=== PATIENT | male | born 1940 | race Caucasian/White ===

== ENCOUNTER → 2017-12-11 13:00 | Outpatient (CLI) | payer MEDICARE, SELFPAY ==
[2017-12-11 14:12] LABS: PSA,Total- Diagnostic 7.78 ng/mL (0.0-4.0)
== END ==
PROVIDERS: Family Provider Student in an Organized Health Care Education/Training Program; PCP Student in an Organized Health Care Education/Training Program; Visit Provider Urology
DX: R97.20 Elevated prostate specific antigen [PSA] (principal)
CPT/HCPCS: 36415; 84153

== ENCOUNTER → 2018-05-30 10:47 | Outpatient (CLI) | payer MEDICARE, SELFPAY ==
[2018-05-30 12:09] LABS: PSA,Total- Diagnostic 8.04 ng/mL (0.0-4.0)
[2018-06-02 12:45] LABS: PSA, Free 0.51 ng/mL; PSA, Free % 7.6 % (.); PSA, Total Ultrasensitive 6.7 ng/mL (0.0-4.0)
== END ==
PROVIDERS: Family Provider Student in an Organized Health Care Education/Training Program; PCP Student in an Organized Health Care Education/Training Program; Visit Provider Urology
DX: R97.20 Elevated prostate specific antigen [PSA] (principal)
CPT/HCPCS: 36415; 84153; 84154

== ENCOUNTER 2018-06-17 05:44 | Day surgery (SDC) | payer MEDICARE, SELFPAY ==
[2018-06-17] VITALS (10 sets, daily range): BP systolic 121–176; BP diastolic 60–84; PULSE 51–536; RESP 16–18; TEMP 36.5–37.1; O2SAT 96–100; BMI 20.9
--- NOTE | 2018-06-17 07:15 | COLBX_PTH ---
PATIENT: EDDA ZAMBRANO LOC: EN U#:[id number] AGE/SX: 78/M ROOM: RE06/17/[address]: Dr. Jefferson Arthur MD : 1940 BED: DIS: 06/17/2018 SPEC #: [id number] RECD: 06/17/18 09:44 STATUS: YOLANDA IAN #: [id number] WALLY: 06/17/18 07:[address]: Jefferson Arthur DEPT: SURGICAL PATHOLOGY RECD BY: Christopher Dotson ENTERED: 06/17/18 11:23 SP TYPE: COLON BX OTHR DR: Dr. Jared Singh, Tissues: A - Ascending colon B - Ascending colon C - Ascending colon Procedures: Surgery Specimen Level IV HEADER OPERATION: Colonoscopy (MOD) PRE-OP DIAGNOSIS: History colon CA TISSUE SUBMITTED: A ? Ascending colon sessile polyp biopsy, B - Ascending colon flat abnormal mucosa biopsy, C - Ascending colon polyp biopsy MICROSCOPIC DIAGNOSIS A. Ascending colon sessile polyp, biopsy: Tubular adenoma. B. Ascending colon flat abnormal mucosa, biopsy: Fragments of colonic mucosa, no pathologic diagnosis. C. Ascending colon polyp, biopsy: Fragments of tubular adenoma. SJ:blanco 06/18/18 COMMENT Please make reference to previous specimen ([id number]) colon, distal abdominal perineal resection with diagnosis of invasive moderately differentiated colonic carcinoma. MICROSCOPIC DESCRIPTION Slides are reviewed. GROSS DESCRIPTION A - Received in fixative is one container labeled with the patient's name and designated ascending colon sessile polyp biopsy. The specimen consists of multiple irregular fragments of light kimbrough soft tissue that in aggregate measure 0.5 x 0.3 x 0.1 cm. The specimen is totally submitted in one cassette. B - Received in fixative is one container labeled with the patient's name and designated ascending colon flat abnormal mucosa biopsy. The specimen consists of multiple irregular fragments of light kimbrough soft tissue that in aggregate measure 1.5 x 0.2 x 0.1 cm. The specimen is totally submitted in one cassette. C - Received in fixative is one container labeled with the patient's name and designated ascending colon polyp biopsy. The specimen consists of multiple irregular fragments of light kimbrough soft tissue that in aggregate measure 1 x 0.5 x 0.1 cm. The specimen is totally submitted in one cassette. / CHARLES:blanco 06/17/18 TC:1 CPT: 06833 x3
--- NOTE | 2018-06-17 10:46 | OP.ENDO_ITS ---
Patient Name: Sean Sanders Procedure Date: 06/17/2018 7:16 AM Date of : 1940 Age: 78 Procedure: Colonoscopy Indications: High risk colon cancer surveillance: Personal history of rectal cancer Patient Profile: Last Colonoscopy: 3 years ago. Providers: eJfferson Arthur Referring MD: Jefferson Arthur Medicines: Midazolam 3 mg IV, Meperidine 100 mg IV Complications: No immediate complications. Procedure: Pre-Anesthesia Assessment: - Prior to the procedure, a History and Physical was performed, and patient medications and allergies were reviewed. The patient's tolerance of previous anesthesia was also reviewed. The risks and benefits of the procedure and the sedation options and risks were discussed with the patient. All questions were answered, and informed consent was obtained. Prior Anticoagulants: The patient has taken aspirin, last dose was day of procedure. ASA Grade Assessment: II - A patient with mild systemic disease. After reviewing the risks and benefits, the patient was deemed in satisfactory condition to undergo the procedure. After I obtained informed consent, the scope was passed under direct vision. Throughout the procedure, the patient's blood pressure, pulse, and oxygen saturations were monitored continuously. The pediatric colonoscope was introduced through the sigmoid colostomy and advanced to the cecum, identified by appendiceal orifice and ileocecal valve. The colonoscopy was performed without difficulty. The patient tolerated the procedure well. The quality of the bowel preparation was good. Scope In: 7:35:43 AM Scope Withdrawal Time 0 hours 11 minutes 15 seconds Scope Out: 7:50:53 AM Total Procedure Duration Time 0 hours 15 minutes 10 seconds Findings: Three sessile polyps were found in the proximal ascending colon. The polyps were 5 to 9 mm in size. These polyps were removed with a cold biopsy forceps. Resection and retrieval were complete. A few small-mouthed diverticula were found in the sigmoid colon. There was evidence of a widely patent end colostomy in the distal sigmoid colon. This was characterized by healthy appearing mucosa. Impression: - Three 5 to 9 mm polyps in the proximal ascending colon, removed with a cold biopsy forceps. Resected and retrieved. - Diverticulosis in the sigmoid colon. - Widely patent end colostomy with healthy appearing mucosa in the distal sigmoid colon. Recommendation: - Discharge patient to home. - Resume previous diet. - Continue present medications. - Telephone my office for pathology results in 1 week. - Repeat colonoscopy in 3 years for surveillance based on pathology results. Procedure Code(s): --- Professional --- 03162, Colonoscopy through stoma; with biopsy, single or multiple Diagnosis Code(s): --- Professional --- Z85.048, Personal history of other malignant neoplasm of rectum, rectosigmoid junction, and anus D12.2, Benign neoplasm of ascending colon Z93.3, Colostomy status K57.30, Diverticulosis of large intestine without perforation or abscess without bleeding CPT copyright 2017 [employer]. All rights reserved. The codes documented in this report are preliminary and upon first dyer review may be revised to meet current compliance requirements. MD Jefferson Martinez, 06/17/2018 8:09:32 AM This report has been signed electronically. Number of Addenda: 0 Note Initiated On: 06/17/2018 7:16 AM
== END 2018-06-17 08:56 | disposition home or self-care (01) ==
LOC: EN 05:44 → AC 05:46
PROVIDERS: Family Provider Student in an Organized Health Care Education/Training Program; PCP Student in an Organized Health Care Education/Training Program; Visit Provider Surgery
PROC: 0DJD8ZZ Inspection of Lower Intestinal Tract, Via Natural or Artificial Opening Endoscopic (ICD-10-PCS; CPT 45378; principal; 2018-06-17 07:10)
DX: D12.2 Benign neoplasm of ascending colon (principal); K57.30 Diverticulosis of large intestine without perforation or abscess without bleeding; Z85.038 Personal history of other malignant neoplasm of large intestine; I10 Essential (primary) hypertension; F41.9 Anxiety disorder, unspecified; Z93.3 Colostomy status; Z87.891 Personal history of nicotine dependence; Z79.82 Long term (current) use of aspirin; Z79.899 Other long term (current) drug therapy
CPT/HCPCS: 45380; 88305; 99152; 99153; J7120

== ENCOUNTER → 2019-06-15 | Outpatient (CLI) | payer MEDICARE, SELFPAY ==
[2018-06-17 06:15] VITALS: BMI 20.9
[2019-06-15 12:12] LABS: PSA,Total - Annual Screen 9.17 ng/mL (0.00-4.00)
== END | disposition home or self-care (01) ==
PROVIDERS: Family Provider Student in an Organized Health Care Education/Training Program; PCP Student in an Organized Health Care Education/Training Program; Referring Provider Urology; Visit Provider Urology
DX: Z12.5 Encounter for screening for malignant neoplasm of prostate (principal)
CPT/HCPCS: 36415; 84153; G0103

== ENCOUNTER → 2019-07-21 | Outpatient (CLI) | payer MEDICARE, SELFPAY ==
--- NOTE | 2019-07-21 09:05 | MRI_ITS ---
STUDY: MR PELVIS WITH AND WITHOUT CONTRAST (PROSTATE) REASON FOR EXAM: Male, 79 years old. Elevated PSA, negative prostate biopsy 2 years ago, history of colon cancer with colostomy, chemotherapy and radiation therapy in 2000 TECHNIQUE: Standardized multiparametric prostate MRI with T1, T2, DWI/ADC sequences were obtained in 3 orthogonal planes, and dynamic contrast enhancement sequences. 14 ml of Dotarem contrast material was administered intravenously for the contrast portion of the examination. COMPARISON: 06/19/2016 FINDINGS: The prostate volume measures 10-12 mm3. The contours of the prostate gland are smooth. There is not mass effect on the bladder base. The transition zone is heterogenous. PI-RADS DWI score 4 - Focal markedly hypointense on ADC and markedly hyperintense on high b-value DWI; 8 mm on image 80 of series 8. PI-RADS T2W score 4 - Non-circumscribed, homogeneous, moderately hypointense, and 8 mm in greatest dimension. This is best seen on image 19 of series 5 and image 37 of series 11. Nodule is in the anterior transitional zone (mid). Contrast enhancement (+) Focal, earlier or contemporaneous with enhancement of adjacent normal prostatic tissues, and corresponding to a suspicious finding on T2WI and/or DWI. The peripheral zone is heterogenous. PI-RADS DWI score 2 - Indistinct mildly hypointense on ADC. PI-RADS T2W score 2 - Linear, wedge-shaped, or diffuse mild hypointensity, usually with indistinct margin. Contrast enhancement (-) No early enhancement, or; diffuse enhancement so that margins do not correspond to a finding on T2WI and/or DWI, or; focal enhancement corresponding to a lesion demonstrating features of BPH on T2WI. The seminal vesicles demonstrate multiple T2 bright nonenhancing simple cysts. No mass lesion or invasion depicted. The rectoprostatic angles are normal. Urinary bladder is normal without wall thickening. The vascular structures of the are normal. The visualized hollow viscus structures are normal. Susceptibility artifact in the left hemipelvis likely relates to prior surgery. Left lower quadrant ostomy identified. Mild edema on the ilial side of the bilateral sacroiliac joints stable, likely degenerative. No discrete suspicious osseous mass. MRI/Pelvis W/WO Contrast IMPRESSION: 1. PIRADS v2 2015 -- 4 - High (clinically significant cancer is likely), new since prior MRI. 2. Small, heterogeneous prostate gland. 3. Seminal vesicle cysts, stable. Electronically Signed: Rikki Mayberry MD ([place]) at 9:18 EDT , Service support ,
[2019-07-21 09:35] LABS: CREATININE FINGERSTICK 1.4 mg/dL (0.70-1.30)
== END | disposition home or self-care (01) ==
LOC: MRI 08:59
PROVIDERS: Family Provider Student in an Organized Health Care Education/Training Program; PCP Student in an Organized Health Care Education/Training Program; Referring Provider Urology; Visit Provider Urology
DX: R97.20 Elevated prostate specific antigen [PSA] (principal)
CPT/HCPCS: 72197; A9575

== ENCOUNTER → 2020-05-02 | Outpatient (CLI) | payer MEDICARE, SELFPAY ==
--- NOTE | 2020-05-02 15:42 | RAD_ITS ---
STUDY: X-RAY - RIGHT FOOT CLINICAL: Male, 79 years old. little toe amputation d/t hammer toe 3 months ago, now presents with pain first toe and base of 5th mt, and possible infection TECHNIQUE: 3 view(s) of the foot. COMPARISON: None. FINDINGS: Postop change status post resection of the left hip total level of the metatarsal phalangeal joint. There is subchondral lucency of the lateral head of the fifth metatarsal without cortical destruction possibly representing early changes of acute osteomyelitis. Normal talus, calcaneus, and tarsal bones. Normal visualized subtalar, talonavicular, calcaneocuboid, tarsal and tarsometatarsal articulations. Normal metatarsi. Normal metatarsophalangeal joint of the great toe. Normal tibial and fibular sesamoid bones. Normal interphalangeal joint of the great toe. Normal phalanges of the great toe. Normal second through fifth metatarsophalangeal joints. Normal interphalangeal joints and phalanges of the lesser toes. The soft tissue structures are unremarkable. RAD/Foot min 3 Views IMPRESSION: Postsurgical changes status post amputation of the left fifth toe at the metatarsophalangeal joint. Cannot definitively exclude acute osteomyelitis of the distal fifth metatarsal. MRI or three-phase bone scan would be useful for further evaluation Electronically Signed: Alexander Gamez MD at 20:31 EDT , Service support ,
== END | disposition home or self-care (01) ==
LOC: HPRAD 15:39
PROVIDERS: PCP Student in an Organized Health Care Education/Training Program; Referring Provider Student in an Organized Health Care Education/Training Program; Visit Provider Student in an Organized Health Care Education/Training Program
DX: S98.131A Complete traumatic amputation of one right lesser toe, initial encounter (principal); L08.9 Local infection of the skin and subcutaneous tissue, unspecified
CPT/HCPCS: 73630

== ENCOUNTER → 2020-05-06 13:23 | Outpatient (CLI) | payer MEDICARE, SELFPAY ==
--- NOTE | 2020-05-06 13:27 | ART_ITS ---
Reason For Study: PVD Procedure A bilateral lower extremity continuous wave Doppler with analog waveform analysis,segmental pressures,and ankle brachial indexes without exercise. Left Segmental Pressures Left brachial= 130mmHg. Left thigh = >254mmHg. Left calf = >254mmHg. Left ankle= >254mmHg. Left posterior tibial artery = >254mmHg. Left dorsalis pedis artery = >254mmHg. Left digit = 34 mmHg. The left dorsalis pedis waveforms are monophasic. The left posterior tibial artery waveforms are monophasic. Right Segmental Pressures Right brachial= 123mmHg. Right thigh = >254mmHg. Right calf = >254mmHg. Right ankle= >254mmHg. Right posterior tibial artery = >254mmHg. Right dorsalis pedis artery = >254mmHg. The right dorsalis pedis waveforms are monophasic. The right posterior tibial artery waveforms are monophasic. Right digit = 20 mmHg. Indices The right ankle brachial index by the dorsalis pedis is NONCOMPRESSIBLE. The right ankle brachial index by the posterior tibial artery is NONCOMPRESSIBLE. The right digital-brachial index is 0.15. The left ankle brachial index by the dorsalis pedis is NONCOMPRESSIBLE. The left ankle brachial index by the posterior tibial artery is NONCOMPRESSIBLE. The left digital-brachial index is 0.26. Interpretation Summary Technically very limited examination based upon noncompressibility of vessels making ABIs unobtainable. Bilateral lower extremity monophasic waveforms at the posterior tibial and dorsalis pedis level consistent with severe disease bilaterally Abnormal digital brachial indices bilaterally Ordering Physician: Miguel Ángel Leavitt Referring Physician: Miguel Ángel Leavitt Performed By: Angi Mccoy RVT, RDCS
== END ==
PROVIDERS: PCP Student in an Organized Health Care Education/Training Program; Referring Provider Podiatrist Foot & Ankle Surgery; Visit Provider Podiatrist Foot & Ankle Surgery
DX: I73.9 Peripheral vascular disease, unspecified (principal)
CPT/HCPCS: 93923

== ENCOUNTER → 2020-05-11 | Outpatient (CLI) | payer MEDICARE, SELFPAY ==
[2020-05-11 15:55] VITALS: BMI 20.7
[2020-05-11 17:14] LABS: Hematocrit 35.5 % (40-54); Hemoglobin 11.6 g/dL (13.0-16.5); Mean Corp Hgb Conc 32.7 g/dL (32-36); Mean Corpuscular Hgb 32.5 pg (27.0-32.0); Mean Corpuscular Volume 99.4 fL (80-94); Mean Platelet Vol. 9.3 fl (6.2-12.0); Platelet Count 219 K/mm3 (150-450); RBC Distribution Width CV 12.2 % (11.6-14.6); RBC Distribution Width SD 44.8 fl (35.1-43.9); Red Blood Count 3.57 M/mm3 (4.6-6.2); White Blood Count 6.6 K/mm3 (4.4-11.0)
[2020-05-11 17:36] LABS: ALB/GLOB Ratio 1.4 RATIO (0.9-2.4); AST(SGOT) 20 U/L (15-37); Alanine Aminotransfer ALT/SGPT 29 U/L (16-61); Albumin, Serum 4.1 g/dL (3.2-5.0); Alkaline Phosphatase 68 U/L (45-117); Anion Gap 4 (5-15); BUN 37 mg/dL (7-18); BUN/Creat Ratio 21.4 RATIO (10-20); Calcium,Total 9.3 mg/dL (8.5-10.1); Chloride 107 mmol/L (98-107); Creatinine, Serum 1.73 mg/dL (0.70-1.30); EST Glomerular Filtration Rate 41 mL/min (>60); Est Glom Filt Rate - Afr Amer 49 mL/min (>60); Glucose 82 mg/dL (74-106); Potassium 4.3 mmol/L (3.5-5.1); Protein, Total 7.1 g/dL (6.4-8.2); Sodium Level 141 mmol/L (136-145)
== END | disposition home or self-care (01) ==
LOC: LAB 16:40
PROVIDERS: PCP Student in an Organized Health Care Education/Training Program; Referring Provider Surgery; Visit Provider Surgery
DX: Z01.818 Encounter for other preprocedural examination (principal)
CPT/HCPCS: 36415; 80053; 85027

== ENCOUNTER 2020-05-18 06:45 | Day surgery (SDC) | payer MEDICARE, SELFPAY ==
[2020-05-11 15:55] VITALS: BMI 20.7
[2020-05-17 08:15] VITALS: BMI 20.7
--- NOTE | 2020-05-18 07:00 | PCM.HP.BLA ---
Problem List (1) Peripheral arterial occlusive disease Status: Acute History and Physical Date of Admission: 05/18/20 Intake Visit Reasons: NON HEALING WOUND, US 05/06 PVD Kiosk Sales Representative Required: No Is patient in pain?: Yes (Right foot) Pain scale (1-10): 4 Allergies morphine Adverse Reaction (Verified 05/11/20 16:02) Vomiting Medications Alendronate Sodium [Fosamax] 70 mg PO Q7D@0700 06/25/16 [History Confirmed 05/11/20] Aspirin [Adult Low Dose Aspirin EC] 81 mg PO DAILY 06/25/16 [History Confirmed 05/11/20] Calcium Carbonate/Vitamin D3 [Calcium 500 mg Chewable Tablet] 2 ea PO DAILY 06/25/16 [History Confirmed 05/11/20] Cetirizine HCl [Allergy Relief] 10 mg PO DAILY 06/25/16 [History Confirmed 05/11/20] Fluticasone 0.05% [Flonase Nasal [place]] 1 spray NASAL BID 06/25/16 [History Confirmed 05/11/20] L.acidoph,Paracasei, B.lactis [Probiotic] 1 ea PO DAILY 06/25/16 [History Confirmed 05/11/20] Multivitamin [Daily Multiple Vitamin] 1 ea PO DAILY 06/25/16 [History Confirmed 05/11/20] Nabumetone [Relafen] 500 mg PO BID 06/25/16 [History Confirmed 05/11/20] Omeprazole [Prilosec] 20 mg PO BID 06/25/16 [History Confirmed 05/11/20] Potassium Chloride [Klor-Con M20] 20 meq PO BID 06/25/16 [History Confirmed 05/11/20] Pravastatin [Pravachol] 40 mg PO QHS 06/25/16 [History Confirmed 05/11/20] Saw [place] Fruit [Saw [place]] 450 mg PO DAILY 06/25/16 [History Confirmed 05/11/20] Tamsulosin HCl [Flomax] 0.4 mg PO BID 06/25/16 [History Confirmed 05/11/20] Trazodone HCl 50 mg PO DAILY 06/25/16 [History Confirmed 05/11/20] cholecalciferol (vitamin D3) 125 mcg (5,000 unit) capsule 1,000 unit PO DAILY cap 05/26/18 [History Confirmed 05/11/20] cephalexin 500 mg capsule 500 mg PO Q6H cap 05/11/20 [History Confirmed 05/11/20] citalopram 40 mg tablet 40 mg PO DAILY tab 05/11/20 [History Confirmed 05/11/20] collagenase clostridium histo. 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 Jefferson Arthur MD) Smoking Status: Former smoker alcohol intake: never substance use type: does not use HPI HPI HPI: EDDA SANDERS, is a 80 M who presents to the office today for surgical consultation regarding a nonhealing right fifth toe surgical site and calcaneal pressure sore the patient apparently had a right foot fifth digit trigger toe as well as a first digit bunion. Dr. Del Rosario's upon apparently perform surgery on the fifth toe January 2020. There is been nonhealing of the wound since. I see x-ray images at the [facility] on May 02, 2020. Postsurgical changes post amputation of the right fifth toe at the metatarsal phalangeal joint. Cannot exclude acute osteomyelitis of the distal fifth metatarsal. MRI recommended. However by patient report an MRI could not be pursued because of the patient's chronic renal insufficiency. The patient had noninvasive bilateral lower extremity arterial study done at the [facility] May 06, 2020. Unfortunately this was an extraordinarily limited exam due to noncompressibility of vessels throughout. Doppler waveforms were monophasic bilateral posterior tibial and dorsalis pedis. Digital waveforms markedly flattened with significantly abnormal digital brachial indices of 0.15 on the right and 0.26 on the left. The patient spends a lot of time outside and has so for most of his life. He always enjoyed hunting and trapping. Although he does not specifically recall an episode of frostbite he does not exclude that as a possibility. He denies myocardial infarction or CVA or diabetes or tobacco use. He states family history is notable for a mother who in her 90s had a stroke. His only anticoagulant is low-dose aspirin. He does take pravastatin. His history is notable for rectal cancer for which I remotely assisted him with an abdominal perineal resection with a permanent sigmoid colostomy. He has had no recurrence and his most recent colonoscopy is as noted below [facility] [address] [place] [address] Lower Ext Art Exam w/o Exercis 05/06/20 1359 MR#: [id number] Name:EDDA SANDERS [facility] #:[id number] : 1940 80From:Jefferson Arthur MD Attending Dr: MALLORY Scotttatus: REG CLI Ordering Dr: Miguel Ángel LeavittMDate: 05/06/20 [facility]: Reason For Study: PVD Procedure A bilateral lower extremity continuous wave Doppler with analog waveform analysis,segmental pressures,and ankle brachial indexes without exercise. Left Segmental Pressures Left brachial= 130mmHg. Left thigh = >254mmHg. Left calf = >254mmHg. Left ankle= >254mmHg. Left posterior tibial artery = >254mmHg. Left dorsalis pedis artery = >254mmHg. Left digit = 34 mmHg. The left dorsalis pedis waveforms are monophasic. The left posterior tibial artery waveforms are monophasic. Right Segmental Pressures Right brachial= 123mmHg. Right thigh = >254mmHg. Right calf = >254mmHg. Right ankle= >254mmHg. Right posterior tibial artery = >254mmHg. Right dorsalis pedis artery = >254mmHg. The right dorsalis pedis waveforms are monophasic. The right posterior tibial artery waveforms are monophasic. Right digit = 20 mmHg. Indices The right ankle brachial index by the dorsalis pedis is NONCOMPRESSIBLE. The right ankle brachial index by the posterior tibial artery is NONCOMPRESSIBLE. The right digital-brachial index is 0.15. The left ankle brachial index by the dorsalis pedis is NONCOMPRESSIBLE. The left ankle brachial index by the posterior tibial artery is NONCOMPRESSIBLE. The left digital-brachial index is 0.26. Interpretation Summary Technically very limited examination based upon noncompressibility of vessels making ABIs unobtainable. Bilateral lower extremity monophasic waveforms at the posterior tibial and dorsalis pedis level consistent with severe disease bilaterally Abnormal digital brachial indices bilaterally Ordering Physician: Miguel Ángel Leavitt Referring Physician: Miguel Ángel Leavitt Performed By: Angi Mccoy Henrietta, RDCS 05/06/20 1658 Date [facility] Medical Records Department [address] [place] [id number] Progress Note - Endoscopy 06/17/18715 MR#: [id number] Name:EDDA SANDERS [facility] #:[id number] : From: Jefferson Arthur MD Patient Name: Edda Sanders Procedure Date: 06/17/2018 7:16 AM Date of : 1940 Age: 78 Procedure: Colonoscopy Indications: High risk colon cancer surveillance: Personal history of rectal cancer Patient Profile: Last Colonoscopy: 3 years ago. Providers: Jefferson Arthur Referring MD: Jefferson Arthur Medicines: Midazolam 3 mg IV, Meperidine 100 mg IV Complications: No immediate complications. Procedure: Pre-Anesthesia Assessment: - Prior to the procedure, a History and Physical was performed, and patient medications and allergies were reviewed. The patient's tolerance of previous anesthesia was also reviewed. The risks and benefits of the procedure and the sedation options and risks were discussed with the patient. All questions were answered, and informed consent was obtained. Prior Anticoagulants: The patient has taken aspirin, last dose was day of procedure. ASA Grade Assessment: II - A patient with mild systemic disease. After reviewing the risks and benefits, the patient was deemed in satisfactory condition to undergo the procedure. After I obtained informed consent, the scope was passed under direct vision. Throughout the procedure, the patient's blood pressure, pulse, and oxygen saturations were monitored continuously. The pediatric colonoscope was introduced through the sigmoid colostomy and advanced to the cecum, identified by appendiceal orifice and ileocecal valve. The colonoscopy was performed without difficulty. The patient tolerated the procedure well. The quality of the bowel preparation was good. Scope In: 7:35:43 AM Scope Withdrawal Time 0 hours 11 minutes 15 seconds Scope Out: 7:50:53 AM Total Procedure Duration Time 0 hours 15 minutes 10 seconds Findings: Three sessile polyps were found in the proximal ascending colon. The polyps were 5 to 9 mm in size. These polyps were removed with a cold biopsy forceps. Resection and retrieval were complete. A few small-mouthed diverticula were found in the sigmoid colon. There was evidence of a widely patent end colostomy in the distal sigmoid colon. This was characterized by healthy appearing mucosa. Impression: - Three 5 to 9 mm polyps in the proximal ascending colon, removed with a cold biopsy forceps. Resected and retrieved. - Diverticulosis in the sigmoid colon. - Widely patent end colostomy with healthy appearing mucosa in the distal sigmoid colon. Recommendation: - Discharge patient to home. - Resume previous diet. - Continue present medications. - Telephone my office for pathology results in 1 week. - Repeat colonoscopy in 3 years for surveillance based on pathology results. Procedure Code(s): --- Professional --- 93379, Colonoscopy through stoma; with biopsy, single or multiple Diagnosis Code(s): --- Professional --- Z85.048, Personal history of other malignant neoplasm of rectum, rectosigmoid junction, and anus D12.2, Benign neoplasm of ascending colon Z93.3, Colostomy status K57.30, Diverticulosis of large intestine without perforation or abscess without bleeding CPT copyright 2017 [employer]. All rights reserved. The codes documented in this report are preliminary and upon binder sorter review may be revised to meet current compliance requirements. MD Jefferson Martinez, 06/17/2018 8:09:32 AM This report has been signed electronically. Number of Addenda: 0 Note Initiated On: 06/17/2018 7:16 AM ____ No Clinically relevant changes since time of dictation ____ See Progress Notes for Changes ____ Dictated on Admission 06/17/18 0846 Date Jefferson Arthur MD HPI HPI HPI: EDDA SANDERS, is a 80 M who presents to the office today for ROS General General: Yes weight change, fatigue and colon cancer; no appetite, breast cancer or weakness HEENT HEENT: No difficulty swallowing, eye injury, eye surgery, swollen glands or hoarseness Endo Endocrine: No thyroid disease, diabetes mellitus, thyroid cancer, Hair loss, heat intolerance or cold intolerance Skin Skin: No rash or changing moles Breast Breast: No left breast lump, right breast lump, nipple discharge, breast pain, abnormal mammogram, abnormal US or breast enlargement Musc Musculoskeletal: Yes arthritis; no back problems, rheumatoid arthritis, gout or joint pain Cardio Cardiovascular: No murmur, pacemaker, heart disease, atrial fibrillation, high blood pressure, heart attack, heart stent, palpitations, shortness of breat with exertion or chest pain Psych Psychiatric: Yes depression and anxiety; no hearing voices Resp Respiratory: No shortness of breath, Yes sleep apnea, No cough, No COPD, No asthma, No emphysema, No wheezing Gastro Gastrointestinal: No abdominal pain, No nausea or vomiting, Yes diarrhea, No constipation, No blood in stool, Yes acid reflux, No hemorrhoids, No ulcers, No gallbladder problem, No black,tarry stools Mark Hematologic: Yes blood thinners (ASA 81 mg), No blood disorders, No bleeding, No anemia, No blood clots Neuro Neurologic: No weakness Exam Const General: cooperative, comfortable, no acute distress Nutritional Appearance: average body habitus Orientation: alert, awake, oriented x3 HENMT Head: normal to inspection Eyes General: appearance normal, both eyes and all related structures Neck Other: Supple, no cervical adenopathy Chest Chest palpation & inspection: normal inspection of the chest Breast Palpation: No nipple discharge Resp Effort & Inspection: normal respiratory effort Auscultation: clear to auscultation bilaterally Cardio Rate: regular rate Rhythm: regular rhythm Heart Sounds: no murmurs Other: Right radial pulse 0, right brachial pulse 2+ Left radial pulse 1+, left brachial 2+ Bilateral carotids 2+. I do not detect carotid bruit Bilateral femorals 2+ Bilateral popliteals 2+ Bilateral DPs and PTs absent GI Palpation: soft, no hepatosplenomegaly Other: Per minute left lower quadrant and sigmoid stoma present Normal bowel sounds No abdominal bruit Musc Other: Mild kyphosis Neuro Cognition: normal cognition Extrem Other: Right calcaneus has superficial discoloration approximately 3 x 1 cm consistent with pressure sore stage I Dorsum right foot has a small 6 mm diameter superficial ulceration Right fifth digit surgically absent with nonhealing wound There is marked atrophy and elevation pallor and hyperemic response to dependency all 10 digits and distal forefoot. Psych Affect: normal affect Assessment & Plan Problems 1. Peripheral arterial occlusive disease I77.9 2. Small vessel disease I73.9 Plan 80-year-old gentleman who claims that he is not diabetic. His clinical peripheral vascular occlusive disease presents as if a diabetic pattern. He has critical ischemia of both feet. There is likely multi segmental occlusion of his infrageniculate vessels bilaterally. Additionally he likely has severe small vessel disease bilaterally. I strongly suspect that he has had previous unrecognized episode of frostbite to his toes. Unfortunately he additionally reports a history of inability to proceed with MRI because of chronic renal insufficiency. I propose for him a abdominal pelvic right lower extremity arteriogram with possible endovascular intervention as a means of right foot salvage. In great detail with his daughter Catrina burger we have discussed the technique benefit risk complications and alternatives. For the larger vessels I could use carbon dioxide but he is well aware that contrast would be required for the fine definition detail of the infrageniculate vessels. Absolutely no guarantees of success have been offered. The patient is aware that he currently is at significant risk for limb loss. If his renal function is prohibitive then I recommend referral to the wound care center for consideration of hyperbaric oxygen therapy. He has had an opportunity to ask and have questions answered. We will obtain laboratory today. We will tentatively schedule him for endovascular intervention as soon as feasible. In addition to the above I did additionally offer the option of a tertiary referral consultation. They would like to stay locally if feasible. I appreciate the opportunity of continuing assist with his surgical care Copy: Dr. Jared Singh and Dr. Miguel Ángel Arthur M.D., F.A.C.S. Orders Orders: Comprehensive Metabolic Profil Today Z01.818 CBC-Complete Blood Cnt No Diff Today Z01.818 Coding Level of Care Code Off vis,est,level 4 Diagnoses Peripheral arterial occlusive disease I77.9 Small vessel disease I73.9 I have re-examined the patient. There are no clinical changes since date of exam. Procedure Criteria Procedure Type: Elective COVID Risk Discussion: The surgeon/proceduralist and patient have discussed in detail the risk of exposure to and/or potential harm posed by the COVID-19 virus with having a surgery/procedure at this time versus the risk of delaying the surgery/procedure. It is not possible to know either the risk of delaying the surgery or procedure or chance of getting an infection with perfect accuracy, but a joint decision was made between the patient and the surgeon/proceduralist to proceed at this time with the scheduled surgery/procedure as indicated on the consent form.
[2020-05-18 09:16] LABS: ACT Activated Clotting Time 180 sec (74-137)
[2020-05-18 09:16] LABS: ACT Activated Clotting Time 186 sec (74-137)
[2020-05-18 09:16] LABS: ACT Activated Clotting Time 120 sec (74-137)
--- NOTE | 2020-05-18 09:19 | OP.PCM_ITS ---
Problem List (1) Peripheral arterial occlusive disease Status: Acute Report of Operation Date of Procedure: 05/18/20 Pre-Operative Diagnosis: Nonhealing right foot amputation site Post-Operative Diagnosis: Nonhealing right foot amputation site. 85% stenosis right distal superficial femoral artery, 80% stenosis distal right anterior tibial artery, occlusion proximal right peroneal and posterior tibial arteries Surgery/Procedure Performed:: Abdominal pelvic right lower extremity arteriogram with 2 mm tapered to 1.5 mm 210 mm [place] cross anterior tibial angioplasty, right superficial femoral 6 x 2 Powerflex angioplasty Description of Surgical Findings:: Timeout and informed consent was obtained. 80-year-old gentleman was taken to the special procedures lab placed upon the table. 4 mg of Zofran and 50 mcg of fentanyl and 1 mg of Versed were given as an intermittent sedation. Ultrasound was performed of the left groin. Under ultrasound guidance 2% lidocaine was instilled as a local anesthetic. A total of 10 cc was used. Under ultrasound guidance a micropuncture needle was inserted into the left common femoral artery followed by Seldinger wire advancement. Micropuncture sheath was inserted. 035 J-wire was inserted. 5 Nigerian short sheath dilator was inserted. Then using a 035 angled Glidewire a 5 Nigerian universal flush catheter was placed into the distal abdominal aorta. Using carbon dioxide a AP aortogram was obtained. Then using an angled Glidewire and the flush catheter I gained access to the proximal right superficial femoral artery. Static views of the entire right lower extremity were obtained with hand-injection of carbon dioxide. Having achieved that identified a area of high-grade stenosis within the distal right superficial femoral artery and within the distal right anterior tibial artery as well as occlusion of the right posterior tibial and peroneal arteries. I placed a 035 quick cross catheter was able to get by the area of SFA stenosis using that and an angled Glidewire. I then exchanged out for an 035 Magic wire. I exchanged out the 5 Nigerian sheath for a 70 cm 6 Nigerian Rabie sheath. Patient received 8000 units of heparin. And then based upon ACT measurements throughout the procedure he received another thousand units. I was able to engage the right anterior tibial with a airplane patrol pilot 150 wire and was able to advance that wire d own past the ankle mortise. I then placed a 2-1.5 taper [place] cross balloon and performed angioplasty of the entire length of the right anterior tibial. There was no refilling of the distal right peroneal or posterior tibial to allow for reestablishment of flow. Having performed the angioplasty and then inspected the distal right superficial femoral artery and utilized a 6 x 2 Powerflex balloon to treat that area of high-grade stenosis. I did use intermittent diluted contrast to assist with final visualization. The SFA responded nicely with a 10 to 15% residual focal notch. I elected not to retreat that with a larger balloon for risk of causing the dissection. The right anterior tibial appeared to respond nicely. The sheath was then withdrawn. Magic wire reinserted. A Perclose diet device was inserted and secured with good immediate obtaining hemostasis. At the completion there was a 3+ palpable right popliteal pulse and a nicely dopplerable right distal anterior tibial. Blood loss was minimal Contrast used 18.5 cc Visipaque Images demonstrate a widely patent distal abdominal aorta bilateral common iliacs and internal iliacs. The right common femoral proximal superficial femoral and profundofemoral patent. As noted there is an area of significant stenosis within the right distal superficial femoral artery at 85%. The popliteal is patent. The distal right anterior tibial artery is diffusely narrowed to 80%. Both the right proximal peroneal and posterior tibial occlude shortly after their origin. Subsequent to the angioplasty of anterior tibial and superficial femoral artery both are improved. There is a residual focal area of stenosis of the superficial femoral artery at 10 to 15%. As noted above I elected not to retreat that for fear of causing a dissection. The patient tolerated the procedure well. Jefferson Arthur M.D., F.A.C.S. Type of Anesthesia:: IV Sedation, Local
== END 2020-05-18 13:00 | disposition home or self-care (01) ==
LOC: CLSP 06:45
PROVIDERS: PCP Student in an Organized Health Care Education/Training Program; Referring Provider Surgery; Visit Provider Surgery
DX: I73.9 Peripheral vascular disease, unspecified (principal); I12.9 Hypertensive chronic kidney disease with stage 1 through stage 4 chronic kidney disease, or unspecified chronic kidney disease; N18.9 Chronic kidney disease, unspecified; F41.9 Anxiety disorder, unspecified; Z89.421 Acquired absence of other right toe(s); Z87.891 Personal history of nicotine dependence; Z85.048 Personal history of other malignant neoplasm of rectum, rectosigmoid junction, and anus; Z93.3 Colostomy status; Z79.82 Long term (current) use of aspirin; Z79.899 Other long term (current) drug therapy
CPT/HCPCS: 36200; 36245; 37224; 37228; 75625; 75710; 76937; 85347; 99152; 99153; J7030; Q9967; C1725; C1760; C1769; C1887; C1894; J2405

== ENCOUNTER → 2020-06-08 | Outpatient (CLI) | payer MEDICARE, SELFPAY ==
[2020-05-17 08:15] VITALS: BMI 20.7
== END | disposition home or self-care (01) ==
LOC: LAB 07:55
PROVIDERS: PCP Student in an Organized Health Care Education/Training Program; Referring Provider Urology; Visit Provider Urology
DX: R97.20 Elevated prostate specific antigen [PSA] (principal); L97.512 Non-pressure chronic ulcer of other part of right foot with fat layer exposed; M21.621 Bunionette of right foot; L84 Corns and callosities; I73.9 Peripheral vascular disease, unspecified
CPT/HCPCS: 11042; 36415; 84153; 99213; G0463

== ENCOUNTER 2020-06-29 08:30 | Outpatient (RCR) | payer MEDICARE, SELFPAY ==
[2020-05-17 08:15] VITALS: BMI 20.7
[2020-06-08 08:58] VITALS: BP 130/76; PULSE 66; RESP 18; TEMP 36.4; BMI 20.7
--- NOTE | 2020-06-08 10:21 | PCM.WC.PN ---
(1) Ulcer of right foot with fat layer exposed Status: Chronic Current Visit: Yes Code(s): L97.512 - Non-pressure chronic ulcer of other part of right foot with fat layer exposed (2) Delayed wound healing Status: Chronic Current Visit: Yes Code(s): T14.8XXD - Other injury of unspecified body region, subsequent encounter (3) Tailors bunion Status: Chronic Current Visit: Yes Qualifiers: Laterality: right Qualified Code(s): M21.621 - Bunionette of right foot Code(s): M21.629 - Bunionette of unspecified foot (4) Callus of foot Status: Chronic Current Visit: Yes Code(s): L84 - Corns and callosities (5) Peripheral arterial occlusive disease Status: Chronic Current Visit: Yes Code(s): I77.9 - Disorder of arteries and arterioles, unspecified (6) History of amputation of toe Status: Chronic Current Visit: Yes Code(s): Z89.429 - Acquired absence of other toe(s), unspecified side Comment: Right foot- 5th digit Type of Wound Date of Service: 06/08/20 Chief Complaint: right foot ulcers History of Wound: This 80-year-old male presents the wound healing center for nonhealing right foot ulcers. 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 Leavitt. It failed to heal and he was further evaluated and had vascular arterial intervention with Dr. Arthur on 05-18-2020. He relates the current ulcer sites have been open for over 4 months. He denies recent trauma. He denies redness, odor, or streaking. He denies fever, chill, nausea, vomiting. He denies claudication however relates he is mainly seated throughout the day. He wears an athletic sneaker. He denies rest paresthesias. He denies history of diabetes. He denies rest pain of the foot and reports his foot is warmer since he had vascular intervention. He also relates that he has dry skin and callus formation near his bunion site and heel. He has been applying lotion and this site is very sensitive. He denies drainage. He also has a bunion deformity and ask if he is an appropriate candidate to have a bunion correction surgically. Progress of Wound: Stable - Physical Exam Vital Signs Temp Pulse Resp BP 97.6 F L 66 18 130/76 H 06/08/20 08:58 06/08/20 08:58 06/08/20 08:58 06/08/20 08:58 General: Alert, Oriented x3, Cooperative, No apparent distress HEENT: Atraumatic, - - Difficulty hearing Extremities: No cyanosis, Capillary Refill Less than 3 Seconds, No Calf Tenderness - Negative Teto and Nieto sign bilateral. Compartments are soft to palpate right lower extremity, Diminished Peripheral Pulses, Edema Skin: Ulcer/ Wound - No purulence, erythema, streaking, odor, necrosis, probe to bone, or infection. The adjacent skin is hairless and atrophic. The plantar ulcer has fibrous and granular base. The dorsal ulcer is 100% fibrous base, - - Callus that has previously been well debrided to the plantar medial first metatarsal head and heel. No fissures or open lesions noted Wound Measurements and Assessment WC - Nurse 1 - General Ulcer Measurement Start: 06/08/20 08:56 Freq: Status: Active Protocol: Activity Type Activity Date Activity User E-Sign Co-Sign Detail Recorded Client Recorded Date Recorded By Document 06/08/20 08:58 MN [id number] 06/08/20 09:21 MN 06/08/20 08:58 Wound Center Nurse 1 [Ulcer Assessment] #2 RIGHT Lateral Foot -Current Size (cm) - Length 1.6 -Current Size (cm) - Width 0.6 -Current Size (cm) - Depth 0.2 -Total Square Cm 0.96 -Exudate Amt None Present -Wound Margin Flat & Intact -Granulation Amt Small (1-33%) -Granulation Quality Pale,Brutus -Necrosis Amt Large (67-100%) -Necrotic Tissue Type Adherent Slough -Texture (Salma-wound Skin Appearance) Assessed,Callus -Moisture (Salma-wound Skin Appearance Assessed ) -Color (Salma-wound Skin Appearance) Assessed -Temperature (Salma-wound Skin No Abnormality Appearance) (Pt Warm) -Tenderness on Palpation (Salma-wound No Skin Appearance) -Ulcer Cleansing Rinsed/ Irrigated with Saline -Foul Odor after Cleansing No -Anesthetic Used 4% Lidocaine Solution #1 RIGHT PLANTAR -Current Size (cm) - Length 0.7 -Current Size (cm) - Width 0.2 -Current Size (cm) - Depth 0.4 -Total Square Cm 0.14 -Exudate Amt None Present -Wound Margin Flat & Intact -Granulation Amt Large (67-100%) -Granulation Quality Pale -Slough/Fibrin No -Texture (Salma-wound Skin Appearance) Assessed,Callus -Moisture (Salma-wound Skin Appearance Assessed ) -Color (Salma-wound Skin Appearance) Assessed -Temperature (Salma-wound Skin No Abnormality Appearance) (Pt Warm) -Tenderness on Palpation (Salma-wound No Skin Appearance) -Ulcer Cleansing Rinsed/ Irrigated with Saline -Foul Odor after Cleansing No -Anesthetic Used 4% Lidocaine Solution [Edema Assessment] -Lower Limb Edema Present NA WC - Nurse 2 - General Ulcer CM Notes Start: 06/08/20 08:56 Freq: Status: Active Protocol: Activity Type Activity Date Activity User E-Sign Co-Sign Detail Recorded Client Recorded Date Recorded By Document 06/08/20 09:36 JF [id number] 06/08/20 09:46 [email or web address] 06/08/20 09:36 Wound Center Nurse 2 [Procedure/Treatment] #2 RIGHT Lateral Foot -Time 09:41 -Correct Patient Yes -Correct Side, Site, Position Yes -Correct Procedure Yes -Procedure Performed Yes -Type of Procedure Debridement -Clinical Debridement Subcutaneous -Tissue Removed Subcutaneous -Post Debridement (cm) - Length 1.6 -Post Debridement (cm) - Width 0.7 -Post Debridement (cm) - Depth 0.2 -Total Square (Post) (cm) 1.12 -Area of Debridement (cm) - Length 1.6 -Area of Debridement (cm) - Width 0.7 -Total Square (Area) (cm) 1.12 -Tunneling No -Undermining/Tunneling No -Circular Undermining No -Wound/Ulcer Outcome Not Healed -Ulcer Cleansing Rinsed/ Irrigated with Saline -Foul Odor after Cleansing No -Bioengineered Tissue No -Bleeding Controlled with Pressure -Offloading Yes -Type of Offloading Surgical Shoe -Treatment Response Procedure Tolerated Well -Debridement - Subq, 1st 20sq cm No #1 RIGHT PLANTAR -Time 09:38 -Correct Patient Yes -Correct Side, Site, Position Yes -Correct Procedure Yes -Procedure Performed Yes -Type of Procedure Debridement -Clinical Debridement Subcutaneous -Tissue Removed Subcutaneous -Post Debridement (cm) - Length 0.8 -Post Debridement (cm) - Width 0.2 -Post Debridement (cm) - Depth 0.4 -Total Square (Post) (cm) 0.16 -Area of Debridement (cm) - Length 0.8 -Area of Debridement (cm) - Width 0.2 -Total Square (Area) (cm) 0.16 -Tunneling No -Circular Undermining No -Wound/Ulcer Outcome Not Healed -Ulcer Cleansing Rinsed/ Irrigated with Saline -Foul Odor after Cleansing No -Bioengineered Tissue No -Bleeding Controlled with Pressure -Offloading Yes -Type of Offloading Surgical Shoe -Treatment Response Procedure Tolerated Well -Debridement - Subq, 1st 20sq cm Yes [See Physician Procedure note for Specifics] Pain Scale: 0-10 Numeric [Pain] -Is Patient Pain Free? Yes - Nurse 3 - General Ulcer D/C NN Start: 06/08/20 08:56 Freq: Status: Active Protocol: Activity Type Activity Date Activity User E-Sign Co-Sign Detail Recorded Client Recorded Date Recorded By Document 06/08/20 10:08 RB [id number] 06/08/20 10:09 RB 06/08/20 10:08 Wound Care Nurse 3 [Wound Dressing] #2 RIGHT Lateral Foot -Ulcer Cleansing Rinsed/ Irrigated with Saline -Primary Dressing Applied Aquacel AG 4x4 -Primary Dressing Covered/Secured Dry Gauze,Dry with Gauze & Roll Gauze,Secured with Tape -Aquacel AG 4x4 1 #1 RIGHT PLANTAR -Other Dressing silver -Primary Dressing Covered/Secured Dry Gauze,Dry with Gauze & Roll Gauze,Secured with Tape [Post Procedure Tolerated] -Treatment Response Procedure Tolerated Well Pain Scale: 0-10 Numeric [Pain] -Is Patient Pain Free? Yes - Visit Discharge [Visit Discharge Information] -Discharge Condition Stable -Ambulatory Status Ambulatory -Transportation Private Auto -Medication Reconcilliation completed No & provided to patient/care provider -Clinical Summary of Care Provided Yes Musculoskeletal: No Tenderness to Palpation of Joints or Extremities, Muscle Wasting, - - Fifth toe amputation right foot. Rigid dorsal contraction of the remaining lesser toes 2, 3, 4. He has a bunion deformity with dorsal contraction of the hallux and prominent first metatarsal head and lateral hallux deviation. Neurological: Sensory exam intact to light touch and pain - Foot and ankle dermatomes right lower extremity Psych/Mental Status: Normal Affect, Appropriate Debridement Note Post-Debridement Measurements/Treatment - Nurse 2 - General Ulcer CM Notes Start: 06/08/20 08:56 Freq: Status: Active Protocol: Activity Type Activity Date Activity User E-Sign Co-Sign Detail Recorded Client Recorded Date Recorded By Document 06/08/20 09:36 JF [id number] 06/08/20 09:46 JF 06/08/20 09:36 Wound Center Nurse 2 #2 RIGHT Lateral Foot -Time 09:41 -Correct Patient Yes -Correct Side, Site, Position Yes -Correct Procedure Yes -Procedure Performed Yes -Type of Procedure Debridement -Clinical Debridement Subcutaneous -Tissue Removed Subcutaneous -Post Debridement (cm) - Length 1.6 -Post Debridement (cm) - Width 0.7 -Post Debridement (cm) - Depth 0.2 -Total Square (Post) (cm) 1.12 -Area of Debridement (cm) - Length 1.6 -Area of Debridement (cm) - Width 0.7 -Total Square (Area) (cm) 1.12 -Tunneling No -Undermining/Tunneling No -Circular Undermining No -Wound/Ulcer Outcome Not Healed -Ulcer Cleansing Rinsed/ Irrigated with Saline -Foul Odor after Cleansing No -Bioengineered Tissue No -Bleeding Controlled with Pressure -Offloading Yes -Type of Offloading Surgical Shoe -Treatment Response Procedure Tolerated Well -Debridement - Subq, 1st 20sq cm No #1 RIGHT PLANTAR -Time 09:38 -Correct Patient Yes -Correct Side, Site, Position Yes -Correct Procedure Yes -Procedure Performed Yes -Type of Procedure Debridement -Clinical Debridement Subcutaneous -Tissue Removed Subcutaneous -Post Debridement (cm) - Length 0.8 -Post Debridement (cm) - Width 0.2 -Post Debridement (cm) - Depth 0.4 -Total Square (Post) (cm) 0.16 -Area of Debridement (cm) - Length 0.8 -Area of Debridement (cm) - Width 0.2 -Total Square (Area) (cm) 0.16 -Tunneling No -Circular Undermining No -Wound/Ulcer Outcome Not Healed -Ulcer Cleansing Rinsed/ Irrigated with Saline -Foul Odor after Cleansing No -Bioengineered Tissue No -Bleeding Controlled with Pressure -Offloading Yes -Type of Offloading Surgical Shoe -Treatment Response Procedure Tolerated Well -Debridement - Subq, 1st 20sq cm Yes Pain Scale: 0-10 Numeric Is Patient Pain Free? Yes WC - Nurse 3 - General Ulcer D/C NN Start: 06/08/20 08:56 Freq: Status: Active Protocol: Activity Type Activity Date Activity User E-Sign Co-Sign Detail Recorded Client Recorded Date Recorded By Document 06/08/20 10:08 RB [id number] 06/08/20 10:09 RB 06/08/20 10:08 Wound Care Nurse 3 #2 RIGHT Lateral Foot -Ulcer Cleansing Rinsed/ Irrigated with Saline -Primary Dressing Applied Aquacel AG 4x4 -Primary Dressing Covered/Secured with Dry Gauze,Dry Gauze & Roll Gauze,Secured with Tape -Aquacel AG 4x4 1 #1 RIGHT PLANTAR -Other Dressing silver -Primary Dressing Covered/Secured with Dry Gauze,Dry Gauze & Roll Gauze,Secured with Tape Treatment Response Procedure Tolerated Well Pain Scale: 0-10 Numeric Is Patient Pain Free? Yes WC - Visit Discharge Discharge Condition Stable Ambulatory Status Ambulatory Transportation Private Auto Medication Reconcilliation completed & No provided to patient/care provider Clinical Summary of Care Provided Yes Wound debrided: plantar and dorsal 5th metatarsal head Laterality: Right Type of Debridement: Excisional debridement Anesthesia Used: 5% Lidocaine Gel Depth: in the subcutaneous layer Percentage of wound debrided: 100 Instrument Used: #15 blade, Forceps Tissue Removed: fibrous, devitalized subcutaneous, biofilm, slough Severity: Fat Layer Exposed Amount of bleeding with debridement: Mild Bleeding Controlled with: Pressure Patient tolerated procedure well Assessment/Plan Active Problems (Last Reviewed 05/24/20 @ 15:51 by Aliza Francis) Delayed wound healing (Chronic) Ulcer of right foot with fat layer exposed (Chronic) Tailors bunion (Chronic) Callus of foot (Chronic) Peripheral arterial occlusive disease (Chronic) History of amputation of toe (Chronic) Right foot- 5th digit Assessment: Right foot and sub-fifth metatarsal head ulcer with fat layer exposed. Right foot dorsal fifth metatarsal head ulcer, fat layer exposed. No signs of local infection. Peripheral vascular disease status post intervention. Malnutrition suspected. 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 Subcutaneous excisional debridement was not performed as noted in the clinical panel. He was advised to change dressing daily with Aquacel Ag. This was demonstrated. He is advised to relieve the ulcer site of pressure. To heel weight-bear with surgical shoe. An order was provided for him to obtain this at the foot [facility] ankle center with offloading dual density Plastizote liners with offloading pockets. He was advised there are no local or systemic signs of illness today however the chronicity of this ulcer is a concern. I do not recommend antibiotics at this time. He will be monitored closely for development of local or systemic illness signs. I do recommend that he avoid soaking activities. To wash the foot with antibacterial soap and water in a gentle manner daily. His x-ray was reviewed including 3 nonweightbearing without soft tissue emphysema, foreign body, acute osseous destruction. There is decreased bone mineral density and rarefraction to the fifth metatarsal head at the fifth toe amputation site. Small vessel calcification is also noted. It is noted that he had diminished vascular studies and surgical intervention with Dr. Arthur was performed including the following: Abdominal pelvic right lower extremity arteriogram with 2 mm tapered to 1.5 mm 210 mm [place] cross anterior tibial angioplasty, right superficial femoral 6 x 2 Powerflex angioplasty. To follow-up as scheduled. Proper nutrition is also needed to optimize healing. He relates his diet is very limited due to his history of rectal cancer with prior intervention. He is amendable to start Bharath nutritional supplementation at this time. A nutritional services referral was also provided to help him intake better nutrients that he can tolerate healing. His labs were reviewed from 05-11-2020 and he did not have leukocytosis. He does have an elevated creatinine level. Advanced wound healing products or other wound care products will be considered pending progress. I answered his questions. He was advised to follow-up in clinic in 1 week or call sooner if he is any questions or concerns.
[2020-06-15 08:20] VITALS: BP 135/63; PULSE 54; RESP 18; TEMP 36.1; BMI 20.7
--- NOTE | 2020-06-15 09:24 | PCM.WC.PN ---
(1) Ulcer of right foot with fat layer exposed Status: Chronic Current Visit: Yes Code(s): L97.512 - Non-pressure chronic ulcer of other part of right foot with fat layer exposed (2) Delayed wound healing Status: Chronic Current Visit: Yes Code(s): T14.8XXD - Other injury of unspecified body region, subsequent encounter (3) Tailors bunion Status: Chronic Current Visit: Yes Qualifiers: Laterality: right Qualified Code(s): M21.621 - Bunionette of right foot Code(s): M21.629 - Bunionette of unspecified foot (4) Peripheral arterial occlusive disease Status: Chronic Current Visit: Yes Code(s): I77.9 - Disorder of arteries and arterioles, unspecified (5) History of amputation of toe Status: Chronic Current Visit: Yes Code(s): Z89.429 - Acquired absence of other toe(s), unspecified side Comment: Right foot- 5th digit (6) Malnutrition Status: Chronic Current Visit: Yes Code(s): E46 - Unspecified protein-calorie malnutrition (7) Rectal cancer Status: Resolved Current Visit: Yes Code(s): C20 - Malignant neoplasm of rectum Type of Wound Date of Service: 06/15/20 Chief Complaint: right foot ulcers History of Wound: This 80-year-old male presents the wound healing center for nonhealing right foot ulcers. 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 Leavitt. It failed to heal and he was further evaluated and had vascular arterial intervention with Dr. Arthur on 05-18-2020. He relates the current ulcer sites have been open for over 4 months. He denies recent trauma. He denies redness, odor, or streaking. He denies fever, chill, nausea, vomiting. He obtained offloading surgical shoe this past week. He has been trying to elevate his limb. He takes Bharath nutritional supplementation. Progress of Wound: Improving ulcer quality dorsal and plantar aspects and reduction in size plantar ulcer site - Physical Exam Vital Signs Temp Pulse Resp BP 97 F L 54 L 18 135/63 H 06/15/20 08:20 06/15/20 08:20 06/15/20 08:20 06/15/20 08:20 General: Alert, Oriented x3, Cooperative, No apparent distress HEENT: Atraumatic Extremities: No cyanosis, Capillary Refill Less than 3 Seconds, No Calf Tenderness, Diminished Peripheral Pulses, Edema Skin: Ulcer/ Wound - No purulence, erythema, streaking, odor, or local infection. His skin is atrophic and hairless. The plantar ulcer has size reduction and a granular progression of the base. The dorsal aspect has granular fibrous tissue without any eschar Wound Measurements and Assessment WC - Nurse 1 - General Ulcer Measurement Start: 06/08/20 08:56 Freq: Status: Active Protocol: Activity Type Activity Date Activity User E-Sign Co-Sign Detail Recorded Client Recorded Date Recorded By Document 06/15/20 08:20 DL [id number] 06/15/20 08:29 DL 06/15/20 08:20 Wound Center Nurse 1 [Ulcer Assessment] #2 RIGHT Lateral Foot -Current Size (cm) - Length 1.5 -Current Size (cm) - Width 0.2 -Current Size (cm) - Depth 0.5 -Total Square Cm 0.30 -Photo Taken No -Exudate Amt None Present -Wound Margin Thickened & Rolled Under -Granulation Amt None Present (0 %) -Necrosis Amt Small (1-33%) -Necrotic Tissue Type Adherent Slough -Structure Exposed N/A -Texture (Salma-wound Skin Appearance) Scarring -Moisture (Salma-wound Skin Appearance No Abnormality ) -Color (Salma-wound Skin Appearance) No Abnormality -Temperature (Salma-wound Skin No Abnormality Appearance) (Pt Warm) -Tenderness on Palpation (Salma-wound No Skin Appearance) -Ulcer Cleansing Rinsed/ Irrigated with Saline -Foul Odor after Cleansing No -Anesthetic Used 4% Lidocaine Solution #1 RIGHT PLANTAR -Current Size (cm) - Length 0.2 -Current Size (cm) - Width 0.2 -Current Size (cm) - Depth 0.2 -Total Square Cm 0.04 -Photo Taken No -Maximum Distance #2 (cm) 0.2 -Circular Undermining Yes -Exudate Amt None Present -Wound Margin Distinct, Outline Attached -Granulation Amt Small (1-33%) -Granulation Quality [place] -Necrosis Amt Small (1-33%) -Necrotic Tissue Type Adherent Slough -Structure Exposed N/A -Texture (Salma-wound Skin Appearance) Scarring -Moisture (Salma-wound Skin Appearance No Abnormality ) -Color (Salma-wound Skin Appearance) No Abnormality -Temperature (Salma-wound Skin No Abnormality Appearance) (Pt Warm) -Tenderness on Palpation (Salma-wound No Skin Appearance) -Ulcer Cleansing Rinsed/ Irrigated with Saline -Foul Odor after Cleansing No -Anesthetic Used 4% Lidocaine Solution [Edema Assessment] -Right Calf (cm) 27.2 -Right Ankle (cm) 17 WC - Nurse 2 - General Ulcer CM Notes Start: 06/08/20 08:56 Freq: Status: Active Protocol: Activity Type Activity Date Activity User E-Sign Co-Sign Detail Recorded Client Recorded Date Recorded By Document 06/15/20 08:44 [id number] 06/15/20 08:49 [email or web address] 06/15/20 08:44 Wound Center Nurse 2 [Procedure/Treatment] #2 RIGHT Lateral Foot -Time 08:45 -Correct Patient Yes -Correct Side, Site, Position Yes -Correct Procedure Yes -Procedure Performed Yes -Type of Procedure Debridement -Clinical Debridement Subcutaneous -Tissue Removed Subcutaneous -Post Debridement (cm) - Length 1.2 -Post Debridement (cm) - Width 0.3 -Post Debridement (cm) - Depth 0.3 -Total Square (Post) (cm) 0.36 -Area of Debridement (cm) - Length 1.2 -Area of Debridement (cm) - Width 0.3 -Total Square (Area) (cm) 0.36 -Tunneling No -Undermining/Tunneling No -Circular Undermining No -Wound/Ulcer Outcome Not Healed -Ulcer Cleansing Rinsed/ Irrigated with Saline -Foul Odor after Cleansing No -Bioengineered Tissue No -Bleeding Controlled with Pressure -Offloading Yes -Type of Offloading Surgical Shoe -Treatment Response Procedure Tolerated Well -Debridement - Subq, 1st 20sq cm Yes #1 RIGHT PLANTAR -Time 08:46 -Correct Patient Yes -Correct Side, Site, Position Yes -Correct Procedure Yes -Procedure Performed Yes -Type of Procedure Debridement -Clinical Debridement Subcutaneous -Tissue Removed Subcutaneous -Post Debridement (cm) - Length 0.5 -Post Debridement (cm) - Width 0.6 -Post Debridement (cm) - Depth 0.2 -Total Square (Post) (cm) 0.30 -Area of Debridement (cm) - Length 0.5 -Area of Debridement (cm) - Width 0.6 -Total Square (Area) (cm) 0.30 -Tunneling No -Undermining/Tunneling No -Circular Undermining No -Wound/Ulcer Outcome Not Healed -Ulcer Cleansing Rinsed/ Irrigated with Saline -Foul Odor after Cleansing No -Bioengineered Tissue No -Bleeding Controlled with Pressure -Offloading Yes -Type of Offloading Surgical Shoe -Treatment Response Procedure Tolerated Well -Debridement - Subq, 1st 20sq cm No [See Physician Procedure note for Specifics] Pain Scale: 0-10 Numeric [Pain] -Is Patient Pain Free? Yes Musculoskeletal: No Tenderness to Palpation of Joints or Extremities, Muscle Wasting, - - Fifth toe amputation. Compartments are soft to palpate right foot Neurological: Sensory exam intact to light touch and pain Psych/Mental Status: Normal Affect, Appropriate Debridement Note Post-Debridement Measurements/Treatment WC - Nurse 2 - General Ulcer CM Notes Start: 06/08/20 08:56 Freq: Status: Active Protocol: Activity Type Activity Date Activity User E-Sign Co-Sign Detail Recorded Client Recorded Date Recorded By Document 06/08/20 09:36 [id number] 06/08/20 09:46 Document 06/15/20 08:44 [id number] 06/15/20 08:49 06/08/20 06/15/20 09:36 08:44 Wound Center Nurse 2 #2 RIGHT Lateral Foot -Time 09:41 08:45 -Correct Patient Yes Yes -Correct Side, Site, Position Yes Yes -Correct Procedure Yes Yes -Procedure Performed Yes Yes -Type of Procedure Debridement Debridement -Clinical Debridement Subcutaneous Subcutaneous -Tissue Removed Subcutaneous Subcutaneous -Post Debridement (cm) - Length 1.6 1.2 -Post Debridement (cm) - Width 0.7 0.3 -Post Debridement (cm) - Depth 0.2 0.3 -Total Square (Post) (cm) 1.12 0.36 -Area of Debridement (cm) - Length 1.6 1.2 -Area of Debridement (cm) - Width 0.7 0.3 -Total Square (Area) (cm) 1.12 0.36 -Tunneling No No -Undermining/Tunneling No No -Circular Undermining No No -Wound/Ulcer Outcome Not Healed Not Healed -Ulcer Cleansing Rinsed/ Rinsed/ Irrigated with Irrigated with Saline Saline -Foul Odor after Cleansing No No -Bioengineered Tissue No No -Bleeding Controlled with Pressure Pressure -Offloading Yes Yes -Type of Offloading Surgical Shoe Surgical Shoe -Treatment Response Procedure Procedure Tolerated Well Tolerated Well -Debridement - Subq, 1st 20sq cm No Yes #1 RIGHT PLANTAR -Time 09:38 08:46 -Correct Patient Yes Yes -Correct Side, Site, Position Yes Yes -Correct Procedure Yes Yes -Procedure Performed Yes Yes -Type of Procedure Debridement Debridement -Clinical Debridement Subcutaneous Subcutaneous -Tissue Removed Subcutaneous Subcutaneous -Post Debridement (cm) - Length 0.8 0.5 -Post Debridement (cm) - Width 0.2 0.6 -Post Debridement (cm) - Depth 0.4 0.2 -Total Square (Post) (cm) 0.16 0.30 -Area of Debridement (cm) - Length 0.8 0.5 -Area of Debridement (cm) - Width 0.2 0.6 -Total Square (Area) (cm) 0.16 0.30 -Tunneling No No -Undermining/Tunneling No -Circular Undermining No No -Wound/Ulcer Outcome Not Healed Not Healed -Ulcer Cleansing Rinsed/ Rinsed/ Irrigated with Irrigated with Saline Saline -Foul Odor after Cleansing No No -Bioengineered Tissue No No -Bleeding Controlled with Pressure Pressure -Offloading Yes Yes -Type of Offloading Surgical Shoe Surgical Shoe -Treatment Response Procedure Procedure Tolerated Well Tolerated Well -Debridement - Subq, 1st 20sq cm Yes No Pain Scale: 0-10 Numeric Is Patient Pain Free? Yes Yes - Nurse 3 - General Ulcer D/C NN Start: 06/08/20 08:56 Freq: Status: Active Protocol: Activity Type Activity Date Activity User E-Sign Co-Sign Detail Recorded Client Recorded Date Recorded By Document 06/08/20 10:08 DANN [id number] 06/08/20 10:09 DANN 06/08/20 10:08 Wound Care Nurse 3 #2 RIGHT Lateral Foot -Ulcer Cleansing Rinsed/ Irrigated with Saline -Primary Dressing Applied Aquacel AG 4x4 -Primary Dressing Covered/Secured with Dry Gauze,Dry Gauze & Roll Gauze,Secured with Tape -Aquacel AG 4x4 1 #1 RIGHT PLANTAR -Other Dressing silver -Primary Dressing Covered/Secured with Dry Gauze,Dry Gauze & Roll Gauze,Secured with Tape Treatment Response Procedure Tolerated Well Pain Scale: 0-10 Numeric Is Patient Pain Free? Yes - Visit Discharge Discharge Condition Stable Ambulatory Status Ambulatory Transportation Private Auto Medication Reconcilliation completed & No provided to patient/care provider Clinical Summary of Care Provided Yes Wound debrided: dorsal and plantar lateral foot Laterality: Right Type of Debridement: Excisional debridement Anesthesia Used: 5% Lidocaine Gel Depth: in the subcutaneous layer Percentage of wound debrided: 100 Instrument Used: #15 blade, Forceps Tissue Removed: fibrous, devitalized subcutaneous, biofilm, slough Severity: Fat Layer Exposed Amount of bleeding with debridement: Mild Bleeding Controlled with: Pressure Patient tolerated procedure well Assessment/Plan Active Problems (Last Reviewed 05/24/20 @ 15:51 by Aliza Francis) Delayed wound healing (Chronic) Ulcer of right foot with fat layer exposed (Chronic) Tailors bunion (Chronic) Callus of foot (Chronic) Malnutrition (Chronic) Peripheral arterial occlusive disease (Chronic) History of amputation of toe (Chronic) Right foot- 5th digit Assessment: Right foot sub-fifth metatarsal head ulcer with fat layer exposed. Right foot dorsal fifth metatarsal head ulcer, fat layer exposed. No signs of local infection. Peripheral vascular disease status post intervention. Malnutrition suspected. Foot deformities including fifth toe amputation and hammertoes and hallux valgus of right foot. h/o rectal cancer Plan: I reviewed and discussed his case. Subcutaneous excisional debridement was performed as noted in the clinical panel. He was advised to change dressing daily with [employer] Empireel Ag. He is advised to relieve the ulcer site of pressure. To heel weight-bear with surgical shoe with offloading dual density Plastizote liners with offloading pockets. He was advised there are no local or systemic signs of illness today however the chronicity of this ulcer is a concern. I do not recommend antibiotics at this time. He will be monitored closely for development of local or systemic illness signs. I do recommend that he avoid soaking activities. To wash the foot with antibacterial soap and water in a gentle manner daily. His x-ray was reviewed including 3 nonweightbearing without soft tissue emphysema, foreign body, acute osseous destruction. There is decreased bone mineral density and rarefraction to the fifth metatarsal head at the fifth toe amputation site. Small vessel calcification is also noted. ESR, CBC, CRP baseline labs were ordered today with results pending. Further deeper tissue involvement or osteomyelitis work up will be initiated if lack of healing is noted after several week so traditional comprehensive wound care or if there is a status change. It is noted that he had diminished vascular studies and surgical intervention with Dr. Arthur was performed including the following: Abdominal pelvic right lower extremity arteriogram with 2 mm tapered to 1.5 mm 210 mm [place] cross anterior tibial angioplasty, right superficial femoral 6 x 2 Powerflex angioplasty. To follow-up as scheduled. Proper nutrition is also needed to optimize healing. He relates his diet is very limited due to his history of rectal cancer with prior intervention. He is amendable to start Bharath nutritional supplementation at this time. A nutritional services referral was also provided to help him intake better nutrients that he can tolerate healing. His labs were reviewed from 05-11-2020 and he did not have leukocytosis. He does have an elevated creatinine level. Advanced wound healing products or other wound care products will be considered pending progress. I answered his questions. He was advised to follow-up in clinic in 1 week or call sooner if he is any questions or concerns.
[2020-06-15 09:49] LABS: Absolute Neutrophil Count 5.9 X10^3/uL (2.0-7.7); Basophil# 0.09 X10^3/uL; Basophil% 1.1 % (0-1); Eosinophil# 0.23 X10^3/uL; Eosinophils% 2.8 % (0-5); Erythrocyte Sedimentation Rate 3 mm/hr (0-20); Hematocrit 37.2 % (40-54); Hemoglobin 12.1 g/dL (13.0-16.5); Lymphocyte % 14.6 % (19-41); Mean Corp Hgb Conc 32.5 g/dL (32-36); Mean Corpuscular Hgb 32.4 pg (27.0-32.0); Mean Corpuscular Volume 99.7 fL (80-94); Mean Platelet Vol. 9.4 fl (6.2-12.0); Monocyte# 0.75 X10^3/uL; Monocyte% 9.1 % (0-10); NRBC Flagged by Analyzer 0 % (0-5); Neutrophil % 71.9 % (47-70); Platelet Count 218 K/mm3 (150-450); RBC Distribution Width CV 12.1 % (11.6-14.6); RBC Distribution Width SD 43.8 fl (35.1-43.9); Red Blood Count 3.73 M/mm3 (4.6-6.2); White Blood Count 8.2 K/mm3 (4.4-11.0)
[2020-06-15 10:28] LABS: CRP < 2.90 mg/L (0.0-3.0)
[2020-06-22 08:14] VITALS: BP 129/63; PULSE 61; RESP 20; TEMP 35.8; BMI 20.7
--- NOTE | 2020-06-22 08:49 | PCM.WC.PN ---
(1) Ulcer of right foot with fat layer exposed Status: Chronic Current Visit: Yes Code(s): L97.512 - Non-pressure chronic ulcer of other part of right foot with fat layer exposed (2) Delayed wound healing Status: Chronic Current Visit: Yes Code(s): T14.8XXD - Other injury of unspecified body region, subsequent encounter (3) Alan bunion Status: Chronic Current Visit: Yes Qualifiers: Laterality: right Qualified Code(s): M21.621 - Bunionette of right foot Code(s): M21.629 - Bunionette of unspecified foot (4) Peripheral arterial occlusive disease Status: Chronic Current Visit: Yes Code(s): I77.9 - Disorder of arteries and arterioles, unspecified (5) History of amputation of toe Status: Chronic Current Visit: Yes Code(s): Z89.429 - Acquired absence of other toe(s), unspecified side Comment: Right foot- 5th digit (6) Malnutrition Status: Chronic Current Visit: Yes Code(s): E46 - Unspecified protein-calorie malnutrition (7) Rectal cancer Status: Resolved Current Visit: Yes Code(s): C20 - Malignant neoplasm of rectum Type of Wound Date of Service: 06/22/20 Chief Complaint: right foot ulcers History of Wound: This 80-year-old male presents the wound healing center for nonhealing right foot ulcers. He had vascular arterial intervention with Dr. Arthur on 05-18-2020. He relates the current ulcer sites have been open for over 4 months. He denies recent trauma. He denies redness, odor, or streaking. He denies fever, chill, nausea, vomiting. He wears offloading surgical shoe and takes bharath nutritional supplementation. 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 His changes the dressing daily with [employer] ag. Progress of Wound: Improving ulcer quality dorsal and plantar aspects and reduction in size plantar ulcer site - Physical Exam Vital Signs Temp Pulse Resp BP 96.4 F L 61 20 H 129/63 H 06/22/20 08:14 06/22/20 08:14 06/22/20 08:14 06/22/20 08:14 General: Alert, Oriented x3, Cooperative, No apparent distress HEENT: Atraumatic Extremities: No cyanosis, Capillary Refill Less than 3 Seconds, No Calf Tenderness, Diminished Peripheral Pulses Skin: Ulcer/ Wound - no purulence, no erythema, no streaking, no odor, no infection. skin is atrophic and hairless. the base is fibrous. no positive probe to bone directly, - - callous plantar first metatarsal head right foot Wound Measurements and Assessment WC - Nurse 1 - General Ulcer Measurement Start: 06/08/20 08:56 Freq: Status: Active Protocol: Activity Type Activity Date Activity User E-Sign Co-Sign Detail Recorded Client Recorded Date Recorded By Document 06/22/20 08:14 DL [id number] 06/22/20 08:21 DL 06/22/20 08:14 Wound Center Nurse 1 [Ulcer Assessment] #2 RIGHT Lateral Foot -Current Size (cm) - Length 0.4 -Current Size (cm) - Width 0.1 -Current Size (cm) - Depth 0.1 -Total Square Cm 0.04 -Photo Taken No -Exudate Amt None Present -Wound Margin Distinct, Outline Attached -Granulation Amt Small (1-33%) -Granulation Quality Pale -Necrosis Amt Small (1-33%) -Necrotic Tissue Type Adherent Slough -Structure Exposed N/A -Texture (Salma-wound Skin Appearance) Scarring -Moisture (Salam-wound Skin Appearance Dry/Scaly ) -Color (Salma-wound Skin Appearance) No Abnormality -Temperature (Salma-wound Skin No Abnormality Appearance) (Pt Warm) -Tenderness on Palpation (Salma-wound No Skin Appearance) -Ulcer Cleansing Rinsed/ Irrigated with Saline -Foul Odor after Cleansing No -Anesthetic Used 4% Lidocaine Solution #1 RIGHT PLANTAR -Current Size (cm) - Length 0.2 -Current Size (cm) - Width 0.2 -Current Size (cm) - Depth 0.2 -Total Square Cm 0.04 -Photo Taken No -Maximum Distance #2 (cm) 0.2 -Circular Undermining Yes -Exudate Amt None Present -Wound Margin Distinct, Outline Attached -Granulation Amt Small (1-33%) -Granulation Quality [place] -Necrosis Amt Small (1-33%) -Necrotic Tissue Type Adherent Slough -Structure Exposed N/A -Texture (Salma-wound Skin Appearance) Scarring -Moisture (Salma-wound Skin Appearance No Abnormality ) -Temperature (Salma-wound Skin No Abnormality Appearance) (Pt Warm) -Tenderness on Palpation (Salma-wound No Skin Appearance) -Ulcer Cleansing Rinsed/ Irrigated with Saline -Foul Odor after Cleansing No -Anesthetic Used 4% Lidocaine Solution WC - Nurse 2 - General Ulcer CM Notes Start: 06/08/20 08:56 Freq: Status: Active Protocol: Activity Type Activity Date Activity User E-Sign Co-Sign Detail Recorded Client Recorded Date Recorded By Document 06/22/20 08:36 [email or web address] [id number] 06/22/20 08:39 [email or web address] 06/22/20 08:36 Wound Center Nurse 2 [Procedure/Treatment] #2 RIGHT Lateral Foot -Time 08:37 -Correct Patient Yes -Correct Side, Site, Position Yes -Correct Procedure Yes -Procedure Performed Yes -Type of Procedure Debridement -Clinical Debridement Subcutaneous -Tissue Removed Subcutaneous -Post Debridement (cm) - Length 0.8 -Post Debridement (cm) - Width 0.2 -Post Debridement (cm) - Depth 0.2 -Total Square (Post) (cm) 0.16 -Area of Debridement (cm) - Length 0.8 -Area of Debridement (cm) - Width 0.2 -Total Square (Area) (cm) 0.16 -Tunneling No -Undermining/Tunneling No -Circular Undermining No -Wound/Ulcer Outcome Not Healed -Ulcer Cleansing Rinsed/ Irrigated with Saline -Foul Odor after Cleansing No -Bioengineered Tissue No -Bleeding Controlled with Pressure -Offloading Yes -Type of Offloading Surgical Shoe -Treatment Response Procedure Tolerated Well -Debridement - Subq, 1st 20sq cm Yes #1 RIGHT PLANTAR -Time 08:37 -Correct Patient Yes -Correct Side, Site, Position Yes -Correct Procedure Yes -Procedure Performed Yes -Type of Procedure Debridement -Clinical Debridement Subcutaneous -Tissue Removed Subcutaneous -Post Debridement (cm) - Length 0.4 -Post Debridement (cm) - Width 0.4 -Post Debridement (cm) - Depth 0.2 -Total Square (Post) (cm) 0.16 -Area of Debridement (cm) - Length 0.4 -Area of Debridement (cm) - Width 0.4 -Total Square (Area) (cm) 0.16 -Tunneling No -Undermining/Tunneling No -Circular Undermining No -Wound/Ulcer Outcome Not Healed -Bioengineered Tissue No -Bleeding Controlled with Pressure -Offloading Yes -Type of Offloading Surgical Shoe -Treatment Response Procedure Tolerated Well -Debridement - Subq, 1st 20sq cm No [See Physician Procedure note for Specifics] Pain Scale: 0-10 Numeric [Pain] -Is Patient Pain Free? Yes Musculoskeletal: Muscle Wasting, - - fifth toe amputation. dorsal contraction of lesser toes with prominent metatarsal heads Neurological: Sensory exam intact to light touch and pain Psych/Mental Status: Normal Affect, Appropriate Debridement Note Post-Debridement Measurements/Treatment WC - Nurse 2 - General Ulcer CM Notes Start: 06/08/20 08:56 Freq: Status: Active Protocol: Activity Type Activity Date Activity User E-Sign Co-Sign Detail Recorded Client Recorded Date Recorded By Document 06/08/20 09:36 [id number] 06/08/20 09:46 Document 06/15/20 08:44 [id number] 06/15/20 08:49 Document 06/22/20 08:36 [id number] 06/22/20 08:39 06/08/20 06/15/20 06/22/20 09:36 08:44 08:36 Wound Center Nurse 2 #2 RIGHT Lateral Foot -Time 09:41 08:45 08:37 -Correct Patient Yes Yes Yes -Correct Side, Site, Position Yes Yes Yes -Correct Procedure Yes Yes Yes -Procedure Performed Yes Yes Yes -Type of Procedure Debridement Debridement Debridement -Clinical Debridement Subcutaneous Subcutaneous Subcutaneous -Tissue Removed Subcutaneous Subcutaneous Subcutaneous -Post Debridement (cm) - Length 1.6 1.2 0.8 -Post Debridement (cm) - Width 0.7 0.3 0.2 -Post Debridement (cm) - Depth 0.2 0.3 0.2 -Total Square (Post) (cm) 1.12 0.36 0.16 -Area of Debridement (cm) - Length 1.6 1.2 0.8 -Area of Debridement (cm) - Width 0.7 0.3 0.2 -Total Square (Area) (cm) 1.12 0.36 0.16 -Tunneling No No No -Undermining/Tunneling No No No -Circular Undermining No No No -Wound/Ulcer Outcome Not Healed Not Healed Not Healed -Ulcer Cleansing Rinsed/ Rinsed/ Rinsed/ Irrigated with Irrigated with Irrigated with Saline Saline Saline -Foul Odor after Cleansing No No No -Bioengineered Tissue No No No -Bleeding Controlled with Pressure Pressure Pressure -Offloading Yes Yes Yes -Type of Offloading Surgical Shoe Surgical Shoe Surgical Shoe -Treatment Response Procedure Procedure Procedure Tolerated Well Tolerated Well Tolerated Well -Debridement - Subq, 1st 20sq cm No Yes Yes #1 RIGHT PLANTAR -Time 09:38 08:46 08:37 -Correct Patient Yes Yes Yes -Correct Side, Site, Position Yes Yes Yes -Correct Procedure Yes Yes Yes -Procedure Performed Yes Yes Yes -Type of Procedure Debridement Debridement Debridement -Clinical Debridement Subcutaneous Subcutaneous Subcutaneous -Tissue Removed Subcutaneous Subcutaneous Subcutaneous -Post Debridement (cm) - Length 0.8 0.5 0.4 -Post Debridement (cm) - Width 0.2 0.6 0.4 -Post Debridement (cm) - Depth 0.4 0.2 0.2 -Total Square (Post) (cm) 0.16 0.30 0.16 -Area of Debridement (cm) - Length 0.8 0.5 0.4 -Area of Debridement (cm) - Width 0.2 0.6 0.4 -Total Square (Area) (cm) 0.16 0.30 0.16 -Tunneling No No No -Undermining/Tunneling No No -Circular Undermining No No No -Wound/Ulcer Outcome Not Healed Not Healed Not Healed -Ulcer Cleansing Rinsed/ Rinsed/ Irrigated with Irrigated with Saline Saline -Foul Odor after Cleansing No No -Bioengineered Tissue No No No -Bleeding Controlled with Pressure Pressure Pressure -Offloading Yes Yes Yes -Type of Offloading Surgical Shoe Surgical Shoe Surgical Shoe -Treatment Response Procedure Procedure Procedure Tolerated Well Tolerated Well Tolerated Well -Debridement - Subq, 1st 20sq cm Yes No No Pain Scale: 0-10 Numeric Is Patient Pain Free? Yes Yes Yes - Nurse 3 - General Ulcer D/C NN Start: 06/08/20 08:56 Freq: Status: Active Protocol: Activity Type Activity Date Activity User E-Sign Co-Sign Detail Recorded Client Recorded Date Recorded By Document 06/08/20 10:08 RB [id number] 06/08/20 10:09 RB 06/08/20 10:08 Wound Care Nurse 3 #2 RIGHT Lateral Foot -Ulcer Cleansing Rinsed/ Irrigated with Saline -Primary Dressing Applied Aquacel AG 4x4 -Primary Dressing Covered/Secured with Dry Gauze,Dry Gauze & Roll Gauze,Secured with Tape -Aquacel AG 4x4 1 #1 RIGHT PLANTAR -Other Dressing silver -Primary Dressing Covered/Secured with Dry Gauze,Dry Gauze & Roll Gauze,Secured with Tape Treatment Response Procedure Tolerated Well Pain Scale: 0-10 Numeric Is Patient Pain Free? Yes WC - Visit Discharge Discharge Condition Stable Ambulatory Status Ambulatory Transportation Private Auto Medication Reconcilliation completed & No provided to patient/care provider Clinical Summary of Care Provided Yes Wound debrided: dorsal and plantar 5th metatarsal head Laterality: Right Type of Debridement: Excisional debridement Anesthesia Used: 5% Lidocaine Gel Depth: in the subcutaneous layer Percentage of wound debrided: 100 Tissue Removed: fibrous, devitalized subcutaneous, biofilm, slough Severity: Fat Layer Exposed Amount of bleeding with debridement: Mild Bleeding Controlled with: Pressure Patient tolerated procedure well Assessment/Plan Active Problems (Last Reviewed 05/24/20 @ 15:51 by Aliza Francis) Delayed wound healing (Chronic) Ulcer of right foot with fat layer exposed (Chronic) Tailors bunion (Chronic) Callus of foot (Chronic) Malnutrition (Chronic) Peripheral arterial occlusive disease (Chronic) History of amputation of toe (Chronic) Right foot- 5th digit Assessment: Right foot sub-fifth metatarsal head ulcer with fat layer exposed. Right foot dorsal fifth metatarsal head ulcer, fat layer exposed. No signs of local infection. Peripheral vascular disease status post intervention. Malnutrition suspected. Foot deformities including fifth toe amputation and hammertoes and hallux valgus of right foot. h/o rectal cancer Plan: I reviewed and discussed his case. Subcutaneous excisional debridement was performed as noted in the clinical panel. He was advised to change dressing daily with collagenase to help reduce fibrous tissue enzymatically. A prescription was provided. To heel weight-bear with surgical shoe with offloading dual density Plastizote liners with offloading pockets. He was advised there are no local or systemic signs of illness today however the chronicity of this ulcer is a concern. I do not recommend antibiotics at this time. He will be monitored closely for development of local or systemic illness signs. I do recommend that he avoid soaking activities. To wash the foot with antibacterial soap and water in a gentle manner daily. His x-ray was reviewed including 3 nonweightbearing without soft tissue emphysema, foreign body, acute osseous destruction. There is decreased bone mineral density and rarefraction to the fifth metatarsal head at the fifth toe amputation site. Small vessel calcification is also noted. ESR, CBC, CRP baseline labs were ordered. No leukocytosis is noted. ESR was 3 and CRP was less than 2.9 which does not suggest osteomyelitis or other acute infection. Further deeper tissue involvement or osteomyelitis work up will be initiated if lack of healing is noted after several week so traditional comprehensive wound care or if there is a status change. It is noted that he had diminished vascular studies and surgical intervention with Dr. Arthur was performed including the following: Abdominal pelvic right lower extremity arteriogram with 2 mm tapered to 1.5 mm 210 mm [place] cross anterior tibial angioplasty, right superficial femoral 6 x 2 Powerflex angioplasty. To follow-up as scheduled. Proper nutrition is also needed to optimize healing. He relates his diet is very limited due to his history of rectal cancer with prior intervention. He is amendable to start Bharath nutritional supplementation at this time. A nutritional services referral was also provided and it is noted this is not covered by his insurance at this time. His labs were reviewed from 05-11-2020 and he did not have leukocytosis. He does have an elevated creatinine level. Advanced wound healing products or other wound care products will be considered pending progress. I answered his questions. He was advised to follow-up in clinic in 1 week or call sooner if he is any questions or concerns.
[2020-06-29 08:34] VITALS: BP 123/71; PULSE 71; RESP 16; TEMP 36.2; BMI 20.7
[2020-06-29 09:17] VITALS: RESP 16
--- NOTE | 2020-06-29 13:04 | PCM.WC.PN ---
(1) Ulcer of right foot with fat layer exposed Status: Chronic Code(s): L97.512 - Non-pressure chronic ulcer of other part of right foot with fat layer exposed (2) Delayed wound healing Status: Chronic Code(s): T14.8XXD - Other injury of unspecified body region, subsequent encounter (3) Tailors bunion Status: Chronic Qualifiers: Laterality: right Qualified Code(s): M21.621 - Bunionette of right foot Code(s): M21.629 - Bunionette of unspecified foot (4) Peripheral arterial occlusive disease Status: Chronic Code(s): I77.9 - Disorder of arteries and arterioles, unspecified (5) History of amputation of toe Status: Chronic Code(s): Z89.429 - Acquired absence of other toe(s), unspecified side Comment: Right foot- 5th digit (6) Malnutrition Status: Chronic Code(s): E46 - Unspecified protein-calorie malnutrition (7) Rectal cancer Status: Resolved Code(s): C20 - Malignant neoplasm of rectum Type of Wound Date of Service: 06/29/20 Chief Complaint: right foot ulcers History of Wound: This 80-year-old male presents the wound healing center for nonhealing right foot ulcers. He had vascular arterial intervention with Dr. Arthur on 05-18-2020. He relates the current ulcer sites have been open for over 4 months. He denies recent trauma. He denies redness, odor, or streaking. He denies fever, chill, nausea, vomiting. He wears offloading surgical shoe and takes bharath nutritional supplementation. 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 His changes the dressing daily with TunePatrol. He is offloading with a surgical shoe. Progress of Wound: Improving ulcer quality dorsal and plantar aspects and reduction in size plantar ulcer site - Physical Exam Vital Signs Temp Pulse Resp BP 97.2 F L 71 16 123/71 H 06/29/20 08:34 06/29/20 08:34 06/29/20 09:17 06/29/20 08:34 General: Alert, Oriented x3, Cooperative, No apparent distress HEENT: Atraumatic Extremities: No cyanosis, Capillary Refill Less than 3 Seconds, No Calf Tenderness, Diminished Peripheral Pulses, Edema - Scant, - - Bunion deformity. Right fifth toe amputation. Dorsal rigid contraction of toes 2, 3, 4 Skin: Ulcer/ Wound - No purulence, erythema, streaking, odor, infection. Ulcer reduction is noted. His skin is hairless and atrophic. Wound Measurements and Assessment WC - Nurse 1 - General Ulcer Measurement Start: 06/08/20 08:56 Freq: Status: Active Protocol: Activity Type Activity Date Activity User E-Sign Co-Sign Detail Recorded Client Recorded Date Recorded By Document 06/29/20 08:34 JF [id number] 06/29/20 08:44 JF 06/29/20 08:34 Wound Center Nurse 1 [Ulcer Assessment] #2 RIGHT Lateral Foot -Combined with other wound No -Current Size (cm) - Length 0.5 -Current Size (cm) - Width 0.1 -Current Size (cm) - Depth 0.3 -Total Square Cm 0.05 -Photo Taken No -Epithelialization None Present -Tunneling No -Undermining/Tunneling No -Circular Undermining No -Exudate Amt Small -Exudate Type Serosanguineous -Wound Margin Flat & Intact -Granulation Amt None Present (0 %) -Slough/Fibrin Yes -Necrosis Amt Large (67-100%) -Necrotic Tissue Type Adherent Slough -Structure Exposed N/A -Texture (Salma-wound Skin Appearance) Assessed -Moisture (Salma-wound Skin Appearance Assessed,Dry/ ) Scaly -Color (Salma-wound Skin Appearance) Assessed -Temperature (Salma-wound Skin No Abnormality Appearance) (Pt Warm) -Tenderness on Palpation (Salma-wound No Skin Appearance) -Ulcer Cleansing Rinsed/ Irrigated with Saline -Foul Odor after Cleansing No -Anesthetic Used 4% Lidocaine Solution #1 RIGHT PLANTAR -Combined with other wound No -Current Size (cm) - Length 0.4 -Current Size (cm) - Width 0.3 -Current Size (cm) - Depth 0.2 -Total Square Cm 0.12 -Photo Taken No -Epithelialization Small 1-33% -Tunneling No -Undermining/Tunneling No -Circular Undermining No -Exudate Amt None Present -Granulation Amt Small (1-33%) -Granulation Quality [place] -Slough/Fibrin Yes -Necrosis Amt Small (1-33%) -Necrotic Tissue Type Adherent Slough -Structure Exposed N/A -Texture (Salma-wound Skin Appearance) Assessed -Moisture (Salma-wound Skin Appearance Assessed,Dry/ ) Scaly -Color (Salma-wound Skin Appearance) Assessed -Temperature (Salma-wound Skin No Abnormality Appearance) (Pt Warm) -Tenderness on Palpation (Salma-wound No Skin Appearance) -Ulcer Cleansing Rinsed/ Irrigated with Saline -Foul Odor after Cleansing No -Anesthetic Used 4% Lidocaine Solution WC - Nurse 2 - General Ulcer CM Notes Start: 06/08/20 08:56 Freq: Status: Active Protocol: Activity Type Activity Date Activity User E-Sign Co-Sign Detail Recorded Client Recorded Date Recorded By Document 06/29/20 08:50 JF [id number] 06/29/20 08:53 JF 06/29/20 08:50 Wound Center Nurse 2 [Procedure/Treatment] #2 RIGHT Lateral Foot -Time 08:50 -Correct Patient Yes -Correct Side, Site, Position Yes -Correct Procedure Yes -Procedure Performed Yes -Type of Procedure Debridement -Clinical Debridement Subcutaneous -Tissue Removed Subcutaneous -Post Debridement (cm) - Length 0.1 -Post Debridement (cm) - Width 0.3 -Post Debridement (cm) - Depth 0.2 -Total Square (Post) (cm) 0.03 -Area of Debridement (cm) - Length 0.1 -Area of Debridement (cm) - Width 0.3 -Total Square (Area) (cm) 0.03 -Tunneling No -Undermining/Tunneling No -Circular Undermining No -Wound/Ulcer Outcome Not Healed -Ulcer Cleansing Rinsed/ Irrigated with Saline -Foul Odor after Cleansing No -Bioengineered Tissue No -Bleeding Controlled with Pressure -Offloading Yes -Type of Offloading Surgical Shoe -Treatment Response Procedure Tolerated Well -Debridement - Subq, 1st 20sq cm Yes #1 RIGHT PLANTAR -Time 08:50 -Correct Patient Yes -Correct Side, Site, Position Yes -Correct Procedure Yes -Procedure Performed Yes -Type of Procedure Debridement -Clinical Debridement Subcutaneous -Tissue Removed Subcutaneous -Post Debridement (cm) - Length 0.4 -Post Debridement (cm) - Width 0.2 -Post Debridement (cm) - Depth 0.3 -Total Square (Post) (cm) 0.08 -Area of Debridement (cm) - Length 0.4 -Area of Debridement (cm) - Width 0.2 -Total Square (Area) (cm) 0.08 -Tunneling No -Undermining/Tunneling No -Circular Undermining No -Wound/Ulcer Outcome Not Healed -Ulcer Cleansing Rinsed/ Irrigated with Saline -Foul Odor after Cleansing No -Bioengineered Tissue No -Bleeding Controlled with Pressure -Offloading Yes -Type of Offloading Surgical Shoe -Treatment Response Procedure Tolerated Well -Debridement - Subq, 1st 20sq cm No [See Physician Procedure note for Specifics] Pain Scale: 0-10 Numeric [Pain] -Is Patient Pain Free? Yes - Nurse 3 - General Ulcer D/C NN Start: 06/08/20 08:56 Freq: Status: Active Protocol: Activity Type Activity Date Activity User E-Sign Co-Sign Detail Recorded Client Recorded Date Recorded By Document 06/29/20 09:17 [facility] [id number] 06/29/20 09:18 [facility] 06/29/20 09:17 Wound Care Nurse 3 [Wound Dressing] #2 RIGHT Lateral Foot -Ulcer Cleansing Rinsed/ Irrigated with Saline -Foul Odor after Cleansing No -Primary Dressing Applied Other -Other Dressing HYDROGEL -Primary Dressing Covered/Secured Dry Gauze, with Secured with Tape #1 RIGHT PLANTAR -Ulcer Cleansing Rinsed/ Irrigated with Saline -Foul Odor after Cleansing No -Primary Dressing Applied Other -Other Dressing HYDROGEL -Primary Dressing Covered/Secured Dry Gauze, with Secured with Tape [Post Procedure Tolerated] -Treatment Response Procedure Tolerated Well Vital Signs [Respirations] -Respiratory Rate (12-18) 16 -Respiratory rate source Observation -Oxygen Delivery Method Room Air Pain Scale: 0-10 Numeric [Pain] -Is Patient Pain Free? Yes - Visit Discharge [Visit Discharge Information] -Discharge Condition Stable -Ambulatory Status Ambulatory -Transportation Private Auto Musculoskeletal: No Tenderness to Palpation of Joints or Extremities, Muscle Wasting Neurological: Sensory exam intact to light touch and pain Psych/Mental Status: Normal Affect Debridement Note Post-Debridement Measurements/Treatment - Nurse 2 - General Ulcer CM Notes Start: 06/08/20 08:56 Freq: Status: Active Protocol: Activity Type Activity Date Activity User E-Sign Co-Sign Detail Recorded Client Recorded Date Recorded By Document 06/08/20 09:36 [email or web address] [id number] 06/08/20 09:46 Document 06/15/20 08:44 [id number] 06/15/20 08:49 Document 06/22/20 08:36 [id number] 06/22/20 08:39 Document 06/29/20 08:50 [id number] 06/29/20 08:53 06/08/20 06/15/20 06/22/20 09:36 08:44 08:36 Wound Center Nurse 2 #2 RIGHT Lateral Foot -Time 09:41 08:45 08:37 -Correct Patient Yes Yes Yes -Correct Side, Site, Position Yes Yes Yes -Correct Procedure Yes Yes Yes -Procedure Performed Yes Yes Yes -Type of Procedure Debridement Debridement Debridement -Clinical Debridement Subcutaneous Subcutaneous Subcutaneous -Tissue Removed Subcutaneous Subcutaneous Subcutaneous -Post Debridement (cm) - Length 1.6 1.2 0.8 -Post Debridement (cm) - Width 0.7 0.3 0.2 -Post Debridement (cm) - Depth 0.2 0.3 0.2 -Total Square (Post) (cm) 1.12 0.36 0.16 -Area of Debridement (cm) - Length 1.6 1.2 0.8 -Area of Debridement (cm) - Width 0.7 0.3 0.2 -Total Square (Area) (cm) 1.12 0.36 0.16 -Tunneling No No No -Undermining/Tunneling No No No -Circular Undermining No No No -Wound/Ulcer Outcome Not Healed Not Healed Not Healed -Ulcer Cleansing Rinsed/ Rinsed/ Rinsed/ Irrigated with Irrigated with Irrigated with Saline Saline Saline -Foul Odor after Cleansing No No No -Bioengineered Tissue No No No -Bleeding Controlled with Pressure Pressure Pressure -Offloading Yes Yes Yes -Type of Offloading Surgical Shoe Surgical Shoe Surgical Shoe -Treatment Response Procedure Procedure Procedure Tolerated Well Tolerated Well Tolerated Well -Debridement - Subq, 1st 20sq cm No Yes Yes #1 RIGHT PLANTAR -Time 09:38 08:46 08:37 -Correct Patient Yes Yes Yes -Correct Side, Site, Position Yes Yes Yes -Correct Procedure Yes Yes Yes -Procedure Performed Yes Yes Yes -Type of Procedure Debridement Debridement Debridement -Clinical Debridement Subcutaneous Subcutaneous Subcutaneous -Tissue Removed Subcutaneous Subcutaneous Subcutaneous -Post Debridement (cm) - Length 0.8 0.5 0.4 -Post Debridement (cm) - Width 0.2 0.6 0.4 -Post Debridement (cm) - Depth 0.4 0.2 0.2 -Total Square (Post) (cm) 0.16 0.30 0.16 -Area of Debridement (cm) - Length 0.8 0.5 0.4 -Area of Debridement (cm) - Width 0.2 0.6 0.4 -Total Square (Area) (cm) 0.16 0.30 0.16 -Tunneling No No No -Undermining/Tunneling No No -Circular Undermining No No No -Wound/Ulcer Outcome Not Healed Not Healed Not Healed -Ulcer Cleansing Rinsed/ Rinsed/ Irrigated with Irrigated with Saline Saline -Foul Odor after Cleansing No No -Bioengineered Tissue No No No -Bleeding Controlled with Pressure Pressure Pressure -Offloading Yes Yes Yes -Type of Offloading Surgical Shoe Surgical Shoe Surgical Shoe -Treatment Response Procedure Procedure Procedure Tolerated Well Tolerated Well Tolerated Well -Debridement - Subq, 1st 20sq cm Yes No No Pain Scale: 0-10 Numeric Is Patient Pain Free? Yes Yes Yes 06/29/20 08:50 Wound Center Nurse 2 #2 RIGHT Lateral Foot -Time 08:50 -Correct Patient Yes -Correct Side, Site, Position Yes -Correct Procedure Yes -Procedure Performed Yes -Type of Procedure Debridement -Clinical Debridement Subcutaneous -Tissue Removed Subcutaneous -Post Debridement (cm) - Length 0.1 -Post Debridement (cm) - Width 0.3 -Post Debridement (cm) - Depth 0.2 -Total Square (Post) (cm) 0.03 -Area of Debridement (cm) - Length 0.1 -Area of Debridement (cm) - Width 0.3 -Total Square (Area) (cm) 0.03 -Tunneling No -Undermining/Tunneling No -Circular Undermining No -Wound/Ulcer Outcome Not Healed -Ulcer Cleansing Rinsed/ Irrigated with Saline -Foul Odor after Cleansing No -Bioengineered Tissue No -Bleeding Controlled with Pressure -Offloading Yes -Type of Offloading Surgical Shoe -Treatment Response Procedure Tolerated Well -Debridement - Subq, 1st 20sq cm Yes #1 RIGHT PLANTAR -Time 08:50 -Correct Patient Yes -Correct Side, Site, Position Yes -Correct Procedure Yes -Procedure Performed Yes -Type of Procedure Debridement -Clinical Debridement Subcutaneous -Tissue Removed Subcutaneous -Post Debridement (cm) - Length 0.4 -Post Debridement (cm) - Width 0.2 -Post Debridement (cm) - Depth 0.3 -Total Square (Post) (cm) 0.08 -Area of Debridement (cm) - Length 0.4 -Area of Debridement (cm) - Width 0.2 -Total Square (Area) (cm) 0.08 -Tunneling No -Undermining/Tunneling No -Circular Undermining No -Wound/Ulcer Outcome Not Healed -Ulcer Cleansing Rinsed/ Irrigated with Saline -Foul Odor after Cleansing No -Bioengineered Tissue No -Bleeding Controlled with Pressure -Offloading Yes -Type of Offloading Surgical Shoe -Treatment Response Procedure Tolerated Well -Debridement - Subq, 1st 20sq cm No Pain Scale: 0-10 Numeric Is Patient Pain Free? Yes WC - Nurse 3 - General Ulcer D/C NN Start: 06/08/20 08:56 Freq: Status: Active Protocol: Activity Type Activity Date Activity User E-Sign Co-Sign Detail Recorded Client Recorded Date Recorded By Document 06/08/20 10:08 RB [id number] 06/08/20 10:09 RB Document 06/22/20 08:51 [id number] 06/22/20 08:52 JF Document 06/29/20 09:17 BMF [id number] 06/29/20 09:18 BMF 06/08/20 06/22/20 06/29/20 10:08 08:51 09:17 Wound Care Nurse 3 #2 RIGHT Lateral Foot -Ulcer Cleansing Rinsed/ Rinsed/ Rinsed/ Irrigated with Irrigated with Irrigated with Saline Saline Saline -Foul Odor after Cleansing No -Primary Dressing Applied Aquacel AG 4x4 C Hydrogel ($) Other -Other Dressing HYDROGEL -Primary Dressing Covered/Secured with Dry Gauze,Dry Secured with Dry Gauze, Gauze & Roll Tape Secured with Gauze,Secured Tape with Tape -Aquacel AG 4x4 1 #1 RIGHT PLANTAR -Ulcer Cleansing Rinsed/ Rinsed/ Irrigated with Irrigated with Saline Saline -Foul Odor after Cleansing No No -Primary Dressing Applied C Hydrogel ($) Other -Other Dressing silver HYDROGEL -Primary Dressing Covered/Secured with Dry Gauze,Dry Dry Gauze & Dry Gauze, Gauze & Roll Roll Gauze, Secured with Gauze,Secured Secured with Tape with Tape Tape Treatment Response Procedure Procedure Tolerated Well Tolerated Well Pain Scale: 0-10 Numeric Is Patient Pain Free? Yes Yes Yes Vital Signs Respiratory Rate (12-18) 16 Respiratory rate source Observation Oxygen Delivery Method Room Air WC - Visit Discharge Discharge Condition Stable Stable Stable Ambulatory Status Ambulatory Ambulatory Ambulatory Transportation Private Auto Private Auto Private Auto Medication Reconcilliation completed & No Yes provided to patient/care provider Clinical Summary of Care Provided Yes Yes Wound debrided: plantar and dorsal lateral foot Laterality: Right Type of Debridement: Excisional debridement Anesthesia Used: 5% Lidocaine Gel Depth: in the subcutaneous layer Percentage of wound debrided: 100 Instrument Used: #15 blade Tissue Removed: fibrous, devitalized subcutaneous, biofilm, slough Severity: Fat Layer Exposed Amount of bleeding with debridement: Mild Bleeding Controlled with: Pressure Patient tolerated procedure well Assessment/Plan Assessment: Right foot sub-fifth metatarsal head ulcer with fat layer exposed. Right foot dorsal fifth metatarsal head ulcer, fat layer exposed. No signs of local infection. Peripheral vascular disease status post intervention. Malnutrition suspected. Foot deformities including fifth toe amputation and hammertoes and hallux valgus of right foot. h/o rectal cancer Plan: I reviewed and discussed his case. Subcutaneous excisional debridement was performed as noted in the clinical panel. He was advised to change dressing daily with collagenase to help reduce fibrous tissue enzymatically. To heel weight-bear with surgical shoe with offloading dual density Plastizote liners with offloading pockets. A felt pad was applied to the dorsal strap to further offload the dorsal foot ulcer. He was advised there are no local or systemic signs of illness today however the chronicity of this ulcer is a concern. I do not recommend antibiotics at this time. He will be monitored closely for development of local or systemic illness signs. I do recommend that he avoid soaking activities. To wash the foot with antibacterial soap and water in a gentle manner daily. His x-ray was reviewed including 3 nonweightbearing without soft tissue emphysema, foreign body, acute osseous destruction. There is decreased bone mineral density and rarefraction to the fifth metatarsal head at the fifth toe amputation site. Small vessel calcification is also noted. ESR, CBC, CRP baseline labs were ordered. No leukocytosis is noted. ESR was 3 and CRP was less than 2.9 which does not suggest osteomyelitis or other acute infection. Further deeper tissue involvement or osteomyelitis work up will be initiated if lack of healing is noted after several week so traditional comprehensive wound care or if there is a status change. It is noted that he had diminished vascular studies and surgical intervention with Dr. Arthur was performed including the following: Abdominal pelvic right lower extremity arteriogram with 2 mm tapered to 1.5 mm 210 mm [place] cross anterior tibial angioplasty, right superficial femoral 6 x 2 Powerflex angioplasty. To follow-up as scheduled. Proper nutrition is also needed to optimize healing. He relates his diet is very limited due to his history of rectal cancer with prior intervention. He is amendable to start Bharath nutritional supplementation at this time. A nutritional services referral was also provided and it is noted this is not covered by his insurance at this time. His labs were reviewed from 05-11-2020 and he did not have leukocytosis. He does have an elevated creatinine level. Advanced wound healing products or other wound care products will be considered pending progress. I answered his questions. He was advised to follow-up in clinic in 1 week or call sooner if he is any questions or concerns.
== END 2020-06-29 23:59 ==
LOC: WC 08:30
PROVIDERS: PCP Student in an Organized Health Care Education/Training Program; Referring Provider Podiatrist; Visit Provider Podiatrist
DX: L97.512 Non-pressure chronic ulcer of other part of right foot with fat layer exposed (principal); T14.8XXD Other injury of unspecified body region, subsequent encounter; M21.621 Bunionette of right foot; L84 Corns and callosities; I77.9 Disorder of arteries and arterioles, unspecified; Z85.048 Personal history of other malignant neoplasm of rectum, rectosigmoid junction, and anus; I73.9 Peripheral vascular disease, unspecified; E46 Unspecified protein-calorie malnutrition
CPT/HCPCS: 11042; 36415; 85025; 85652; 86140; 99213; G0463

== ENCOUNTER 2020-07-20 08:00 | Outpatient (RCR) | payer MEDICARE, SELFPAY ==
[2020-06-30 00:17] VITALS: BP 123/71; PULSE 71; RESP 16; TEMP 36.2
[2020-07-13 08:01] VITALS: BP 102/69; PULSE 61; RESP 16; TEMP 36.8; BMI 20.7
--- NOTE | 2020-07-13 10:35 | PN.PCM_ITS ---
(1) Delayed wound healing Status: Chronic Code(s): T14.8XXD - Other injury of unspecified body region, subsequent encounter (2) Ulcer of right foot with fat layer exposed Status: Chronic Code(s): L97.512 - Non-pressure chronic ulcer of other part of right foot with fat layer exposed (3) Malnutrition Status: Chronic Code(s): E46 - Unspecified protein-calorie malnutrition (4) Peripheral arterial occlusive disease Status: Chronic Code(s): I77.9 - Disorder of arteries and arterioles, unspecified (5) Hallux valgus (acquired), right foot Status: Chronic Code(s): M20.11 - Hallux valgus (acquired), right foot Type of Wound Date of Service: 07/13/20 Chief Complaint: right foot ulcers History of Wound: This 80-year-old male presents to the wound healing center for nonhealing right foot ulcers. He had vascular arterial intervention with Dr. Arthur on 05-18-2020. He relates the current ulcer sites have been open for over 4 months. He denies recent trauma. He denies redness, odor, or streaking. He denies fever, chill, nausea, vomiting. He wears offloading surgical shoe and takes bharath nutritional supplementation. 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 His changes the dressing daily with santyl. Progress of Wound: Improving ulcer quality dorsal and plantar aspects and reduction in size plantar ulcer site - Physical Exam Vital Signs Temp Pulse Resp BP 98.2 F 61 16 102/69 07/13/20 08:01 07/13/20 08:01 07/13/20 08:01 07/13/20 08:01 General: Alert, Oriented x3, Cooperative Extremities: No cyanosis, No edema, Capillary Refill Less than 3 Seconds, No Calf Tenderness, Diminished Peripheral Pulses Skin: Ulcer/ Wound - No purulence, erythema, streaking, odor, infection. Skin is atrophic and hairless. There is also callus plantar medial first metatarsal head upon debridement there is no ulcer Wound Measurements and Assessment WC - Nurse 1 - General Ulcer Measurement Start: 07/13/20 08:01 Freq: Status: Active Protocol: Activity Type Activity Date Activity User E-Sign Co-Sign Detail Recorded Client Recorded Date Recorded By Document 07/13/20 08:01 [facility] [id number] 07/13/20 08:06 [facility] 07/13/20 08:01 Wound Center Nurse 1 [Ulcer Assessment] #2 RIGHT Lateral Foot -Combined with other wound No -Current Size (cm) - Length 1 -Current Size (cm) - Width 0.3 -Current Size (cm) - Depth 0.1 -Total Square Cm 0.3 -Photo Taken No -Epithelialization None Present -Tunneling No -Undermining/Tunneling No -Circular Undermining No -Exudate Amt None Present -Wound Margin Distinct, Outline Attached -Granulation Amt None Present (0 %) -Slough/Fibrin Yes -Necrosis Amt Small (1-33%) -Necrotic Tissue Type Adherent Slough -Texture (Salma-wound Skin Appearance) Assessed, Scarring -Moisture (Salma-wound Skin Appearance Assessed ) -Color (Salma-wound Skin Appearance) Assessed -Temperature (Salma-wound Skin No Abnormality Appearance) (Pt Warm) -Tenderness on Palpation (Salma-wound No Skin Appearance) -Ulcer Cleansing Rinsed/ Irrigated with Saline -Foul Odor after Cleansing No -Anesthetic Used 4% Lidocaine Solution #1 RIGHT PLANTAR -Combined with other wound No -Current Size (cm) - Length 0.1 -Current Size (cm) - Width 0.1 -Current Size (cm) - Depth 0.1 -Total Square Cm 0.01 -Epithelialization Large 67-100% -Texture (Salma-wound Skin Appearance) Assessed, Scarring -Moisture (Salma-wound Skin Appearance Assessed ) -Color (Salma-wound Skin Appearance) Assessed -Temperature (Salma-wound Skin No Abnormality Appearance) (Pt Warm) -Tenderness on Palpation (Salma-wound No Skin Appearance) -Ulcer Cleansing Rinsed/ Irrigated with Saline -Foul Odor after Cleansing No -Anesthetic Used 4% Lidocaine Solution WC - Nurse 2 - General Ulcer CM Notes Start: 07/13/20 08:01 Freq: Status: Active Protocol: Activity Type Activity Date Activity User E-Sign Co-Sign Detail Recorded Client Recorded Date Recorded By Document 07/13/20 08:19 [id number] 07/13/20 08:26 07/13/20 08:19 Wound Center Nurse 2 [Procedure/Treatment] #2 RIGHT Lateral Foot -Time 08:20 -Correct Patient Yes -Correct Side, Site, Position Yes -Correct Procedure Yes -Procedure Performed Yes -Type of Procedure Debridement -Clinical Debridement Subcutaneous -Tissue Removed Subcutaneous -Post Debridement (cm) - Length 1.0 -Post Debridement (cm) - Width 0.3 -Post Debridement (cm) - Depth 0.2 -Total Square (Post) (cm) 0.30 -Area of Debridement (cm) - Length 1.0 -Area of Debridement (cm) - Width 0.3 -Total Square (Area) (cm) 0.30 -Tunneling No -Undermining/Tunneling No -Circular Undermining No -Wound/Ulcer Outcome Not Healed -Ulcer Cleansing Rinsed/ Irrigated with Saline -Foul Odor after Cleansing No -Bioengineered Tissue No -Bleeding Controlled with Pressure -Offloading Yes -Type of Offloading Surgical Shoe -Treatment Response Procedure Tolerated Well -Debridement - Subq, 1st 20sq cm Yes #1 RIGHT PLANTAR -Time 08:21 -Correct Patient Yes -Correct Side, Site, Position Yes -Correct Procedure Yes -Procedure Performed Yes -Type of Procedure Debridement -Clinical Debridement Subcutaneous -Tissue Removed Subcutaneous -Post Debridement (cm) - Length 0.1 -Post Debridement (cm) - Width 0.2 -Post Debridement (cm) - Depth 0.2 -Total Square (Post) (cm) 0.02 -Area of Debridement (cm) - Length 0.1 -Area of Debridement (cm) - Width 0.2 -Total Square (Area) (cm) 0.02 -Tunneling No -Undermining/Tunneling No -Circular Undermining No -Wound/Ulcer Outcome Not Healed -Ulcer Cleansing Rinsed/ Irrigated with Saline -Foul Odor after Cleansing No -Bioengineered Tissue No -Bleeding Controlled with Pressure -Offloading Yes -Type of Offloading Surgical Shoe -Treatment Response Procedure Tolerated Well -Debridement - Subq, 1st 20sq cm No [See Physician Procedure note for Specifics] Pain Scale: 0-10 Numeric [Pain] -Is Patient Pain Free? Yes WC - Nurse 3 - General Ulcer D/C NN Start: 07/13/20 08:01 Freq: Status: Active Protocol: Activity Type Activity Date Activity User E-Sign Co-Sign Detail Recorded Client Recorded Date Recorded By Document 07/13/20 08:35 DL [id number] 07/13/20 08:37 DL 07/13/20 08:35 Wound Care Nurse 3 [Wound Dressing] #2 RIGHT Lateral Foot -Ulcer Cleansing Rinsed/ Irrigated with Saline -Foul Odor after Cleansing No -Other Dressing nugel -Primary Dressing Covered/Secured Dry Gauze & with Roll Gauze, Secured with Tape #1 RIGHT PLANTAR -Ulcer Cleansing Rinsed/ Irrigated with Saline -Foul Odor after Cleansing No -Other Dressing Nugel -Primary Dressing Covered/Secured Dry Gauze & with Roll Gauze, Secured with Tape [Post Procedure Tolerated] -Treatment Response Procedure Tolerated Well Pain Scale: 0-10 Numeric [Pain] -Is Patient Pain Free? Yes WC - Visit Discharge [Visit Discharge Information] -Discharge Condition Stable -Ambulatory Status Ambulatory -Notes: Pt to resume santyl at home Musculoskeletal: Muscle Wasting, - - Hallux valgus with prominent first metatarsal head. 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 Neurological: Sensory exam intact to light touch and pain Psych/Mental Status: Normal Affect, Appropriate Debridement Note Post-Debridement Measurements/Treatment WC - Nurse 2 - General Ulcer CM Notes Start: 07/13/20 08:01 Freq: Status: Active Protocol: Activity Type Activity Date Activity User E-Sign Co-Sign Detail Recorded Client Recorded Date Recorded By Document 07/13/20 08:19 [id number] 07/13/20 08:26 [id number] 07/13/20 08:19 Wound Center Nurse 2 #2 RIGHT Lateral Foot -Time 08:20 -Correct Patient Yes -Correct Side, Site, Position Yes -Correct Procedure Yes -Procedure Performed Yes -Type of Procedure Debridement -Clinical Debridement Subcutaneous -Tissue Removed Subcutaneous -Post Debridement (cm) - Length 1.0 -Post Debridement (cm) - Width 0.3 -Post Debridement (cm) - Depth 0.2 -Total Square (Post) (cm) 0.30 -Area of Debridement (cm) - Length 1.0 -Area of Debridement (cm) - Width 0.3 -Total Square (Area) (cm) 0.30 -Tunneling No -Undermining/Tunneling No -Circular Undermining No -Wound/Ulcer Outcome Not Healed -Ulcer Cleansing Rinsed/ Irrigated with Saline -Foul Odor after Cleansing No -Bioengineered Tissue No -Bleeding Controlled with Pressure -Offloading Yes -Type of Offloading Surgical Shoe -Treatment Response Procedure Tolerated Well -Debridement - Subq, 1st 20sq cm Yes #1 RIGHT PLANTAR -Time 08:21 -Correct Patient Yes -Correct Side, Site, Position Yes -Correct Procedure Yes -Procedure Performed Yes -Type of Procedure Debridement -Clinical Debridement Subcutaneous -Tissue Removed Subcutaneous -Post Debridement (cm) - Length 0.1 -Post Debridement (cm) - Width 0.2 -Post Debridement (cm) - Depth 0.2 -Total Square (Post) (cm) 0.02 -Area of Debridement (cm) - Length 0.1 -Area of Debridement (cm) - Width 0.2 -Total Square (Area) (cm) 0.02 -Tunneling No -Undermining/Tunneling No -Circular Undermining No -Wound/Ulcer Outcome Not Healed -Ulcer Cleansing Rinsed/ Irrigated with Saline -Foul Odor after Cleansing No -Bioengineered Tissue No -Bleeding Controlled with Pressure -Offloading Yes -Type of Offloading Surgical Shoe -Treatment Response Procedure Tolerated Well -Debridement - Subq, 1st 20sq cm No Pain Scale: 0-10 Numeric Is Patient Pain Free? Yes - Nurse 3 - General Ulcer D/C NN Start: 07/13/20 08:01 Freq: Status: Active Protocol: Activity Type Activity Date Activity User E-Sign Co-Sign Detail Recorded Client Recorded Date Recorded By Document 07/13/20 08:35 DL [id number] 07/13/20 08:37 DL 07/13/20 08:35 Wound Care Nurse 3 #2 RIGHT Lateral Foot -Ulcer Cleansing Rinsed/ Irrigated with Saline -Foul Odor after Cleansing No -Other Dressing nugel -Primary Dressing Covered/Secured with Dry Gauze & Roll Gauze, Secured with Tape #1 RIGHT PLANTAR -Ulcer Cleansing Rinsed/ Irrigated with Saline -Foul Odor after Cleansing No -Other Dressing Nugel -Primary Dressing Covered/Secured with Dry Gauze & Roll Gauze, Secured with Tape Treatment Response Procedure Tolerated Well Pain Scale: 0-10 Numeric Is Patient Pain Free? Yes - Visit Discharge Discharge Condition Stable Ambulatory Status Ambulatory Notes: Pt to resume santyl at home Wound debrided: dorsal and plantar lateral forefoot Laterality: Right Type of Debridement: Excisional debridement Anesthesia Used: 5% Lidocaine Gel Depth: in the subcutaneous layer Percentage of wound debrided: 100 Instrument Used: #15 blade Tissue Removed: fibrous, devitalized subcutaneous, biofilm, slough Severity: Fat Layer Exposed Amount of bleeding with debridement: Mild Bleeding Controlled with: Pressure Patient tolerated procedure well Assessment/Plan Active Problems (Last Reviewed 05/24/20 @ 15:51 by Aliza Francis) Delayed wound healing (Chronic) Ulcer of right foot with fat layer exposed (Chronic) Malnutrition (Chronic) Hallux valgus (acquired), right foot (Chronic) Peripheral arterial occlusive disease (Chronic) Assessment: Right foot sub-fifth metatarsal head ulcer with fat layer exposed. Right foot dorsal fifth metatarsal head ulcer, fat layer exposed. No signs of local infection. Peripheral vascular disease status post intervention. Malnutrition suspected. Foot deformities including fifth toe amputation and hammertoes and hallux valgus of right foot. h/o rectal cancer Plan: I reviewed and discussed his case. Subcutaneous excisional debridement was performed as noted in the clinical panel. He was advised to change dressing daily with collagenase to help reduce fibrous tissue enzymatically. To heel weight-bear with surgical shoe with offloading dual density Plastizote liners with offloading pockets. He was advised there are no local or systemic signs of illness today however the chronicity of this ulcer is a concern. I do not recommend antibiotics at this time. He will be monitored closely for development of local or systemic illness signs. I do recommend that he avoid soaking activities. To wash the foot with antibacterial soap and water in a gentle manner daily. His x-ray was reviewed including 3 nonweightbearing without soft tissue emphysema, foreign body, acute osseous destruction. There is decreased bone mineral density and rarefraction to the fifth metatarsal head at the fifth toe amputation site. Small vessel calcification is also noted. ESR, CBC, CRP baseline labs were ordered. No leukocytosis is noted. ESR was 3 and CRP was less than 2.9 which does not suggest osteomyelitis or other acute infection. Further deeper tissue involvement or osteomyelitis work up will be initiated if lack of healing is noted after several week so traditional comprehe nsive wound care or if there is a status change. It is noted that he had diminished vascular studies and surgical intervention with Dr. Arthur was performed including the following: Abdominal pelvic right lower extremity arteriogram with 2 mm tapered to 1.5 mm 210 mm [place] cross anterior tibial angioplasty, right superficial femoral 6 x 2 Powerflex angioplasty. To follow- up as scheduled. Proper nutrition is also needed to optimize healing. He relates his diet is very limited due to his history of rectal cancer with prior intervention. He is amendable to start Bharath nutritional supplementation at this time. A nutritional services referral was also provided and it is noted this is not covered by his insurance at this time. His labs were reviewed from 05-11-2020 and he did not have leukocytosis. He does have an elevated creatinine level. Advanced wound healing products or other wound care products will be considered pending progress. I answered his questions. His calluses also gianna rided and he was advised he does not have a wound. He asked if he can have a bunionectomy surgery after his foot ulcers heal. I do not recommend this due to his compromised vascular perfusion to the forefoot level. I recommend wearing wider, or deep other properly fitted supportive shoes with specialty dual density insoles to prevent pain and ulcer formation. He was advised to follow- up in clinic in 1 week or call sooner if he is any questions or concerns.
[2020-07-20 08:11] VITALS: BMI 20.7
[2020-07-20 08:44] VITALS: BP 138/57; PULSE 62; RESP 16
--- NOTE | 2020-07-20 09:09 | PN.PCM_ITS ---
(1) Delayed wound healing Status: Chronic Code(s): T14.8XXD - Other injury of unspecified body region, subsequent encounter (2) Ulcer of right foot with fat layer exposed Status: Chronic Code(s): L97.512 - Non-pressure chronic ulcer of other part of right foot with fat layer exposed (3) Malnutrition Status: Chronic Code(s): E46 - Unspecified protein-calorie malnutrition (4) Peripheral arterial occlusive disease Status: Chronic Code(s): I77.9 - Disorder of arteries and arterioles, unspecified (5) Hallux valgus (acquired), right foot Status: Chronic Code(s): M20.11 - Hallux valgus (acquired), right foot Type of Wound Date of Service: 07/20/20 Chief Complaint: right foot ulcers History of Wound: This 80-year-old male presents to the wound healing center for nonhealing right foot ulcers. He had vascular arterial intervention with Dr. Arthur on 05-18-2020. He denies recent trauma. He denies redness, odor, or streaking. He denies fever, chill, nausea, vomiting. He wears offloading surgical shoe and takes bharath nutritional supplementation. His changes the dressing daily with santyl. Progress of Wound: Improving ulcer quality dorsal and plantar aspects and reduction in size plantar ulcer site - Physical Exam Vital Signs Temp Pulse Resp BP 98.2 F 62 16 138/57 H 07/13/20 08:01 07/20/20 08:44 07/20/20 08:44 07/20/20 08:44 General: Alert, Oriented x3, Cooperative, No apparent distress HEENT: Atraumatic Extremities: No cyanosis, No edema, Capillary Refill Less than 3 Seconds, No Calf Tenderness, Diminished Peripheral Pulses Skin: Ulcer/ Wound - No purulence, erythema, streaking, odor, infection. The skin is atrophic and hairless. Wound Measurements and Assessment WC - Nurse 1 - General Ulcer Measurement Start: 07/13/20 08:01 Freq: Status: Active Protocol: Activity Type Activity Date Activity User E-Sign Co-Sign Detail Recorded Client Recorded Date Recorded By Document 07/20/20 08:11 [email or web address] [id number] 07/20/20 08:14 [email or web address] 07/20/20 08:11 Wound Center Nurse 1 [Ulcer Assessment] #2 RIGHT Lateral Foot -Combined with other wound No -Current Size (cm) - Length 0.7 -Current Size (cm) - Width 0.1 -Current Size (cm) - Depth 0.1 -Total Square Cm 0.07 -Photo Taken No -Epithelialization Small 1-33% -Tunneling No -Undermining/Tunneling No -Circular Undermining No -Exudate Amt None Present -Wound Margin Flat & Intact -Granulation Amt None Present (0 %) -Slough/Fibrin Yes -Necrosis Amt Large (67-100%) -Necrotic Tissue Type Adherent Slough -Structure Exposed N/A -Texture (Salma-wound Skin Appearance) Assessed -Moisture (Salma-wound Skin Appearance Assessed,Dry/ ) Scaly -Color (Salma-wound Skin Appearance) Assessed -Temperature (Salma-wound Skin No Abnormality Appearance) (Pt Warm) -Tenderness on Palpation (Salma-wound No Skin Appearance) -Ulcer Cleansing Rinsed/ Irrigated with Saline -Foul Odor after Cleansing No -Anesthetic Used 4% Lidocaine Solution #1 RIGHT PLANTAR -Combined with other wound No -Current Size (cm) - Length 0.1 -Current Size (cm) - Width 0.1 -Current Size (cm) - Depth 0.1 -Total Square Cm 0.01 -Photo Taken No -Epithelialization Large 67-100% -Tunneling No -Undermining/Tunneling No -Circular Undermining No -Exudate Amt None Present -Wound Margin Flat & Intact -Granulation Amt Medium (34-66%) -Granulation Quality Red -Slough/Fibrin Yes -Necrosis Amt Large (67-100%) -Necrotic Tissue Type Adherent Slough -Structure Exposed N/A -Texture (Salma-wound Skin Appearance) Assessed -Moisture (Salma-wound Skin Appearance Assessed,Dry/ ) Scaly -Color (Salma-wound Skin Appearance) Assessed -Temperature (Salma-wound Skin No Abnormality Appearance) (Pt Warm) -Tenderness on Palpation (Salma-wound No Skin Appearance) -Ulcer Cleansing Rinsed/ Irrigated with Saline -Foul Odor after Cleansing No -Anesthetic Used 4% Lidocaine Solution [Edema Assessment] -Lower Limb Edema Present No WC - Nurse 2 - General Ulcer CM Notes Start: 07/13/20 08:01 Freq: Status: Active Protocol: Activity Type Activity Date Activity User E-Sign Co-Sign Detail Recorded Client Recorded Date Recorded By Document 07/20/20 08:27 [id number] 07/20/20 08:31 JF 07/20/20 08:27 Wound Center Nurse 2 [Procedure/Treatment] #2 RIGHT Lateral Foot -Time 08:27 -Correct Patient Yes -Correct Side, Site, Position Yes -Correct Procedure Yes -Procedure Performed Yes -Type of Procedure Debridement -Clinical Debridement Subcutaneous -Tissue Removed Subcutaneous -Post Debridement (cm) - Length 0.7 -Post Debridement (cm) - Width 0.2 -Post Debridement (cm) - Depth 0.1 -Total Square (Post) (cm) 0.14 -Area of Debridement (cm) - Length 0.7 -Area of Debridement (cm) - Width 0.2 -Total Square (Area) (cm) 0.14 -Tunneling No -Undermining/Tunneling No -Circular Undermining No -Wound/Ulcer Outcome Not Healed -Ulcer Cleansing Rinsed/ Irrigated with Saline -Foul Odor after Cleansing No -Bioengineered Tissue No -Bleeding Controlled with Pressure -Offloading Yes -Type of Offloading Surgical Shoe -Treatment Response Procedure Tolerated Well -Debridement - Subq, 1st 20sq cm Yes #1 RIGHT PLANTAR -Time 08:28 -Correct Patient Yes -Correct Side, Site, Position Yes -Correct Procedure Yes -Procedure Performed Yes -Type of Procedure Debridement -Clinical Debridement Subcutaneous -Tissue Removed Subcutaneous -Post Debridement (cm) - Length 0.1 -Post Debridement (cm) - Width 0.2 -Post Debridement (cm) - Depth 0.1 -Total Square (Post) (cm) 0.02 -Area of Debridement (cm) - Length 0.1 -Area of Debridement (cm) - Width 0.2 -Total Square (Area) (cm) 0.02 -Tunneling No -Undermining/Tunneling No -Circular Undermining No -Wound/Ulcer Outcome Not Healed -Ulcer Cleansing Rinsed/ Irrigated with Saline -Foul Odor after Cleansing No -Bioengineered Tissue No -Bleeding Controlled with Pressure -Offloading Yes -Type of Offloading Surgical Shoe -Treatment Response Procedure Tolerated Well -Debridement - Subq, 1st 20sq cm No [See Physician Procedure note for Specifics] Pain Scale: 0-10 Numeric [Pain] -Is Patient Pain Free? Yes WC - Nurse 3 - General Ulcer D/C NN Start: 07/13/20 08:01 Freq: Status: Active Protocol: Activity Type Activity Date Activity User E-Sign Co-Sign Detail Recorded Client Recorded Date Recorded By Document 07/20/20 08:44 AR [id number] 07/20/20 08:45 AR 07/20/20 08:44 Wound Care Nurse 3 [Wound Dressing] #2 RIGHT Lateral Foot -Primary Dressing Covered/Secured Dry Gauze, with Secured with Tape Vital Signs [Pulse] -Pulse Rate (60-100) 62 -Pulse Location Monitor [Respirations] -Respiratory Rate (12-18) 16 -Respiratory rate source Observation [Blood Pressure] -Blood Pressure (90/60-120/80) 138/57 H -Blood Pressure Mean (mm Hg) 84 -Source Monitor -Position Sitting -Blood Pressure Location Left Arm - Visit Discharge [Visit Discharge Information] -Discharge Condition Stable -Ambulatory Status Ambulatory -Transportation Private Auto -Medication Reconcilliation completed No & provided to patient/care provider -Clinical Summary of Care Provided Yes -Notes: santyl at home. Musculoskeletal: No Tenderness to Palpation of Joints or Extremities, Muscle Wasting, - - Amputation right foot Neurological: - - Altered sensation but still intact to light touch Psych/Mental Status: Normal Affect, Appropriate Debridement Note Post-Debridement Measurements/Treatment - Nurse 2 - General Ulcer CM Notes Start: 07/13/20 08:01 Freq: Status: Active Protocol: Activity Type Activity Date Activity User E-Sign Co-Sign Detail Recorded Client Recorded Date Recorded By Document 07/13/20 08:19 [id number] 07/13/20 08:26 Document 07/20/20 08:27 [id number] 07/20/20 08:31 07/13/20 07/20/20 08:19 08:27 Wound Center Nurse 2 #2 RIGHT Lateral Foot -Time 08:20 08:27 -Correct Patient Yes Yes -Correct Side, Site, Position Yes Yes -Correct Procedure Yes Yes -Procedure Performed Yes Yes -Type of Procedure Debridement Debridement -Clinical Debridement Subcutaneous Subcutaneous -Tissue Removed Subcutaneous Subcutaneous -Post Debridement (cm) - Length 1.0 0.7 -Post Debridement (cm) - Width 0.3 0.2 -Post Debridement (cm) - Depth 0.2 0.1 -Total Square (Post) (cm) 0.30 0.14 -Area of Debridement (cm) - Length 1.0 0.7 -Area of Debridement (cm) - Width 0.3 0.2 -Total Square (Area) (cm) 0.30 0.14 -Tunneling No No -Undermining/Tunneling No No -Circular Undermining No No -Wound/Ulcer Outcome Not Healed Not Healed -Ulcer Cleansing Rinsed/ Rinsed/ Irrigated with Irrigated with Saline Saline -Foul Odor after Cleansing No No -Bioengineered Tissue No No -Bleeding Controlled with Pressure Pressure -Offloading Yes Yes -Type of Offloading Surgical Shoe Surgical Shoe -Treatment Response Procedure Procedure Tolerated Well Tolerated Well -Debridement - Subq, 1st 20sq cm Yes Yes #1 RIGHT PLANTAR -Time 08: 08:28 -Correct Patient Yes Yes -Correct Side, Site, Position Yes Yes -Correct Procedure Yes Yes -Procedure Performed Yes Yes -Type of Procedure Debridement Debridement -Clinical Debridement Subcutaneous Subcutaneous -Tissue Removed Subcutaneous Subcutaneous -Post Debridement (cm) - Length 0.1 0.1 -Post Debridement (cm) - Width 0.2 0.2 -Post Debridement (cm) - Depth 0.2 0.1 -Total Square (Post) (cm) 0.02 0.02 -Area of Debridement (cm) - Length 0.1 0.1 -Area of Debridement (cm) - Width 0.2 0.2 -Total Square (Area) (cm) 0.02 0.02 -Tunneling No No -Undermining/Tunneling No No -Circular Undermining No No -Wound/Ulcer Outcome Not Healed Not Healed -Ulcer Cleansing Rinsed/ Rinsed/ Irrigated with Irrigated with Saline Saline -Foul Odor after Cleansing No No -Bioengineered Tissue No No -Bleeding Controlled with Pressure Pressure -Offloading Yes Yes -Type of Offloading Surgical Shoe Surgical Shoe -Treatment Response Procedure Procedure Tolerated Well Tolerated Well -Debridement - Subq, 1st 20sq cm No No Pain Scale: 0-10 Numeric Is Patient Pain Free? Yes Yes WC - Nurse 3 - General Ulcer D/C NN Start: 07/13/20 08:01 Freq: Status: Active Protocol: Activity Type Activity Date Activity User E-Sign Co-Sign Detail Recorded Client Recorded Date Recorded By Document 07/13/20 08:35 DL [id number] 07/13/20 08:37 DL Document 07/20/20 08:44 MT [id number] 07/20/20 08:45 MT 07/13/20 07/20/20 08:35 08:44 Wound Care Nurse 3 #2 RIGHT Lateral Foot -Ulcer Cleansing Rinsed/ Irrigated with Saline -Foul Odor after Cleansing No -Other Dressing nugel -Primary Dressing Covered/Secured with Dry Gauze & Dry Gauze, Roll Gauze, Secured with Secured with Tape Tape #1 RIGHT PLANTAR -Ulcer Cleansing Rinsed/ Irrigated with Saline -Foul Odor after Cleansing No -Other Dressing Nugel -Primary Dressing Covered/Secured with Dry Gauze & Roll Gauze, Secured with Tape Treatment Response Procedure Tolerated Well Vital Signs Pulse Rate (60-100) 62 Pulse Location Monitor Respiratory Rate (12-18) 16 Respiratory rate source Observation Blood Pressure (90/60-120/80) 138/57 H Blood Pressure Mean (mm Hg) 84 Source Monitor Position Sitting Blood Pressure Location Left Arm Pain Scale: 0-10 Numeric Is Patient Pain Free? Yes WC - Visit Discharge Discharge Condition Stable Stable Ambulatory Status Ambulatory Ambulatory Transportation Private Auto Medication Reconcilliation completed & No provided to patient/care provider Clinical Summary of Care Provided Yes Notes: Pt to resume santyl at home. santyl at home Wound debrided: dorsal and plantar lateral forefoot Laterality: Right Type of Debridement: Excisional debridement Anesthesia Used: 5% Lidocaine Gel Depth: in the subcutaneous layer Percentage of wound debrided: 100 Instrument Used: #15 blade Tissue Removed: fibrous, devitalized subcutaneous, biofilm, slough Severity: Fat Layer Exposed Amount of bleeding with debridement: Mild Bleeding Controlled with: Pressure Patient tolerated procedure well Assessment/Plan Active Problems (Last Reviewed 05/24/20 @ 15:51 by Aliza Francis) Delayed wound healing (Chronic) Ulcer of right foot with fat layer exposed (Chronic) Malnutrition (Chronic) Hallux valgus (acquired), right foot (Chronic) Peripheral arterial occlusive disease (Chronic) Assessment: Right foot sub-fifth metatarsal head ulcer with fat layer exposed. Right foot dorsal fifth metatarsal head ulcer, fat layer exposed. No signs of local infection. Peripheral vascular disease status post intervention. Malnutrition suspected. 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 h/o rectal cancer Plan: I reviewed and discussed his case. Subcutaneous excisional debridement was performed as noted in the clinical panel. He was advised to change dressing daily with collagenase to help reduce fibrous tissue enzymatically. To heel weight-bear with surgical shoe with offloading dual density Plastizote liners w ith offloading pockets. He was advised there are no local or systemic signs of illness today however the chronicity of this ulcer is a concern. I do not recommend antibiotics at this time. He will be monitored closely for development of local or systemic illness signs. I do recommend that he avoid soaking activities. To wash the foot with antibacterial soap and water in a gentle manner daily. His x-ray was reviewed including 3 nonweightbearing without soft tissue emphysema, foreign body, acute osseous destruction. There is decreased bone mineral density and rarefraction to the fifth metatarsal head at the fifth toe amputation site. Small vessel calcification is also noted. ESR, CBC, CRP baseline labs were ordered. No leukocytosis is noted. ESR was 3 and CRP was less than 2.9 which does not suggest osteomyelitis or other acute infection. Further deeper tissue involvement or osteomyelitis work up will be initiated if lack of healing is noted after several week so traditional com prehensive wound care or if there is a status change. It is noted that he had diminished vascular studies and surgical intervention with Dr. Arthur was performed including the following: Abdominal pelvic right lower extremity arteriogram with 2 mm tapered to 1.5 mm 210 mm [place] cross anterior tibial angioplasty, right superficial femoral 6 x 2 Powerflex angioplasty. To follow- up as scheduled. Proper nutrition is also needed to optimize healing. He relates his diet is very limited due to his history of rectal cancer with prior intervention. He is amendable to start Bharath nutritional supplementation at this time. A nutritional services referral was also provided and it is noted this is not covered by his insurance at this time. His labs were reviewed from 05-11-2020 and he did not have leukocytosis. He does have an elevated creatinine level. Advanced wound healing products or other wound care products will be considered pending progress. I answered his questions. His calluses also debrided and he was advised he does not have a wound. He asked if he can have a bunionectomy surgery after his foot ulcers heal. I do not recommend this due to his compromised vascular perfusion to the forefoot level. I recommend wearing wider, or deep other properly fitted supportive shoes with specialty dual density insoles to prevent pain and ulcer formation. He was advised to follow- up in clinic in 1 week or call sooner if he is any questions or concerns.
== END 2020-07-30 23:59 ==
LOC: WC 08:00
PROVIDERS: PCP Student in an Organized Health Care Education/Training Program; Referring Provider Podiatrist; Visit Provider Podiatrist
DX: I73.9 Peripheral vascular disease, unspecified (principal); L97.512 Non-pressure chronic ulcer of other part of right foot with fat layer exposed; M20.11 Hallux valgus (acquired), right foot; Z85.048 Personal history of other malignant neoplasm of rectum, rectosigmoid junction, and anus
CPT/HCPCS: 11042

== ENCOUNTER 2020-08-12 06:45 | Day surgery (SDC) | payer MEDICARE, SELFPAY ==
[2020-08-03 08:38] VITALS: BMI 20.7
[2020-08-12] VITALS (7 sets, daily range): BP systolic 117–154; BP diastolic 57–76; PULSE 51–65; RESP 16; TEMP 36.1–36.8; O2SAT 97–100; BMI 19.7
--- NOTE | 2020-08-12 | IMM_PTH ---
PATIENT: EDDA ZAMBRANO LOC: [facility] [place] U#:[id number] AGE/SX: 80/M ROOM: RE08/12/[address]: Dr. Nelson Daniel MD : 1940 BED: DIS: 08/12/2020 SPEC #: [id number] RECD: 08/15/20 12:46 STATUS: YOLANDA REQ #: [id number] WALLY: 08/12/20 00:[address]: Nelson Daniel DEPT: IMMUNOHISTOCHEMISTRY RECD BY: Nirmala Carlin ENTERED: 08/15/20 12:47 SP TYPE: IMMUNO OTHR DR: Dr. Jared Singh, DO Tissues: F - PROSTATE BIOPSY G - PROSTATE BIOPSY M - PROSTATE BIOPSY Procedures: 34BE12 (add) P40 (add) 34BE12 (initial) PHYSICIAN & INSTITUTION [place] [id number] SPECIMEN INFORMATION: Tissue Source: F - #6 prostate biopsy, G - #7 prostate biopsy, M - #13 prostate biopsy Clinical Info: BPH with low urinary tract symptoms, increased PSA, nocturia Specimen Number: [id number] F, G & M CPT code: 35935, 07888 x5 METHODOLOGY: Deparaffinized sections of prefer/formalin-fixed tissue or PAP/DQ stained slides are incubated with monoclonal/polyclonal antibodies/oligonucleotide probes. Localization is made via biotin free immunoperoxidase method. Appropriate controls are performed and reacted as expected. Results on target cell population are indicated in the following table: RESULTS: ANTIBODY / CLONE RESULT Block F P40 (BC28) positive 34BE12 (34BE12) * Block G P40 (BC28) positive 34BE12 (34BE12) positive Block M P40 (BC28) positive 34BE12 (34BE12) positive *?Tissue exhausted. These tests were developed and their performance characteristics determined by [facility]. They may not have been cleared or approved by the U.S. Food and Drug Administration. The FDA has determined that such clearance or approval is not necessary. The above immunohistochemical/dualISH markers are ordered and reviewed by the Pathologist. INTERPRETATION: F. Prostate #6, biopsy: Benign prostatic tissue. G. Prostate #7, biopsy: Benign prostatic tissue. M. Prostate #13, biopsy: Benign prostatic tissue. AM:blanco 08/16/20
[2020-08-12] MEDS: Lactated Ringers 1,000 ML 100 ML IV (07:32)
--- NOTE | 2020-08-12 08:00 | US_ITS ---
STUDY: ULTRASOUND GUIDED PROSTATE BIOPSY. REASON FOR EXAM: Male, 80 years old. PROSTATE BX - VIA THE PERINEUM TECHNIQUE: Under direct sonographic guidance, the urologist performed core biopsies of the prostate. COMPARISON: None. FINDINGS: Successful prostate biopsy utilizing ultrasound guidance. US/Intraoperative Ultrasound IMPRESSION: Successful prostate biopsy utilizing ultrasound guidance. Electronically Signed: Mert Recinos, at 10:06 EST , Service support ,
--- NOTE | 2020-08-12 08:18 | HP.PCM_ITS ---
History of Present Illness Date of Admission: 08/12/20 Chief Complaint: Elevated PSA The patient is a 80 year old male with a history of very elevated PSA he had an MRI prostate no suspicious for cancer. His difficulty is that he does not have a rectum and he did have a transperineal biopsy done a few years ago however that came back negative but given his high PSA and MRI that is very suspicious were to do another biopsy of the prostate to see if he has prostate cancer again this is going to be a transperineal biopsy were to try to use abdominal ultrasound to guide but it may have to be blinded biopsies. 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) History of colon cancer (Chronic) Z85.038 Benign essential hypertension (Chronic) I10 History of anxiety (Chronic) Z86.59 S/P arteriogram of extremity Z98.890 right leg 05/19 Allergies morphine Adverse Reaction (Verified 08/03/20 14:44) Vomiting Home Medications: Ambulatory Orders Medication Instructions Recorded Alendronate Sodium [Fosamax] 70 mg PO Q7D@0700 06/25/16 Calcium Carbonate/Vitamin D3 2 ea PO DAILY 06/25/16 [Calcium 500 mg Chewable Tablet] Cetirizine HCl [Allergy Relief] 10 mg PO DAILY 06/25/16 L.acidoph,Paracasei, B.lactis 1 ea PO DAILY 06/25/16 [Probiotic] Multivitamin [Daily Multiple 1 ea PO DAILY 06/25/16 Vitamin] Nabumetone [Relafen] 500 mg PO DAILY 06/25/16 Omeprazole [Prilosec] 20 mg PO BID 06/25/16 Potassium Chloride [Klor-Con M20] 20 meq PO BID 06/25/16 Pravastatin [Pravachol] 40 mg PO QHS 06/25/16 Saw [place] Fruit [Saw [place]] 450 mg PO DAILY 06/25/16 Tamsulosin HCl [Flomax] 0.4 mg PO BID 06/25/16 Trazodone HCl 50 mg PO QHS 06/25/16 cholecalciferol (vitamin D3) 125 1,000 unit PO DAILY cap 05/26/18 mcg (5,000 unit) capsule citalopram 40 mg tablet 40 mg PO DAILY tab 05/11/20 collagenase clostridium histo. 250 1 applic TOPICAL DAILY 05/11/20 unit/gram topical ointment hydrochlorothiazide 25 mg tablet 12.5 mg PO DAILY tab 05/11/20 clopidogrel 75 mg tablet 75 mg PO DAILY #30 tab 06/10/20 Ferrous Sulfate [Iron] 325 mg PO DAILY 08/03/20 Zinc Gluconate [Zinc] 50 mg PO DAILY 08/03/20 Surgical History: Surgical History (Last Reviewed 05/24/20 @ 15:51 by Aliza Francis) History of colectomy (Acute) Z90.49 History of colonoscopy (Acute) Onset Date: ~2014 [id number] History of colostomy (Chronic) Z98.890 Surgical History: colectomy Smoking Status: Former smoker Tobacco Use: Non-smoker Review of Systems Constitutional: Denies: Chills, Fever, Weight Change HEENT: Denies: Head Aches, Sinus Congestion, Sinus Drainage Cardiovascular: Denies: Chest Pain, Palpitations Respiratory: Denies: Cough, Shortness of breath at rest, Sputum production Gastrointestinal: Denies: Abdominal Pain, Nausea, Vomiting Genitourinary: Denies: Dysuria Musculoskeletal: Denies: Joint Pain, Joint Tenderness Skin: Denies: Rash, Wounds Neurological: Denies: Numbness, Tingling, Focal weakness Psychiatric: Denies: Anxiety, Depression, Homicidal Ideations, Suicidal Ideati ons Hematologic/ Lymphatic: Denies: Easy Bruising, Easy Bleeding VTE Information - Inpt Only VTE Present on Admission: No - Physical Exam Vitals/I&O's: Vital Signs Temp Pulse Resp BP Pulse Ox 98.2 F 57 L 16 126/62 H 99 08/12/20 07:17 08/12/20 07:17 08/12/20 07:17 08/12/20 07:17 08/12/20 07:17 Oxygen Delivery Method Room Air Weight: 62.4 kg Body Mass Index (BMI) 19.7 General: Alert, Oriented x3, Cooperative HEENT: Atraumatic, PERRLA, EOMI, Normocephalic Neck: Supple, No JVD, Negative Carotid Bruits Lungs: Clear to auscultation, Normal air movement Cardiovascular: Regular rate, No murmurs Abdomen: Bowel Sounds Present, Soft, Non Tender Extremities: No edema, Capillary Refill Less than 3 Seconds Skin: No rashes, No breakdown Musculoskeletal: No Tenderness to Palpation of Joints or Extremities Neurological: Cranial nerves II-XII grossly intact Psych/Mental Status: Normal Affect, Appropriate Microbiology Past 72 Hours 08/11/20 09:01 Interface Orders SARS-CoV-2 Antigen (Rapid) - Final Current Medications Ciprofloxacin (Cipro) 400 mg in 200 mls @ 200 mls/hr IV PREOP ONE Stop: 08/12/20 09:24 Lactated Ringer's () 1,000 mls @ 100 mls/hr IV .Q10H SEBLE Last Admin: 08/12/20 07:32 Dose: 100 mls/hr Documented by: Assessment/Plan All Active Problems (Last Reviewed 05/24/20 @ 15:51 by Aliza Francis) Rectal cancer (Resolved) History of colectomy (Acute) History of colonoscopy (Acute ~2014) 80-year-old male with elevated PSA MRI of the prostate is abnormal we will proceed with transperineal prostate biopsy no guidance because of no rectum we may try to use all abdominal ultrasound to guide the biopsies.
--- NOTE | 2020-08-12 08:21 | PCM.DC.URO ---
Discharge Diet: Light diet - advance as tolerated Discharge Activity: Return to Normal Activity Allergies/Adverse Reactions: Allergies morphine Adverse Reaction (Verified 08/03/20 14:44) Vomiting Medications to take at Discharge Alendronate Sodium [Fosamax] 70 mg PO Q7D@0700 06/25/16 Calcium Carbonate/Vitamin D3 [Calcium 500 mg Chewable Tablet] 2 ea PO DAILY 06/25/16 Cetirizine HCl [Allergy Relief] 10 mg PO DAILY 06/25/16 L.acidoph,Paracasei, B.lactis [Probiotic] 1 ea PO DAILY 06/25/16 Multivitamin [Daily Multiple Vitamin] 1 ea PO DAILY 06/25/16 Nabumetone [Relafen] 500 mg PO DAILY 06/25/16 Omeprazole [Prilosec] 20 mg PO BID 06/25/16 Potassium Chloride [Klor-Con M20] 20 meq PO BID 06/25/16 Pravastatin [Pravachol] 40 mg PO QHS 06/25/16 Saw [place] Fruit [Saw [place]] 450 mg PO DAILY 06/25/16 Tamsulosin HCl [Flomax] 0.4 mg PO BID 06/25/16 Trazodone HCl 50 mg PO QHS 06/25/16 cholecalciferol (vitamin D3) 125 mcg (5,000 unit) capsule 1,000 unit PO DAILY cap 05/26/18 citalopram 40 mg tablet 40 mg PO DAILY tab 05/11/20 collagenase clostridium histo. 250 unit/gram topical ointment 1 applic TOPICAL DAILY 05/11/20 hydrochlorothiazide 25 mg tablet 12.5 mg PO DAILY tab 05/11/20 clopidogrel 75 mg tablet 75 mg PO DAILY #30 tab 06/10/20 Ferrous Sulfate [Iron] 325 mg PO DAILY 08/03/20 Zinc Gluconate [Zinc] 50 mg PO DAILY 08/03/20 Ciprofloxacin [Cipro] 500 mg PO BID #6 tab 08/12/20 Ibuprofen 600 mg PO Q6H PRN PRN #14 tab 08/12/20 The following prescriptions were given: Ciprofloxacin [Cipro] 500 mg PO BID #6 tab Transmission Status: Pending to [facility] Ibuprofen 600 mg PO Q6H PRN PRN #14 tab PRN Reason: Pain Score 1-10 Transmission Status: Pending to [facility] Primary Care Physician: Singh,Jared, DO [Primary Care Provider] - Test Results: Test results from this visit will be discussed in further detail at your follow-up appointment, if applicable. Please Follow Up With: Nelson Daniel MD When: in 2 weeks, please call to make an appointment.
[2020-08-12] MEDS: Ciprofloxacin 400 MG/200 ML BAG 200 MG IV (08:25)
--- NOTE | 2020-08-12 08:50 | PROSB_PTH ---
PATIENT: EDDA ZAMBRANO [place] [facility] [id number] AGE/SX: 80/M ROOM: RE08/12/[address]: Dr. Nelson Daniel MD : [id number] BED: DIS: 08/12/2020 SPEC #: [id number] RECD: 08/12/20 09:33 STATUS: YOLANDA RE #: [id number] WALLY: 08/12/20 08:[address]: Nelson Daniel DEPT: SURGICAL PATHOLOGY RECD BY: Mily Mccain ENTERED: 08/12/20 10:38 SP TYPE: PROST BX OT DR: Dr. Jared Singh, DO Tissues: A - PROSTATE BIOPSY B - PROSTATE BIOPSY C - PROSTATE BIOPSY D - PROSTATE BIOPSY E - PROSTATE BIOPSY F - PROSTATE BIOPSY G - PROSTATE BIOPSY H - PROSTATE BIOPSY I - PROSTATE BIOPSY J - PROSTATE BIOPSY K - PROSTATE BIOPSY L - PROSTATE BIOPSY M - PROSTATE BIOPSY Procedures: PROSTATE BX HEADER OPERATION: Transperineal prostate biopsy, ultrasound-guided PRE-OP DIAGNOSIS: BPH with low urinary tract symptoms; increased PSA; nocturia TISSUE SUBMITTED: A-M - #1 prostate biopsy MICROSCOPIC DIAGNOSIS A. Prostate #1, core biopsy: Benign fibromuscular tissue. B. Prostate #2, core biopsy: Benign fibromuscular tissue. C. Prostate #3, core biopsy: Benign prostatic tissue. D. Prostate #4, core biopsy: Benign fibromuscular tissue. E. Prostate #5, core biopsy: Glandular atrophy and minimal chronic inflammation. F. Prostate #6, core biopsy: Benign prostatic tissue. See comment. G. Prostate #7, core biopsy: Benign prostatic tissue. See comment. H. Prostate #8, core biopsy: Benign fibromuscular tissue. I. Prostate #9, core biopsy: Benign fibromuscular tissue. J. Prostate #10, core biopsy: Benign fibromuscular tissue. K. Prostate #11, core biopsy: Benign fibromuscular tissue. L. Prostate #12, core biopsy: Focal glandular atrophy. M. Prostate #13, core biopsy: Focal glandular atrophy. Minimal chronic inflammation. See comment. AM:blanco 08/15/20 COMMENT F, G & M - Immunohistochemistry ([id number]) supports the above diagnosis. Case has been reviewed in consultation with Dr. Cazares who concurs with the above diagnosis. IDC:SJ Reference is made to the patient's previous prostate biopsies from 2016 ([id number]) in which benign prostatic tissue was identified. MICROSCOPIC DESCRIPTION Slides are reviewed. GROSS DESCRIPTION A - Received in fixative is one container labeled with the patient's name and designated #1 prostate biopsy. The specimen consists of two elongated fragments of light kimbrough-white soft tissue each measuring 2.2 cm in length and 0.1 cm in diameter. The specimen is totally submitted in one cassette. B - Received in fixative is one container labeled with the patient's name and designated #2 prostate biopsy. The specimen consists of two elongated fragments of light kimbrough-white soft tissue each measuring 0.5 cm in length and <0.1 cm in diameter. The specimen is totally submitted in one cassette. C - Received in fixative is one container labeled with the patient's name and designated #3 prostate biopsy. The specimen consists of one elongated fragment of light kimbrough-white soft tissue measuring 2 cm in length and 0.1 cm in diameter. The specimen is totally submitted in one cassette. D - Received in fixative is one container labeled with the patient's name and designated #4 prostate biopsy. The specimen consists of one elongated fragment of light kimbrough-white soft tissue measuring 1.3 cm in length and 0.1 cm in diameter. The specimen is totally submitted in one cassette. E - Received in fixative is one container labeled with the patient's name and designated #5 prostate biopsy. The specimen consists of one elongated fragment of light kimbrough-white soft tissue measuring 1.8 cm in length and 0.1 cm in diameter. The specimen is totally submitted in one cassette. F - Received in fixative is one container labeled with the patient's name and designated #6 prostate biopsy. The specimen consists of one elongated fragment of light kimbrough-white soft tissue measuring 1.4 cm in length and 0.1 cm in diameter. The specimen is totally submitted in one cassette. G - Received in fixative is one container labeled with the patient's name and designated #7 prostate biopsy. The specimen consists of one elongated fragments of light kimbrough-white soft tissue measuring 3 cm in length and 0.1 cm in diameter. The specimen is totally submitted in one cassette. H - Received in fixative is one container labeled with the patient's name and designated #8 prostate biopsy. The specimen consists of two elongated fragments of light kimbrough-white soft tissue measuring 0.7 and 1.4 cm in length and 0.1 cm in diameter. The specimen is totally submitted in one cassette. I - Received in fixative is one container labeled with the patient's name and designated #9 prostate biopsy. The specimen consists of one elongated fragment of light kimbrough-white soft tissue measuring 1 cm in length and 0.1 cm in diameter. A few minute fragments of kimbrough soft tissue are also noted measuring 0.2 x 0.1 x 0.1 cm. The specimen is totally submitted in one cassette. J - Received in fixative is one container labeled with the patient's name and designated #10 prostate biopsy. The specimen consists of one elongated fragment of light kimbrough-white soft tissue measuring 2 cm in length and 0.1 cm in diameter. The specimen is totally submitted in one cassette. K - Received in fixative is one container labeled with the patient's name and designated #11 prostate biopsy. The specimen consists of one elongated fragment of light kimbrough-white soft tissue measuring 1 cm in length and 0.1 cm in diameter. The specimen is totally submitted in one cassette. L - Received in fixative is one container labeled with the patient's name and designated #12 prostate biopsy. The specimen consists of two elongated fragments of light kimbrough-white soft tissue measuring 1 and 1.5 cm in length and 0.1 cm in diameter. The specimen is totally submitted in one cassette. M - Received in fixative is one container labeled with the patient's name and designated #13 prostate biopsy. The specimen consists of one elongated fragment of light kimbrough-white soft tissue measuring 2 cm in length and 0.1 cm in diameter. The specimen is totally submitted in one cassette. / CHARLES:rg 08/12/20 TC:4 CPT: G0146
--- NOTE | 2020-08-12 08:57 | PCM.OPRPT ---
Report of Operation Date of Procedure: 08/12/20 Pre-Operative Diagnosis: Elevated PSA and abnormal MRI Post-Operative Diagnosis: Same Surgery/Procedure Performed:: Transperineal biopsy of the prostate Description of Surgical Findings:: 80-year-old male was taken back to the operating room after smooth induction of anesthesia he was placed in dorsolithotomy position. The penis and scrotum and perineum were prepped and draped in usual sterile fashion we then held up the scrotum the testicles with a wet towel. We then placed the well-lubricated catheter aerosolized contrast into the bladder filled the balloon with 10 cc in the distended the bladder with 250 cc of water. With this we were able to identify the catheter the balloon at the bladder neck and the prostate and then moving the catheter I would identify the dark looking prostate structure then using freehand technique guided the biopsy needle to it appeared to be the prostate and biopsy of the prostate multiple times in multiple angles. Again this was very difficult using a freehand technique with no guide and no rectum. Could not feel the prostate. Had to use the spatial visualization on the ultrasound to see exactly the prostate was at the end he got 13 biopsy of the prostate appeared to be successful biopsies bladder was then drained catheter was removed and I will see him back in a few weeks to review the biopsy results. Type of Anesthesia:: General - Admit VTE Documentation VTE Present on Admission: No VTE Mechan Device Prophylaxis: SCD's
== END 2020-08-12 10:58 | disposition home or self-care (01) ==
LOC: SDC 06:46 → AC 06:46
PROVIDERS: PCP Student in an Organized Health Care Education/Training Program; Referring Provider Urology; Visit Provider Urology
PROC: 0VB08ZX Excision of Prostate, Via Natural or Artificial Opening Endoscopic, Diagnostic (ICD-10-PCS; CPT 52000; principal; 2020-08-12 08:40)
DX: N41.1 Chronic prostatitis (principal); R97.20 Elevated prostate specific antigen [PSA]; I10 Essential (primary) hypertension; F41.9 Anxiety disorder, unspecified; G47.30 Sleep apnea, unspecified; K21.9 Gastro-esophageal reflux disease without esophagitis; D64.9 Anemia, unspecified; E78.00 Pure hypercholesterolemia, unspecified; F32.9 Major depressive disorder, single episode, unspecified; Z93.3 Colostomy status; Z85.038 Personal history of other malignant neoplasm of large intestine; Z87.891 Personal history of nicotine dependence; Z79.899 Other long term (current) drug therapy
CPT/HCPCS: 00400; 55700; 76998; 87426; 88305; 88341; 88342; C9803; J7120; G0416; J0744; J2405

== ENCOUNTER 2020-08-24 08:00 | Outpatient (RCR) | payer MEDICARE, SELFPAY ==
[2020-07-31 00:10] VITALS: BP 138/57; PULSE 62; RESP 16; TEMP 36.8
[2020-08-03 08:38] VITALS: BP 134/73; PULSE 59; RESP 16; TEMP 35.6; BMI 20.7
--- NOTE | 2020-08-03 22:30 | PN.PCM_ITS ---
(1) Delayed wound healing Status: Chronic Code(s): T14.8XXD - Other injury of unspecified body region, subsequent encounter (2) Ulcer of right foot with fat layer exposed Status: Chronic Code(s): L97.512 - Non-pressure chronic ulcer of other part of right foot with fat layer exposed (3) Tailors bunion Status: Chronic Qualifiers: Code(s): M21.629 - Bunionette of unspecified foot (4) Peripheral arterial occlusive disease Status: Chronic Code(s): I77.9 - Disorder of arteries and arterioles, unspecified Type of Wound Date of Service: 08/03/20 Chief Complaint: right foot ulcers History of Wound: This 80-year-old male presents to the wound healing center for nonhealing right foot ulcers. He had vascular arterial intervention with Dr. Arthur on 05-18-2020. He denies recent trauma. He denies redness, odor, or str eaking. He denies fever, chill, nausea, vomiting. He wears offloading surgical shoe and takes bharath nutritional supplementation. His changes the dressing daily with shakiar. Progress of Wound: Improving ulcer quality dorsal and plantar aspects and reduction in size plantar ulcer site - Physical Exam Vital Signs Temp Pulse Resp BP 96.0 F L 59 L 16 134/73 H 08/03/20 08:38 08/03/20 08:38 08/03/20 08:38 08/03/20 08:38 General: Alert, Oriented x3, Cooperative, No apparent distress HEENT: Atraumatic Extremities: No cyanosis, Capillary Refill Less than 3 Seconds, No Calf Tenderness, Diminished Peripheral Pulses, Edema - mild, - - Fifth toe amputation right Skin: Ulcer/ Wound - Peripheral epithelialization is noted to both sites. No purulence, erythema, string, odor, infection. Wound Measurements and Assessment WC - Nurse 1 - General Ulcer Measurement Start: 08/03/20 08:27 Freq: Status: Active Protocol: Activity Type Activity Date Activity User E-Sign Co-Sign Detail Recorded Client Recorded Date Recorded By Document 08/03/20 08:38 [email or web address] [id number] 08/03/20 08:40 AMBROSIO 08/03/20 08:38 Wound Center Nurse 1 [Ulcer Assessment] #2 RIGHT Lateral Foot -Combined with other wound No -Current Size (cm) - Length 0.4 -Current Size (cm) - Width 0.1 -Current Size (cm) - Depth 0.1 -Total Square Cm 0.04 -Photo Taken No -Epithelialization Medium 34-66% -Tunneling No -Undermining/Tunneling No -Circular Undermining No -Granulation Amt None Present (0 %) -Slough/Fibrin Yes -Necrosis Amt Large (67-100%) -Necrotic Tissue Type Adherent Slough -Structure Exposed N/A -Texture (Salma-wound Skin Appearance) Assessed -Moisture (Salma-wound Skin Appearance Assessed,Dry/ ) Scaly -Color (Salma-wound Skin Appearance) Assessed -Temperature (Salma-wound Skin No Abnormality Appearance) (Pt Warm) -Tenderness on Palpation (Salma-wound No Skin Appearance) -Ulcer Cleansing Rinsed/ Irrigated with Saline -Foul Odor after Cleansing No -Anesthetic Used 4% Lidocaine Solution #1 RIGHT PLANTAR -Combined with other wound No -Current Size (cm) - Length 0.1 -Current Size (cm) - Width 0.4 -Current Size (cm) - Depth 0.1 -Total Square Cm 0.04 -Photo Taken No -Epithelialization Small 1-33% -Tunneling No -Undermining/Tunneling No -Circular Undermining No -Exudate Amt None Present -Wound Margin Flat & Intact -Slough/Fibrin Yes -Necrosis Amt Large (67-100%) -Necrotic Tissue Type Adherent Slough -Structure Exposed N/A -Texture (Salma-wound Skin Appearance) Assessed,Callus -Moisture (Salma-wound Skin Appearance Assessed,Dry/ ) Scaly -Color (Salma-wound Skin Appearance) Assessed -Temperature (Salma-wound Skin No Abnormality Appearance) (Pt Warm) -Tenderness on Palpation (Salma-wound No Skin Appearance) -Ulcer Cleansing Rinsed/ Irrigated with Saline -Foul Odor after Cleansing No -Anesthetic Used 4% Lidocaine Solution [Edema Assessment] -Lower Limb Edema Present No WC - Nurse 2 - General Ulcer CM Notes Start: 08/03/20 08:27 Freq: Status: Active Protocol: Activity Type Activity Date Activity User E-Sign Co-Sign Detail Recorded Client Recorded Date Recorded By Document 08/03/20 08:40 AMBROSIO [id number] 08/03/20 08:45 AMBROSIO 08/03/20 08:40 Wound Center Nurse 2 [Procedure/Treatment] #2 RIGHT Lateral Foot -Time 08:44 -Correct Patient Yes -Correct Side, Site, Position Yes -Correct Procedure Yes -Procedure Performed Yes -Type of Procedure Debridement -Clinical Debridement Subcutaneous -Tissue Removed Subcutaneous -Post Debridement (cm) - Length 0.3 -Post Debridement (cm) - Width 0.1 -Post Debridement (cm) - Depth 0.2 -Total Square (Post) (cm) 0.03 -Area of Debridement (cm) - Length 0.3 -Area of Debridement (cm) - Width 0.1 -Total Square (Area) (cm) 0.03 -Tunneling No -Undermining/Tunneling No -Circular Undermining No -Wound/Ulcer Outcome Not Healed -Ulcer Cleansing Rinsed/ Irrigated with Saline -Foul Odor after Cleansing No -Bioengineered Tissue No -Bleeding Controlled with Pressure -Offloading Yes -Type of Offloading Surgical Shoe -Treatment Response Procedure Tolerated Well -Debridement - Subq, 1st 20sq cm Yes #1 RIGHT PLANTAR -Time 08:42 -Correct Patient Yes -Correct Side, Site, Position Yes -Correct Procedure Yes -Procedure Performed Yes -Type of Procedure Debridement -Clinical Debridement Subcutaneous -Tissue Removed Subcutaneous -Post Debridement (cm) - Length 0.5 -Post Debridement (cm) - Width 0.2 -Post Debridement (cm) - Depth 0.3 -Total Square (Post) (cm) 0.10 -Area of Debridement (cm) - Length 0.5 -Area of Debridement (cm) - Width 0.4 -Total Square (Area) (cm) 0.20 -Tunneling No -Undermining/Tunneling No -Circular Undermining No -Wound/Ulcer Outcome Not Healed -Ulcer Cleansing Rinsed/ Irrigated with Saline -Bioengineered Tissue No -Bleeding Controlled with Pressure -Offloading Yes -Type of Offloading Surgical Shoe -Treatment Response Procedure Tolerated Well -Debridement - Subq, 1st 20sq cm No [See Physician Procedure note for Specifics] Pain Scale: 0-10 Numeric [Pain] -Is Patient Pain Free? Yes WC - Nurse 3 - General Ulcer D/C NN Start: 08/03/20 08:27 Freq: Status: Active Protocol: Activity Type Activity Date Activity User E-Sign Co-Sign Detail Recorded Client Recorded Date Recorded By Document 08/03/20 09:29 [email or web address] [id number] 08/03/20 09:30 AMBROSIO 08/03/20 09:29 Wound Care Nurse 3 [Wound Dressing] #2 RIGHT Lateral Foot -Ulcer Cleansing Rinsed/ Irrigated with Saline -Foul Odor after Cleansing No -Primary Dressing Applied Enzymatic -Primary Dressing Covered/Secured Dry Gauze & with Roll Gauze, Secured with Tape #1 RIGHT PLANTAR -Ulcer Cleansing Rinsed/ Irrigated with Saline -Foul Odor after Cleansing No -Primary Dressing Applied Enzymatic -Primary Dressing Covered/Secured Dry Gauze & with Roll Gauze, Secured with Tape Pain Scale: 0-10 Numeric [Pain] -Is Patient Pain Free? Yes WC - Visit Discharge [Visit Discharge Information] -Discharge Condition Stable -Ambulatory Status Ambulatory -Transportation Private Auto -Accompanied by -Medication Reconcilliation completed Yes & provided to patient/care provider -Clinical Summary of Care Provided Yes -Notes: Dry gauze applied inbetween hallux and 2nd toe. Musculoskeletal: No Tenderness to Palpation of Joints or Extremities, Muscle Wasting Neurological: Sensory exam intact to light touch and pain Psych/Mental Status: Normal Affect, Appropriate Debridement Note Post-Debridement Measurements/Treatment - Nurse 2 - General Ulcer CM Notes Start: 08/03/20 08:27 Freq: Status: Active Protocol: Activity Type Activity Date Activity User E-Sign Co-Sign Detail Recorded Client Recorded Date Recorded By Document 08/03/20 08:40 AMBROSIO [id number] 08/03/20 08:45 AMBROSIO 08/03/20 08:40 Wound Center Nurse 2 #2 RIGHT Lateral Foot -Time 08:44 -Correct Patient Yes -Correct Side, Site, Position Yes -Correct Procedure Yes -Procedure Performed Yes -Type of Procedure Debridement -Clinical Debridement Subcutaneous -Tissue Removed Subcutaneous -Post Debridement (cm) - Length 0.3 -Post Debridement (cm) - Width 0.1 -Post Debridement (cm) - Depth 0.2 -Total Square (Post) (cm) 0.03 -Area of Debridement (cm) - Length 0.3 -Area of Debridement (cm) - Width 0.1 -Total Square (Area) (cm) 0.03 -Tunneling No -Undermining/Tunneling No -Circular Undermining No -Wound/Ulcer Outcome Not Healed -Ulcer Cleansing Rinsed/ Irrigated with Saline -Foul Odor after Cleansing No -Bioengineered Tissue No -Bleeding Controlled with Pressure -Offloading Yes -Type of Offloading Surgical Shoe -Treatment Response Procedure Tolerated Well -Debridement - Subq, 1st 20sq cm Yes #1 RIGHT PLANTAR -Time 08:42 -Correct Patient Yes -Correct Side, Site, Position Yes -Correct Procedure Yes -Procedure Performed Yes -Type of Procedure Debridement -Clinical Debridement Subcutaneous -Tissue Removed Subcutaneous -Post Debridement (cm) - Length 0.5 -Post Debridement (cm) - Width 0.2 -Post Debridement (cm) - Depth 0.3 -Total Square (Post) (cm) 0.10 -Area of Debridement (cm) - Length 0.5 -Area of Debridement (cm) - Width 0.4 -Total Square (Area) (cm) 0.20 -Tunneling No -Undermining/Tunneling No -Circular Undermining No -Wound/Ulcer Outcome Not Healed -Ulcer Cleansing Rinsed/ Irrigated with Saline -Bioengineered Tissue No -Bleeding Controlled with Pressure -Offloading Yes -Type of Offloading Surgical Shoe -Treatment Response Procedure Tolerated Well -Debridement - Subq, 1st 20sq cm No Pain Scale: 0-10 Numeric Is Patient Pain Free? Yes - Nurse 3 - General Ulcer D/C NN Start: 08/03/20 08:27 Freq: Status: Active Protocol: Activity Type Activity Date Activity User E-Sign Co-Sign Detail Recorded Client Recorded Date Recorded By Document 08/03/20 09:29 AMBROSIO [id number] 08/03/20 09:30 AMBROSIO 08/03/20 09:29 Wound Care Nurse 3 #2 RIGHT Lateral Foot -Ulcer Cleansing Rinsed/ Irrigated with Saline -Foul Odor after Cleansing No -Primary Dressing Applied Enzymatic -Primary Dressing Covered/Secured with Dry Gauze & Roll Gauze, Secured with Tape #1 RIGHT PLANTAR -Ulcer Cleansing Rinsed/ Irrigated with Saline -Foul Odor after Cleansing No -Primary Dressing Applied Enzymatic -Primary Dressing Covered/Secured with Dry Gauze & Roll Gauze, Secured with Tape Pain Scale: 0-10 Numeric Is Patient Pain Free? Yes - Visit Discharge Discharge Condition Stable Ambulatory Status Ambulatory Transportation Private Auto Accompanied by Medication Reconcilliation completed & Yes provided to patient/care provider Clinical Summary of Care Provided Yes Notes: Dry gauze applied inbetween hallux and 2nd toe. Wound debrided: dorsal and plantar lateral forefoot Laterality: Right Type of Debridement: Excisional debridement Anesthesia Used: 5% Lidocaine Gel Depth: in the subcutaneous layer Percentage of wound debrided: 100 Instrument Used: #15 blade Tissue Removed: fibrous, devitalized subcutaneous, biofilm, slough Severity: Fat Layer Exposed Amount of bleeding with debridement: Mild Bleeding Controlled with: Pressure Patient tolerated procedure well Assessment/Plan Active Problems (Last Reviewed 05/24/20 @ 15:51 by Aliza Francis) Delayed wound healing (Chronic) Ulcer of right foot with fat layer exposed (Chronic) Tailors bunion (Chronic) Peripheral arterial occlusive disease (Chronic) Assessment: Right foot sub-fifth metatarsal head ulcer with fat layer exposed. Right foot dorsal fifth metatarsal head ulcer, fat layer exposed. No signs of local infection. Peripheral vascular disease status post intervention. Malnutr ition suspected. Foot deformities including fifth toe amputation and hammertoes and hallux valgus of right foot. h/o rectal cancer Plan: I reviewed and discussed his case. Subcutaneous excisional debridement was performed as noted in the clinical panel. He was advised to change dressing daily with collagenase to help reduce fibrous tissue enzymatically. To heel weight-bear with surgical shoe with offloading dual density Plastizote liners with offloading pockets. He was advised there are no local or systemic signs of illness today however the chronicity of this ulcer is a concern. I do not recommend antibiotics at this time. He will be monitored closely for development of local or systemic illness signs. I do recommend that he avoid soaking activities. To wash the foot with antibacterial soap and water in a gentle manner daily. His x-ray was reviewed including 3 nonweightbearing without soft tissue emphysema, foreign body, acute osseous destruction. There is decreased bone mineral density and rarefraction to the fifth metatarsal head at the fifth toe amputation site. Small vessel calcification is also noted. ESR, CBC, CRP baseline labs were ordered. No leukocytosis is noted. ESR was 3 and CRP was less than 2.9 which does not suggest osteomyelitis or other acute infection. Further deeper tissue involvement or osteomyelitis work up will be initiated if lack of healing is noted after several week so traditional comprehensive wound care or if there is a status change. It is noted that he had diminished vascular studies and surgical intervention with Dr. Arthur was performed including the following: Abdominal pelvic right lower extremity arteriogram with 2 mm tapered to 1.5 mm 210 mm [place] cross anterior tibial angioplasty, right superficial femoral 6 x 2 Powerflex angioplasty. To follow- up as scheduled. Proper nutrition is also needed to optimize healing. He relates his diet is very limited due to his history of rectal cancer with prior intervention. He is amendable to start Bharath nutritional supplementation at this time. A nutritional services referral was also provided and it is noted this is not covered by his insurance at this time. His labs were reviewed from 05-11-2020 and he did not have leukocytosis. He does have an elevated creatinine level. Advanced wound healing products or other wound care products will be considered pending progress. I answered his questions. I recommend wearing wider, or deep other properly fitted supportive shoes with specialty dual density insoles to prevent pain and ulcer formation. He was advised to follow- up in clinic in 1 week or call sooner if he is any questions or concerns.
[2020-08-24 07:59] VITALS: BP 127/43; PULSE 73; RESP 18; TEMP 36.2; BMI 20.7
--- NOTE | 2020-08-24 09:40 | PN.PCM_ITS ---
(1) Ulcer of right foot with fat layer exposed Status: Resolved Code(s): L97.512 - Non-pressure chronic ulcer of other part of right foot with fat layer exposed (2) Tailors bunion Status: Chronic Qualifiers: Code(s): M21.629 - Bunionette of unspecified foot (3) Peripheral arterial occlusive disease Status: Chronic Code(s): I77.9 - Disorder of arteries and arterioles, unspecified (4) Ingrowing right great toenail Status: Chronic Code(s): L60.0 - Ingrowing nail Type of Wound Date of Service: 08/24/20 Chief Complaint: right foot ulcers History of Wound: This 80-year-old male presents to the wound healing center for nonhealing right foot ulcers. He had vascular arterial intervention with Dr. Arthur on 05-18-2020. He denies recent trauma. He denies redness, odor, or streaking. He denies fever, chill, nausea, vomiting. He wears offloading surgical shoe and takes george nutritional supplementation. His changes the dressing daily with santyl. He is not sure if he has drainage. He reports continued ingrown toenail and asked if this could be looked at today. He has a chronic bunion deformity as well and his second toe presses up against his right toe. He uses a gauze spacer. Progress of Wound: healed - Physical Exam Vital Signs Temp Pulse Resp BP 97.2 F L 73 18 127/43 H 08/24/20 07:59 08/24/20 07:59 08/24/20 07:59 08/24/20 07:59 General: Alert, Oriented x3, Cooperative, No apparent distress HEENT: Atraumatic Extremities: No cyanosis, Capillary Refill Less than 3 Seconds, No Calf Tenderness, Diminished Peripheral Pulses, Edema - Mild, - - Hallux abuts second toe Skin: Ulcer/ Wound - Full epithelialization is noted to the dorsal plantar prior ulcer sites. This is healed. No infection noted. Small callus plantar medial first metatarsal head, - - Skin is atrophic and hairless. There is incurvature to the medial lateral border of the right toenail with pain to palpation resolved after debridement. No drainage infection or wound Wound Measurements and Assessment WC - Nurse 1 - General Ulcer Measurement Start: 08/03/20 08:27 Freq: Status: Active Protocol: Activity Type Activity Date Activity User E-Sign Co-Sign Detail Recorded Client Recorded Date Recorded By Document 08/24/20 07:59 DL [id number] 08/24/20 08:05 DL 08/24/20 07:59 Wound Center Nurse 1 [Ulcer Assessment] #2 RIGHT Lateral Foot -Combined with other wound No -Current Size (cm) - Length 0.1 -Current Size (cm) - Width 0.1 -Current Size (cm) - Depth 0.1 -Total Square Cm 0.01 -Epithelialization Large 67-100% -Tunneling No -Undermining/Tunneling No -Circular Undermining No -Exudate Amt None Present -Wound Margin Flat & Intact -Granulation Amt Large (67-100%) -Granulation Quality [place] -Slough/Fibrin No -Necrosis Amt None Present (0 %) -Structure Exposed N/A -Texture (Salma-wound Skin Appearance) Assessed -Moisture (Salma-wound Skin Appearance Assessed ) -Color (Salma-wound Skin Appearance) Assessed -Temperature (Salma-wound Skin No Abnormality Appearance) (Pt Warm) -Tenderness on Palpation (Salma-wound No Skin Appearance) -Foul Odor after Cleansing Yes, Due to Product Use #1 RIGHT PLANTAR -Combined with other wound No -Current Size (cm) - Length 0.1 -Current Size (cm) - Width 0.1 -Current Size (cm) - Depth 0.1 -Total Square Cm 0.01 -Epithelialization Large 67-100% -Tunneling No -Undermining/Tunneling No -Circular Undermining No -Exudate Amt None Present -Wound Margin Flat & Intact -Granulation Amt Large (67-100%) -Granulation Quality [place] -Slough/Fibrin No -Necrosis Amt None Present (0 %) -Structure Exposed N/A -Texture (Salma-wound Skin Appearance) Assessed -Moisture (Salma-wound Skin Appearance Assessed ) -Color (Salma-wound Skin Appearance) Assessed -Temperature (Salma-wound Skin No Abnormality Appearance) (Pt Warm) -Tenderness on Palpation (Salma-wound No Skin Appearance) -Ulcer Cleansing Wound Cleanser -Foul Odor after Cleansing No -Anesthetic Used 5% Lidocaine Gel WC - Nurse 2 - General Ulcer CM Notes Start: 08/03/20 08:27 Freq: Status: Active Protocol: Activity Type Activity Date Activity User E-Sign Co-Sign Detail Recorded Client Recorded Date Recorded By Document 08/24/20 08:20 [email or web address] [id number] 08/24/20 08:22 08/24/20 08:20 Wound Center Nurse 2 [Procedure/Treatment] #2 RIGHT Lateral Foot -Correct Patient No -Correct Side, Site, Position No -Correct Procedure No -Procedure Performed No -Post Debridement (cm) - Length 0 -Post Debridement (cm) - Width 0 -Post Debridement (cm) - Depth 0 -Total Square (Post) (cm) 0 -Area of Debridement (cm) - Length 0 -Area of Debridement (cm) - Width 0 -Total Square (Area) (cm) 0 -Wound/Ulcer Outcome Healed- Epithelialized #1 RIGHT PLANTAR -Correct Patient No -Correct Side, Site, Position No -Correct Procedure No -Procedure Performed No -Post Debridement (cm) - Length 0 -Post Debridement (cm) - Width 0 -Post Debridement (cm) - Depth 0 -Total Square (Post) (cm) 0 -Area of Debridement (cm) - Length 0 -Area of Debridement (cm) - Width 0 -Total Square (Area) (cm) 0 -Wound/Ulcer Outcome Healed- Epithelialized [See Physician Procedure note for Specifics] Pain Scale: 0-10 Numeric [Pain] -Is Patient Pain Free? Yes Musculoskeletal: No Tenderness to Palpation of Joints or Extremities, Muscle Wasting Neurological: Sensory exam intact to light touch and pain Psych/Mental Status: Normal Affect, Appropriate Debridement Note Post-Debridement Measurements/Treatment WC - Nurse 2 - General Ulcer CM Notes Start: 08/03/20 08:27 Freq: Status: Active Protocol: Activity Type Activity Date Activity User E-Sign Co-Sign Detail Recorded Client Recorded Date Recorded By Document 08/03/20 08:40 [id number] 08/03/20 08:45 Document 08/24/20 08:20 [id number] [id number] 08/24/20 08:22 08/03/20 08/24/20 08:40 08:20 Wound Center Nurse 2 #2 RIGHT Lateral Foot -Time 08:44 -Correct Patient Yes No -Correct Side, Site, Position Yes No -Correct Procedure Yes No -Procedure Performed Yes No -Type of Procedure Debridement -Clinical Debridement Subcutaneous -Tissue Removed Subcutaneous -Post Debridement (cm) - Length 0.3 0 -Post Debridement (cm) - Width 0.1 0 -Post Debridement (cm) - Depth 0.2 0 -Total Square (Post) (cm) 0.03 0 -Area of Debridement (cm) - Length 0.3 0 -Area of Debridement (cm) - Width 0.1 0 -Total Square (Area) (cm) 0.03 0 -Tunneling No -Undermining/Tunneling No -Circular Undermining No -Wound/Ulcer Outcome Not Healed Healed- Epithelialized -Ulcer Cleansing Rinsed/ Irrigated with Saline -Foul Odor after Cleansing No -Bioengineered Tissue No -Bleeding Controlled with Pressure -Offloading Yes -Type of Offloading Surgical Shoe -Treatment Response Procedure Tolerated Well -Debridement - Subq, 1st 20sq cm Yes #1 RIGHT PLANTAR -Time 08:42 -Correct Patient Yes No -Correct Side, Site, Position Yes No -Correct Procedure Yes No -Procedure Performed Yes No -Type of Procedure Debridement -Clinical Debridement Subcutaneous -Tissue Removed Subcutaneous -Post Debridement (cm) - Length 0.5 0 -Post Debridement (cm) - Width 0.2 0 -Post Debridement (cm) - Depth 0.3 0 -Total Square (Post) (cm) 0.10 0 -Area of Debridement (cm) - Length 0.5 0 -Area of Debridement (cm) - Width 0.4 0 -Total Square (Area) (cm) 0.20 0 -Tunneling No -Undermining/Tunneling No -Circular Undermining No -Wound/Ulcer Outcome Not Healed Healed- Epithelialized -Ulcer Cleansing Rinsed/ Irrigated with Saline -Bioengineered Tissue No -Bleeding Controlled with Pressure -Offloading Yes -Type of Offloading Surgical Shoe -Treatment Response Procedure Tolerated Well -Debridement - Subq, 1st 20sq cm No Pain Scale: 0-10 Numeric Is Patient Pain Free? Yes Yes - Nurse 3 - General Ulcer D/C NN Start: 08/03/20 08:27 Freq: Status: Active Protocol: Activity Type Activity Date Activity User E-Sign Co-Sign Detail Recorded Client Recorded Date Recorded By Document 08/03/20 09:29 [email or web address] [id number] 08/03/20 09:30 AMBROSIO 08/03/20 09:29 Wound Care Nurse 3 #2 RIGHT Lateral Foot -Ulcer Cleansing Rinsed/ Irrigated with Saline -Foul Odor after Cleansing No -Primary Dressing Applied Enzymatic -Primary Dressing Covered/Secured with Dry Gauze & Roll Gauze, Secured with Tape #1 RIGHT PLANTAR -Ulcer Cleansing Rinsed/ Irrigated with Saline -Foul Odor after Cleansing No -Primary Dressing Applied Enzymatic -Primary Dressing Covered/Secured with Dry Gauze & Roll Gauze, Secured with Tape Pain Scale: 0-10 Numeric Is Patient Pain Free? Yes WC - Visit Discharge Discharge Condition Stable Ambulatory Status Ambulatory Transportation Private Auto Accompanied by Medication Reconcilliation completed & Yes provided to patient/care provider Clinical Summary of Care Provided Yes Notes: Dry gauze applied inbetween hallux and 2nd toe. Wound debrided: dorsal and plantar lateral forefoot Laterality: Right No debridement was completed today - healed Assessment/Plan Active Problems (Last Reviewed 08/12/20 @ 08:[address] Nelson Daniel MD) Delayed wound healing (Chronic) Tailors bunion (Chronic) Peripheral arterial occlusive disease (Chronic) Assessment: Right foot sub-fifth metatarsal head - healed. Right foot dorsal fifth metatarsal head - healed. No signs of local infection. Peripheral vascular disease status post intervention. Malnutrition suspected. 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 h/o rectal cancer. Ingrown toenail right hallux medial l ateral border, no infection Plan: I reviewed and discussed his case. The ulcer has healed and therefore no debridement was performed. Discontinue dressing care. To wear the offloading shoe for an additional 2 weeks. After that he was advised to progress into his athletic sneaker in a very gradual and slow manner for 1 hour increments each day if everything is going well. Straight foot to maintain good skin. The callus was debrided without instrument to the right foot. His toenail was trimmed with a nail nipper occluding the right hallux. I have recommended he u ses a silicone toe spacer make sure that his shoe is proper depth, length, and width. He plans to follow-up with the foot and ankle center for help with nail palliation due to his risk factors. He was reassured he does not have any ulcers or infection. He will follow-up in 1 month for healed wound check because he is high risk. I answered his questions.
== END 2020-08-29 23:59 ==
LOC: WC 08:00
PROVIDERS: PCP Student in an Organized Health Care Education/Training Program; Referring Provider Podiatrist; Visit Provider Podiatrist
DX: I73.9 Peripheral vascular disease, unspecified (principal); L97.512 Non-pressure chronic ulcer of other part of right foot with fat layer exposed; M21.629 Bunionette of unspecified foot; Z85.048 Personal history of other malignant neoplasm of rectum, rectosigmoid junction, and anus; M20.11 Hallux valgus (acquired), right foot
CPT/HCPCS: 11042; 99212; G0463

== ENCOUNTER 2020-09-21 08:00 | Outpatient (RCR) | payer MEDICARE, SELFPAY ==
[2020-08-30 00:13] VITALS: BP 127/43; PULSE 73; RESP 18; TEMP 36.2; BMI 19.7
[2020-09-21 08:11] VITALS: BP 119/58; PULSE 73; TEMP 36.2; BMI 19.7
--- NOTE | 2020-09-21 09:44 | PN.PCM_ITS ---
(1) Ingrowing nail, right great toe Status: Chronic Code(s): L60.0 - Ingrowing nail (2) Delayed wound healing Status: Chronic Code(s): T14.8XXD - Other injury of unspecified body region, subsequent encounter (3) Ulcer of right foot with fat layer exposed Status: Resolved Code(s): L97.512 - Non-pressure chronic ulcer of other part of right foot with fat layer exposed (4) Callus of foot Status: Chronic Code(s): L84 - Corns and callosities (5) Peripheral arterial occlusive disease Status: Chronic Code(s): I77.9 - Disorder of arteries and arterioles, unspecified Type of Wound Date of Service: 09/21/20 Chief Complaint: right foot ulcers History of Wound: This 80-year-old male presents to the wound healing center for nonhealing right foot ulcers. He had vascular arterial intervention with Dr. Arthur on 05-18-2020. He denies recent trauma. He denies redness, odor, or streaking. He denies fever, chill, nausea, vomiting. He wears offloading dana gical shoe and takes george nutritional supplementation. His changes the dressing daily with santyl. He is not sure if he has drainage. He reports continued ingrown toenail and asked if this could be looked at today. He has a chronic bunion deformity as well and his second toe presses up against his right toe. He uses a gauze spacer. Progress of Wound: healed - Physical Exam Vital Signs Temp Pulse Resp BP 97.1 F L 73 18 119/58 L 09/21/20 08:11 09/21/20 08:11 08/30/20 00:13 09/21/20 08:11 Wound Measurements and Assessment WC - Nurse 2 - General Ulcer CM Notes Start: 09/21/20 08:08 Freq: Status: Active Protocol: Activity Type Activity Date Activity User E-Sign Co-Sign Detail Recorded Client Recorded Date Recorded By Document 09/21/20 08:38 [email or web address] [id number] 09/21/20 08:38 [email or web address] 09/21/20 08:38 Pain Scale: 0-10 Numeric [Pain] -Is Patient Pain Free? Yes Debridement Note Post-Debridement Measurements/Treatment WC - Nurse 2 - General Ulcer CM Notes Start: 09/21/20 08:08 Freq: Status: Active Protocol: Activity Type Activity Date Activity User E-Sign Co-Sign Detail Recorded Client Recorded Date Recorded By Document 09/21/20 08:38 [email or web address] [id number] 09/21/20 08:38 AMBROSIO 09/21/20 08:38 Pain Scale: 0-10 Numeric Is Patient Pain Free? Yes Laterality: Right No debridement was completed today - remains healed Assessment/Plan Assessment: Right foot sub-fifth metatarsal head - healed. Right foot dorsal fifth metatarsal head - healed. No signs of local infection. Peripheral vascular disease status post intervention. Malnutrition suspected. 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 h/o rectal cancer. Ingrown toenail right hallux medial lateral border, no infection Plan: I reviewed and discussed his case. The ulcer has healed and therefore no debridement was performed. Discontinue dressing care. To wear the offloading shoe for an additional 2 weeks. After that he was advised to progress into his athletic sneaker in a very gradual and slow manner for 1 hour increments each day if everything is going well. Straight foot to maintain good skin. The callus was debrided without instrument to the right foot. His toenail was trimmed with a nail nipper occluding the right hallux. I have recommended he uses a silicone toe spacer make sure that his shoe is proper depth, length, and width. He plans to follow-up with the foot and ankle center for help with nail palliation due to his risk factors. He was reassured he does not have any ulcers or infection. He will follow-up in 1 month for healed wound check because he is high risk. I answered his questions.
== END 2020-09-26 11:00 | disposition home or self-care (01) ==
LOC: WC 08:00
PROVIDERS: PCP Student in an Organized Health Care Education/Training Program; Referring Provider Podiatrist; Visit Provider Podiatrist
DX: L97.512 Non-pressure chronic ulcer of other part of right foot with fat layer exposed (principal); M20.11 Hallux valgus (acquired), right foot; L60.0 Ingrowing nail; L84 Corns and callosities; I77.9 Disorder of arteries and arterioles, unspecified; Z85.048 Personal history of other malignant neoplasm of rectum, rectosigmoid junction, and anus
CPT/HCPCS: 99212; G0463

== ENCOUNTER 2020-11-04 13:46 | Outpatient (RCR) | payer MEDICARE, SELFPAY | END 2020-11-04 23:59 | LOC: IMMUN 13:46 | PROVIDERS: PCP Student in an Organized Health Care Education/Training Program; Referring Provider Family Medicine; Visit Provider Family Medicine | DX: Z23 Encounter for immunization (principal) | CPT/HCPCS: 0011A; 0012A ==

== ENCOUNTER → 2021-03-09 14:36 | Outpatient (CLI) | payer MEDICARE, SELFPAY ==
[2021-03-09 17:34] LABS: Absolute Lymphocyte Count 0.88 X10^3/uL (0.83-4.51); Absolute Neutrophil Count 5.2 X10^3/uL (2.0-7.7); Basophil# 0.06 X10^3/uL; Basophil% 0.8 % (0-1); Eosinophil# 0.21 X10^3/uL; Eosinophils% 2.9 % (0-5); Hematocrit 35.7 % (40-54); Hemoglobin 11.5 g/dL (13.0-16.5); Lymphocyte # 0.88 X10^3/ul (0.83-4.51); Lymphocyte % 12.4 % (19-41); Mean Corp Hgb Conc 32.2 g/dL (32-36); Mean Corpuscular Hgb 32.5 pg (27.0-32.0); Mean Corpuscular Volume 100.8 fL (80-94); Mean Platelet Vol. 9.7 fl (6.2-12.0); Monocyte# 0.71 X10^3/uL; NRBC Flagged by Analyzer 0 % (0-5); Neutrophil # 5.24 X10^3/uL (2.7-7.7); Neutrophil % 73.6 % (47-70); Platelet Count 240 K/mm3 (150-450); RBC Distribution Width CV 12.4 % (11.6-14.6); RBC Distribution Width SD 46.2 fl (35.1-43.9); Red Blood Count 3.54 M/mm3 (4.6-6.2); White Blood Count 7.1 K/mm3 (4.4-11.0)
[2021-03-09 17:45] LABS: Erythrocyte Sedimentation Rate 3 mm/hr (0-20)
[2021-03-09 17:49] LABS: ALB/GLOB Ratio 1.2 RATIO (0.9-2.4); AST(SGOT) 15 U/L (15-37); Alanine Aminotransfer ALT/SGPT 22 U/L (16-61); Albumin, Serum 3.7 g/dL (3.2-5.0); Alkaline Phosphatase 75 U/L (45-117); Anion Gap 3 (5-15); BUN 28 mg/dL (7-18); BUN/Creat Ratio 14.7 RATIO (10-20); Calcium,Total 9.3 mg/dL (8.5-10.1); Chloride 109 mmol/L (98-107); Creatinine, Serum 1.91 mg/dL (0.70-1.30); EST Glomerular Filtration Rate 36 mL/min (>60); Est Glom Filt Rate - Afr Amer 44 mL/min (>60); Globulin 3.2 g/dL (2.2-4.2); Glucose 87 mg/dL (74-106); Potassium 4.4 mmol/L (3.5-5.1); Protein, Total 6.9 g/dL (6.4-8.2); Sodium Level 145 mmol/L (136-145)
[2021-03-09 18:37] LABS: M R Staph aureus DNA By PCR Negative (Negative); Probe Check PASS; Specimen Processing Control PASS; Staph aureus DNA By PCR NEGATIVE (Negative)
== END ==
PROVIDERS: PCP Student in an Organized Health Care Education/Training Program; Referring Provider Podiatrist; Visit Provider Podiatrist
DX: L03.90 Cellulitis, unspecified (principal); L98.499 Non-pressure chronic ulcer of skin of other sites with unspecified severity
CPT/HCPCS: 36415; 80053; 85025; 85652; 87070; 87075; 87077; 87186; 87205; 87640

== ENCOUNTER 2021-06-23 08:57 | Day surgery (SDC) | payer MEDICARE, SELFPAY ==
[2021-06-23] VITALS (9 sets, daily range): BP systolic 130–164; BP diastolic 61–78; PULSE 61–75; RESP 16–18; TEMP 36.1–36.6; O2SAT 97–100; BMI 19.4
[2021-06-23] MEDS: Lactated Ringers 1,000 ML 100 ML IV (09:35)
--- NOTE | 2021-06-23 10:24 | HP.PCM_ITS ---
History and Physical Date of Admission: 06/23/21 Intake Visit Reasons: CSCOPE, RECALL LETTER DUE 3 YRS Chief Complaint: 3 year colonoscopy [employer] Required: No Is patient in pain?: No Allergies morphine Adverse Reaction (Verified 06/12/21 13:23) Vomiting Medications L.acidoph, paracasei,B. lactis 1 ea PO DAILY 06/25/16 [History Confirmed 06/12/21] alendronate 70 mg PO Q7D@0700 06/25/16 [History Confirmed 06/12/21] calcium carbonate-vitamin D3 2 ea PO DAILY 06/25/16 [History Confirmed 06/12/21] cetirizine 10 mg PO DAILY 06/25/16 [History Confirmed 06/12/21] multivitamin 1 ea PO DAILY 06/25/16 [History Confirmed 06/12/21] nabumetone 500 mg PO DAILY 06/25/16 [History Confirmed 06/12/21] omeprazole 20 mg PO BID 06/25/16 [History Confirmed 06/12/21] potassium chloride 20 meq PO BID 06/25/16 [History Confirmed 06/12/21] pravastatin 40 mg PO QHS 06/25/16 [History Confirmed 06/12/21] saw palmetto 450 mg PO DAILY 06/25/16 [History Confirmed 06/12/21] tamsulosin 0.4 mg PO BID 06/25/16 [History Confirmed 06/12/21] trazodone 50 mg PO QHS 06/25/16 [History Confirmed 06/12/21] cholecalciferol (vitamin D3) 125 mcg (5,000 unit) capsule 1,000 unit PO DAILY cap 05/26/18 [History Confirmed 06/12/21] citalopram 40 mg tablet 40 mg PO DAILY tab 05/11/20 [History Confirmed 06/12/21] hydrochlorothiazide 25 mg tablet 12.5 mg PO DAILY tab 05/11/20 [History Confirmed 06/12/21] zinc gluconate 50 mg PO DAILY 08/03/20 [History Confirmed 06/12/21] ibuprofen 600 mg PO Q6H PRN PRN #14 tab 08/12/20 [Rx Confirmed 06/12/21] clopidogrel 75 mg tablet See Rx Instructions .ROUTE .COMPLEX #90 tab 06/08/21 [Rx Confirmed 06/12/21] bupropion HCl 150 mg 24 hr tablet, extended release 150 mg PO DAILY tab 06/12/21 [History Confirmed 06/12/21] vitamin B complex 1 tab PO DAILY 06/12/21 [History Confirmed 06/12/21] [facility] Medical History (Updated 06/12/21 @ 13:[address] 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 This was treated with an abdominal perineal resection. His previous history of June 17, 2018 was his most recent colonoscopy. 3 sessile polyps were removed from the proximal ascending colon at that time. 2 of them were consistent with tubular adenomas and one was a fragment of colonic mucosa. He has no specific complaints. Dr. 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 The patient did well status post his endovascular intervention. He is remained on clopidogrel. He does not notice any bright red blood per his left lower quadrant stoma. He does persist on having intermittent diarrhea. Taking a daily fiber supplement does assist. My previous peripheral vascular history of May 18, 2020 reflects the following 80-year-old gentleman. He presented to me with a nonhealing wound of his right foot fifth digit at a previous amputation site performed by Dr. Miguel Ángel German. The patient also has superficial pressure ulceration of the right calcaneus. On May 18 I performed a abdominal pelvic right lower extremity arteriogram. Most of this was done with carbon dioxide because of the patient's chronic renal insufficiency. Only 18.5 cc of Visipaque was used. The patient now returns for follow-up. As noted he had a high-grade stenosis of the distal right SFA and high-grade stenosis of the distal right anterior tibial artery. The right peroneal and posterior tibial are occluded. Digital vessels were not seen Report of Operation Date of Procedure: 05/18/20 Pre-Operative Diagnosis: Nonhealing right foot amputation site Post-Operative Diagnosis: Nonhealing right foot amputation site. 85% stenosis right distal superficial femoral artery, 80% stenosis distal right anterior tibial artery, occlusion proximal right peroneal and posterior tibial arteries Surgery/Procedure Performed:: Abdominal pelvic right lower extremity arteriogram with 2 mm tapered to 1.5 mm 210 mm [place] cross anterior tibial angioplasty, right superficial femoral 6 x 2 Powerflex angioplasty ROS General General: No weight change, appetite, fatigue, colon cancer, breast cancer or weakness HEENT HEENT: No difficulty swallowing, eye injury, eye surgery, swollen glands or hoarseness Endo Endocrine: No thyroid disease, diabetes mellitus, thyroid cancer, Hair loss, heat intolerance or cold intolerance Musc Musculoskeletal: Yes arthritis; No back problems, rheumatoid arthritis, gout or joint pain Cardio Cardiovascular: No murmur, pacemaker, heart disease, atrial fibrillation, high blood pressure, heart attack, heart stent, palpitations, shortness of breat with exertion or chest pain Psych Psychiatric: Yes depression; No anxiety or hearing voices Resp Respiratory: No shortness of breath, Yes sleep apnea, No cough, No COPD, No asthma, No emphysema and No wheezing Gastro Gastrointestinal: No abdominal pain, No nausea or vomiting, Yes diarrhea, No constipation, No blood in stool, Yes acid reflux, No hemorrhoids, No ulcers, No gallbladder problem and No black,tarry stools Mark Hematologic: No blood thinners, No blood disorders, No bleeding, No anemia and No blood clots Neuro Neurologic: No weakness Exam Const General: cooperative, comfortable and no acute distress Orientation: alert and awake [facility] Head: normal to inspection Eyes General: appearance normal, both eyes and all related structures Chest Chest palpation & inspection: normal inspection of the chest Resp Effort & Inspection: normal respiratory effort Auscultation: clear to auscultation bilaterally Cardio Rate: regular rate Rhythm: regular rhythm GI Palpation: soft and no hepatosplenomegaly Other: Left lower quadrant stoma in place. The patient has an abdominal binder stoma retainer Musc Other: Kyphosis noted Extrem General: no calf tenderness Assessment and Plan Assessment and Plan (1) History of colon cancer: Status: Chronic (2) Personal history of colonic polyps: Status: Acute Plan - Dr. Jefferson Arthur MD: Reported previous history of Salmonella carrier. Persistent controllable diarrhea. Personal history of rectal cancer having had a abdominal perineal resection. History of colonic polyps. The patient otherwise is still enjoying a good quality of life. I propose for him a colonoscopy per his stoma. He is aware of technique, benefit, risk, alternatives. He has had an opportunity to ask and have questions answered. Based upon his age I anticipate performing this with monitored anesthesia care. Copy: Dr. Jared Arthur M.D., F.A.C.S. I have re-examined the patient. There are no clinical changes since date of exam. Jefferson Arthur M.D., F.A.C.S.
--- NOTE | 2021-06-23 11:18 | OP.COLON_ITS ---
Patient Name: Sean Sanders Procedure Date: 06/23/2021 10:53 AM Date of : 1940 Age: 81 Procedure: Colonoscopy Indications: High risk colon cancer surveillance: Personal history of colon cancer Providers: Jefferson Arthur MD Medicines: See the Anesthesia note for documentation of the administered medications Patient Profile: Last Colonoscopy: May 2018. Complications: No immediate complications. Procedure: Pre-Anesthesia Assessment: - Prior to the procedure, a History and Physical was performed, and patient medications and allergies were reviewed. The patient's tolerance of previous anesthesia was also reviewed. The risks and benefits of the procedure and the sedation options and risks were discussed with the patient. All questions were answered, and informed consent was obtained. Prior Anticoagulants: The patient has taken Plavix (clopidogrel), last dose was day of procedure. ASA Grade Assessment: II - A patient with mild systemic disease. After reviewing the risks and benefits, the patient was deemed in satisfactory condition to undergo the procedure. After I obtained informed consent, the scope was passed under direct vision. Throughout the procedure, the patient's blood pressure, pulse, and oxygen saturations were monitored continuously. The Colonoscope was introduced through the anus and advanced to the cecum, identified by appendiceal orifice and ileocecal valve. The colonoscopy was performed without difficulty. The patient tolerated the procedure well. The quality of the bowel preparation was good. The ileocecal valve and the appendiceal orifice were photographed. Scope In: 11:02:15 AM Scope Withdrawal Time 0 hours 6 minutes 26 seconds Scope Out: 11:12:04 AM Total Procedure Duration Time 0 hours 9 minutes 49 seconds Findings: Multiple diverticula were found in the entire colon. The exam was otherwise without abnormality. Impression: - Diverticulosis in the entire examined colon. - The examination was otherwise normal. - No specimens collected. Examination was performed via a end sigmoid colostomy left lower quadrant of the abdomen. Patient's had a history of abdominal perineal resection and has no remaining rectum or distal sigmoid. Recommendation: - Discharge patient to home. - Resume previous diet. - Continue present medications. - Repeat colonoscopy in 5 years for surveillance. Procedure Code(s): --- Professional --- 55308, Colonoscopy, flexible; diagnostic, including collection of specimen(s) by brushing or washing, when performed (separate procedure) Diagnosis Code(s): --- Professional --- Z85.038, Personal history of other malignant neoplasm of large intestine K57.30, Diverticulosis of large intestine without perforation or abscess without bleeding CPT copyright 2017 [employer]. All rights reserved. The codes documented in this report are preliminary and upon certified medical coder review may be revised to meet current compliance requirements. Jefferson Arthur MD 06/23/2021 11:17:46 AM This report has been signed electronically. Number of Addenda: 0 Note Initiated On: 06/23/2021 10:53 AM
--- NOTE | 2021-06-23 11:19 | OP.CCLET_ITS ---
06/23/2021 Jared Singh [address] [place] [address] Re : Colonoscopy procedure for Sean Sanders Dear Dr. Singh This procedure was performed on Wednesday, June 23, 2021. My impressions and recommendations are as follows: Impressions : - Diverticulosis in the entire examined colon. - The examination was otherwise normal. - No specimens collected. Examination was performed via a end sigmoid colostomy left lower quadrant of the abdomen. Patient's had a history of abdominal perineal resection and has no remaining rectum or distal sigmoid. Recommendations : - Discharge patient to home. - Resume previous diet. - Continue present medications. - Repeat colonoscopy in 5 years for surveillance. My findings are described in the full procedure note, which is enclosed. If I can be of further assistance, please feel free to contact me at Doctor phone number(s): Work: . Sincerely, Jefferson Arthur MD 06/23/2021 11:17:46 AM This report has been signed electronically.
== END 2021-06-23 13:03 | disposition home or self-care (01) ==
LOC: EN 08:58 → AC 08:59
PROVIDERS: PCP Student in an Organized Health Care Education/Training Program; Referring Provider Student in an Organized Health Care Education/Training Program; Visit Provider Surgery
PROC: 0DJD8ZZ Inspection of Lower Intestinal Tract, Via Natural or Artificial Opening Endoscopic (ICD-10-PCS; CPT 45378; principal; 2021-06-23 10:25)
DX: K57.30 Diverticulosis of large intestine without perforation or abscess without bleeding (principal); Z85.048 Personal history of other malignant neoplasm of rectum, rectosigmoid junction, and anus; Z86.010 Personal history of colon polyps; I10 Essential (primary) hypertension; F41.9 Anxiety disorder, unspecified; M19.90 Unspecified osteoarthritis, unspecified site; F31.9 Bipolar disorder, unspecified; K21.9 Gastro-esophageal reflux disease without esophagitis; E78.00 Pure hypercholesterolemia, unspecified; Z90.49 Acquired absence of other specified parts of digestive tract; Z79.02 Long term (current) use of antithrombotics/antiplatelets; Z79.899 Other long term (current) drug therapy; Z87.891 Personal history of nicotine dependence; Z89.431 Acquired absence of right foot
CPT/HCPCS: 45378; J7120

== ENCOUNTER 2021-11-24 14:09 | Outpatient (CLI) | payer MEDICARE, SELFPAY ==
--- NOTE | 2021-11-24 14:42 | RAD_ITS ---
EXAM: XR LEFT ELBOW, 2 VIEWS CLINICAL INDICATION: BURSITIS pain TECHNIQUE: Frontal and lateral views of the left elbow. This report was created using [employer] report generation technology. COMPARISON: None. 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 There is no displacement of the anterior or posterior fat pads. No acute fracture. No subluxation. Normal alignment. No destructive or sclerotic lesions. SOFT TISSUES: Unremarkable. No soft tissue swelling or gas. No radiopaque foreign body. 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 Electronically Signed: Bhupendra You MD at 16:47 EST ,
--- NOTE | 2021-11-24 14:42 | RAD_ITS ---
STUDY: X-RAY - CERVICAL SPINE REASON FOR EXAM: Male, 81 years old. CHRONIC NECK PIN TECHNIQUE: XR Spine Cervical 4 or 5 Views COMPARISON: None FINDINGS: Normal anterior atlantoaxial articulation. No acute findings of the odontoid process. There is straightening of the normal cervical lordosis. There is multi-level endplate spondylosis. There is multi-level degenerative disc disease with multilevel disc space narrowing. There is multi-level osseous foraminal stenosis. The soft tissue structures are unremarkable. RAD/Cerv Spine 4 or 5 Views IMPRESSION: There are degenerative changes as noted above. Electronically Signed: Bhupendra You MD at 18:48 EST Reading Location ID and State: [facility] / [place] , Service support ,
--- NOTE | 2021-11-24 14:42 | RAD_ITS ---
EXAM: XR THORACIC SPINE, 3 VIEWS CLINICAL INDICATION: UPPER BACK PAIN TECHNIQUE: Frontal, lateral and swimmer''s views of the thoracic spine. This report was created using [employer] report generation technology. COMPARISON: None. FINDINGS: VERTEBRAE: Mild scoliosis of the thoracic spine. There is endplate spondylosis of the vertebral body of the mid to lower thoracic spine. Loss of intervertebral disc height throughout the thoracic spine. Preserved vertebral body height. No fracture. No significant facet arthropathy. DISC SPACES: There are degenerative findings of the cervical spine. RAD/Thoracic Spine 3 Views IMPRESSION: 1. Mild scoliosis of the thoracic spine. 2. There is endplate spondylosis of the vertebral body of the mid to lower thoracic spine. Loss of intervertebral disc height throughout the thoracic spine. Electronically Signed: Bhupendra You MD at 16:46 EST Reading Location ID and State: [facility] / [place] , Service support ,
[2021-11-24 14:55] LABS: Absolute Lymphocyte Count 0.75 X10^3/uL (0.83-4.51); Absolute Neutrophil Count 4.5 X10^3/uL (2.0-7.7); Basophil# 0.02 X10^3/uL; Basophil% 0.3 % (0-1); Eosinophil# 0.01 X10^3/uL; Eosinophils% 0.2 % (0-5); Hematocrit 35.4 % (40-54); Hemoglobin 11.7 g/dL (13.0-16.5); Lymphocyte # 0.75 X10^3/ul (0.83-4.51); Lymphocyte % 12.9 % (19-41); Mean Corp Hgb Conc 33.1 g/dL (32-36); Mean Corpuscular Volume 99.7 fL (80-94); Mean Platelet Vol. 10.5 fl (6.2-12.0); Monocyte# 0.47 X10^3/uL; Monocyte% 8.1 % (0-10); NRBC Flagged by Analyzer 0 % (0-5); Neutrophil # 4.53 X10^3/uL (2.7-7.7); Neutrophil % 78.2 % (47-70); Platelet Count 227 K/mm3 (150-450); RBC Distribution Width CV 12.2 % (11.6-14.6); RBC Distribution Width SD 45.1 fl (35.1-43.9); Red Blood Count 3.55 M/mm3 (4.6-6.2); White Blood Count 5.8 K/mm3 (4.4-11.0)
[2021-11-24 15:40] LABS: ALB/GLOB Ratio 1.2 RATIO (0.9-2.4); AST(SGOT) 27 U/L (15-37); Alanine Aminotransfer ALT/SGPT 32 U/L (16-61); Albumin, Serum 3.8 g/dL (3.2-5.0); Alkaline Phosphatase 73 U/L (45-117); Anion Gap 8 (5-15); BUN 73 mg/dL (7-18); BUN/Creat Ratio 24.4 RATIO (10-20); CRP 3.08 mg/L (0.0-3.0); Calcium,Total 9.3 mg/dL (8.5-10.1); Chloride 103 mmol/L (98-107); Creatinine, Serum 2.99 mg/dL (0.70-1.30); EST Glomerular Filtration Rate 22 mL/min (>60); Est Glom Filt Rate - Afr Amer 26 mL/min (>60); Globulin 3.1 g/dL (2.2-4.2); Glucose 87 mg/dL (74-106); Potassium 5.1 mmol/L (3.5-5.1); Protein, Total 6.9 g/dL (6.4-8.2); Sodium Level 138 mmol/L (136-145); T4 Free Direct 1.71 ng/dL (0.76-1.46)
[2021-11-24 16:03] LABS: Vitamin B12 1010 pg/mL (211-911)
== END 2021-11-24 23:59 | disposition home or self-care (01) ==
PROVIDERS: PCP Student in an Organized Health Care Education/Training Program; Referring Provider Student in an Organized Health Care Education/Training Program; Visit Provider Student in an Organized Health Care Education/Training Program
DX: M70.32 Other bursitis of elbow, left elbow (principal); F03.90 Unspecified dementia, unspecified severity, without behavioral disturbance, psychotic disturbance, mood disturbance, and anxiety; M54.2 Cervicalgia; R53.83 Other fatigue; R42 Dizziness and giddiness; R41.3 Other amnesia; R06.02 Shortness of breath; R26.89 Other abnormalities of gait and mobility; Z82.0 Family history of epilepsy and other diseases of the nervous system
CPT/HCPCS: 36415; 72050; 72072; 73070; 80053; 82607; 84439; 84443; 84481; 85025; 86140

== ENCOUNTER 2021-12-08 09:42 | Outpatient (CLI) | payer MEDICARE, SELFPAY ==
--- NOTE | 2021-12-08 09:54 | MRI_ITS ---
EXAM: MR HEAD WITHOUT AND WITH INTRAVENOUS CONTRAST CLINICAL INDICATION: BALANCE DISORDER, GAIT ABNORMALITY, MEMORY LOSS, DYSPHASIA TECHNIQUE: Multiplanar and multisequence MR images of the brain were obtained without and with intravenous contrast. This report was created using [employer] report generation technology. CONTRAST: IV 12 CC DOTAREM COMPARISON: None. FINDINGS: BRAIN AND EXTRA-AXIAL SPACES: No diffusion restriction throughout the brain parenchyma. No focal signal abnormalities throughout the brain parenchyma. No enhancing lesions intraaxially and extra-axially. No intra- or extra-axial hemorrhage. No evidence of acute infarct. No intracranial mass or mass effect. There is preservation of the jarvis/white matter interface. Posterior fossa structures are unremarkable. Ventricles are appropriate for age. No hydrocephalus. Basal cisterns are patent. SELLA: Unremarkable. Normal sella turcica, pituitary gland, infundibular stalk, optic chiasm and hypothalamus. AUDITORY SYSTEM: Unremarkable. The internal auditory canals are patent. BONES/JOINTS: Prominent soft tissue in front and behind the C2 odontoid process may be secondary to seronegative arthropathy. No discrete lytic or blastic abnormalities. SINUSES: Unremarkable as visualized. Clear. MASTOID AIR CELLS: Unremarkable as visualized. Clear. ORBITS: Unremarkable as visualized. Both globes, extraocular muscles, optic nerves and retrobulbar fat appear unremarkable. VASCULATURE: Unremarkable as visualized. Normal flow voids in the major intracranial circulation. MRI/Brain W/WO Contrast IMPRESSION: 1. Normal MRI brain with and without contrast. 2. Prominent soft tissue in front and behind the odontoid process may be due to seronegative arthropathy. Electronically Signed: Colten Alberts MD at 13:02 [facility] ,
[2021-12-08 10:51] LABS: EGFR FINGERSTICK > 60.0000 mL/min (>60)
== END 2021-12-08 23:59 | disposition home or self-care (01) ==
PROVIDERS: PCP Student in an Organized Health Care Education/Training Program; Referring Provider Student in an Organized Health Care Education/Training Program; Visit Provider Student in an Organized Health Care Education/Training Program
DX: R42 Dizziness and giddiness (principal); F03.90 Unspecified dementia, unspecified severity, without behavioral disturbance, psychotic disturbance, mood disturbance, and anxiety; R53.83 Other fatigue; R26.89 Other abnormalities of gait and mobility; R41.3 Other amnesia; R47.02 Dysphasia; Z82.0 Family history of epilepsy and other diseases of the nervous system
CPT/HCPCS: 70553; A9575

== ENCOUNTER 2021-12-20 11:47 | Outpatient (CLI) | payer MEDICARE, SELFPAY ==
--- NOTE | 2021-12-20 11:49 | ECHOD_ITS ---
Version 2 Reason For Study: FATIGUESOB, LIGHTHEADED Procedure This was a 2D Doppler, Color Flow transthoracic echocardiogram. Exam performed in department. Left Ventricle Normal LV size. Left ventricular systolic function is normal. The estimated ejection fraction is 60 %. Stage 1 diastolic dysfunction. No regional wall motion abnormalities noted. Right Ventricle Normal RV size. Normal systolic function. Atria The left atrium is mildly enlarged. Normal right atrium. Mitral Valve Bileaflet diffuse mitral valve thickening. Mild (1+) eccentric mitral valve insufficiency. Tricuspid Valve Normal tricuspid valve. Mild tricuspid valve insufficiency. Aortic Valve Trisinus/trileaflet aortic valve. Pulmonic Valve Normal pulmonic valve. Great Vessels Normal aortic root. The pulmonary artery is normal size. Normal inferior vena cava. Pericardium/Pleural No pericardial effusion. MMode/2D Measurements & Calculations LVIDd: 4.7 cm IVSd: 0.99 cm Ao root diam: 3.1 cm LVIDs: 3.2 cm LVPWd: 0.95 cm RVDd: 3.4 cm FS: 30.4 % LAV(MOD-sp4): 61.0 ml LA A4 area: 21.3 cm2 LA dimension(2D): 3.6 cm RA A4 area: 15.8 cm2 Doppler Measurements & Calculations MV E max carlos: 51.0 cm/sec Lat Peak E' Carlos: 9.5 cm/sec Med Peak E' Carlos: 7.6 cm/sec MV A max carlos: 67.2 cm/sec E/E' lat: 5.4 E/E' med: 6.7 MV E/A: 0.76 Ao V2 max: 107.8 cm/sec LV V1 max: 71.5 cm/sec PA V2 max: 94.7 cm/sec Ao max P.6 mmHg LV V1 max P.0 mmHg ECHO/Echo Complete Interpretation Summary Normal LV size. Left ventricular systolic function is normal. The estimated ejection fraction is 60 %. Mild (1+) eccentric mitral valve insufficiency. Bileaflet diffuse mitral valve thickening. Stage 1 diastolic dysfunction. Ordering Physician: Francisco^Jared^^^DO Referring Physician: Jared Singh Performed By: Angi Mccoy, RDCS, RVT
--- NOTE | 2021-12-20 11:49 | CDU_ITS ---
Reason For Study: lightheaded, chronic neck pain Rt. Velocities/BP Lt. Velocities/BP Prox CCA 106.0/12.1 cm/sec. Prox CCA 68.2/8.2 cm/sec. Mid CCA 63.0/9.5 cm/sec. Mid CCA 89.1/13.4 cm/sec. Dist CCA 77.3/13.4 cm/sec. Dist CCA 81.2/12.1 cm/sec. Prox ICA 68.2/12.1 cm/sec. Prox ICA 53.1/12.4 cm/sec. Mid ICA 76.0/16.0 cm/sec. Mid ICA 91.5/16.8 cm/sec. Dist ICA 74.7/18.6 cm/sec. Dist ICA 71.3/15.7 cm/sec. Rt. ICA/CCA = 1.2. Lt. ICA/CCA = 1.0. Prox ECA 72.1/5.6 cm/sec. Prox ECA 117.4/7.9 cm/sec. Rt. Vert. 63.0/12.1 cm/sec. Lt. Vert. 17.4/4.4 cm/sec. Right Extracranial There is homogeneous, smooth atherosclerotic plaque noted in the right common carotid artery. There is intimal thickening but no significant atherosclerotic plaque noted in the right internal carotid artery. There is intimal thickening but no significant atherosclerotic plaque noted in the right external carotid artery. Antegrade flow is noted in the right vertebral artery. Left Extracranial There is intimal thickening but no significant atherosclerotic plaque noted in the left common carotid artery. There is heterogeneous, irregular atherosclerotic plaque noted in the left internal carotid artery. The atherosclerotic plaque causes acoustic shadowing. There is intimal thickening but no significant atherosclerotic plaque noted in the left external carotid artery. Antegrade flow is noted in the left vertebral artery. Procedure Carotid Duplex [id number]. This is a Carotid Duplex examination using B-mode, color flow and specral Doppler. The exam was diagnostic. Exam performed in department. VL/Carotid Duplex Ultrasound Interpretation Summary Intimal thickening but no significant plaque right extracranial internal caroti d artery with less than 50% stenosis of the right internal carotid artery Less than 50% stenosis right external carotid artery Irregular calcific plaque with shadowing at the proximal left internal carotid artery with less than 50% stenosis Less than 50% stenosis left external carotid artery Patent and antegrade vertebral arteries bilaterally with slightly diminished ve locity on the left Ordering Physician: Jared Singh Performed By: Ye Crook RVT
== END 2021-12-20 23:59 | disposition home or self-care (01) ==
LOC: CVS 11:48
PROVIDERS: PCP Student in an Organized Health Care Education/Training Program; Referring Provider Student in an Organized Health Care Education/Training Program; Visit Provider Student in an Organized Health Care Education/Training Program
DX: R42 Dizziness and giddiness (principal); R53.83 Other fatigue; R06.02 Shortness of breath; M54.2 Cervicalgia; G89.29 Other chronic pain
CPT/HCPCS: 93306; 93880

== ENCOUNTER 2022-02-13 08:32 | Emergency (ER) | payer MEDICARE, SELFPAY ==
[2022-02-13 08:32] VITALS: BP 139/57; PULSE 54; RESP 18; TEMP 36.6; O2SAT 100; BMI 18.6
--- NOTE | 2022-02-13 09:09 | RAD_ITS ---
STUDY: X-RAY CHEST REASON FOR EXAM: Male, 81 years old. Sob TECHNIQUE: Single AP portable view of the chest. COMPARISON: None. FINDINGS: EKG electrodes are seen. The lungs are clear and expanded. There is no demonstrated pleural abnormality. Normal size heart. Normal mediastinum and janette. Normal visualized pulmonary arteries. There is atherosclerotic tortuosity of the aortic arch and descending thoracic aorta. There are diffuse degenerative changes of the visualized thoracic spine. Dextroscoliosis. Normal visualized ribs, clavicles, and shoulders. There is no demonstrated abnormality of the visualized soft tissue structures of the upper abdomen. RAD/Chest 1 View (Portable) IMPRESSION: No acute abnormality is seen. Electronically Signed: Mert Recinos MD at 11:07 EDT ,
--- NOTE | 2022-02-13 09:09 | EKG12_ITS ---
Test Reason : WEAKNESS Blood Pressure : / mmHG Vent. Rate : 045 BPM Atrial Rate : 045 BPM P-R Int : 170 ms QRS Dur : 076 ms QT Int : 544 ms P-R-T Axes : 071 -37 013 degrees QTc Int : 470 ms Sinus bradycardia Left axis deviation Abnormal ECG Confirmed by ELVER MCCALLUM, ELVIRA ([id number]), market editor KIA ALBERTS ([id number]) on 02/14/2022 10:48:51 AM Referred By: Confirmed By:ELVIRA RAYA MD
--- NOTE | 2022-02-13 09:10 | EX.ED.DYSGE1 ---
HPI History of Present Illness Chief Complaint: Weakness Informant: patient and spouse/S.O. Onset/Context/Timing Onset: Days Context: Gradual Onset Current Severity: Mild Maximum Severity: Mild Narrative Narrative: Patient presents secondary to just not feeling well. He went to physical therapy this morning and the therapist did that he seemed more fragile than normal and did not like his color. Patient admits he has not been feeling well for couple days but has a hard time quantifying that. He states he is been having some eye trouble and is following with an photocomposing keyboard operator. He states because of that he will sometimes feel woozy. He denies chest pain or palpitations. Heart rate is noted to be slow in the 30s to 50s at the time of my examination. states that at his last few visits his heart rate has been slow. 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 lactis 1 ea PO DAILY 06/25/16 [History Last Taken 08/11/20] alendronate 70 mg PO Q7D@0700 06/25/16 [History Last Taken 08/11/20] calcium carbonate-vitamin D3 2 tab PO DAILY 06/25/16 [History Last Taken 08/11/20] cetirizine 10 mg PO DAILY 06/25/16 [History Last Taken 08/11/20] multivitamin 1 ea PO DAILY 06/25/16 [History Last Taken 08/11/20] nabumetone 500 mg PO DAILY 06/25/16 [History Last Taken 08/11/20] omeprazole 20 mg PO BID 06/25/16 [History Last Taken 08/11/20] potassium chloride 20 meq PO BID 06/25/16 [History Last Taken 08/11/20] pravastatin 40 mg PO QHS 06/25/16 [History Last Taken 08/11/20] saw palmetto 450 mg PO DAILY 06/25/16 [History Last Taken 08/11/20] tamsulosin 0.4 mg PO BID 06/25/16 [History Last Taken 08/11/20] trazodone 50 mg PO QHS 06/25/16 [History Last Taken 08/11/20] cholecalciferol (vitamin D3) 125 mcg (5,000 unit) capsule 1,000 unit PO DAILY cap 05/26/18 [History Last Taken 08/11/20] citalopram 40 mg tablet 40 mg PO DAILY tab 05/11/20 [History Last Taken 08/11/20] hydrochlorothiazide 25 mg tablet 12.5 mg PO DAILY tab 05/11/20 [History Last Taken 08/11/20] zinc gluconate 50 mg PO DAILY 08/03/20 [History Last Taken 08/11/20] ibuprofen 600 mg PO Q6H PRN PRN #14 tab 08/12/20 [Rx Last Taken Unknown] bupropion HCl 150 mg 24 hr tablet, extended release 150 mg PO DAILY tab 06/12/21 [History Last Taken Unknown] vitamin B complex 1 tab PO DAILY 06/12/21 [History Last Taken Unknown] ferrous gluconate 324 mg PO DAILY 06/21/21 [History Last Taken Unknown] clopidogrel 75 mg tablet 75 mg PO DAILY #30 tab 08/03/21 [Rx Last Taken Unknown] brimonidine 0.2 %-timolol 0.5 % eye drops 1 ml OPHTHALMIC (EYE) DAILY 02/02/22 [History Last Taken Unknown] Allergy/AdvReac Type Severity Reaction Status Date / Time morphine AdvReac Vomiting Verified 02/13/22 08:34 Family History Father Colon cancer Surgical History History of colectomy History of colonoscopy (~2014) History of colostomy Social History Smoking Status: Never smoker alcohol intake: never substance use type: does not use ROS ROS ED Constitutional Constitutional ED: Denies chills or fever(s) Eyes Eyes: Denies change in vision ENT ENT ED: Denies sore throat Cardiovascular Cardiovascular: Denies chest pain Respiratory/Chest Respiratory/Chest: Denies cough or dyspnea Gastrointestinal Gastrointestinal: Denies abdominal pain, nausea or vomiting Genitourinary Genitourinary ED: Denies dysuria Musculoskeletal Musculoskeletal: Denies back pain Integumentary Denies rash Neurologic Neurologic: Reports weakness; Denies headache(s) Allergic/Immunologic Allergic/Immunologic ED: Denies urticaria EXAM Physical Exam Const Vital Signs: 02/13/22 08:32 02/13/22 08:46 02/13/22 11:18 Temperature 98 F 97.1 F L Temperature Source Temporal Temporal Pulse Rate 54 L 44 L Respiratory Rate 18 19 H Respiratory Effort Normal Non-Labored Respiratory Pattern Normal Blood Pressure 139/57 H 176/71 H Blood Pressure Mean 84 106 Pulse Ox 100 100 Oxygen Delivery Method Room Air Room Air 02/13/22 11:54 Temperature Temperature Source Pulse Rate 60 Respiratory Rate 18 Respiratory Effort Respiratory Pattern Blood Pressure 179/76 H Blood Pressure Mean Pulse Ox 97 Oxygen Delivery Method Positive well nourished and well developed General Appearance ED: well developed HEENT Reports moist mucous membranes Eyes PERRL and EOMs intact bilaterally Neck supple Chest Wall inspection of chest normal and palpation of chest normal Resp normal respiratory effort and clear to auscultation bilaterally Cardio Rate: bradycardia GI normal to inspection, nondistended, normoactive bowel sounds and non-tender Extremity normal to inspection Neuro oriented x3 Neuro Narrative: No focal neuro deficits Sensorium / Orientation: alert Psych mental status grossly normal Skin no rashes or lesions noted MDM MDM MDM Narrative Medical decision making narrative: Patient placed on athletic monitor. EKG, lab work, urinalysis obtained. Lab Data Attestation: I reviewed the patient's lab results. Labs: Laboratory Results - last 24 hr 02/13/22 02/13/22 02/13/22 09:00 09:00 10:00 WBC 8.0 RBC 3.51 L Hgb 11.3 L Hct 35.5 L MCV 101.1 H MCH 32.2 H MCHC 31.8 L RDW Std Deviation 46.0 H RDW Coeff of Bee 12.3 Plt Count 198 MPV 9.3 Immature Gran % (Auto) 1.100 H Neut % (Auto) 74.5 H Lymph % (Auto) 14.6 L Delta % (Auto) 7.4 Eos % (Auto) 1.8 Baso % (Auto) 0.6 Absolute Neuts (auto) 6.0 Absolute Lymphs (auto) 1.17 Nucleated RBC % 0 Sodium 140 Potassium 4.7 Chloride 105 Carbon Dioxide 31.0 Anion Gap 4 L BUN 39 H Creatinine 1.89 H Estim Creat Clear Calc 26.00 Est GFR (MDRD) Af Amer 44 L Est GFR (MDRD) Non-Af 37 L BUN/Creatinine Ratio 20.6 H Glucose 102 Calcium 9.0 Total Bilirubin 0.70 Direct Bilirubin 0.15 AST 23 ALT 42 Alkaline Phosphatase 62 Total Protein 6.2 L Albumin 3.3 Globulin 2.9 Urine Color Yellow Urine Clarity Clear Urine pH 8.0 Ur Specific [place] 1.015 Urine Protein 15 H Urine Glucose (UA) Normal Urine Ketones Negative Urine Occult Blood Negative Urine Nitrite Negative Urine Bilirubin Negative Urine Urobilinogen Normal Ur Leukocyte Esterase Negative Urine RBC 0 SEEN Urine WBC 0 SEEN Ur Squamous Epith Cells 0 SEEN Urine Bacteria 0 SEEN Urine Mucus 0 SEEN Radiography Chest X-Ray - ED: 1 View, Read by ED Physician and Chronic Changes Diagnostic Testing: Clinical Impression(s) from Imaging Studies Chest X-Ray 02/13/22 09:09 IMPRESSION: No acute abnormality is seen. Electronically Signed: Mert Recinos MD at 11:07 EDT , EKG Initial EKG: Attestation: I personally reviewed and interpreted this EKG as follows: Interpretation: Sinus Bradycardia (Sinus bradycardia at 45 bpm. No acute ischemia.) Treatment and Re-Evaluation Narrative: Patient resting comfortably. Lab work largely unremarkable. Urinalysis shows no acute infection. EKG is sinus bradycardia at 45. Chest x-ray per my interpretation reveals no acute abnormality. On review of prior records it appears patient's heart rate has been in the 50s previously. Here he is maintaining in the mid to low 40s. I am unsure if this is the cause of his lightheadedness and unsteadiness as his blood pressure does seem to be okay. I spoke with Dr. Gentile. Patient will be placed on a 48-hour Holter monitor to get an idea of his average heart rate and will follow up in the office. Discharge Plan Triage Chief Complaint: Weakness ED Provider: Deneen Coleman Dx/Rx/DC Orders Clinical Impression: Bradycardia Instructions: ED Bradycardia Prescriptions: No Action citalopram 40 mg tablet 40 mg PO DAILY RF: 0 bupropion HCl 150 mg tablet extended release 24 hr 150 mg PO DAILY RF: 0 vitamin B complex Tablet 1 tab PO DAILY RF: 0 brimonidine-timolol 0.2-0.5 % drops 1 ml ophthalmic (eye) DAILY RF: 0 multivitamin 1 EACH tablet 1 ea PO DAILY RF: 0 trazodone 50 MG tablet 50 mg PO QHS RF: 0 pravastatin 40 MG tablet 40 mg PO QHS RF: 0 alendronate 70 MG tablet 70 mg PO Q7D@0700 RF: 0 potassium chloride 20 MEQ tablet,ER particles/crystals 20 meq PO BID RF: 0 tamsulosin 0.4 MG capsule 0.4 mg PO BID RF: 0 omeprazole 20 MG capsule 20 mg PO BID RF: 0 nabumetone 500 MG tablet 500 mg PO DAILY RF: 0 calcium carbonate-vitamin D3 1 EACH tablet,chewable 2 tab PO DAILY RF: 0 saw palmetto 450 MG capsule 450 mg PO DAILY RF: 0 cetirizine 10 MG capsule 10 mg PO DAILY RF: 0 L.acidoph, paracasei,B. lactis 1 EACH capsule 1 ea PO DAILY RF: 0 cholecalciferol (vitamin D3) 5,000 unit capsule 1,000 unit PO DAILY RF: 0 hydrochlorothiazide 25 mg tablet 12.5 mg PO DAILY RF: 0 zinc gluconate 50 MG tablet 50 mg PO DAILY RF: 0 ibuprofen 600 MG tablet 600 mg PO Q6H PRN PRN (Reason: Pain Score 1-10) Qty: 14 RF: 0 ferrous gluconate 325 mg (36 mg iron) Tablet 324 mg PO DAILY RF: 0 clopidogrel 75 mg tablet 75 mg PO DAILY Qty: 30 RF: 8 Primary Care Provider: Jared Singh Referrals: Jared Singh DO [Primary Care Provider] - Sylvester Bergeron MD [STAFF PHYSICIAN] - As soon as possible Disposition Disposition: Home, Self Care Discharge Date/Time: 02/13/22 11:55
[2022-02-13] MEDS: 0.9% Normal Saline 1,000 ML 150 ML IV (09:21)
[2022-02-13 09:26] LABS: Absolute Lymphocyte Count 1.17 X10^3/uL (0.83-4.51); Basophil# 0.05 X10^3/uL; Basophil% 0.6 % (0-1); Eosinophil# 0.14 X10^3/uL; Eosinophils% 1.8 % (0-5); Hematocrit 35.5 % (40-54); Hemoglobin 11.3 g/dL (13.0-16.5); Lymphocyte # 1.17 X10^3/ul (0.83-4.51); Lymphocyte % 14.6 % (19-41); Mean Corp Hgb Conc 31.8 g/dL (32-36); Mean Corpuscular Hgb 32.2 pg (27.0-32.0); Mean Corpuscular Volume 101.1 fL (80-94); Mean Platelet Vol. 9.3 fl (6.2-12.0); Monocyte# 0.59 X10^3/uL; Monocyte% 7.4 % (0-10); NRBC Flagged by Analyzer 0 % (0-5); Neutrophil # 5.95 X10^3/uL (2.7-7.7); Neutrophil % 74.5 % (47-70); Platelet Count 198 K/mm3 (150-450); RBC Distribution Width CV 12.3 % (11.6-14.6); Red Blood Count 3.51 M/mm3 (4.6-6.2)
[2022-02-13 09:41] LABS: AST(SGOT) 23 U/L (15-37); Alanine Aminotransfer ALT/SGPT 42 U/L (16-61); Albumin, Serum 3.3 g/dL (3.2-5.0); Alkaline Phosphatase 62 U/L (45-117); Anion Gap 4 (5-15); BUN 39 mg/dL (7-18); BUN/Creat Ratio 20.6 RATIO (10-20); Bilirubin, Direct 0.15 mg/dL (0.00-0.30); Chloride 105 mmol/L (98-107); Creatinine, Serum 1.89 mg/dL (0.70-1.30); EST Glomerular Filtration Rate 37 mL/min (>60); Est Glom Filt Rate - Afr Amer 44 mL/min (>60); Globulin 2.9 g/dL (2.2-4.2); Glucose 102 mg/dL (74-106); Potassium 4.7 mmol/L (3.5-5.1); Protein, Total 6.2 g/dL (6.4-8.2); Sodium Level 140 mmol/L (136-145)
[2022-02-13 10:17] LABS: Bacteria 0 SEEN /hpf (None Seen); Mucous, Urine 0 SEEN /hpf (<or=2+); Red Blood Cells-Urine 0 SEEN /hpf (0-5); Squamous Epithelial Cells - UA 0 SEEN /hpf (0-5); White Blood Cells 0 SEEN /hpf (0-5)
[2022-02-13 10:18] LABS: Color, Urine Yellow (Yellow); Glucose, Dipstick Normal (Normal); Ketone-Dipstick Negative (Negative); Leukocyte Esterase-Dipstick Negative /ul (Negative); Nitrite-Dipstick Negative (Negative); Occult Blood-Urine Negative /ul (Negative); Protein-Dipstick 15 mg/dl (Negative); Specific Gravity, Urine 1.015 (1.002-1.030); Urine Bilirubin Dipstick Negative (Negative); Urine Clarity Clear (Clear); Urine Urobilinogen Normal (Normal)
[2022-02-13 11:18] VITALS: BP 176/71; PULSE 44; RESP 19; TEMP 36.2; O2SAT 100
[2022-02-13 11:54] VITALS: BP 179/76; PULSE 60; RESP 18; O2SAT 97
== END 2022-02-13 11:55 | disposition home or self-care (01) ==
PROVIDERS: Emergency Provider Emergency Medicine; PCP Student in an Organized Health Care Education/Training Program; Visit Provider Emergency Medicine
DX: R00.1 Bradycardia, unspecified (principal); I73.9 Peripheral vascular disease, unspecified; R53.1 Weakness; E78.00 Pure hypercholesterolemia, unspecified; I10 Essential (primary) hypertension; K21.9 Gastro-esophageal reflux disease without esophagitis; M19.90 Unspecified osteoarthritis, unspecified site; Z79.899 Other long term (current) drug therapy; Z79.02 Long term (current) use of antithrombotics/antiplatelets
CPT/HCPCS: 71045; 80048; 80076; 81001; 85025; 93005; 93225; 93226; 96360; 96361; 99284; J7030; A4216

== ENCOUNTER → 2022-02-13 | Outpatient (CLI) | payer MEDICARE, SELFPAY | END | disposition home or self-care (01) | LOC: CVS 11:33 | PROVIDERS: PCP Student in an Organized Health Care Education/Training Program; Visit Provider Emergency Medicine | DX: R00.1 Bradycardia, unspecified (principal) | CPT/HCPCS: 93225; 93226 ==

== ENCOUNTER → 2022-02-16 | Outpatient (CLI) | payer MEDICARE, SELFPAY ==
[2022-02-16 10:40] LABS: Absolute Lymphocyte Count 1.09 X10^3/uL (0.83-4.51); Absolute Neutrophil Count 6.8 X10^3/uL (2.0-7.7); Basophil# 0.04 X10^3/uL; Basophil% 0.4 % (0-1); Eosinophils% 2.2 % (0-5); Hematocrit 34.4 % (40-54); Lymphocyte # 1.09 X10^3/ul (0.83-4.51); Lymphocyte % 12.3 % (19-41); Mean Corpuscular Hgb 32.9 pg (27.0-32.0); Mean Platelet Vol. 9.7 fl (6.2-12.0); Monocyte# 0.69 X10^3/uL; Monocyte% 7.8 % (0-10); NRBC Flagged by Analyzer 0 % (0-5); Neutrophil # 6.81 X10^3/uL (2.7-7.7); Neutrophil % 76.6 % (47-70); Platelet Count 206 K/mm3 (150-450); RBC Distribution Width CV 12.4 % (11.6-14.6); RBC Distribution Width SD 46.9 fl (35.1-43.9); Red Blood Count 3.34 M/mm3 (4.6-6.2); White Blood Count 8.9 K/mm3 (4.4-11.0)
[2022-02-16 10:54] LABS: Vitamin B12 1114 pg/mL (211-911)
[2022-02-16 11:03] LABS: ALB/GLOB Ratio 1.1 RATIO (0.9-2.4); AST(SGOT) 30 U/L (15-37); Alanine Aminotransfer ALT/SGPT 47 U/L (16-61); Albumin, Serum 3.4 g/dL (3.2-5.0); Alkaline Phosphatase 67 U/L (45-117); Anion Gap 3 (5-15); BUN 38 mg/dL (7-18); BUN/Creat Ratio 22.6 RATIO (10-20); CRP 5.55 mg/L (0.0-3.0); Chloride 108 mmol/L (98-107); Creatinine, Serum 1.68 mg/dL (0.70-1.30); EST Glomerular Filtration Rate 42 mL/min (>60); Est Glom Filt Rate - Afr Amer 51 mL/min (>60); Glucose 103 mg/dL (74-106); Potassium 4.8 mmol/L (3.5-5.1); Protein, Total 6.4 g/dL (6.4-8.2); Sodium Level 140 mmol/L (136-145); T4 Free Direct 1.48 ng/dL (0.76-1.46); Thyroid Stim Hormone (TSH) 1.56 uIU/mL (0.358-3.74)
== END | disposition home or self-care (01) ==
PROVIDERS: PCP Student in an Organized Health Care Education/Training Program; Referring Provider Student in an Organized Health Care Education/Training Program; Visit Provider Student in an Organized Health Care Education/Training Program
DX: R41.3 Other amnesia (principal); F03.90 Unspecified dementia, unspecified severity, without behavioral disturbance, psychotic disturbance, mood disturbance, and anxiety; R42 Dizziness and giddiness; R53.83 Other fatigue; R06.02 Shortness of breath; R26.89 Other abnormalities of gait and mobility; Z82.0 Family history of epilepsy and other diseases of the nervous system
CPT/HCPCS: 36415; 80053; 82607; 84439; 84443; 84481; 85025; 86140

== ENCOUNTER 2022-02-18 11:52 | Emergency (ER) | payer MEDICARE, SELFPAY ==
[2022-02-18 11:53] VITALS: BP 129/78; PULSE 47; RESP 16; TEMP 36.6; O2SAT 99; BMI 18.6
--- NOTE | 2022-02-18 12:14 | ED.VIS.LOWEX ---
HPI History of Present Illness HPI Narrative: Patient presents with right hip pain that has been getting worse over the past few days. Patient states that today when he went to get out of bed his hip pain became severe. Patient describes his pain as sharp. Patient states it is worse with any movement. Patient denies any paresthesias or weakness. Patient denies any trauma or injury. Patient states he had a fracture in that right hip several years ago. Patient denies any recent injury. Patient denies any radiation of the pain. Chief Complaint: Lower Extremity Injury Informant: patient Onset/Context/Timing Onset: Days Context: Gradual Onset Timing: Continuous Quality of Pain: Sharp Location: Right hip Worsened by: Movement, weightbearing Relieved by: Rest Associated Symptoms Associated Symptoms: Negative for Parasthesia, Weakness and Loss of Funtion PFSH [facility] Medical History Anxiety Arthritis Balance disorder Benign essential hypertension Cancer Delayed wound healing Depression Gastric reflux Generalized weakness High cholesterol History of amputation of toe History of anxiety History of Clostridium difficile infection History of colon cancer 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 lactis 1 ea PO DAILY 06/25/16 [History Last Taken 08/11/20] alendronate 70 mg PO Q7D@0700 06/25/16 [History Last Taken 08/11/20] calcium carbonate-vitamin D3 2 tab PO DAILY 06/25/16 [History Last Taken 08/11/20] cetirizine 10 mg PO DAILY 06/25/16 [History Last Taken 08/11/20] multivitamin 1 ea PO DAILY 06/25/16 [History Last Taken 08/11/20] nabumetone 500 mg PO DAILY 06/25/16 [History Last Taken 08/11/20] omeprazole 20 mg PO BID 06/25/16 [History Last Taken 08/11/20] potassium chloride 20 meq PO BID 06/25/16 [History Last Taken 08/11/20] pravastatin 40 mg PO QHS 06/25/16 [History Last Taken 08/11/20] saw palmetto 450 mg PO DAILY 06/25/16 [History Last Taken 08/11/20] tamsulosin 0.4 mg PO BID 06/25/16 [History Last Taken 08/11/20] trazodone 50 mg PO QHS 06/25/16 [History Last Taken 08/11/20] cholecalciferol (vitamin D3) 125 mcg (5,000 unit) capsule 1,000 unit PO DAILY cap 05/26/18 [History Last Taken 08/11/20] citalopram 40 mg tablet 40 mg PO DAILY tab 05/11/20 [History Last Taken 08/11/20] hydrochlorothiazide 25 mg tablet 12.5 mg PO DAILY tab 05/11/20 [History Last Taken 08/11/20] zinc gluconate 50 mg PO DAILY 08/03/20 [History Last Taken 08/11/20] ibuprofen 600 mg PO Q6H PRN PRN #14 tab 08/12/20 [Rx Last Taken Unknown] bupropion HCl 150 mg 24 hr tablet, extended release 150 mg PO DAILY tab 06/12/21 [History Last Taken Unknown] vitamin B complex 1 tab PO DAILY 06/12/21 [History Last Taken Unknown] ferrous gluconate 324 mg PO DAILY 06/21/21 [History Last Taken Unknown] clopidogrel 75 mg tablet 75 mg PO DAILY #30 tab 08/03/21 [Rx Last Taken Unknown] brimonidine 0.2 %-timolol 0.5 % eye drops 1 ml OPHTHALMIC (EYE) DAILY 02/02/22 [History Last Taken Unknown] Allergy/AdvReac Type Severity Reaction Status Date / Time morphine AdvReac Vomiting Verified 02/18/22 11:53 Family History Father Colon cancer Surgical History History of colectomy History of colonoscopy (~2014) History of colostomy Social History Smoking Status: Never smoker alcohol intake: never substance use type: does not use ROS ROS ED Constitutional Constitutional ED: Denies chills or fever(s) Eyes Eyes: Denies blurry vision or change in vision ENT ENT ED: Denies rhinorrhea or sore throat Cardiovascular Cardiovascular: Denies chest pain or palpitations Respiratory/Chest Respiratory/Chest: Denies cough or dyspnea Gastrointestinal Gastrointestinal: Denies nausea or vomiting Genitourinary Genitourinary ED: Denies dysuria or hematuria Musculoskeletal Musculoskeletal: Denies back pain or neck pain Integumentary Denies abscess or rash Neurologic Neurologic: Denies headache(s) or weakness Allergic/Immunologic Allergic/Immunologic ED: Denies mouth swelling or urticaria EXAM Physical Exam Const Vital Signs: 02/18/22 11:53 02/18/22 13:43 Temperature 97.9 F Temperature Source Temporal Pulse Rate 47 L Respiratory Rate 16 14 Blood Pressure 129/78 H Blood Pressure Mean 95 Pulse Ox 99 Oxygen Delivery Method Room Air Positive well nourished and well developed General Appearance ED: well developed and NAD HEENT Reports moist mucous membranes Neck full ROM Extremity Extremity Narrative: There is tenderness over the anterior aspect of the right hip. There is tenderness over the hip flexor tendon. There is minimal pain with internal and external rotation of the lower extremity. Strength is 5/5 bilaterally in the lower extremities. There are no sensory deficits noted. There are no obvious deformities. There is good passive range of motion. Active range of motion was limited due to pain. Neuro oriented x3, CN's II-XII intact bilaterally, moves all extremities and no sensory deficits noted Sensorium / Orientation: alert Motor Exam: strength 5/5 throughout Psych mental status grossly normal MDM MDM MDM Narrative Medical decision making narrative: X-rays of the right hip were obtained. There are 3 views. On my interpretation, there is no acute fracture or dislocation. There are some degenerative changes noted. Radiologist also interpreted the x-rays and agrees. Patient was advised of his findings. Patient was instructed use ice to the area. Patient was instructed use Tylenol or ibuprofen as needed for pain. Patient was instructed to follow-up with his primary care physician in 5 to 7 days. Patient was instructed return if worse in any way. Patient understood and was agreeable with the plan. All questions were answered. Radiography Diagnostic Testing: Clinical Impression(s) from Imaging Studies Hip/Pelvis X-Ray 02/18/22 12:18 IMPRESSION: No evidence of acute osseous injury. Vascular calcifications. Electronically Signed: Gary Underwood MD at 13:55 EDT , Discharge Plan Triage Chief Complaint: Lower Extremity Injury ED Provider: Ti Martinez Dx/Rx/DC Orders Clinical Impression: Strain of flexor muscle of right hip Instructions: ED Hip Strain Prescriptions: No Action citalopram 40 mg tablet 40 mg PO DAILY RF: 0 bupropion HCl 150 mg tablet extended release 24 hr 150 mg PO DAILY RF: 0 vitamin B complex Tablet 1 tab PO DAILY RF: 0 brimonidine-timolol 0.2-0.5 % drops 1 ml ophthalmic (eye) DAILY RF: 0 multivitamin 1 EACH tablet 1 ea PO DAILY RF: 0 trazodone 50 MG tablet 50 mg PO QHS RF: 0 pravastatin 40 MG tablet 40 mg PO QHS RF: 0 alendronate 70 MG tablet 70 mg PO Q7D@0700 RF: 0 potassium chloride 20 MEQ tablet,ER particles/crystals 20 meq PO BID RF: 0 tamsulosin 0.4 MG capsule 0.4 mg PO BID RF: 0 omeprazole 20 MG capsule 20 mg PO BID RF: 0 nabumetone 500 MG tablet 500 mg PO DAILY RF: 0 calcium carbonate-vitamin D3 1 EACH tablet,chewable 2 tab PO DAILY RF: 0 saw palmetto 450 MG capsule 450 mg PO DAILY RF: 0 cetirizine 10 MG capsule 10 mg PO DAILY RF: 0 L.acidoph, paracasei,B. lactis 1 EACH capsule 1 ea PO DAILY RF: 0 cholecalciferol (vitamin D3) 5,000 unit capsule 1,000 unit PO DAILY RF: 0 hydrochlorothiazide 25 mg tablet 12.5 mg PO DAILY RF: 0 zinc gluconate 50 MG tablet 50 mg PO DAILY RF: 0 ibuprofen 600 MG tablet 600 mg PO Q6H PRN PRN (Reason: Pain Score 1-10) Qty: 14 RF: 0 ferrous gluconate 325 mg (36 mg iron) Tablet 324 mg PO DAILY RF: 0 clopidogrel 75 mg tablet 75 mg PO DAILY Qty: 30 RF: 8 Primary Care Provider: Jared Singh Referrals: Jared Singh DO [Primary Care Provider] - 3-5 Days Disposition Disposition: Home, Self Care
--- NOTE | 2022-02-18 12:18 | RAD_ITS ---
STUDY: X-RAY - PELVIS AND RIGHT HIP REASON FOR EXAM: Male, 81 years old. Injury/Pain TECHNIQUE: 3 views of the pelvis and hip. COMPARISON: None. FINDINGS: There is a non-specific bowel gas pattern. Surgical clips in the soft tissues of the pelvic region. There are atherosclerotic vascular calcifications. Normal bilateral iliac wings, sacroiliac joints and visualized sacrum. Normal bilateral superior and inferior pubic rami. Normal pubic symphysis. Normal bilateral ischial tuberosities. Normal visualized femoral head. Normal acetabulum. Normal hip joint. Soft tissue calcification lateral to the greater trochanter which could represent calcific tendinitis. RAD/HIP, UNI W/ Pelvis 2-3 Views IMPRESSION: No evidence of acute osseous injury. Vascular calcifications. Electronically Signed: Gary Underwood MD at 13:55 EDT ,
[2022-02-18] MEDS: HYDROcodone Bitartrate/Apap 5/325 Tablet PO (12:44)
[2022-02-18 13:43] VITALS: RESP 14
--- NOTE | 2022-02-18 14:41 | ED.RN ---
See downtime documentation for previous assessment.
== END 2022-02-18 15:14 | disposition home or self-care (01) ==
PROVIDERS: Emergency Provider Emergency Medicine; PCP Student in an Organized Health Care Education/Training Program; Visit Provider Emergency Medicine
DX: S76.011A Strain of muscle, fascia and tendon of right hip, initial encounter (principal); I73.9 Peripheral vascular disease, unspecified; I10 Essential (primary) hypertension; E78.00 Pure hypercholesterolemia, unspecified; X58.XXXA Exposure to other specified factors, initial encounter; M19.90 Unspecified osteoarthritis, unspecified site; F41.9 Anxiety disorder, unspecified; F32.A Depression, unspecified; K21.9 Gastro-esophageal reflux disease without esophagitis; Z85.038 Personal history of other malignant neoplasm of large intestine; Z79.899 Other long term (current) drug therapy
CPT/HCPCS: 73502; 99282

== ENCOUNTER 2022-03-13 09:00 | Outpatient (RCR) | payer MEDICARE, SELFPAY ==
--- NOTE | 2022-02-07 13:28 | HP.PTEVAL ---
Patient's Visit Information EDDA ZAMBRANO is a 81 year old M referred to Physical Therapy by Dr. Derek Sommer DO with a diagnosis of Left Shoulder OA and Balance Deficit. Date of Evaluation: 02/07/22 Physical Therapist: Aliza Horvath DPT - Visit Plan Frequency: 2x /Week Duration: 4 Weeks Plan: Shoulder: Focus on UE and scapular s/s- [id number]. Gentle. Balance: LE and core strength/stabilization. FGA improvement- Gait belt - Subjective Patient reports that his left shoulder started hurting a lot a few weeks ago. Had x-rays which showed arthritis. His balance is always bad. 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 Pain in the left shoulder is down the biceps and into the shoulder. Does have pain that radiates into the hand- tingling with movement. No pain that radiates into the neck. Right hand dominate. 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 Worst: 8/10. has to help him get dressed due to pain and inability to use the arm. Agg: movement, reaching, getting dressed Eases: resting it, heating pad, Tylenol arthritis. Best: 0/10. Describes the pain as dull and achy- sharp/shooting. Sleep: disturbed- on his stomach with his arm off to the side- its hard to get the covers up and over. Dr. Gordon spoke of possible surgery but he has a colostomy and it would be hard to take care of his he could not use his shoulder. did give him an injection in his shoulder which helped. Had home health that came and moved his shoulder and that helped too. Not doing any exercise for his shoulder- but does balance exercises: kitchen sink exercises- home health is done now. Balance- has not fallen for a few weeks- but did have a bout where he was falling 4x a week. He is now using a cane which he was not before- he does also have access to a walker. No pain in his legs. A couple of years ago they cut his small toe off on the right- he had very low blood flow to his LE- his foot will swell- so they put him on a blood thinner. If he gets up too quickly he does have some dizziness. Takes him a min to get organized when he gets out of a chair before he can get moving. He is very sedentary but prior to all of this he was on the run all the time- working in the garage and mowing- but not currently doing that due to safety. Patient lives with and lives in a single story home with a basement which he does not go to frequently. 3-4 stairs into the home that has a HR. He does not drive currently. PMHx/Meds: no changes since Dr. Gordon. - Objective Posture: FH, RS- can correct with verbal and tactile cues but does not maintain. Observation: decreased muscle mass in UE and LE- increase scapular winging bilateral. Gait: straight cane- decreased hudson and wider base of support- does veer to the right more when not paying attention. Stairs: asc with 2 HR recip, desc non recip with 2 HR- SBA for safety- slow and guarded. ROM: Cervical Spine: all motions diminished by 75% with no pain but crepitus, Right shoulder: WFL, Left Shoulder: AROM: Flexion: 80 degrees, Abd: 40 degrees, ER: -20 degrees from neutral, IR: arm to belly. AAROM: WFL in all planes, Elbow/Wrist/Hand: WFL. LE: WFL in all motions. Strength: scap: poor significant winging bilateral, Shoulder: isometric: 4+/5 right 4-/5 left throughout, Elbow: 4/5, Wrist: 4+/5, Continuous Wave Operator: right: 40 left:30. Balance: see FGA - Balance/Special Test Scores Functional Gait Assessment Score: 12 % Disability: 60.0000 Lower Extremity Functional Score: 7 TUG Test Time Seconds: 20.5 - Goals Goal 1:: Patient will be I with HEP and progression Goal Time Frame: 4-6 Weeks Goal 2:: Patient will demo AROM of the left shoulder WFL Goal Time Frame: 4-6 Weeks Goal 3:: Patient will improved TUG to under 10 seconds Goal Time Frame: 4-6 Weeks Goal 4:: Patient will maintain proper posture t/o tx session to demo increased scap and core s/s Goal Time Frame: 4-6 Weeks Goal 5:: Patient will improve FGA by 10 points Goal Time Frame: 4-6 Weeks Goal 6:: Patient will report 80% improvement - Rehabilitation Potential Physical Therapy Diagnosis: Patient presents with hypomobility- he has decreased LE and core strength/stabilization, proprioception and muscular endurance leading to poor balance and decreased ability to perform ADL's. He also has decreased shoulder ROM, UE and scapular strength/stabilization and functional mobility of the shoulder. Rehabilitation Potential: Fair - Anticipated Interventions Patient/Client Instruction: Educate patient on: Benefits of Fitness Program Therapeutic Exercise to Include: Strength training, Endurance training, Balance training, Coordination, Agility training, Body mechanics, Postural training, Flexibilty training, Gait and locomotor training, Neuromotor development, Dynamic Lumbar Stabilization, Scapular Strength/Stabilization For the Purpose of:: To improve muscle performance and motor function Cryotherapy (ice pack, ice massage): Yes Thermo therapy (hot pack): Yes Thank you for the opportunity to evaluate your patient. For Medicare and Medicare HMO plans, please review the plan of care and approve it. It will need to be FAXED BACK to us at [phone] for Medicare purposes. For Medicare only, by signing this I certify the plan of care. Please let me know if there are questions or concerns regarding this plan of care. Physician Signature: Date:
== END 2022-03-13 19:00 | disposition home or self-care (01) ==
LOC: PT 09:00
PROVIDERS: PCP Student in an Organized Health Care Education/Training Program; Referring Provider Orthopaedic Surgery; Visit Provider Orthopaedic Surgery
DX: M19.012 Primary osteoarthritis, left shoulder (principal); M75.102 Unspecified rotator cuff tear or rupture of left shoulder, not specified as traumatic
CPT/HCPCS: 97110; 97163; 97530

== ENCOUNTER → 2022-03-15 | Outpatient (CLI) | payer MEDICARE, SELFPAY ==
[2022-03-15 12:31] LABS: Hematocrit 31.1 % (40-54); Mean Corp Hgb Conc 32.2 g/dL (32-36); Mean Corpuscular Hgb 33.4 pg (27.0-32.0); Mean Platelet Vol. 9.8 fl (6.2-12.0); Platelet Count 260 K/mm3 (150-450); RBC Distribution Width CV 13.2 % (11.6-14.6); RBC Distribution Width SD 50.9 fl (35.1-43.9); Red Blood Count 2.99 M/mm3 (4.6-6.2); White Blood Count 7.4 K/mm3 (4.4-11.0)
[2022-03-15 13:15] LABS: Anion Gap 3 (5-15); BUN 44 mg/dL (7-18); BUN/Creat Ratio 21.3 RATIO (10-20); Calcium,Total 9.1 mg/dL (8.5-10.1); Chloride 110 mmol/L (98-107); Creatinine, Serum 2.07 mg/dL (0.70-1.30); EST Glomerular Filtration Rate 33 mL/min (>60); Est Glom Filt Rate - Afr Amer 40 mL/min (>60); Glucose 90 mg/dL (74-106); Sodium Level 141 mmol/L (136-145)
[2022-03-15 13:32] LABS: International Normalized Ratio 1.2; Prothrombin Time (Protime)PT. 15.1 SECONDS (11.7-14.9)
== END | disposition home or self-care (01) ==
LOC: LAB 11:27
PROVIDERS: Internal Medicine Cardiovascular Disease; PCP Student in an Organized Health Care Education/Training Program; Visit Provider Internal Medicine Cardiovascular Disease
DX: I49.5 Sick sinus syndrome (principal); R00.1 Bradycardia, unspecified; I10 Essential (primary) hypertension
CPT/HCPCS: 36415; 80048; 85027; 85610

== ENCOUNTER → 2022-03-16 | Outpatient (CLI) | payer MEDICARE, SELFPAY ==
[2022-03-16 11:16] LABS: Bacteria 0 SEEN /hpf (None Seen); Mucous, Urine 0 SEEN /hpf (<or=2+); Red Blood Cells-Urine 0 SEEN /hpf (0-5); Squamous Epithelial Cells - UA 0 SEEN /hpf (0-5); White Blood Cells 0 SEEN /hpf (0-5)
[2022-03-16 11:59] LABS: Color, Urine Yellow (Yellow); Glucose, Dipstick Normal (Normal); Ketone-Dipstick 5 mg/dl (Negative); Leukocyte Esterase-Dipstick 25 /ul (Negative); Nitrite-Dipstick Negative (Negative); Occult Blood-Urine Negative /ul (Negative); Protein-Dipstick 15 mg/dl (Negative); Urine Bilirubin Dipstick Negative (Negative); Urine Clarity Clear (Clear); Urine Urobilinogen Normal (Normal)
[2022-03-16 12:08] LABS: Calcium Oxalate Crystals Ur 2+ /hpf (<or=2+)
[2022-03-16 12:11] LABS: Anion Gap 7 (5-15); BUN 42 mg/dL (7-18); BUN/Creat Ratio 22.2 RATIO (10-20); Calcium,Total 8.9 mg/dL (8.5-10.1); Chloride 109 mmol/L (98-107); Creatinine, Serum 1.89 mg/dL (0.70-1.30); EST Glomerular Filtration Rate 37 mL/min (>60); Est Glom Filt Rate - Afr Amer 44 mL/min (>60); Glucose 76 mg/dL (74-106); Potassium 4.6 mmol/L (3.5-5.1); Sodium Level 143 mmol/L (136-145)
== END | disposition home or self-care (01) ==
LOC: LAB 11:13
PROVIDERS: Internal Medicine Cardiovascular Disease; PCP Student in an Organized Health Care Education/Training Program; Referring Provider Internal Medicine Cardiovascular Disease; Visit Provider Internal Medicine Cardiovascular Disease
DX: I49.5 Sick sinus syndrome (principal)
CPT/HCPCS: 36415; 80048; 81001

== ENCOUNTER → 2022-03-20 | Outpatient (CLI) | payer MEDICARE, SELFPAY ==
[2022-03-20 15:16] LABS: Anion Gap 7 (5-15); BUN 30 mg/dL (7-18); BUN/Creat Ratio 21.6 RATIO (10-20); Calcium,Total 9.3 mg/dL (8.5-10.1); Chloride 107 mmol/L (98-107); Creatinine, Serum 1.39 mg/dL (0.70-1.30); EST Glomerular Filtration Rate 52 mL/min (>60); Est Glom Filt Rate - Afr Amer 63 mL/min (>60); Glucose 95 mg/dL (74-106); Potassium 4.1 mmol/L (3.5-5.1); Sodium Level 144 mmol/L (136-145)
== END | disposition home or self-care (01) ==
LOC: LAB 13:30
PROVIDERS: PCP Student in an Organized Health Care Education/Training Program; Referring Provider Internal Medicine Cardiovascular Disease; Visit Provider Internal Medicine Cardiovascular Disease
DX: I49.5 Sick sinus syndrome (principal); R00.1 Bradycardia, unspecified
CPT/HCPCS: 36415; 80048

== ENCOUNTER → 2022-03-26 | Outpatient (CLI) | payer MEDICARE, SELFPAY ==
[2022-03-26 16:22] LABS: Absolute Lymphocyte Count 0.83 X10^3/uL (0.83-4.51); Absolute Neutrophil Count 6.7 X10^3/uL (2.0-7.7); Basophil# 0.04 X10^3/uL; Basophil% 0.5 % (0-1); Eosinophil# 0.09 X10^3/uL; Eosinophils% 1.1 % (0-5); Hematocrit 30.7 % (40-54); Hemoglobin 10.1 g/dL (13.0-16.5); Lymphocyte # 0.83 X10^3/ul (0.83-4.51); Lymphocyte % 10.1 % (19-41); Mean Corp Hgb Conc 32.9 g/dL (32-36); Mean Corpuscular Hgb 33.7 pg (27.0-32.0); Mean Corpuscular Volume 102.3 fL (80-94); Mean Platelet Vol. 9.9 fl (6.2-12.0); Monocyte# 0.51 X10^3/uL; Monocyte% 6.2 % (0-10); NRBC Flagged by Analyzer 0 % (0-5); Neutrophil # 6.69 X10^3/uL (2.7-7.7); Platelet Count 358 K/mm3 (150-450); RBC Distribution Width CV 12.5 % (11.6-14.6); White Blood Count 8.3 K/mm3 (4.4-11.0)
[2022-03-26 16:28] LABS: Anion Gap 7 (5-15); BUN 30 mg/dL (7-18); BUN/Creat Ratio 22.7 RATIO (10-20); Chloride 104 mmol/L (98-107); Creatinine, Serum 1.32 mg/dL (0.70-1.30); EST Glomerular Filtration Rate 55 mL/min (>60); Est Glom Filt Rate - Afr Amer 67 mL/min (>60); Glucose 77 mg/dL (74-106); Potassium 4.3 mmol/L (3.5-5.1); Sodium Level 140 mmol/L (136-145)
== END | disposition home or self-care (01) ==
LOC: LAB 11:29
PROVIDERS: PCP Student in an Organized Health Care Education/Training Program; Referring Provider Internal Medicine Cardiovascular Disease; Visit Provider Internal Medicine Cardiovascular Disease
DX: I49.5 Sick sinus syndrome (principal)
CPT/HCPCS: 36415; 80048; 85025

== ENCOUNTER 2022-04-16 14:26 | Observation (INO) | payer MEDICARE, SELFPAY ==
[2022-04-13 13:45] VITALS: BMI 17.9
[2022-04-16] VITALS (13 sets, daily range): BP systolic 145–216; BP diastolic 72–165; PULSE 60–74; RESP 16–18; TEMP 36.4–36.8; O2SAT 93–100
--- NOTE | 2022-04-16 08:02 | HP.PCM_ITS ---
History and Physical Date of Admission: 04/16/22 Details: This is an 81-year-old white male who presents today for a per pacemaker placement. He establish with us based upon concerns of marked sinus bradycardia/junctional rhythm with associated symptoms of lightheadedness, feeling off balance, and fatigue.? The patient states the best of his knowledge he does not recall ever being diagnosed with any definitive cardiovascular concerns.? He has undergone evaluation care for multiple noncardiac issues including rectal carcinoma/colon carcinoma approximately 2 decades ago that has not required continued active therapy.? Based upon the diagnosis he does have a colostomy.? Also based upon his gastrointestinal related issues he does eat a bland diet according to his spouse.? She believes this does contribute to his weight loss. He has been having episodes of feeling lightheaded, off balance, and more fatigue.? He had an emergency department evaluation in January of this year.? He was found to have marked sinus bradycardia.? He subsequently underwent evaluation as an outpatient with a 48-hour Holter monitor.? He was noted to have sinus rhythm with sinus bradycardia and episodes of junctional rhythm.? His average heart rate was 54 bpm with minimal heart rate as low as 32 bpm and a maximal heart rate, with an episode of probable ectopic atrial rhythm/tachycardia lasting 4 beats in duration up to approximately 133 bpm, with episodes of junctional rhythm converting to sinus rhythm. He had a previous transthoracic echocardiogram performed in November of this year.? The results are noted below. He had an ECG in the office today.? He was noted to have marked sinus bradycardia with a ventricular rate of approximately 37 bpm.? He had no acute ECG changes. He does not describe symptoms of angina pectoris at rest or with exertion.? There is been no episodes appearing compatible with acute CHF or pulmonary edema.? To the best of his knowledge and his 's knowledge she has not had syncope.? He does fall and thus he walks with a cane, a walker, and/or as today presents in a wheelchair. Intake Vital Signs: See EMR Intake Visit Reasons:?BRADYCARDIA/ED. REF. 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 History of amputation of toe History of colectomy History of colonoscopy (~2014) History of colostomy History of inguinal hernia repair Family History? Father Colon cancer Social History? Smoking Status:? Never smoker alcohol intake:? never substance use type:? does not use caffeine:? No ROS Const Const: Positive for fatigue and weakness; Negative for frequent falls, excessive sweating, weight gain or weight loss Eyes Eyes: Negative for transient loss of vision, blurry vision or change in vision ENT ENT: Positive for dizziness (occasional with head movement) and balance problems (ambulates with a walker and cane/ current PT) Cardio Chest Pain: No Palpitations: No Edema: None Muscle aches with walking: None Resp Respiratory: Negative for SOB with activity or SOB at rest GI GI: Negative vomiting or vomiting blood/hematemesis : Negative for hematuria Musc Musc: Positive for muscle weakness (generalized), joint pain (Bilat shoulder, Rt hip) and balance problems (ambulates with a walker and cane/ current PT); Negative for muscle aches/ myalgia Skin Skin: Negative non-healing lesions or rash Neuro Neuro: Positive for dizziness (occasional with head movement) and weakness; Negative for lightheadedness, orthostatic symptoms, frequent falls or blurry vision Mark Hematologic/Lymphatic: Negative for easy bleeding Endo Endo: Positive for fatigue; Negative for excessive sweating Psych Psych: Negative for anxiety or depression Allergy Allergy/Immunology: Negative for hives and Negative for rash Cardiology Exam Const Appearance: cooperative, healthy appearing, comfortable, no acute distress, frail appearing and other (examined in the wheelchair) Nutritional Appearance: cachectic Orientation: alert, awake and oriented x3 Head Head: normal to inspection, normocephalic and atraumatic Ears: hearing grossly impaired Nose: external nose normal Face and Sinus: face symmetric Eyes Conjunctivae: conjunctivae normal Pupils: PERRL EOM: EOM intact bilaterally Neck Neck: normal visual inspection and full ROM Carotids: normal carotid upstroke Chest Chest inspection: normal inspection of the chest, symmetric chest movement and normal respiratory effort Auscultation: Bilateral: Clear to Auscultation Cardio Palpation: normal PMI Rate: bradycardic Rhythm: regular rhythm Heart sounds: S1 normal and S2 normal GI GI: normal to inspection, soft and bowel sounds present Neuro General: patient alert, patient awake, patient oriented x3 and moves all extrem ities Skin Skin: no rashes or lesions noted Extremities Pulses: Normal: Right Radial Pulse and Left Radial Pulse Lower Extremity Edema: None: Bilateral Psych Psychological: normal affect Supplemental Info Supplemental Information Transthoracic echocardiogram: 12-20-2021 Interpretation Summary Normal LV size. Left ventricular systolic function is normal. The estimated ejection fraction is 60 %. Mild (1+) eccentric mitral valve insufficiency. Bileaflet diffuse mitral valve thickening. Stage 1 diastolic dysfunction. Holter monitor: 02-13-2022 Sinus rhythm/sinus bradycardia/junctional rhythm Occasional PACs Probable ectopic atrial rhythm/tachycardia (longest episode 6 beats) Rare PVCs No wide-complex runs Labs: ?? ? LDL Cholesterol 121 mg/dL (0-130) ?? ? HDL Cholesterol 58 mg/dL ?? ? Triglycerides 165 mg/dL ?? ? VLDL Cholesterol 33 mg/dL (5-40) Diagnostics: ?? ? Electrocardiogram ? Echocardiogram ? Chest X-Ray ? Pulmonary: ?? ? No Data to Display Assessment and Plan Assessment and Plan (1) Junctional bradycardia: ?Status:?Acute ? ? ? Orders:?Orders: ?Plan - Dr. Sylvester Bergeron MD: The patient has been found to have episodes of both junctional bradycardia and marked sinus bradycardia. These findings may be a contributory factor to his concerns of lightheadedness, fatigue, etc. He may have other factors involved based upon his age, his debilitated state, etc. He will proceed with permanent pacemaker placement. (2) Sinus bradycardia:?Status:?Acute ? ? ? Orders:?Orders: ?Plan - Dr. Sylvester Bergeron MD: He has undergone evaluation and care as noted above. He will proceed with permanent pacemaker placement. (3) Benign essential hypertension: ?Status:?Chronic ?Comment: CONTROLLED ON MED ? ? ? Orders:?Orders: ?Plan - Dr. Sylvester Bergeron MD: His blood sugar appears to be reasonably well controlled. He will continue medical therapy that does not adversely affect his cardiac rate or rhythm. (4) Lightheadedness: ?Status:?Acute ?Plan - Dr. Sylvester Bergeron MD: Again his lightheadedness may have a component of his bradycardia dysrhythmias.? At the same time there may be noncardiac components. (5) Balance disorder: ?Status:?Acute ?Plan - Dr. Sylvester Bergeron MD: He does have a balance disorder and is undergoing outpatient physical therapy to assist with this. Plan Details Thank you for allowing me to participate in the care of your patient.? Please don't hesitate to call if any issues arise. This note was generated using a voice recognition system and there may be incorrect words, spelling or punctuation that were not noted when reviewing the office note prior to saving. Follow Up: COVID (Procedure Consent) Procedure Criteria Procedure Criteria: Yes Elective?The surgeon/proceduralist and patient have discussed in detail the risk of exposure to and/or potential harm posed by the COVID-19 virus with having a surgery/procedure at this time versus the risk of? delaying the surgery/procedure. It is not possible to know either the risk of delaying the surgery or procedure or chance of getting an infection with perfect accuracy, but a joint decision was made between the patient and the surgeon/proceduralist ?to proceed at this time with the scheduled surgery/proced ure as indicated on the consent form.
[2022-04-16] MEDS: Cefazolin 1 GM/50 ML BAG IV (13:00)
[2022-04-16] MEDS: amLODIPine 5 MG Tablet PO (16:23)
[2022-04-16] MEDS: traZODone 50 MG Tablet 25 MG PO (20:14)
[2022-04-16] MEDS: Pravastatin 40 MG Tablet PO (20:14)
[2022-04-16] MEDS: Tamsulosin HCl 0.4 MG Capsule PO (20:14)
[2022-04-16] MEDS: Acetaminophen 325 MG Tablet 650 MG PO (23:14)
[2022-04-17 02:26] VITALS: BP 164/92; PULSE 69; RESP 16; TEMP 36.9; O2SAT 96
[2022-04-17 03:50] VITALS: PULSE 63
--- NOTE | 2022-04-17 05:48 | RAD_ITS ---
STUDY: X-RAY CHEST REASON FOR EXAM: Male, 81 years old. Post permanent ICD/Pacemaker -- inspiration/expiration. Arms Down. Wet read to MD TECHNIQUE: AP and lateral views of the chest. COMPARISON: Comparison is made with prior study dated 02/13/2022. FINDINGS: EKG electrodes are seen. Mild increased markings in the right upper lobe as well as at the right lung base. No evidence of pneumothorax. A left-sided dual-chamber pacemaker has been placed. The leads are in good position. Normal mediastinum and janette. Normal visualized pulmonary arteries. There is atherosclerotic tortuosity of the aortic arch and descending thoracic aorta. There are diffuse degenerative changes of the visualized thoracic spine. Normal visualized ribs, clavicles, and shoulders. There is no demonstrated abnormality of the visualized soft tissue structures of the upper abdomen. RAD/Chest PA and Lateral IMPRESSION: A left-sided dual-chamber pacemaker has been placed. The leads are in good position. No evidence of pneumothorax. Increased markings are seen in the right upper lobe as well as in the right lower lobe. Follow-up recommended. Electronically Signed: Mert Recinos MD at 13:12 EDT ,
--- NOTE | 2022-04-17 05:55 | EKG12_ITS ---
Test Reason : post pacemaker placement Blood Pressure : / mmHG Vent. Rate : 068 BPM Atrial Rate : 068 BPM P-R Int : 156 ms QRS Dur : 078 ms QT Int : 430 ms P-R-T Axes : 063 -56 -33 degrees QTc Int : 457 ms Normal sinus rhythm Left axis deviation Nonspecific ST and T wave abnormality Abnormal ECG When compared with ECG of 13-FEB-2022 09:54, Vent. rate has increased BY 23 BPM Confirmed by SHANNAN MCCALLUM, JAMAL ([id number]), editor news KIA ALBERTS ([id number]) on 04/24/2022 11:09:37 AM Referred By: Jamal Flores Confirmed By:JAMAL FLORES MD
[2022-04-17 06:06] VITALS: BP 157/76; PULSE 62; RESP 16; TEMP 36.9; O2SAT 94
[2022-04-17 06:19] LABS: Absolute Lymphocyte Count 0.88 X10^3/uL (0.83-4.51); Basophil# 0.04 X10^3/uL; Basophil% 0.4 % (0-1); Eosinophil# 0.09 X10^3/uL; Hematocrit 30.7 % (40-54); Hemoglobin 10.1 g/dL (13.0-16.5); Lymphocyte # 0.88 X10^3/ul (0.83-4.51); Lymphocyte % 9.7 % (19-41); Mean Corp Hgb Conc 32.9 g/dL (32-36); Mean Corpuscular Hgb 32.4 pg (27.0-32.0); Mean Corpuscular Volume 98.4 fL (80-94); Mean Platelet Vol. 9.5 fl (6.2-12.0); Monocyte# 0.96 X10^3/uL; Monocyte% 10.6 % (0-10); NRBC Flagged by Analyzer 0 % (0-5); Neutrophil # 7.02 X10^3/uL (2.7-7.7); Neutrophil % 77.7 % (47-70); Platelet Count 206 K/mm3 (150-450); RBC Distribution Width CV 12.8 % (11.6-14.6); RBC Distribution Width SD 45.6 fl (35.1-43.9); Red Blood Count 3.12 M/mm3 (4.6-6.2)
[2022-04-17 06:41] LABS: Anion Gap 6 (5-15); BUN 21 mg/dL (7-18); BUN/Creat Ratio 20.2 RATIO (10-20); Calcium,Total 8.5 mg/dL (8.5-10.1); Chloride 107 mmol/L (98-107); Creatinine, Serum 1.04 mg/dL (0.70-1.30); EST Glomerular Filtration Rate 73 mL/min (>60); Est Glom Filt Rate - Afr Amer 88 mL/min (>60); Estimated Creatinine Clearance 45.43 ml/min; Glucose 108 mg/dL (74-106); Potassium 3.6 mmol/L (3.5-5.1); Sodium Level 142 mmol/L (136-145)
[2022-04-17 07:00] VITALS: PULSE 72
--- NOTE | 2022-04-17 08:28 | PN.CARD_ITS ---
Subjective Subjective Patient seen and evaluated. Appears to be doing well. No major issues overnight other than getting out of bed once. Objective Data Vital Signs: Vital Signs Temp Pulse Resp BP Pulse Ox O2 Del Method 98.4 F 72 16 157/76 H 94 Room Air 04/17/22 06:06 04/17/22 07:00 04/17/22 06:06 04/17/22 06:06 04/17/22 06:06 04/17/22 06:06 Oxygen Delivery Method Room Air Weight: 125 lb Body Mass Index (BMI) 17.9 Intake & Output: Intake and Output for Last 24 Hours 04/15/22 04/16/22 04/17/22 23:59 23:59 23:59 Intake Total 410 / 410 Output Total 380 / 380 Balance Lab / Micro Data Result Diagrams: 04/17/22 06:04 04/17/22 06:04 Labs: Laboratory Results - last 24 hr 04/17/22 06:04: WBC 9.0, RBC 3.12 L, Hgb 10.1 L, Hct 30.7 L, MCV 98.4 H, MCH 32.4 H, MCHC 32.9, RDW Std Deviation 45.6 H, RDW Coeff of Bee 12.8, Plt Count 206, MPV 9.5, Immature Gran % (Auto) 0.600, Neut % (Auto) 77.7 H, Lymph % (Auto) 9.7 L, Benson % (Auto) 10.6 H, Eos % (Auto) 1.0, Baso % (Auto) 0.4, Absolute Neuts (auto) 7.0, Absolute Lymphs (auto) 0.88, Nucleated RBC % 0 04/17/22 06:04: Sodium 142, Potassium 3.6, Chloride 107, Carbon Dioxide 29.0, Anion Gap 6, BUN 21 H, Creatinine 1.04, Estim Creat Clear Calc 45.43, Est GFR (MDRD) Af Amer 88, Est GFR (MDRD) Non-Af 73, BUN/Creatinine Ratio 20.2 H, Glucose 108 H, Calcium 8.5 Cardiology Labs/Tests 04/17/22 06:04: WBC 9.0, RBC 3.12 L, Hgb 10.1 L, Hct 30.7 L, MCV 98.4 H, MCH 32.4 H, MCHC 32.9, Plt Count 206, MPV 9.5, Immature Gran % (Auto) 0.600, Neut % (Auto) 77.7 H, Lymph % (Auto) 9.7 L, Benson % (Auto) 10.6 H, Eos % (Auto) 1.0, Baso % (Auto) 0.4, Absolute Neuts (auto) 7.0, Nucleated RBC % 0 04/17/22 06:04: Sodium 142, Potassium 3.6, Chloride 107, Carbon Dioxide 29.0, Anion Gap 6, BUN 21 H, Creatinine 1.04, Est GFR (MDRD) Af Amer 88, Est GFR (MDRD) Non-Af 73, BUN/Creatinine Ratio 20.2 H, Glucose 108 H, Calcium 8.5 Rhythm: EKG: ECHO: Stress Test: Cardiac Cath: PCI: CT Surgery: Holter monitor: EPS: PPM: CXR: Chest CT Scan: Physical Exam Const alert, oriented x3 and no apparent distress General Appearance: cooperative HEENT hearing grossly normal bilaterally Head and Scalp: atraumatic Eyes EOMs intact bilaterally Neck General: normal visual inspection Chest inspection of chest normal and palpation of chest normal Resp normal respiratory effort Auscultation: clear to auscultation bilaterally Cardio regular rate, regular rhythm, S1 normal heart sound and S2 normal heart sound Jugular Venous Distention: JVD GI normal to inspection, nondistended, normoactive bowel sounds Extremity normal capillary refill and no pedal edema Peripheral Pulses: Yes pulses 2+ throughout and femoral pulses present Skin no rashes or lesions noted Neuro oriented x3 and CN's II-XII intact bilaterally Psych Appearance: grossly normal and appropriate Assessment & Plan Assessment/Plan (1) Sick sinus syndrome: PLAN: Patient is status post pacemaker placement for sick sinus syndrome. Pacemaker interrogation this morning demonstrates no significant abnormalities. Chest x-ray demonstrates no obvious pneumothorax present. Will discharge for outpatient follow-up. Thank you for allowing me to participate in the care of your patient. Please don't hesitate to call if any issues arise.
[2022-04-17] MEDS: Calcium Carb/Vitamin D 1 TABLET Tablet 2 TABLET PO (08:46)
[2022-04-17] MEDS: Etodolac 200 MG Capsule PO (08:46)
[2022-04-17 08:48] VITALS: BP 150/76; PULSE 71; RESP 18; TEMP 36.7; O2SAT 94
[2022-04-17] MEDS: Tamsulosin HCl 0.4 MG Capsule PO (10:17)
[2022-04-17] MEDS: Citalopram 40 MG TABLET PO (10:17)
[2022-04-17] MEDS: Ferrous Gluconate 324 MG Tablet PO (10:17)
[2022-04-17] MEDS: buPROPion (XL) 150 MG TABLET.XL PO (10:17)
[2022-04-17] MEDS: Cholecalciferol (VIT D3) 25 MCG TABLET (1,000 UNITS) PO (10:17)
[2022-04-17] MEDS: Loratadine 10 MG Tablet PO (10:17)
[2022-04-17] MEDS: amLODIPine 5 MG Tablet PO (10:17)
--- NOTE | 2022-04-17 12:01 | DCINST_ITS ---
Discharge Instructions Diet Discharge Diet: No restrictions Activity Lifting Restrictions: Keeparm in sling for 3 days Dressing / Incision Call your doctor if your incision/area has: Continuous Slow Oozing, Sudden Increased Bleeding, Increased Pain/ Swelling, Foul Smelling Discharge and Swelling at the incision site Remove Dressing in: 3 days Cleanse incision/area with: Keep Dressing Clean & Dry Follow Up Care When: Pacemaker clinic April 23, 2022 at 10:30 AM Test Results: Test results from this visit will be discussed in further detail at your follow- up appointment, if applicable. Discharge Plan Admission Admit Date/Time: 04/16/22 14:26 Attending Provider: Jamal Flores Primary Care Provider: Jared Singh Discharge Orders/Prescriptions Prescriptions: New amlodipine 5 mg Tablet 5 mg PO DAILY Qty: 90 2RF Continued citalopram 40 mg tablet 40 mg PO DAILY bupropion HCl 150 mg tablet extended release 24 hr 150 mg PO DAILY vitamin B complex Tablet 1 tab PO DAILY brimonidine-timolol 0.2-0.5 % drops 1 ml ophthalmic (eye) DAILY cholecalciferol (vitamin D3) 25 mcg (1,000 unit) tablet 25 mcg PO DAILY multivitamin 1 EACH tablet 1 ea PO DAILY pravastatin 40 MG tablet 40 mg PO QHS alendronate 70 MG tablet 70 mg PO Q7D@0700 tamsulosin 0.4 MG capsule 0.4 mg PO BID nabumetone 500 MG tablet 500 mg PO DAILY calcium carbonate-vitamin D3 1 EACH tablet,chewable 2 tab PO DAILY saw palmetto 450 MG capsule 450 mg PO DAILY cetirizine 10 MG capsule 10 mg PO DAILY L.acidoph, paracasei,B. lactis 1 EACH capsule 1 ea PO DAILY trazodone 50 mg tablet 25 mg PO QHS zinc gluconate 50 MG tablet 50 mg PO DAILY ferrous gluconate 325 mg (36 mg iron) Tablet 324 mg PO DAILY Referrals / Follow Up: Jared Singh DO [Primary Care Provider] - Disposition Disposition (needs filled in before D/C Order can be placed): Home, Self Care
--- NOTE | 2022-04-17 12:15 | CASEMGMT ---
ABDIFATAH PÉREZ NOTE: Pt being discharged home. ABDIFATAH PÉREZ to room to talk w/pt and dtr @ bedside. They deny having any discharge planning needs or concerns. They are requesting for pt to be discharged as soon as possible, as his is home alone. ABDIFATAH baiely. Yaneth HERNANDEZN ABDIFATAH PÉREZ
[2022-04-17 13:10] VITALS: BP 143/92; PULSE 78; RESP 18; TEMP 36.4; O2SAT 94
--- NOTE | 2022-04-17 14:38 | PHA.DC.MR ---
Pharmacy Service has performed discharge medication reconciliation for this patient. The patient's discharge medication list was reviewed for discrepancies and discrepancies were resolved. Unable to family court counsellor before discharge. Home Medications L.acidoph, paracasei,B. lactis 10 billion cell capsule 1 ea PO DAILY probiotic 06/25/16 alendronate 70 mg tablet 70 mg PO Q7D@0700 bones 06/25/16 calcium carbonate 500 mg-vitamin D3 2.5 mcg (100 unit) chewable tablet 2 tab PO DAILY supplement 06/25/16 cetirizine 10 mg capsule 10 mg PO DAILY allergies 06/25/16 multivitamin 1 ea PO DAILY 06/25/16 nabumetone 500 mg tablet 500 mg PO DAILY pain 06/25/16 pravastatin 40 mg tablet 40 mg PO QHS 06/25/16 saw palmetto 450 mg capsule 450 mg PO DAILY prostate health 06/25/16 tamsulosin 0.4 mg capsule 0.4 mg PO BID prostate 06/25/16 citalopram 40 mg tablet 40 mg PO DAILY depression 05/11/20 zinc gluconate 50 mg tablet 50 mg PO DAILY supplement 08/03/20 bupropion HCl 150 mg 24 hr tablet, extended release 150 mg PO DAILY depression 06/12/21 vitamin B complex 1 tab PO DAILY supplement 06/12/21 ferrous gluconate 325 mg (36 mg iron) tablet 324 mg PO DAILY low iron 06/21/21 brimonidine 0.2 %-timolol 0.5 % eye drops 1 ml ophthalmic (eye) DAILY eyes 02/02/22 cholecalciferol (vitamin D3) 25 mcg (1,000 unit) tablet 25 mcg PO DAILY supplement 03/09/22 trazodone 50 mg tablet 25 mg PO QHS sleep 03/09/22 amlodipine 5 mg tablet 5 mg PO DAILY #90 tabs 04/17/22
--- NOTE | 2022-04-24 08:20 | CL.IE_ITS ---
Patient: EDDA ZAMBRANO Study Date: 04/16/2022 Performing: Jamal Flores MD : [id number] Age: 81 Gender: male PROCEDURES PERFORMED [id number])INITIAL PACER INSERT+DUAL LEADS INDICATIONS Sinoatrial node dysfunction/Sick sinus syndrome PROCEDURE DETAILS The patient was brought to the Catheterization Lab in the postabsorptive nonsedated state. Infor med consent was obtained prior to the procedure. Local anesthetic was given subcutaneously to the le ft upper chest area with Lidocaine 2%. Access was achieved and a guidewire was advanced into the left subclavian vein. Incision was made to the left upper chest. PPM ventricular lead was inserted / posi tioned to right ventricular apex. PPM ventricular lead testing performed. PPM ventricular lead testin g performed. The Ventricular PM lead sutured in place with 2-0 Silk. PPM atrial lead was inserted / p ositioned to the right atrial appendage. The Atrial lead sutured in place with 2-0 Silk. Device pocke t was irrigated with antibiotic. PPM generator was attached to the lead(s) and inserted into the pock et. PPM generator was then interrogated by the communications programmer. Subcutaneous closure was completed with 3- 0 Vicryl. Skin closure was completed with 4-0 Vicryl. Steri-strips applied to Lt chest area. Instrument, sponge, and needle counts were noted to be normal. The patient tolerated the proced ure well. Estimated Blood Loss: 10 ml's IMPLANTED / EX-PLANTED DEVICES IMPLANTED DEVICE(S): PPM Ventricular lead - Production Foreman: [employer], Model # [id number] TC Tendril STS , Serial # [id number] PPM Atrial lead - Production Foreman: [employer], Model # [id number] Tendril STS , Serial # [id number] PPM Generator - Production Foreman: [employer], Model # [id number] , Serial # [id number] DEVICE PARAMETERS DEVICE PARAMETERS: Mode - DDDR lower rate - 60 upper rate - 120 rate response on Mode- DDDR Lower rate- 60 Upper rate- 120 CONCLUSIONS / RECOMMENDATIONS Device Conclusions: Successful implantation of a dual chamber pacemaker Device Recommendations: Follow up with Primary Care Physician PROCEDURE MEDICATIONS Versed 1 mg IV Fentanyl 50 mcg IV Oxygen: 2 L/min via nasal cannula Antibiotic given in appropriate timeframe. Ancef 1 Gm IV @ 04/16/2022 13:02:04 Signed By Jamal Flores MD On 04/24/2022 08:19:37 Jamal Flores MD
== END 2022-04-17 11:28 | disposition home or self-care (01) ==
LOC: PCU 15:05
PROVIDERS: Internal Medicine Cardiovascular Disease; Admitting Provider Internal Medicine Cardiovascular Disease; PCP Student in an Organized Health Care Education/Training Program; Referring Provider Internal Medicine Cardiovascular Disease; Visit Provider Internal Medicine Cardiovascular Disease
DX: Z45.018 Encounter for adjustment and management of other part of cardiac pacemaker (principal); I49.5 Sick sinus syndrome; N18.30 Chronic kidney disease, stage 3 unspecified; M19.90 Unspecified osteoarthritis, unspecified site; G47.33 Obstructive sleep apnea (adult) (pediatric); I12.9 Hypertensive chronic kidney disease with stage 1 through stage 4 chronic kidney disease, or unspecified chronic kidney disease; K21.9 Gastro-esophageal reflux disease without esophagitis; E78.00 Pure hypercholesterolemia, unspecified; R42 Dizziness and giddiness
CPT/HCPCS: 33208; 36415; 71046; 80048; 85025; 93005; 99152; 99153; 99218; J7030; J7050; C1894; G0378

== ENCOUNTER → 2023-01-30 | Outpatient (CLI) | payer MEDICARE, SELFPAY ==
--- NOTE | 2023-01-30 14:07 | MRI_ITS ---
PROCEDURE: LUMBAR SPINE MRI WITHOUT CONTRAST COMPARISONS: None CLINICAL INDICATION: STENOSIS , LEG WEAKNESS, RT LEG WORSE THAN LEFT TECHNIQUE: Noncontrast lumbosacral spine MRI study was performed multiple sequences in sagittal and axial planes. FINDINGS: Alignment of the lumbosacral spine is normal. Normal vertebral marrow signal. Normal partially visualized sacroiliac joints. The conus medullaris terminates at L1-2. No abnormal signal within the visualized cord. T12-L1: Disc height loss and bulge. Mild right neural foraminal stenosis. L1-L2: Endplate edema. Disc height loss and bulge. Crowding of the traversing L2 nerve root in the right lateral recess. Mild right neural foraminal stenosis. L2-L3: Endplate edema. Disc height loss and bulge. Impingement upon the traversing L3 nerve root in the left lateral recess. Mild bilateral neural foraminal stenosis. L3-L4: Mild disc bulge. Mild right neural foraminal stenosis. No significant spinal canal stenosis. L4-L5: Mild disc bulge. Crowding of both traversing L5 nerve roots in the lateral recesses. No significant neural foraminal stenosis. L5-S1: Disc height loss and bulge. Moderate bilateral neural foraminal stenosis. Paraspinous muscle fatty infiltration. MRI/Spine Lumbar (Routine) IMPRESSION: Multilevel neural foraminal stenosis and crowding of the nerve roots in the lateral recesses, including impingement on the traversing left L3 nerve root. Electronically Signed: Sylvester Le MD at 18:24 EDT ,
[2023-01-30 14:29] VITALS: BP 154/70; PULSE 85; O2SAT 97
[2023-01-30 14:43] VITALS: BP 159/71; PULSE 85; O2SAT 93
[2023-01-30 14:55] VITALS: BP 143/90; PULSE 85; O2SAT 94
== END | disposition home or self-care (01) ==
LOC: MRI 14:03
PROVIDERS: PCP Student in an Organized Health Care Education/Training Program; Referring Provider Psychiatry & Neurology Sleep Medicine; Visit Provider Psychiatry & Neurology Sleep Medicine
DX: M48.061 Spinal stenosis, lumbar region without neurogenic claudication (principal)
CPT/HCPCS: 72148

== ENCOUNTER → 2023-03-06 | Outpatient (CLI) | payer MEDICARE, SELFPAY ==
--- NOTE | 2023-03-06 10:43 | RAD_ITS ---
INDICATION: Right hand pain FALL. PAIN AND SWELLING ESPECIALLY IN 3RD METACARPAL. EXAMINATION/TECHNIQUE: X-RAY - RIGHT XR Hand Min 3 Views 3 VIEWS COMPARISON: FINDINGS: BONES: Osteopenia. There are degenerative degenerative changes at the metacarpophalangeal joint, proximal interphalangeal joint and distal interphalangeal joint with marked joint space narrowing and osteophytes. Linear lucency at the base of the distal phalanx third digit dorsally may be acute fracture versus hypertrophic spur. Marked degenerative changes at the first digit carpometacarpal joint and metacarpophalangeal joint. JOINTS: Subluxation third digit at the metacarpophalangeal joint, with distal digit displaced volar approximately one third of the bone width. No dislocation. SOFT TISSUES: Soft tissue swelling dorsally. Arterial calcifications. RAD/Hand Min 3 Views IMPRESSION: Third digit with subluxation at the MCP joint may be on the basis of degenerative changes. Questionable fracture at the third digit distal phalanx versus degenerative changes at the DIP joint. Marked degenerative changes at the first carpometacarpal joint . Electronically Signed: Paula Wilkes MD at 6:17 EDT ,
--- NOTE | 2023-03-06 10:43 | RAD_ITS ---
INDICATION: Right Arm Pain-Fall EXAMINATION/TECHNIQUE: X-RAY - RIGHT XR Forearm 2 Views 2 VIEWS COMPARISON: FINDINGS: BONES: Osteopenia. No definite fracture demonstrated. Degenerative changes at the first carpometacarpal joint. JOINTS: No dislocation. SOFT TISSUES: Marked soft tissue swelling at the elbow. RAD/Forearm 2 Views IMPRESSION: Soft tissue swelling especially at the elbow. No evidence of fracture. Consider follow-up dedicated elbow series if symptoms pertain to the elbow. Electronically Signed: Paula Wilkes MD at 6:23 EDT ,
--- NOTE | 2023-03-06 10:44 | RAD_ITS ---
ACR Level 3 findings have been noted. An addendum which confirms receipt of the report will follow. INDICATION: SOB EXAMINATION/TECHNIQUE: X-RAY - XR Chest 2 Views COMPARISON: 04/17/2022 FINDINGS: LINES/DEVICES: Pacemaker device with leads unchanged. LUNGS: Mildly hyperinflated. Reticular opacities in the right upper lobe increased compared to prior study. A nodular focus in the right lower lung, approximately 1.5 cm, not clearly identified on the lateral view. No consolidation. No pneumothorax. MEDIASTINUM: Unremarkable. CARDIAC SILHOUETTE: Not enlarged. BONES AND SOFT TISSUES: Degenerative changes in the dorsal spine and scoliosis. RAD/Chest PA and Lateral IMPRESSION: Reticular infiltrates in the right upper lobe and more nodular opacity in the right lung base, new compared to prior. Findings may be inflammatory / pneumonia. Cannot exclude nodule at the right lung base. Further evaluation with CT chest is recommended. Electronically Signed: Paula Wilkes MD at 6:07 EDT ,
[2023-03-06 10:46] LABS: Absolute Lymphocyte Count 1.17 X10^3/uL (0.83-4.51); Absolute Neutrophil Count 3.6 X10^3/uL (2.0-7.7); Basophil# 0.05 X10^3/uL; Basophil% 0.9 % (0-1); Eosinophil# 0.21 X10^3/uL; Eosinophils% 3.8 % (0-5); Hematocrit 29.4 % (40-54); Hemoglobin 9.4 g/dL (13.0-16.5); Lymphocyte # 1.17 X10^3/ul (0.83-4.51); Lymphocyte % 20.9 % (19-41); Mean Corpuscular Hgb 31.9 pg (27.0-32.0); Mean Corpuscular Volume 99.7 fL (80-94); Monocyte# 0.56 X10^3/uL; NRBC Flagged by Analyzer 0 % (0-5); Neutrophil % 64.2 % (47-70); Platelet Count 219 K/mm3 (150-450); RBC Distribution Width CV 14.6 % (11.6-14.6); Red Blood Count 2.95 M/mm3 (4.6-6.2); White Blood Count 5.6 K/mm3 (4.4-11.0)
[2023-03-06 11:12] LABS: BNP,B-Type NATRIURETIC PEPTIDE 429.3 pg/mL (0-100)
[2023-03-06 11:31] LABS: Anion Gap 4 (5-15); BUN 35 mg/dL (7-18); BUN/Creat Ratio 23.2 RATIO (10-20); Calcium,Total 8.7 mg/dL (8.5-10.1); Chloride 112 mmol/L (98-107); Creatinine, Serum 1.51 mg/dL (0.70-1.30); EST Glomerular Filtration Rate 47 mL/min (>60); Est Glom Filt Rate - Afr Amer 57 mL/min (>60); Free T3 1.9 pg/mL (2.18-3.98); Glucose 94 mg/dL (74-106); Potassium 3.9 mmol/L (3.5-5.1); Sodium Level 144 mmol/L (136-145); T4 Free Direct 1.23 ng/dL (0.76-1.46); Thyroid Stim Hormone (TSH) 2.63 uIU/mL (0.358-3.74)
== END | disposition home or self-care (01) ==
LOC: LAB 10:26
PROVIDERS: PCP Student in an Organized Health Care Education/Training Program; Referring Provider Nurse Practitioner Gerontology; Visit Provider Nurse Practitioner Gerontology
DX: R06.09 Other forms of dyspnea (principal); M79.601 Pain in right arm; M79.641 Pain in right hand; R53.83 Other fatigue
CPT/HCPCS: 36415; 71046; 73090; 73130; 80048; 83880; 84439; 84443; 84481; 85025

== ENCOUNTER → 2023-03-11 | Outpatient (CLI) | payer MEDICARE, SELFPAY ==
[2023-03-11 11:37] LABS: Absolute Lymphocyte Count 1.25 X10^3/uL (0.83-4.51); Absolute Neutrophil Count 4.6 X10^3/uL (2.0-7.7); Basophil# 0.07 X10^3/uL; Eosinophil# 0.17 X10^3/uL; Eosinophils% 2.5 % (0-5); Hematocrit 29.7 % (40-54); Hemoglobin 9.6 g/dL (13.0-16.5); Lymphocyte # 1.25 X10^3/ul (0.83-4.51); Lymphocyte % 18.4 % (19-41); Mean Corp Hgb Conc 32.3 g/dL (32-36); Mean Corpuscular Hgb 31.9 pg (27.0-32.0); Mean Corpuscular Volume 98.7 fL (80-94); Mean Platelet Vol. 9.3 fl (6.2-12.0); Monocyte# 0.63 X10^3/uL; Monocyte% 9.3 % (0-10); NRBC Flagged by Analyzer 0 % (0-5); Neutrophil # 4.63 X10^3/uL (2.7-7.7); Neutrophil % 68.4 % (47-70); Platelet Count 226 K/mm3 (150-450); RBC Distribution Width CV 14.5 % (11.6-14.6); RBC Distribution Width SD 52.8 fl (35.1-43.9); Red Blood Count 3.01 M/mm3 (4.6-6.2); White Blood Count 6.8 K/mm3 (4.4-11.0)
[2023-03-11 12:07] LABS: Anion Gap 4 (5-15); BUN 41 mg/dL (7-18); BUN/Creat Ratio 23.6 RATIO (10-20); Calcium,Total 8.7 mg/dL (8.5-10.1); Chloride 108 mmol/L (98-107); Creatinine, Serum 1.74 mg/dL (0.70-1.30); EST Glomerular Filtration Rate 40 mL/min (>60); Est Glom Filt Rate - Afr Amer 49 mL/min (>60); Glucose 94 mg/dL (74-106); Potassium 4.1 mmol/L (3.5-5.1); Sodium Level 143 mmol/L (136-145)
== END | disposition home or self-care (01) ==
LOC: LAB 11:18
PROVIDERS: PCP Student in an Organized Health Care Education/Training Program; Referring Provider Nurse Practitioner Gerontology; Visit Provider Nurse Practitioner Gerontology
DX: R06.09 Other forms of dyspnea (principal); R53.83 Other fatigue
CPT/HCPCS: 36415; 80048; 85025

== ENCOUNTER → 2023-03-27 | Outpatient (CLI) | payer MEDICARE, SELFPAY ==
--- NOTE | 2023-03-27 11:07 | ECHOD_ITS ---
Reason For Study: SOB Procedure This was a 2D Doppler, Color Flow transthoracic echocardiogram. The study was technically difficult. Patient scanned supine. Exam performed in department. Left Ventricle Normal LV size. Left ventricular systolic function is normal. The estimated ejection fraction is 55 %. Stage 1 diastolic dysfunction. No regional wall motion abnormalities noted. Right Ventricle Normal RV size. ICD or pacer leads identified within the right ventricle. Normal systolic function. Mitral Valve Normal mitral valve. Mild (1+) eccentric mitral valve insufficiency. Aortic Valve Trisinus/trileaflet aortic valve. Great Vessels Normal aortic root. Pericardium/Pleural No pericardial effusion. MMode/2D Measurements & Calculations LVIDd: 4.9 cm IVSd: 1.1 cm Ao root diam: 2.9 cm LVIDs: 3.9 cm LVPWd: 1.3 cm FS: 21.4 % LAV(MOD-bp): 50.0 ml SV(MOD-sp4): 69.6 ml LVAd ap4: 31.2 cm2 LAV(MOD-bp) Indexed: 27.9 ml/m2 LVLd ap4: 6.9 cm LAV(MOD-sp2): 34.2 ml EDV(MOD-sp4): 113.7 ml LAV(MOD-sp4): 52.6 ml EDV(sp4-el): 120.1 ml LVAs ap4: 17.1 cm2 LVLs ap4: 5.6 cm ESV(MOD-sp4): 44.1 ml ESV(sp4-el): 44.1 ml EF(MOD-sp4): 61.2 % EF(sp4-el): 63.3 % SV(sp4-el): 76.1 ml LA A4 area: 20.6 cm2 LA dimension(2D): 3.8 cm RA A4 area: 15.2 cm2 Time Measurements MV dec time: 0.25 sec Doppler Measurements & Calculations MV E max carlos: 57.9 cm/sec Lat Peak E' Carlos: 8.7 cm/sec Med Peak E' Carlos: 8.9 cm/sec MV A max carlos: 64.3 cm/sec E/E' lat: 6.6 E/E' med: 6.5 MV E/A: 0.90 MV V2 max: 77.4 cm/sec MV dec slope: 245.0 cm/sec2 Ao V2 max: 98.7 cm/sec MV max P.4 mmHg Ao max P.9 mmHg MV V2 mean: 42.4 cm/sec Ao V2 mean: 69.1 cm/sec MV mean P.82 mmHg Ao mean P.1 mmHg MV V2 VTI: 26.2 cm Ao V2 VTI: 28.3 cm AV (velocity ratio): 0.70 LV V1 max: 77.2 cm/sec LV V1 max P.4 mmHg LV V1 mean P.3 mmHg LV V1 mean: 53.1 cm/sec LV V1 VTI: 19.7 cm ECHO/Echo Complete Interpretation Summary Normal LV size. Left ventricular systolic function is normal. The estimated ejection fraction is 55 %. Stage 1 diastolic dysfunction. Ordering Physician: Jasmine Ledbetter Referring Physician: Jasmine Ledbetter Performed By: Yanet Meneses RCS
== END | disposition home or self-care (01) ==
LOC: CVS 10:51
PROVIDERS: PCP Student in an Organized Health Care Education/Training Program; Referring Provider Nurse Practitioner Gerontology; Visit Provider Nurse Practitioner Gerontology
DX: R06.09 Other forms of dyspnea (principal)
CPT/HCPCS: 93306

== ENCOUNTER 2023-07-15 14:19 | Inpatient (IN) | payer MEDICARE, SELFPAY ==
[2023-07-15 14:31] VITALS: BP 144/69; PULSE 60; RESP 16; TEMP 36.4; O2SAT 97; BMI 17.8
[2023-07-15] MEDS: Ensure Plus High Protein 120 ML LIQUID PO (17:42)
[2023-07-15 18:53] VITALS: PULSE 78; RESP 18
--- NOTE | 2023-07-15 20:01 | PCM.HP.STD ---
HPI - General General Date of Admission: 07/15/23 Date of Service: 07/15/23 Chief Complaint: Here for rehabilitation. HPI Narrative 07/11/2023 EDDA ZAMBRANO, is a 83 Male who presents to [facility] Emergency Department with weakness. 07/11/2023 Admit to [facility]. Weakness, unable to care for him at home. Weakness for several weeks. Hold Furosemide, Hold Nabumetone for acute kidney injury. PT/OT for weakness. 07/12/2023 Creatinine improved, PT/OT recommends SNF. Pre-CERT for SNF. 07/13/2023 Creatinine continues to improve. 07/14/2023 Hypoxic overnight, pulsox 88% on RA. Chest X-ray showed multifocal pneumonia. Ceftriaxone 1gm IV, Azithromycin 500mg IV for pneumonia. Legionella negative. Acute kidney injury improved, hold Furosemide, hold Nabumetone. Insert Perdue for urinary retention. 07/15/2023 Admit to TCU with debility, here for rehabilitation, strengthening, prior to discharge home with . Resident admits he has been lying in recliner for 2 years, reason is he feels woozy when he stands up, and has to walk with walker. FOR[facility]LY [facility], [facility] Medical History (Updated 07/15/23 @ 20:[address] 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 lactis 10 billion cell capsule 1 ea PO DAILY probiotic 06/25/16 [History Last Taken 08/11/20] alendronate 70 mg tablet 70 mg PO Q7D@0700 bones 06/25/16 [History Last Taken 08/11/20] calcium carbonate 500 mg-vitamin D3 2.5 mcg (100 unit) chewable tablet 2 tab PO DAILY supplement 06/25/16 [History Last Taken 08/11/20] multivitamin 1 ea PO DAILY supplement 06/25/16 [History Last Taken 08/11/20] nabumetone 500 mg tablet 500 mg PO DAILY pain 06/25/16 [History Last Taken 08/11/20] pravastatin 40 mg tablet 40 mg PO QHS cholesterol 06/25/16 [History Last Taken 08/11/20] tamsulosin 0.4 mg capsule 0.4 mg PO BID prostate 06/25/16 [History Last Taken 07/15/23] citalopram 40 mg tablet 10 mg PO DAILY depression 05/11/20 [History Last Taken 08/11/20] bupropion HCl 150 mg 24 hr tablet, extended release 150 mg PO DAILY depression 06/12/21 [History Last Taken 07/15/23] vitamin B complex 1 tab PO DAILY supplement 06/12/21 [History Last Taken Unknown] ferrous gluconate 325 mg (36 mg iron) tablet 324 mg PO DAILY low iron 06/21/21 [History Last Taken Unknown] brimonidine 0.2 %-timolol 0.5 % eye drops 1 ml ophthalmic (eye) DAILY eyes 02/02/22 [History Last Taken 07/15/23] cholecalciferol (vitamin D3) 25 mcg (1,000 unit) tablet 25 mcg PO DAILY supplement 03/09/22 [History Last Taken Unknown] latanoprost 0.005 % eye drops 1 drp ophthalmic (eye) QPM eye 06/11/22 [History Last Taken Unknown] amlodipine 5 mg tablet 5 mg PO DAILY BP #90 tabs 10/23/22 [Rx Last Taken Unknown] clopidogrel 75 mg tablet (Plavix) 75 mg PO DAILY Blood thinner 03/06/23 [History Last Taken Unknown] furosemide 40 mg tablet (Lasix) 40 mg PO DAILY fluid pill #5 tabs 03/06/23 [Rx Last Taken Unknown] pantoprazole 40 mg tablet,delayed release 40 mg PO DAILY reflux 03/06/23 [History Last Taken Unknown] potassium chloride 10 mEq capsule,extended release 10 meq PO DAILY supplement #5 caps 03/06/23 [Rx Last Taken Unknown] aspirin 81 mg tablet,delayed release (Adult Low Dose Aspirin) 81 mg PO DAILY blood thinner 07/15/23 [History Last Taken Unknown] carboxymethylcellulose sodium 1 % eye liquid gel drops 1 drp EACH EYE DAILY moisture 07/15/23 [History Last Taken Unknown] omeprazole 20 mg capsule,delayed release 20 mg PO BID reflux 07/15/23 [History Last Taken Unknown] trazodone 50 mg tablet 50 mg PO QHS sleep 07/15/23 [History Last Taken Unknown] Allergy/AdvReac Type Severity Reaction Status Date / Time morphine AdvReac Vomiting Verified 03/06/23 09:52 Family History Father Colon cancer Surgical History History of amputation of toe History of colectomy History of colonoscopy (~2014) History of colostomy History of inguinal hernia repair Presence of cardiac pacemaker (03/2022) Social History (Updated 07/15/23 @ 20:[address] Randall Titus MD) household members: spouse Smoking Status: Never smoker alcohol intake: never substance use type: does not use caffeine: No ROS Constitutional Constitutional: Reports weakness; Denies chills, fever(s) or weight gain ENT HEENT: Denies headache(s), nasal congestion or nasal discharge Cardiovascular Cardiovascular: Denies chest pain or palpitations Respiratory/Chest Respiratory/Chest: Denies cough, excessive phlegm production or shortness of breath with exertion Gastrointestinal Gastrointestinal: Denies abdominal pain, nausea or vomiting Genitourinary Genitourinary: Denies dysuria Musculoskeletal Musculoskeletal: Denies joint pain or joint swelling Integumentary Integumentary: Denies rash or wounds Neurologic Neurologic: Denies focal weakness, numbness or tingling Psychiatric Psychiatric: Denies anxiety, auditory hallucinations, depression, homicidal ideation or suicidal ideation Vital Signs Vital Signs Vital Signs: 07/15/23 14:31 07/15/23 18:53 Temperature 97.6 F L Temperature Source Temporal Pulse Rate 60 78 Pulse Rhythm Regular Pulse Strength Normal (2+) Respiratory Rate 16 18 Respiratory Effort Normal Respiratory Depth Normal Respiratory Pattern Normal Blood Pressure 144/69 H Blood Pressure Mean 94 Blood Pressure Source Monitor Blood Pressure Position Semi-Fowlers Blood Pressure Location Right Forearm Pulse Ox 97 Oxygen Delivery Method Room Air Room Air Weight Weight: 56.336 kg Body Mass Index (BMI) 17.8 Physical Exam Const alert General Appearance: cooperative HEENT normocephalic Eyes PERRL and EOMs intact bilaterally Neck supple, no JVD and no carotid bruits Resp normal respiratory effort, normal air movement and clear to auscultation bilaterally Cardio regular rate and regular rhythm GI normal to inspection, nondistended, normoactive bowel sounds, non-tender and non-distended GI Narrative: Colostomy. Bladder / Kidney Exam: catheter in place urethral Extremity normal capillary refill General Extremity: Negative for edema Skin no rashes or lesions noted General Skin Exam: no breakdown Psych affect normal Appearance: appropriate Assessment & Plan Assessment/Plan (1) Debility: (2) Acute kidney injury: (3) Pneumonia: (4) Acute respiratory failure with hypoxia: (5) Urinary retention: (6) Osteoporosis: (7) Hyperlipidemia: (8) BPH (benign prostatic hyperplasia): (9) Depression: (10) Iron deficiency anemia: (11) Glaucoma: (12) Hypertension: (13) GERD (gastroesophageal reflux disease): (14) VIDAL (obstructive sleep apnea): (15) History of colon cancer: (16) Stage 3a chronic kidney disease (CKD): (17) Sick sinus syndrome: PLAN: Plan 83 year old male with below past medical history hospitalized for weakness secondary to acute kidney injury, complicated by pneumonia, urinary retention, admitted to TCU with debility, here for rehabilitation, strengthening, prior to discharge home with . Debility - PT/OT. Pain - Tylenol 1000mg q6 prn pain (1-10), Arthritis Compound 2 clicks topical bid left shoulder. Bowel - Senna/colace 1 tablet prn. Adult immunization - Administer pneumonia vaccine, covid19 vaccine, flu vaccine as appropriate. DVT prophylaxis - Lovenox 30mg sc daily. Depression - Bupropion XL 150mg daily, Citalopram 10mg qhs, stable chronic long term care pharmacist use, GDR not recommended. Dry eye - Refresh 1 gtt ow qhs. Nutrition - Ensure 120ml 4x/day. GERD - Pantoprazole 40mg daily. Urinary retention/bph - Tamsulosin 0.4mg bid, indwelling perdue catheter. Insomnia - Trazodone 50mg qhs, stable chronic mcc use, GDR not recommended.
[2023-07-15] MEDS: Citalopram 10 MG Tablet PO (20:44)
[2023-07-15] MEDS: traZODone 50 MG Tablet PO (20:44)
[2023-07-15] MEDS: Tamsulosin HCl 0.4 MG Capsule PO (20:44)
[2023-07-15] MEDS: Carboxymethylcellulose sodium gel dropperette 1 EACH LEFT EYE (20:44)
[2023-07-15] MEDS: Arthritis Pain Compound 60 CLICK TUBE TOPICAL (20:47)
--- NOTE | 2023-07-15 23:40 | NURSING ---
SAFETY SCIENTIST came and told this nurse that catheter was leaking. This nurse inserted new 16F perdue, 15 cc's sterile water placed in balloon to keep in place. Patient tolerated well, clear yellow urine flowing. New sheets placed and patient resting comfortably.
[2023-07-16] MEDS: Acetaminophen 500 MG Tablet 1000 MG PO ×2 (04:09→21:04)
[2023-07-16] MEDS: Enoxaparin 30 MG/0.3 ML Syringe SC (05:35)
[2023-07-16 05:54] LABS: Absolute Lymphocyte Count 1.14 X10^3/uL (0.83-4.51); Absolute Neutrophil Count 9.6 X10^3/uL (2.0-7.7); Basophil# 0.04 X10^3/uL; Basophil% 0.3 % (0-1); Eosinophil# 0.18 X10^3/uL; Eosinophils% 1.5 % (0-5); Hematocrit 26.7 % (40-54); Hemoglobin 8.5 g/dL (13.0-16.5); Lymphocyte # 1.14 X10^3/ul (0.83-4.51); Lymphocyte % 9.8 % (19-41); Mean Corp Hgb Conc 31.8 g/dL (32-36); Mean Corpuscular Hgb 31.3 pg (27.0-32.0); Mean Corpuscular Volume 98.2 fL (80-94); Mean Platelet Vol. 9.8 fl (6.2-12.0); Monocyte# 0.67 X10^3/uL; Monocyte% 5.7 % (0-10); NRBC Flagged by Analyzer 0 % (0-5); Neutrophil # 9.57 X10^3/uL (2.7-7.7); Platelet Count 356 K/mm3 (150-450); RBC Distribution Width CV 13.5 % (11.6-14.6); RBC Distribution Width SD 48.3 fl (35.1-43.9); Red Blood Count 2.72 M/mm3 (4.6-6.2); White Blood Count 11.7 K/mm3 (4.4-11.0)
[2023-07-16 06:22] LABS: Anion Gap 5 (5-15); BUN 22 mg/dL (7-18); BUN/Creat Ratio 17.1 RATIO (10-20); Calcium,Total 8.4 mg/dL (8.5-10.1); Chloride 114 mmol/L (98-107); Creatinine, Serum 1.29 mg/dL (0.70-1.30); EST Glomerular Filtration Rate 57 mL/min (>60); Est Glom Filt Rate - Afr Amer 69 mL/min (>60); Estimated Creatinine Clearance 35.18 ml/min; Glucose 107 mg/dL (74-106); Potassium 3.6 mmol/L (3.5-5.1); Sodium Level 145 mmol/L (136-145)
[2023-07-16 07:15] VITALS: O2SAT 94
[2023-07-16 08:08] VITALS: BMI 17.8
[2023-07-16] MEDS: Tamsulosin HCl 0.4 MG Capsule PO ×2 (08:18→20:53)
[2023-07-16] MEDS: buPROPion (XL) 150 MG TABLET.XL PO (08:18)
[2023-07-16] MEDS: Arthritis Pain Compound 60 CLICK TUBE TOPICAL ×2 (08:18→21:06)
[2023-07-16] MEDS: Pantoprazole Sodium 40 MG Tablet PO (08:18)
--- NOTE | 2023-07-16 09:14 | PCM.PN.DRR ---
Documented by User: Laureano Kaminski 07/16/23 09:34 TCU RX Drug Regimen Review Subjective/Objective Subjective/Objective: Subjective: 83 year old male with below past medical history hospitalized for weakness secondary to acute kidney injury, complicated by pneumonia, urinary retention, admitted to TCU with debility, here for rehabilitation, strengthening, prior to discharge home with . Objective: Allergies morphine Adverse Reaction (Verified 03/06/23 09:52) Vomiting Current Medications Generic Name Dose Route Start Last Admin Trade Name Freq PRN Reason Stop Dose Admin Acetaminophen 1,000 mg 07/15/23 20:15 07/16/23 04:09 Acetaminophen 500 Mg Tablet PO 1,000 mg Q6H PRN PRN Administration Pain Score 1-10 Artificial Tears 1 each 07/15/23 22:00 07/15/23 20:44 Carboxymethylcellulose Sodium Gel Dropperette LEFT EYE 1 each QHS SEBLE Administration Ascorbic Acid 500 mg 07/16/23 10:00 Ascorbic Acid 500 Mg Tablet PO 1000 SEBLE Bupropion HCl 150 mg 07/16/23 10:00 07/16/23 08:18 Bupropion (Xl) 150 Mg Tablet.Xl PO 150 mg DAILY SEBLE Administration Citalopram Hydrobromide 10 mg 07/15/23 22:00 07/15/23 20:44 Citalopram 10 Mg Tablet PO 10 mg QHS SEBLE Administration Compound Med 0 click 07/15/23 22:00 07/16/23 08:18 Arthritis Pain Compound 60 Click Tube TOPICAL 1 click BID SEBLE Administration Protocol Nutritional Formula (Lactose Free) 120 ml 07/15/23 17:00 07/16/23 05:36 Ensure Plus High Protein 120 Ml Liquid PO Not Given 4X/DAY SEBLE Pantoprazole Sodium 40 mg 07/16/23 10:00 07/16/23 08:18 Pantoprazole Sodium 40 Mg Tablet PO 40 mg DAILY SEBLE Administration Polysaccharide Iron Complex 150 mg 07/16/23 10:00 Iron Polysaccharide Complex 150 Mg Capsule PO DAILY SEBLE Senna/Docusate Sodium 1 tablet 07/15/23 20:15 Senna/Docusate Sodium 1 Tablet PO BID PRN CONSTIPATION Tamsulosin HCl 0.4 mg 07/15/23 22:00 07/16/23 08:18 Tamsulosin Hcl 0.4 Mg Capsule PO 0.4 mg BID SEBLE Administration Trazodone HCl 50 mg 07/15/23 22:00 07/15/23 20:44 Trazodone 50 Mg Tablet PO 50 mg QHS SEBLE Administration Tuberculin PPD 0.1 ml 07/16/23 10:00 Tuberculin,Purif.Prot.Deriv. 50 Tu/Ml Vial ID 07/16/23 10:01 X1 ONE Tuberculin PPD 0.1 ml 07/23/23 10:00 Tuberculin,Purif.Prot.Deriv. 50 Tu/Ml Vial ID 07/23/23 10:01 X1 ONE Problem List (Updated 07/15/23 @ 20:[address] Randall Titus MD) Stage 3a chronic kidney disease (CKD) (Chronic) GERD (gastroesophageal reflux disease) (Acute) Hypertension (Chronic) Glaucoma (Acute) Iron deficiency anemia (Acute) Depression (Acute) BPH (benign prostatic hyperplasia) (Acute) Hyperlipidemia (Acute) Osteoporosis (Acute) Urinary retention (Acute) Acute respiratory failure with hypoxia (Acute) Pneumonia (Acute) Acute kidney injury (Acute) Debility (Acute) Sick sinus syndrome (Acute) VIDAL (obstructive sleep apnea) (Acute) History of colon cancer (Chronic) Vital Signs Temp Pulse Resp BP Pulse Ox O2 Del Method 97.6 F L 78 18 144/69 H 97 Room Air 07/15/23 14:31 07/15/23 18:53 07/15/23 18:53 07/15/23 14:31 07/15/23 14:31 07/15/23 18:53 Oxygen Delivery Method Room Air Weight: 56.336 kg Body Mass Index (BMI) 17.8 Sodium 145 mmol/L (136-145) 07/16/23 05:21 Potassium 3.6 mmol/L (3.5-5.1) 07/16/23 05:21 Chloride 114 mmol/L (98-107) H 07/16/23 05:21 Carbon Dioxide 26.0 mmol/L (21.0-32.0) 07/16/23 05:21 Anion Gap 5 (5-15) 07/16/23 05:21 BUN 22 mg/dL (7-18) H 07/16/23 05:21 Creatinine 1.29 mg/dL (0.70-1.30) 07/16/23 05:21 Est GFR (MDRD) Af Amer 69 mL/min (>60) 07/16/23 05:21 Est GFR (MDRD) Non-Af 57 mL/min (>60) L 07/16/23 05:21 BUN/Creatinine Ratio 17.1 RATIO (10-20) 07/16/23 05:21 Glucose 107 mg/dL (74-106) H 07/16/23 05:21 Assessment/Plan: 1. Pain: acetaminophen 100 mg PO Q6H PRN pain, arthritis compound 2 clicks topically BID to left shoulder. The patient has used 1 dose of PRN acetaminophen for pain level of 5 so far this admission. Please continue to monitor pain level, PRN pain medication usage, as well as LFTs (AST/ALT = 30/47 on 02/16/22). 2. Bowel: senna/docusate 1 tablet PO BID PRN constipation. The patient has not used any PRN doses of senna/docusate yet this admission, and does not have a documented bowel movement yet this admission. Please continue to monitor for diarrhea/constipation, and PRN medication usage. If the patient continues to not have a bowel movement please consider administering PRN senna/docusate or changing the senna/docusate to scheduled. 3. GERD: pantoprazole 40 mg PO daily. Please continue to monitor for s/s of GERD, for diarrhea that could indicated clostridium difficile infection, and for s/s of bone resorption such as fracture. 4. Urinary retention/BPH: tamsulosin 0.4 mg PO BID. Please continue to monitor for urinary retention, urinary stream, and blood pressures (recent BP: 144/69 mmHg). The patient does not appear to be on any blood pressure medications but his recent blood pressure here as well as his previous documented blood pressures from the past couple years are all elevated. Please consider adding an agent such as amlodipine 2.5 mg PO daily to help control his blood pressures. 5. Iron deficiency: iron polysaccharide 150 mg PO daily, ascorbic acid 500 mg PO daily. Please continue to monitor hemoglobin levels (Hgb = 8.5 g/dL on 07/16/23), iron levels (no recent iron levels documented), as well as for constipation and renal stones. Please consider ordering iron levels as the patient does not have these recently documented to determine iron replacement status. 6. Dry eyes: artificial tears 1 drop in the left eye daily at bedtime. Please continue to monitor for dry eyes. 7. Nutrition: ensure plus high protein 120 mL PO 4 times daily. Please continue to monitor overall nutritional status. Assessment/Plan for indications treated with psychotropic medications: 1. Bupropion XL 150 mg PO daily, citalopram 10 mg PO QHS. Please see provider notes regarding stable long-term use GDR not recommended. Please continue to monitor depression levels, for insomnia, agitation, anxiety, delusions, SI, seizures, renal function (serum creatinine = 1.29 mg/dL with creatinine clearance ~ 35 mL/min on 07/16/23), sodium levels (Na = 145 mmol/L on 07/16/23), and for s/s of serotonin syndrome. As bupropion could cause insomnia, please ensure it is given in the morning. 2. Insomnia: trazodone 50 mg PO QHS. Please see provider note regarding stable chronic long-term use GDR not recommended. Please continue to monitor for insomnia, blood pressures (recent BP: 144/69 mmHg), SI, and for s/s of serotonin syndrome. Medical chart and medication regimen reviewed. The following medication irregularities or issues were identified: 1. Bowel: senna/docusate 1 tablet PO BID PRN constipation. The patient has not used any PRN doses of senna/docusate yet this admission, and does not have a documented bowel movement yet this admission. Please continue to monitor for diarrhea/constipation, and PRN medication usage. If the patient continues to not have a bowel movement please consider administering PRN senna/docusate or changing the senna/docusate to scheduled. 2. Urinary retention/BPH: tamsulosin 0.4 mg PO BID. Please continue to monitor for urinary retention, urinary stream, and blood pressures (recent BP: 144/69 mmHg). The patient does not appear to be on any blood pressure medications but his recent blood pressure here as well as his previous documented blood pressures from the past couple years are all elevated. Please consider adding an agent such as amlodipine 2.5 mg PO daily to help control his blood pressures. 3. Iron deficiency: iron polysaccharide 150 mg PO daily, ascorbic acid 500 mg PO daily. Please continue to monitor hemoglobin levels (Hgb = 8.5 g/dL on 07/16/23), iron levels (no recent iron levels documented), as well as for constipation and renal stones. Please consider ordering iron levels as the patient does not have these recently documented to determine iron replacement status. Date Date of Note:: 07/16/23 Documented by User: Dr. Randall Titus MD 07/16/23 09:50 TCU RX Drug Regimen Review Provider Comments Provider responsibility Provider Comments to Recommendations by Pharmacy: Agree
[2023-07-16] MEDS: Iron Polysaccharide Complex 150 MG CAPSULE PO (10:01)
[2023-07-16] MEDS: Tuberculin,Purif.prot.deriv. 50 TU/ML Vial 0.1 ML ID (10:01)
[2023-07-16] MEDS: Ascorbic Acid 500 MG Tablet PO (10:01)
[2023-07-16] MEDS: Ensure Plus High Protein 120 ML LIQUID PO (13:10)
[2023-07-16 14:37] VITALS: BP 128/60; PULSE 67; RESP 17; TEMP 36.6; O2SAT 93
[2023-07-16 15:54] VITALS: BP 150/91; BP 162/61; BP 177/7; PULSE 59; PULSE 62
--- NOTE | 2023-07-16 16:28 | NURSING ---
Updated on covid positive patient. He will notify his .
--- NOTE | 2023-07-16 17:08 | CASEMGMT ---
Social Work Met with patient and to complete initial assessment. Introduced self and role. Educated to [facility] insurance with [employer] 07/17 and continued stay is not guaranteed with each review. Pt's goal is to return home with . However, expressed having caregiver burnout and hurting back x2 assisting pt. SW offered [employer] TECHNICIAN agencies, but stated she has hired aides before and the problem is still there when they [aides] leave. SW offered to assist with discharge planning if AL or SNF is needed. appreciative. SW will continue to follow. KARIN KohlerW
[2023-07-16] MEDS: Losartan Potassium 100 MG Tablet PO (20:51)
[2023-07-16] MEDS: traZODone 50 MG Tablet PO (20:52)
[2023-07-16] MEDS: Citalopram 10 MG Tablet PO (20:52)
[2023-07-16] MEDS: BRIMONIDINE 0.2% 5ML BOTTLE 1 DRP LEFT EYE (20:53)
[2023-07-16 20:55] VITALS: BP 168/66; PULSE 63
[2023-07-16] MEDS: Latanoprost 0.005% 1 Bottle 1 DRP OPHTHALMIC (20:55)
[2023-07-16] MEDS: Timolol 0.5% 5ML OPTH.BTL 1 DRP LEFT EYE (21:05)
[2023-07-16] MEDS: Carboxymethylcellulose sodium gel dropperette 1 EACH LEFT EYE (21:06)
[2023-07-16 21:15] VITALS: PULSE 72; RESP 16; O2SAT 97
[2023-07-17 05:59] LABS: Hematocrit 27.8 % (40-54); Hemoglobin 8.8 g/dL (13.0-16.5)
[2023-07-17 06:11] VITALS: PULSE 73; RESP 18; O2SAT 93
[2023-07-17 10:09] VITALS: BP 148/72; PULSE 60; RESP 16; TEMP 36.6; O2SAT 95
[2023-07-17] MEDS: Losartan Potassium 100 MG Tablet PO (10:13)
[2023-07-17] MEDS: Arthritis Pain Compound 60 CLICK TUBE TOPICAL ×2 (10:13→20:48)
[2023-07-17] MEDS: Tamsulosin HCl 0.4 MG Capsule PO ×2 (10:13→20:50)
[2023-07-17] MEDS: Iron Polysaccharide Complex 150 MG CAPSULE PO (10:13)
[2023-07-17] MEDS: Pantoprazole Sodium 40 MG Tablet PO (10:13)
[2023-07-17] MEDS: BRIMONIDINE 0.2% 5ML BOTTLE 1 DRP LEFT EYE ×2 (10:13→20:49)
[2023-07-17] MEDS: buPROPion (XL) 150 MG TABLET.XL PO ×2 (10:13→20:50)
[2023-07-17] MEDS: Ascorbic Acid 500 MG Tablet PO (10:13)
[2023-07-17] MEDS: Timolol 0.5% 5ML OPTH.BTL 1 DRP LEFT EYE ×2 (10:14→20:49)
--- NOTE | 2023-07-17 11:08 | NURSING ---
Running Instructor Note; Activity Asset: Complete Sean is independent in his choice of daily activities. Sean watches tv and will read the daily paper. Family will visit and when not visiting with them he prefers to rest. Staff will continue to offer daily activities and respect his right to say no.
[2023-07-17] MEDS: COVID VAC 23-24(12UP)(ANDU)/PF 50 MCG/0.5 ML SYRINGE IM (14:53)
--- NOTE | 2023-07-17 15:42 | CHAPLAIN ---
Type of Pastoral Visit _x__ Initial Visit ___ Follow-up Visit ___ On-call Visit ___ General Patient Visit ___ Spiritual Assessment ___ Family Conference ___ Bereavement ___ Rapid Response ___ Code Blue ___ Other (describe below) Pastoral Care Referral From _x__ Patient ___ Family ___ Nurse ___ Physician ___ Food Clerk ___ Senior Manager Quality Assurance ___ Other (describe below) Sacrament/Intervention _x__ Active listening ___ Anointing ___ Faith ___ Bereavement ___ Communion ___ Leena exploration ___ ___ Life review _x__ Prayer ___ Reconciliation ___ Sacrament of Sick _x__ Supportive presence ___ Wedding ___ Other (describe below) Pastoral Comments patient is resting in his chair but awake; pt is welcoming but does not engage in active conversation; pt does answer questions; pt makes statements of being tired and time for a rest since he returned from therapy; offer to let patient have a nap instead of visit is accepted; pt did welcome a prayer before visit ended
[2023-07-17] MEDS: Ensure Plus High Protein 120 ML LIQUID PO ×2 (18:13→20:51)
[2023-07-17 20:30] VITALS: RESP 16; O2SAT 95
[2023-07-17] MEDS: Acetaminophen 500 MG Tablet 1000 MG PO (20:31)
[2023-07-17] MEDS: Latanoprost 0.005% 1 Bottle 1 DRP OPHTHALMIC (20:49)
[2023-07-17] MEDS: Citalopram 10 MG Tablet 20 MG PO (20:50)
[2023-07-17] MEDS: traZODone 50 MG Tablet PO (20:50)
[2023-07-17] MEDS: Carboxymethylcellulose sodium gel dropperette 1 EACH LEFT EYE (20:51)
[2023-07-18] MEDS: Arthritis Pain Compound 60 CLICK TUBE TOPICAL ×2 (08:26→20:24)
[2023-07-18] MEDS: Timolol 0.5% 5ML OPTH.BTL 1 DRP LEFT EYE ×2 (08:26→20:23)
[2023-07-18] MEDS: Pantoprazole Sodium 40 MG Tablet PO (08:27)
[2023-07-18] MEDS: Ascorbic Acid 500 MG Tablet PO (08:27)
[2023-07-18] MEDS: buPROPion (XL) 150 MG TABLET.XL PO ×2 (08:27→20:24)
[2023-07-18] MEDS: Losartan Potassium 100 MG Tablet PO (08:27)
[2023-07-18] MEDS: Tamsulosin HCl 0.4 MG Capsule PO ×2 (08:27→20:24)
[2023-07-18] MEDS: Iron Polysaccharide Complex 150 MG CAPSULE PO (08:27)
[2023-07-18] MEDS: BRIMONIDINE 0.2% 5ML BOTTLE 1 DRP LEFT EYE ×2 (10:45→20:22)
[2023-07-18 15:50] VITALS: BP 124/54; PULSE 61; RESP 18; TEMP 36.5; O2SAT 94
[2023-07-18] MEDS: Latanoprost 0.005% 1 Bottle 1 DRP OPHTHALMIC (20:22)
[2023-07-18] MEDS: Carboxymethylcellulose sodium gel dropperette 1 EACH LEFT EYE (20:22)
[2023-07-18] MEDS: Citalopram 10 MG Tablet 20 MG PO (20:23)
[2023-07-18] MEDS: traZODone 50 MG Tablet PO (20:24)
[2023-07-18] MEDS: Acetaminophen 500 MG Tablet 1000 MG PO (20:32)
[2023-07-19] MEDS: BRIMONIDINE 0.2% 5ML BOTTLE 1 DRP LEFT EYE ×2 (10:50→22:20)
[2023-07-19] MEDS: buPROPion (XL) 150 MG TABLET.XL PO ×2 (10:50→22:22)
[2023-07-19] MEDS: Iron Polysaccharide Complex 150 MG CAPSULE PO (10:50)
[2023-07-19] MEDS: Tamsulosin HCl 0.4 MG Capsule PO ×2 (10:50→22:21)
[2023-07-19] MEDS: Losartan Potassium 100 MG Tablet PO (10:50)
[2023-07-19] MEDS: Ascorbic Acid 500 MG Tablet PO (10:50)
[2023-07-19] MEDS: Pantoprazole Sodium 40 MG Tablet PO (10:50)
[2023-07-19] MEDS: Arthritis Pain Compound 60 CLICK TUBE TOPICAL ×2 (10:51→22:20)
[2023-07-19] MEDS: Timolol 0.5% 5ML OPTH.BTL 1 DRP LEFT EYE ×2 (11:13→22:21)
[2023-07-19 14:45] VITALS: BP 143/65; PULSE 63; RESP 14; TEMP 36.3; O2SAT 98
--- NOTE | 2023-07-19 16:08 | NURSING ---
attempted to page dr Paulson via monitor car operator, he is not taking consults today, stated he is taking them tomorrow friday 07/20. will update next shift
[2023-07-19] MEDS: traZODone 50 MG Tablet PO (22:20)
[2023-07-19] MEDS: Citalopram 10 MG Tablet 20 MG PO (22:20)
[2023-07-19] MEDS: Latanoprost 0.005% 1 Bottle 1 DRP OPHTHALMIC (22:21)
[2023-07-19] MEDS: Carboxymethylcellulose sodium gel dropperette 1 EACH LEFT EYE (22:21)
[2023-07-19] MEDS: Acetaminophen 500 MG Tablet 1000 MG PO (22:24)
--- NOTE | 2023-07-20 02:31 | NURSING ---
New statlock for perdue catheter applied to lt anterior upper leg.
[2023-07-20 10:16] VITALS: BP 159/75; PULSE 75; RESP 16; TEMP 36.6; O2SAT 94
[2023-07-20] MEDS: Arthritis Pain Compound 60 CLICK TUBE TOPICAL ×2 (10:20→20:30)
[2023-07-20] MEDS: BRIMONIDINE 0.2% 5ML BOTTLE 1 DRP LEFT EYE ×2 (10:20→20:31)
[2023-07-20] MEDS: Losartan Potassium 100 MG Tablet PO (10:21)
[2023-07-20] MEDS: Timolol 0.5% 5ML OPTH.BTL 1 DRP LEFT EYE ×2 (10:21→20:34)
[2023-07-20] MEDS: Pantoprazole Sodium 40 MG Tablet PO (10:21)
[2023-07-20] MEDS: Iron Polysaccharide Complex 150 MG CAPSULE PO (10:21)
[2023-07-20] MEDS: Tamsulosin HCl 0.4 MG Capsule PO ×2 (10:21→20:32)
[2023-07-20] MEDS: buPROPion (XL) 150 MG TABLET.XL PO ×2 (10:22→20:32)
[2023-07-20] MEDS: Ascorbic Acid 500 MG Tablet PO (10:22)
[2023-07-20] MEDS: Citalopram 10 MG Tablet 20 MG PO (20:32)
[2023-07-20] MEDS: Carboxymethylcellulose sodium gel dropperette 1 EACH LEFT EYE (20:33)
[2023-07-20] MEDS: traZODone 50 MG Tablet PO (20:33)
[2023-07-20] MEDS: Latanoprost 0.005% 1 Bottle 1 DRP OPHTHALMIC (20:34)
[2023-07-20] MEDS: Acetaminophen 500 MG Tablet 1000 MG PO (21:43)
[2023-07-21] MEDS: Ensure Plus High Protein 120 ML LIQUID PO (05:23)
[2023-07-21 10:08] VITALS: BP 136/63; PULSE 62; RESP 14; TEMP 36.6; O2SAT 98
[2023-07-21] MEDS: Losartan Potassium 100 MG Tablet PO (10:12)
[2023-07-21] MEDS: BRIMONIDINE 0.2% 5ML BOTTLE 1 DRP LEFT EYE ×2 (10:12→21:58)
[2023-07-21] MEDS: Timolol 0.5% 5ML OPTH.BTL 1 DRP LEFT EYE ×2 (10:12→21:57)
[2023-07-21] MEDS: Arthritis Pain Compound 60 CLICK TUBE TOPICAL ×2 (10:12→21:58)
[2023-07-21] MEDS: Ascorbic Acid 500 MG Tablet PO (10:13)
[2023-07-21] MEDS: buPROPion (XL) 150 MG TABLET.XL PO ×2 (10:13→21:57)
[2023-07-21] MEDS: Pantoprazole Sodium 40 MG Tablet PO (10:13)
[2023-07-21] MEDS: Tamsulosin HCl 0.4 MG Capsule PO ×2 (10:13→21:56)
[2023-07-21] MEDS: Iron Polysaccharide Complex 150 MG CAPSULE PO (10:13)
--- NOTE | 2023-07-21 16:27 | NURSING ---
Colostomy appliance changed. Large BM noted.
--- NOTE | 2023-07-21 21:27 | NURSING ---
Spoke w/ Dr. Titus to update that pt's spouse reported pt was not acting right and slept most of the day Saturday and Saturday. New order received and read back for UA and C+S.
[2023-07-21] MEDS: Acetaminophen 500 MG Tablet 1000 MG PO (21:57)
[2023-07-21] MEDS: traZODone 50 MG Tablet PO (21:57)
[2023-07-21] MEDS: Citalopram 10 MG Tablet 20 MG PO (21:57)
[2023-07-21] MEDS: Latanoprost 0.005% 1 Bottle 1 DRP OPHTHALMIC (21:58)
[2023-07-21] MEDS: Carboxymethylcellulose sodium gel dropperette 1 EACH LEFT EYE (21:58)
[2023-07-21 22:53] LABS: Mucous, Urine 0 SEEN /hpf (<or=2+); Squamous Epithelial Cells - UA 0 SEEN /hpf (0-5)
[2023-07-21 22:56] LABS: Color, Urine Yellow (Yellow); Glucose, Dipstick Normal (Normal); Ketone-Dipstick Negative (Negative); Leukocyte Esterase-Dipstick Negative /ul (Negative); Nitrite-Dipstick Negative (Negative); Occult Blood-Urine 50 /ul (Negative); Protein-Dipstick 30 mg/dl (Negative); Urine Bilirubin Dipstick Negative (Negative); Urine Clarity Clear (Clear); Urine Urobilinogen Normal (Normal)
[2023-07-21 23:08] LABS: Bacteria 1+ /hpf (None Seen); Red Blood Cells-Urine 5-10 SEEN /hpf (0-5); White Blood Cells 0-5 SEEN /hpf (0-5)
[2023-07-22] MEDS: Ensure Plus High Protein 120 ML LIQUID PO ×2 (05:12→12:01)
[2023-07-22] MEDS: Losartan Potassium 100 MG Tablet PO (08:24)
[2023-07-22] MEDS: Ascorbic Acid 500 MG Tablet PO (08:24)
[2023-07-22] MEDS: buPROPion (XL) 150 MG TABLET.XL PO ×2 (08:24→21:50)
[2023-07-22] MEDS: BRIMONIDINE 0.2% 5ML BOTTLE 1 DRP LEFT EYE ×2 (08:24→21:43)
[2023-07-22] MEDS: Tamsulosin HCl 0.4 MG Capsule PO ×2 (08:24→21:49)
[2023-07-22] MEDS: Pantoprazole Sodium 40 MG Tablet PO (08:24)
[2023-07-22] MEDS: Arthritis Pain Compound 60 CLICK TUBE TOPICAL ×2 (08:25→21:40)
[2023-07-22] MEDS: Iron Polysaccharide Complex 150 MG CAPSULE PO (08:25)
[2023-07-22 08:30] VITALS: BP 149/80; PULSE 66
--- NOTE | 2023-07-22 09:22 | NURSING ---
Energy Trader Note; MDS Complete
[2023-07-22] MEDS: Timolol 0.5% 5ML OPTH.BTL 1 DRP LEFT EYE ×2 (12:00→21:44)
[2023-07-22 14:25] VITALS: BP 133/61; PULSE 62; RESP 16; TEMP 36.7; O2SAT 97
--- NOTE | 2023-07-22 16:39 | EX.PCM.CON.G ---
HPI Consult Data Date of Consult: 07/22/23 HPI Narrative Reason for Consultation: Anemia HPI Narrative: EDDA ZAMBRANO, is a 83 M who presents HPI Narrative: EDDA ZAMBRANO, is a 83 M who was recently hospitalized for weakness secondary to acute kidney injury, complicated by pneumonia and urinary retention. He was admitted to TCU with debility and he is here for rehabilitation. He has a past medical history of rectal cancer status post abdominal perineal resection with end colostomy. His previous history of June 17, 2018 was his most recent colonoscopy. 3 sessile polyps were removed from the proximal ascending colon at that time. 2 of them were consistent with tubular adenomas and one was a fragment of colonic mucosa. I was called to see him due to decrease in hemoglobin. 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 His hemoglobin previously was 10 and it drifted down to 8.8 and currently is 6.8. [facility] Medical History (Updated 07/23/23 @ 12:[address] 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 lactis 10 billion cell capsule 1 ea PO DAILY probiotic 06/25/16 [History Last Taken 08/11/20] alendronate 70 mg tablet 70 mg PO Q7D@0700 bones 06/25/16 [History Last Taken 08/11/20] calcium carbonate 500 mg-vitamin D3 2.5 mcg (100 unit) chewable tablet 2 tab PO DAILY supplement 06/25/16 [History Last Taken 08/11/20] multivitamin 1 ea PO DAILY supplement 06/25/16 [History Last Taken 08/11/20] nabumetone 500 mg tablet 500 mg PO DAILY pain 06/25/16 [History Last Taken 08/11/20] pravastatin 40 mg tablet 40 mg PO QHS cholesterol 06/25/16 [History Last Taken 08/11/20] tamsulosin 0.4 mg capsule 0.4 mg PO BID prostate 06/25/16 [History Last Taken 07/15/23] citalopram 40 mg tablet 10 mg PO DAILY depression 05/11/20 [History Last Taken 08/11/20] bupropion HCl 150 mg 24 hr tablet, extended release 150 mg PO DAILY depression 06/12/21 [History Last Taken 07/15/23] vitamin B complex 1 tab PO DAILY supplement 06/12/21 [History Last Taken Unknown] ferrous gluconate 325 mg (36 mg iron) tablet 324 mg PO DAILY low iron 06/21/21 [History Last Taken Unknown] brimonidine 0.2 %-timolol 0.5 % eye drops 1 ml ophthalmic (eye) DAILY eyes 02/02/22 [History Last Taken 07/15/23] cholecalciferol (vitamin D3) 25 mcg (1,000 unit) tablet 25 mcg PO DAILY supplement 03/09/22 [History Last Taken Unknown] latanoprost 0.005 % eye drops 1 drp ophthalmic (eye) QPM eye 06/11/22 [History Last Taken Unknown] amlodipine 5 mg tablet 5 mg PO DAILY BP #90 tabs 10/23/22 [Rx Last Taken Unknown] clopidogrel 75 mg tablet (Plavix) 75 mg PO DAILY Blood thinner 03/06/23 [History Last Taken Unknown] furosemide 40 mg tablet (Lasix) 40 mg PO DAILY fluid pill #5 tabs 03/06/23 [Rx Last Taken Unknown] pantoprazole 40 mg tablet,delayed release 40 mg PO DAILY reflux 03/06/23 [History Last Taken Unknown] potassium chloride 10 mEq capsule,extended release 10 meq PO DAILY supplement #5 caps 03/06/23 [Rx Last Taken Unknown] aspirin 81 mg tablet,delayed release (Adult Low Dose Aspirin) 81 mg PO DAILY blood thinner 07/15/23 [History Last Taken Unknown] carboxymethylcellulose sodium 1 % eye liquid gel drops 1 drp EACH EYE DAILY moisture 07/15/23 [History Last Taken Unknown] omeprazole 20 mg capsule,delayed release 20 mg PO BID reflux 07/15/23 [History Last Taken Unknown] trazodone 50 mg tablet 50 mg PO QHS sleep 07/15/23 [History Last Taken Unknown] Allergy/AdvReac Type Severity Reaction Status Date / Time morphine AdvReac Vomiting Verified 03/06/23 09:52 Family History Father Colon cancer Surgical History History of amputation of toe History of colectomy History of colonoscopy (~2014) History of colostomy History of inguinal hernia repair Presence of cardiac pacemaker (03/2022) Social History (Updated 07/15/23 @ 20:[address] Randall Titus MD) household members: spouse Smoking Status: Never smoker alcohol intake: never substance use type: does not use caffeine: No ROS Constitutional Constitutional: Reports weakness; Denies chills, fever(s) or weight gain ENT HEENT: Denies headache(s), nasal congestion or nasal discharge Cardiovascular Cardiovascular: Denies chest pain or palpitations Respiratory/Chest Respiratory/Chest: Denies cough, excessive phlegm production or shortness of breath with exertion Gastrointestinal Gastrointestinal: Denies abdominal pain, nausea or vomiting Genitourinary Genitourinary: Denies dysuria Musculoskeletal Musculoskeletal: Denies joint pain or joint swelling Integumentary Integumentary: Denies rash or wounds Neurologic Neurologic: Denies focal weakness, numbness or tingling Psychiatric Psychiatric: Denies anxiety, auditory hallucinations, depression, homicidal ideation or suicidal ideation Physical Exam Const alert General Appearance: cooperative HEENT normocephalic Eyes PERRL and EOMs intact bilaterally Neck supple, no JVD and no carotid bruits Resp normal respiratory effort, normal air movement and clear to auscultation bilaterally Cardio regular rate and regular rhythm GI normal to inspection, nondistended, normoactive bowel sounds, non-tender and non-distended GI Narrative: Colostomy. Bladder / Kidney Exam: catheter in place urethral Extremity normal capillary refill General Extremity: Negative for edema Skin no rashes or lesions noted General Skin Exam: no breakdown Psych affect normal Appearance: appropriate Medical Records Data Medical Nutrition Assessment Dietitian: Malnutrition Criteria Met Start: 07/17/23 13:02 Freq: Status: Active Protocol: Document 07/22/23 15:08 SLA (Rec: 07/22/23 15:08 SLA Desktop) Nutrition Malnutrition Evidence of Malnutrition Exists Yes Malnutrition (moderate): Acute Illness/Injury Evidenced By Suboptimal Energy Intake ( Moderate),Weight Loss ( Moderate),Physical Changes ( Moderate) Clinical Problem Acute Disease or Injury Related Malnutrition Etiology related to inadequate energy intake Signs/Symptoms as evidenced by 3% wt loss recently, poor po intake w/ frequent refusals at meals and generalized fat/muscle loss; BMI = 17.8 Status Active Problem Recommendation Dietitian Recommendations/Changes Continue liberal regular diet d/t s/s of malnutrition Will continue to provide 8 oz chocolate ensure plus 2x/day w / meals for increased nutrition if consumed. Will d/c ONS w/ medpass d/t frequent refusals Rec consider appetite stimulant to help encourage increased po intake at meals. Lab / Micro Data 07/23/23 05:20 07/23/23 05:20 Labs: Laboratory Results - last 24 hr 07/23/23 05:20: WBC 9.0, RBC 2.28 L, Hgb 6.8 L, Hct 22.6 L, MCV 99.1 H, MCH 29.8, MCHC 30.1 L, RDW Std Deviation 50.1 H, RDW Coeff of Bee 14.1, Plt Count 341, MPV 9.7, Immature Gran % (Auto) 1.200 H, Neut % (Auto) 68.8, Lymph % (Auto) 18.1 L, [place] % (Auto) 7.9, Eos % (Auto) 3.0, Baso % (Auto) 1.0, Absolute Neuts (auto) 6.2, Absolute Lymphs (auto) 1.62, Nucleated RBC % 0, Sodium 145, Potassium 4.1, Chloride 115 H, Carbon Dioxide 28.0, Anion Gap 2 L, BUN 42 H, Creatinine 1.17, Estim Creat Clear Calc 38.79, Est GFR (MDRD) Af Amer 77, Est GFR (MDRD) Non-Af 63, BUN/Creatinine Ratio 35.9 H, Glucose 104, Calcium 8.3 L 07/23/23 08:22: Blood Type Cancelled, Antibody Screen Cancelled, Crossmatch See Detail Micro: Microbiology 07/21/23 22:08 Urine Catheter - Mark Urine Culture - Final Culture exhibits no growth. Assessment & Plan Assessment/Plan (1) Iron deficiency anemia: QUALIFIERS: Iron deficiency anemia type: other iron deficiency Qualified Code(s): D50.8 - Other iron deficiency anemias PLAN: The differential diagnosis for adverse anemia does include upper GI bleed secondary to peptic ulcer disease or mass in and/or Plavix, gastric antral vascular Tage associated with angiodysplasias, Jeff's erosions, celiac disease, recurrent neoplasia, metachronous neoplasia in the bowel. He should undergo an upper endoscopy and if negative he will need a colonoscopy and possible capsule endoscopy. He was explained alternatives, risk, benefits including anesthetic bleeding, infection, perforation, need for emergent surgery and . He will have an ASA of 3. Charges/Coding Visit Charges Inpatient E&M: 41292 [facility] Init L2
--- NOTE | 2023-07-22 19:00 | NURSING ---
Pt has not had a bowel movement since 07/19/23 Pt refused PRN Senna.
--- NOTE | 2023-07-22 19:30 | NURSING ---
Patient's spouse reported that he was requiring more assistance with feeding himself as well as brushing his teeth. Spouse somewhat tearful when talking about patient, stating she feels he is regressing. She would like OT to know about his evening. Will let OT know in morning. Will continue to monitor.
[2023-07-22] MEDS: Latanoprost 0.005% 1 Bottle 1 DRP OPHTHALMIC (21:44)
[2023-07-22] MEDS: Carboxymethylcellulose sodium gel dropperette 1 EACH LEFT EYE (21:46)
[2023-07-22] MEDS: Acetaminophen 500 MG Tablet 1000 MG PO (21:47)
[2023-07-22] MEDS: Citalopram 10 MG Tablet 20 MG PO (21:48)
[2023-07-22] MEDS: traZODone 50 MG Tablet PO (21:49)
[2023-07-23 05:30] LABS: Absolute Lymphocyte Count 1.62 X10^3/uL (0.83-4.51); Absolute Neutrophil Count 6.2 X10^3/uL (2.0-7.7); Basophil# 0.09 X10^3/uL; Eosinophil# 0.27 X10^3/uL; Hematocrit 22.6 % (40-54); Hemoglobin 6.8 g/dL (13.0-16.5); Lymphocyte # 1.62 X10^3/ul (0.83-4.51); Lymphocyte % 18.1 % (19-41); Mean Corp Hgb Conc 30.1 g/dL (32-36); Mean Corpuscular Hgb 29.8 pg (27.0-32.0); Mean Corpuscular Volume 99.1 fL (80-94); Mean Platelet Vol. 9.7 fl (6.2-12.0); Monocyte# 0.71 X10^3/uL; Monocyte% 7.9 % (0-10); NRBC Flagged by Analyzer 0 % (0-5); Neutrophil # 6.16 X10^3/uL (2.7-7.7); Neutrophil % 68.8 % (47-70); Platelet Count 341 K/mm3 (150-450); RBC Distribution Width CV 14.1 % (11.6-14.6); RBC Distribution Width SD 50.1 fl (35.1-43.9); Red Blood Count 2.28 M/mm3 (4.6-6.2)
[2023-07-23 05:51] LABS: Anion Gap 2 (5-15); BUN 42 mg/dL (7-18); BUN/Creat Ratio 35.9 RATIO (10-20); Calcium,Total 8.3 mg/dL (8.5-10.1); Chloride 115 mmol/L (98-107); Creatinine, Serum 1.17 mg/dL (0.70-1.30); EST Glomerular Filtration Rate 63 mL/min (>60); Est Glom Filt Rate - Afr Amer 77 mL/min (>60); Estimated Creatinine Clearance 38.79 ml/min; Glucose 104 mg/dL (74-106); Potassium 4.1 mmol/L (3.5-5.1); Sodium Level 145 mmol/L (136-145)
--- NOTE | 2023-07-23 08:04 | NURSING ---
Addendum entered by María Penn 07/23/23 08:52: called back, updated that patient to receive blood tomorrow morning @0800. Original Note: Updated patient that 2 units blood ordered. Said this RN would update his family, he asked that his be notified. Called and left VM.
[2023-07-23 09:45] VITALS: BP 149/74; PULSE 60; RESP 18; TEMP 36.6; O2SAT 95
--- NOTE | 2023-07-23 09:46 | CASEMGMT ---
Social Work BIMS () and PHQ-2 () completed for MDS assessment. Ariadne Yates MSW [employer]
--- NOTE | 2023-07-23 10:00 | NURSING ---
Addendum entered by Becky Macario 07/23/23 13:22: Patient returned to unit from procedure. Original Note: Patient leaving unit for procedure.
[2023-07-23 15:34] VITALS: BP 163/74; PULSE 60
[2023-07-23] MEDS: Ascorbic Acid 500 MG Tablet PO (15:38)
[2023-07-23] MEDS: Losartan Potassium 100 MG Tablet PO (15:38)
[2023-07-23] MEDS: Pantoprazole Sodium 40 MG Tablet PO (15:38)
[2023-07-23] MEDS: Iron Polysaccharide Complex 150 MG CAPSULE PO (15:38)
[2023-07-23] MEDS: Bisacodyl 5 MG Tablet 20 MG PO (16:33)
[2023-07-23] MEDS: Tuberculin,Purif.prot.deriv. 50 TU/ML Vial 0.1 ML ID (16:34)
[2023-07-23] MEDS: Polyethylene Glycol 3350 BOWEL PREP 1 BOTTLE PO (17:51)
[2023-07-23] MEDS: Arthritis Pain Compound 60 CLICK TUBE TOPICAL (20:43)
[2023-07-23] MEDS: BRIMONIDINE 0.2% 5ML BOTTLE 1 DRP LEFT EYE (20:45)
[2023-07-23] MEDS: Citalopram 10 MG Tablet 20 MG PO (20:46)
[2023-07-23] MEDS: traZODone 50 MG Tablet PO (20:46)
[2023-07-23] MEDS: Tamsulosin HCl 0.4 MG Capsule PO (20:47)
[2023-07-23] MEDS: Carboxymethylcellulose sodium gel dropperette 1 EACH LEFT EYE (20:47)
[2023-07-23] MEDS: Timolol 0.5% 5ML OPTH.BTL 1 DRP LEFT EYE (20:48)
[2023-07-23] MEDS: Latanoprost 0.005% 1 Bottle 1 DRP OPHTHALMIC (20:49)
[2023-07-23] MEDS: buPROPion (XL) 150 MG TABLET.XL PO (20:50)
--- NOTE | 2023-07-23 21:23 | NURSING ---
Pt laying in bed, attempting to pick colostomy bag off and highly agitated does not want to drink bowel prep, dumped one glass on the floor next to bed.
--- NOTE | 2023-07-23 21:27 | NURSING ---
Pt educated on need for bowel prep and the need for clear stool.Pt states he can not and will not drink it, asked this nurse to not tell that he does not want to cancel his procedure.
--- NOTE | 2023-07-23 23:11 | NURSING ---
Pt picked hole into colostomy bag, received care and cleaned up. Educated on avoiding tampering with bag. Still refusing bowel prep at t5his time.
--- NOTE | 2023-07-24 09:06 | NUR.TO.PHY ---
Spoke with Dr. Titus, order for patient to receive one unit of blood today then recheck hgb. Original order was for 2 units, he received one unit yesterday during egd procedure. This RN called infusion center and notified them patient only needs one unit blood today. at nurse's station. Updated her that patient is receiving a unit of blood today. Also updated her he refused full bowel prep and colonoscopy unable to be done without proper prep.
[2023-07-24] MEDS: Iron Polysaccharide Complex 150 MG CAPSULE PO (10:56)
[2023-07-24] MEDS: Losartan Potassium 100 MG Tablet PO (10:56)
[2023-07-24] MEDS: Arthritis Pain Compound 60 CLICK TUBE TOPICAL ×2 (10:56→22:05)
[2023-07-24] MEDS: buPROPion (XL) 150 MG TABLET.XL PO ×2 (10:58→22:08)
[2023-07-24] MEDS: Tamsulosin HCl 0.4 MG Capsule PO ×2 (10:58→22:06)
[2023-07-24] MEDS: Ascorbic Acid 500 MG Tablet PO (10:58)
[2023-07-24] MEDS: Timolol 0.5% 5ML OPTH.BTL 1 DRP LEFT EYE ×2 (10:58→22:06)
[2023-07-24] MEDS: Pantoprazole Sodium 40 MG Tablet PO (10:58)
[2023-07-24 11:06] VITALS: BP 137/63; PULSE 60
[2023-07-24] MEDS: BRIMONIDINE 0.2% 5ML BOTTLE 1 DRP LEFT EYE ×2 (13:40→22:08)
[2023-07-24 16:00] VITALS: BP 139/54; PULSE 54; RESP 14; TEMP 36.2; O2SAT 97
--- NOTE | 2023-07-24 16:35 | NURSING ---
Dr. Paulson up to floor and Ordered Bowel prep to start now. Will do Colonoscopy tomorrow.
[2023-07-24] MEDS: Bisacodyl 5 MG Tablet 20 MG PO (16:56)
[2023-07-24] MEDS: Polyethylene Glycol 3350 BOWEL PREP 1 BOTTLE PO (18:54)
[2023-07-24] MEDS: Carboxymethylcellulose sodium gel dropperette 1 EACH LEFT EYE (22:06)
[2023-07-24] MEDS: Citalopram 10 MG Tablet 20 MG PO (22:07)
[2023-07-24] MEDS: traZODone 50 MG Tablet PO (22:07)
[2023-07-24] MEDS: Latanoprost 0.005% 1 Bottle 1 DRP OPHTHALMIC (22:08)
[2023-07-24] MEDS: Acetaminophen 500 MG Tablet 1000 MG PO (22:13)
[2023-07-25 06:24] LABS: Hemoglobin 10.6 g/dL (13.0-16.5)
--- NOTE | 2023-07-25 13:30 | MDS.RN ---
Information for the mds was obtained from review of the clinical record, interview of resident, staff, and direct observation of resident's care.
[2023-07-25 13:45] VITALS: BP 153/81; PULSE 60; RESP 17; TEMP 36.1; O2SAT 94
[2023-07-25] MEDS: Arthritis Pain Compound 60 CLICK TUBE TOPICAL ×2 (13:54→20:13)
[2023-07-25] MEDS: BRIMONIDINE 0.2% 5ML BOTTLE 1 DRP LEFT EYE ×2 (13:55→20:11)
[2023-07-25] MEDS: Losartan Potassium 100 MG Tablet PO (13:55)
[2023-07-25] MEDS: Iron Polysaccharide Complex 150 MG CAPSULE PO (13:56)
[2023-07-25] MEDS: Pantoprazole Sodium 40 MG Tablet PO (13:56)
[2023-07-25] MEDS: Ascorbic Acid 500 MG Tablet PO (13:56)
[2023-07-25] MEDS: buPROPion (XL) 150 MG TABLET.XL PO ×2 (13:56→20:12)
[2023-07-25] MEDS: Tamsulosin HCl 0.4 MG Capsule PO ×2 (13:56→20:12)
[2023-07-25] MEDS: Timolol 0.5% 5ML OPTH.BTL 1 DRP LEFT EYE ×2 (13:58→20:23)
[2023-07-25] MEDS: traZODone 50 MG Tablet PO (20:12)
[2023-07-25] MEDS: Citalopram 10 MG Tablet 20 MG PO (20:13)
[2023-07-25] MEDS: Acetaminophen 500 MG Tablet 1000 MG PO (20:16)
[2023-07-25] MEDS: Latanoprost 0.005% 1 Bottle 1 DRP OPHTHALMIC (20:20)
[2023-07-25] MEDS: Carboxymethylcellulose sodium gel dropperette 1 EACH LEFT EYE (20:25)
[2023-07-26] MEDS: Timolol 0.5% 5ML OPTH.BTL 1 DRP LEFT EYE ×2 (09:07→21:15)
[2023-07-26] MEDS: Iron Polysaccharide Complex 150 MG CAPSULE PO (09:07)
[2023-07-26] MEDS: Tamsulosin HCl 0.4 MG Capsule PO ×2 (09:07→21:16)
[2023-07-26] MEDS: buPROPion (XL) 150 MG TABLET.XL PO ×2 (09:08→21:16)
[2023-07-26] MEDS: Pantoprazole Sodium 40 MG Tablet PO (09:08)
[2023-07-26] MEDS: Ascorbic Acid 500 MG Tablet PO (09:08)
[2023-07-26] MEDS: Arthritis Pain Compound 60 CLICK TUBE TOPICAL ×2 (09:08→21:16)
[2023-07-26] MEDS: Losartan Potassium 100 MG Tablet PO (09:08)
[2023-07-26 09:43] VITALS: BP 168/95; PULSE 63
--- NOTE | 2023-07-26 10:43 | CASEMGMT ---
Addendum entered by Ariadne Yates 07/26/23 12:27: Insurance reviewer contacted this worker to discuss DC plans. SW updated from POC meeting notes and family's request for further therapy d/t medical changes this week. Insurance agreed and approved with NRD 07/30, DC 08/02. SW updated [place] [facility] and family. Addendum entered by Ariadne Yates 07/26/23 12:14: Received call from dtr stating [facility] does not have any beds; they do not like the location of [facility], but did tour [facility] and would like a referral sent for possible acceptance. SW sent referral to [facility] via [employer]. Will continue to follow. Original Note: Social Work IDT met with patient and dtr for care plan meeting. Discussed patient's progress in PT/OT/ST/SN. Educated to [facility] insurance NRD 07/26, EDC 07/29. IDT recommending 24/7 care at time of DC. Family agree they can not provide that level of care currently and pt expressed he feels comfortable in TCU getting the care he needs. SW offered [facility] list or SNF list. Family requesting SNF list. SW provided pt and dtr printed lists of SNFs with quality and resource data via [employer] Guide. SW educated to private pay cost and Medicare part B coverage for therapy. Family can afford OOP. Dtr and are going to tour [facility] and [facility], then notify this worker on choices. SW will continue to follow. Ariadne Yates MSW SANITATION ENGINEER
[2023-07-26] MEDS: BRIMONIDINE 0.2% 5ML BOTTLE 1 DRP LEFT EYE ×2 (11:49→21:15)
[2023-07-26 12:09] VITALS: BP 166/70; PULSE 60; RESP 16; TEMP 36.7; O2SAT 95
--- NOTE | 2023-07-26 15:26 | DS.PCM_ITS ---
Providers Date of Admission: 07/15/23 Primary Care Physician: Dr. Jared Singh, DO Consultations 07/18/23 17:25 Consult: Gastroenterology Routine Consulting Provider: [facility] Reason for Consult: Anemia, +stool guaiac. EMERGENT Consult: No MD Notified: Yes Date Notified: 07/18/23 Time Notified: 17:25 Method of Notification: Text Reason For Visit: LUIS, FAILURE TO THRIVE, PNEUMONIA Diagnosis Discharge Diagnosis (1) Iron deficiency anemia: Status: Acute Code(s): D50.9 - Iron deficiency anemia, unspecified Qualifiers: Iron deficiency anemia type: other iron deficiency Qualified Code(s): D50.8 - Other iron deficiency anemias Plan 83 year old male with below past medical history hospitalized for weakness secondary to acute kidney injury, complicated by pneumonia, urinary retention, admitted to TCU with debility, here for rehabilitation, strengthening, prior to discharge home with . * Debility - PT/OT. * Pain - Tylenol 1000mg q6 prn pain (1-10), Arthritis Compound 2 clicks topical bid left shoulder. * Bowel - Senna/colace 1 tablet prn. * Adult immunization - Administer pneumonia vaccine, covid19 vaccine, flu vaccine as appropriate. * DVT prophylaxis - Lovenox 30mg sc daily. * Depression - Bupropion XL 150mg daily, Citalopram 10mg qhs, stable chronic buttermilk drier operator use, GDR not recommended. * Dry eye - Refresh 1 gtt ow qhs. * Nutrition - Ensure 120ml 4x/day. * GERD - Pantoprazole 40mg daily. * Urinary retention/bph - Tamsulosin 0.4mg bid, indwelling perdue catheter. * Insomnia - Trazodone 50mg qhs, stable chronic buttermilk drier operator use, GDR not recommended. Medications at Discharge Home Medications L.acidoph, paracasei,B. lactis 10 billion cell capsule 1 ea PO DAILY probiotic 06/25/16 alendronate 70 mg tablet 70 mg PO Q7D@0700 bones 06/25/16 calcium carbonate 500 mg-vitamin D3 2.5 mcg (100 unit) chewable tablet 2 tab PO DAILY supplement 06/25/16 multivitamin 1 ea PO DAILY supplement 06/25/16 nabumetone 500 mg tablet 500 mg PO DAILY pain 06/25/16 pravastatin 40 mg tablet 40 mg PO QHS cholesterol 06/25/16 tamsulosin 0.4 mg capsule 0.4 mg PO BID prostate 06/25/16 citalopram 40 mg tablet 10 mg PO DAILY depression 05/11/20 bupropion HCl 150 mg 24 hr tablet, extended release 150 mg PO DAILY depression 06/12/21 vitamin B complex 1 tab PO DAILY supplement 06/12/21 ferrous gluconate 325 mg (36 mg iron) tablet 324 mg PO DAILY low iron 06/21/21 brimonidine 0.2 %-timolol 0.5 % eye drops 1 ml ophthalmic (eye) DAILY eyes 02/02/22 cholecalciferol (vitamin D3) 25 mcg (1,000 unit) tablet 25 mcg PO DAILY supplement 03/09/22 latanoprost 0.005 % eye drops 1 drp ophthalmic (eye) QPM eye 06/11/22 amlodipine 5 mg tablet 5 mg PO DAILY BP #90 tabs 10/23/22 clopidogrel 75 mg tablet (Plavix) 75 mg PO DAILY Blood thinner 03/06/23 furosemide 40 mg tablet (Lasix) 40 mg PO DAILY fluid pill #5 tabs 03/06/23 pantoprazole 40 mg tablet,delayed release 40 mg PO DAILY reflux 03/06/23 potassium chloride 10 mEq capsule,extended release 10 meq PO DAILY supplement #5 caps 03/06/23 aspirin 81 mg tablet,delayed release (Adult Low Dose Aspirin) 81 mg PO DAILY blood thinner 07/15/23 carboxymethylcellulose sodium 1 % eye liquid gel drops 1 drp EACH EYE DAILY moisture 07/15/23 omeprazole 20 mg capsule,delayed release 20 mg PO BID reflux 07/15/23 trazodone 50 mg tablet 50 mg PO QHS sleep 07/15/23 Hospital Course Operations None Procedures Colonoscopy and EGD Summary of Care Provided Minutes Spent on Discharge: 35 Hospital Course: 83 year old male with below past medical history hospitalized for weakness secondary to acute kidney injury, complicated by pneumonia, urinary retention, admitted to TCU with debility, here for rehabilitation, strengthening, prior to discharge home with . Resident anemic, hemoglobin 6.8, improved to 10.6 after 2 units PRBC transfusion. Stool guaiac positive. 07/23/2023 Dr. Paulson EGD non -severe reflux esophagitis without bleeding, hiatal hernia. 07/25/2023 Dr. Paulson colonoscopy 2 colonic polyps resected, diverticulosis, multiple bleeding colonic angiodysplastic lesions treated with a heater probe. Discharge to [facility] 08/02/2023, intermediate, part B therapies. Physical Exam Const alert General Appearance: cooperative HEENT normocephalic Eyes PERRL and EOMs intact bilaterally Neck supple, no JVD and no carotid bruits Resp normal respiratory effort, normal air movement and clear to auscultation bilaterally Cardio regular rate and regular rhythm GI normal to inspection, nondistended, normoactive bowel sounds, non-tender and non-distended Extremity normal capillary refill General Extremity: Negative for edema Skin no rashes or lesions noted General Skin Exam: no breakdown Psych affect normal Appearance: appropriate Medical Records Data Medical Nutrition Assessment Dietitian: Malnutrition Criteria Met Start: 07/17/23 13:02 Freq: Status: Active Protocol: Document 07/24/23 14:49 SLA (Rec: 07/24/23 14:49 SLA Desktop) Nutrition Malnutrition Evidence of Malnutrition Exists Yes Malnutrition (moderate): Acute Illness/Injury Evidenced By Suboptimal Energy Intake ( Moderate),Weight Loss ( Moderate),Physical Changes ( Moderate) Clinical Problem Acute Disease or Injury Related Malnutrition Etiology related to inadequate energy intake Signs/Symptoms as evidenced by 3% wt loss recently, poor po intake w/ frequent refusals at most meals and generalized fat/ muscle loss; BMI = 17.8 Status Active Problem Recommendation Dietitian Recommendations/Changes Continue liberal regular diet d/t s/s of malnutrition Will continue to provide 8 oz chocolate ensure plus 2x/day w / meals for increased nutrition if consumed. Rec consider appetite stimulant to help encourage increased po intake at meals. Weight / BMI Weight Weight: 56.336 kg Body Mass Index (BMI) 17.8 ABG / Lab / Microbiology Data 07/25/23 05:58 07/23/23 05:20 Microbiology: Microbiology 07/25/23 06:30 Nasal Secretion SARS-CoV-2 Antigen (Rapid) - Final 07/21/23 22:08 Urine Catheter - Perdue Urine Culture - Final Culture exhibits no growth. 07/22/23 06:00 Nasal Secretion SARS-CoV-2 Antigen (Rapid) - Final 07/19/23 06:50 Nasal Secretion SARS-CoV-2 Antigen (Rapid) - Final 07/18/23 04:44 Stool Stool Occult Blood (VÍCTOR) - Final Occult Blood Positive 07/16/23 05:40 Nasal Secretion SARS-CoV-2 Antigen (Rapid) - Final D/C Instructions Discharge Diet: No restrictions Discharge Activity: Return to Normal Activity, May Shower and Use Walker Weight Bearing Status: Weight bearing as tolerated Call your doctor if you observe: Fever of 101 or Higher, Inability to urinate, Inability to have a bowel movement, Shortness of breath, Dizziness, Fainting spells, Swelling in the ankles, Chest pain and Uncontrolled pain Additional Instructions: Discharge to [facility] 08/02/2023, intermediate, part B therapies. Please Follow Up With: Jared Singh, DO Meaningful Use Info Meaningful Use Diagnoses (Choose all that apply): None applicable Discharge Plan Admission Admit Date/Time: 07/15/23 14:19 Primary Reason for Your Visit: Debility. Attending Provider: Randall Titus Chi Primary Care Provider: Jared Singh Instructions Additional Instructions / Restrictions: Discharge to [facility] 08/02/2023, intermediate, part B therapies. Discharge Orders/Prescriptions Prescriptions: No Action citalopram 40 mg tablet 10 mg PO DAILY bupropion HCl 150 mg tablet extended release 24 hr 150 mg PO DAILY vitamin B complex Tablet 1 tab PO DAILY brimonidine-timolol 0.2-0.5 % drops 1 ml ophthalmic (eye) DAILY cholecalciferol (vitamin D3) 25 mcg (1,000 unit) tablet 25 mcg PO DAILY Hold Instructions: not ordered latanoprost 0.005 % drops 1 drp ophthalmic (eye) QPM Hold Instructions: Order Changed clopidogrel [Plavix] 75 mg tablet 75 mg PO DAILY Hold Instructions: not ordered pantoprazole 40 mg tablet,delayed release (DR/EC) 40 mg PO DAILY Hold Instructions: Order Changed multivitamin 1 EACH tablet 1 ea PO DAILY pravastatin 40 MG tablet 40 mg PO QHS alendronate 70 MG tablet 70 mg PO Q7D@0700 tamsulosin 0.4 MG capsule 0.4 mg PO BID nabumetone 500 MG tablet 500 mg PO DAILY Hold Instructions: Order Changed calcium carbonate-vitamin D3 1 EACH tablet,chewable 2 tab PO DAILY L.acidoph, paracasei,B. lactis 1 EACH capsule 1 ea PO DAILY Hold Instructions: Order Changed ferrous gluconate 325 mg (36 mg iron) Tablet 324 mg PO DAILY Hold Instructions: held aspirin [Adult Low Dose Aspirin] 81 mg tablet,delayed release (DR/EC) 81 mg PO DAILY carboxymethylcellulose sodium 1 % drops, liquid gel 1 drp EACH EYE DAILY omeprazole 20 mg capsule,delayed release(DR/EC) 20 mg PO BID trazodone 50 mg tablet 50 mg PO QHS Patient Comments: take 1/2 tablet by mouth at bedtime if needed for SEDATION amlodipine 5 mg tablet 5 mg PO DAILY Qty: 90 3RF Hold Instructions: not ordered furosemide [Lasix] 40 mg tablet 40 mg PO DAILY Qty: 5 0RF Hold Instructions: Order Changed potassium chloride 10 mEq capsule, extended release 10 meq PO DAILY Qty: 5 0RF Hold Instructions: Ordered Referrals / Follow Up: Jared Singh DO [Primary Care Provider] -
--- NOTE | 2023-07-26 15:26 | PCM.DC.SUM ---
Providers Date of Admission: 07/15/23 Primary Care Physician: Dr. Jared Singh, DO Consultations 07/18/23 17:25 Consult: Gastroenterology Routine Consulting Provider: [facility] Reason for Consult: Anemia, +stool guaiac. EMERGENT Consult: No MD Notified: Yes Date Notified: 07/18/23 Time Notified: 17:25 Method of Notification: Text Reason For Visit: LUIS, FAILURE TO THRIVE, PNEUMONIA Diagnosis Discharge Diagnosis (1) Iron deficiency anemia: Status: Acute Code(s): D50.9 - Iron deficiency anemia, unspecified Qualifiers: Iron deficiency anemia type: other iron deficiency Qualified Code(s): D50.8 - Other iron deficiency anemias Plan 83 year old male with below past medical history hospitalized for weakness secondary to acute kidney injury, complicated by pneumonia, urinary retention, admitted to TCU with debility, here for rehabilitation, strengthening, prior to discharge home with . Debility - PT/OT. Pain - Tylenol 1000mg q6 prn pain (1-10), Arthritis Compound 2 clicks topical bid left shoulder. Bowel - Senna/colace 1 tablet prn. Adult immunization - Administer pneumonia vaccine, covid19 vaccine, flu vaccine as appropriate. DVT prophylaxis - Lovenox 30mg sc daily. Depression - Bupropion XL 150mg daily, Citalopram 10mg qhs, stable chronic alf use, GDR not recommended. Dry eye - Refresh 1 gtt ow qhs. Nutrition - Ensure 120ml 4x/day. GERD - Pantoprazole 40mg daily. Urinary retention/bph - Tamsulosin 0.4mg bid, indwelling perdue catheter. Insomnia - Trazodone 50mg qhs, stable chronic alf use, GDR not recommended. Medications at Discharge Home Medications tamsulosin 0.4 mg capsule 0.4 mg PO BID prostate 06/25/16 carboxymethylcellulose sodium 1 % eye liquid gel drops 1 drp EACH EYE DAILY moisture 07/15/23 trazodone 50 mg tablet 50 mg PO QHS sleep 07/15/23 acetaminophen 500 mg tablet 1,000 mg (2 x 500 mg) PO Q6H PRN PRN Pain Score 1-10 #0 tabs 07/26/23 amlodipine 5 mg tablet 5 mg PO DAILY #0 tabs 07/26/23 ascorbic acid (vitamin C) 500 mg tablet 500 mg PO 1000 #0 tabs 07/26/23 brimonidine 0.2 % eye drops 1 drp LEFT EYE BID #0 mL 07/26/23 bupropion HCl 150 mg 24 hr tablet, extended release 150 mg PO BID #0 tabs 07/26/23 citalopram 10 mg tablet 20 mg (2 x 10 mg) PO QHS #0 tabs 07/26/23 latanoprost 0.005 % eye drops 1 drp ophthalmic (eye) QHS #0 mL 07/26/23 losartan 100 mg tablet 100 mg PO DAILY #0 tabs 07/26/23 pantoprazole 40 mg tablet,delayed release 40 mg PO DAILY #0 tabs 07/26/23 polysaccharide iron complex 150 mg iron capsule (Ferrex) 150 mg PO DAILY #0 caps 07/26/23 timolol maleate 0.5 % eye drops 1 drp LEFT EYE BID #0 mL 07/26/23 Hospital Course Operations None Procedures Colonoscopy and EGD Summary of Care Provided Minutes Spent on Discharge: 35 Hospital Course: 83 year old male with below past medical history hospitalized for weakness secondary to acute kidney injury, complicated by pneumonia, urinary retention, admitted to TCU with debility, here for rehabilitation, strengthening, prior to discharge home with . Resident anemic, hemoglobin 6.8, improved to 10.6 after 2 units PRBC transfusion. Stool guaiac positive. 07/23/2023 Dr. Paulson EGD non -severe reflux esophagitis without bleeding, hiatal hernia. 07/25/2023 Dr. Paulson colonoscopy 2 colonic polyps resected, diverticulosis, multiple bleeding colonic angiodysplastic lesions treated with a heater probe. Discharge to [facility] 08/02/2023, intermediate, part B therapies. Physical Exam Const alert General Appearance: cooperative HEENT normocephalic Eyes PERRL and EOMs intact bilaterally Neck supple, no JVD and no carotid bruits Resp normal respiratory effort, normal air movement and clear to auscultation bilaterally Cardio regular rate and regular rhythm GI normal to inspection, nondistended, normoactive bowel sounds, non-tender and non-distended Extremity normal capillary refill General Extremity: Negative for edema Skin no rashes or lesions noted General Skin Exam: no breakdown Psych affect normal Appearance: appropriate Medical Records Data Medical Nutrition Assessment Dietitian: Malnutrition Criteria Met Start: 07/17/23 13:02 Freq: Status: Active Protocol: Document 07/24/23 14:49 SLA (Rec: 07/24/23 14:49 SLA Desktop) Nutrition Malnutrition Evidence of Malnutrition Exists Yes Malnutrition (moderate): Acute Illness/Injury Evidenced By Suboptimal Energy Intake ( Moderate),Weight Loss ( Moderate),Physical Changes ( Moderate) Clinical Problem Acute Disease or Injury Related Malnutrition Etiology related to inadequate energy intake Signs/Symptoms as evidenced by 3% wt loss recently, poor po intake w/ frequent refusals at most meals and generalized fat/ muscle loss; BMI = 17.8 Status Active Problem Recommendation Dietitian Recommendations/Changes Continue liberal regular diet d/t s/s of malnutrition Will continue to provide 8 oz chocolate ensure plus 2x/day w / meals for increased nutrition if consumed. Rec consider appetite stimulant to help encourage increased po intake at meals. Weight / BMI Weight Weight: 56.336 kg Body Mass Index (BMI) 17.8 ABG / Lab / Microbiology Data 07/25/23 05:58 07/23/23 05:20 Microbiology: Microbiology 07/25/23 06:30 Nasal Secretion SARS-CoV-2 Antigen (Rapid) - Final 07/21/23 22:08 Urine Catheter - Perdue Urine Culture - Final Culture exhibits no growth. 07/22/23 06:00 Nasal Secretion SARS-CoV-2 Antigen (Rapid) - Final 07/19/23 06:50 Nasal Secretion SARS-CoV-2 Antigen (Rapid) - Final 07/18/23 04:44 Stool Stool Occult Blood (VÍCTOR) - Final Occult Blood Positive 07/16/23 05:40 Nasal Secretion SARS-CoV-2 Antigen (Rapid) - Final D/C Instructions Discharge Diet: No restrictions Discharge Activity: Return to Normal Activity, May Shower and Use Walker Weight Bearing Status: Weight bearing as tolerated Call your doctor if you observe: Fever of 101 or Higher, Inability to urinate, Inability to have a bowel movement, Shortness of breath, Dizziness, Fainting spells, Swelling in the ankles, Chest pain and Uncontrolled pain Additional Instructions: Discharge to [facility] 08/02/2023, intermediate, part B therapies. Please Follow Up With: Jared Singh, DO Meaningful Use Info Meaningful Use Diagnoses (Choose all that apply): None applicable Discharge Plan Admission Admit Date/Time: 10/16/23 14:19 Primary Reason for Your Visit: Debility. Attending Provider: Randall Titus Chi Primary Care Provider: Jared Singh Instructions Additional Instructions / Restrictions: Discharge to [facility] 08/02/2023, intermediate, part B therapies. Discharge Orders/Prescriptions Prescriptions: New citalopram 10 mg Tablet 20 mg PO QHS Qty: 0 0RF acetaminophen 500 mg Tablet 1,000 mg PO Q6H PRN PRN (Reason: Pain Score 1-10) Qty: 0 0RF pantoprazole 40 mg Tablet,Delayed Release (Dr/Ec) 40 mg PO DAILY Qty: 0 0RF bupropion HCl 150 mg Tablet Extended Release 24 Hr 150 mg PO BID Qty: 0 0RF amlodipine 5 mg Tablet 5 mg PO DAILY Qty: 0 0RF ascorbic acid (vitamin C) 500 mg Tablet 500 mg PO 1000 Qty: 0 0RF polysaccharide iron complex [Ferrex 150] 150 mg iron Capsule 150 mg PO DAILY Qty: 0 0RF brimonidine 0.2 % Drops 1 drp LEFT EYE BID Qty: 0 0RF latanoprost 0.005 % Drops 1 drp ophthalmic (eye) QHS Qty: 0 0RF timolol maleate 0.5 % Drops 1 drp LEFT EYE BID Qty: 0 0RF losartan 100 mg Tablet 100 mg PO DAILY Qty: 0 0RF Continued tamsulosin 0.4 MG capsule 0.4 mg PO BID carboxymethylcellulose sodium 1 % drops, liquid gel 1 drp EACH EYE DAILY trazodone 50 mg tablet 50 mg PO QHS Patient Comments: take 1/2 tablet by mouth at bedtime if needed for SEDATION Discontinued citalopram 40 mg tablet 10 mg PO DAILY bupropion HCl 150 mg tablet extended release 24 hr 150 mg PO DAILY vitamin B complex Tablet 1 tab PO DAILY brimonidine-timolol 0.2-0.5 % drops 1 ml ophthalmic (eye) DAILY cholecalciferol (vitamin D3) 25 mcg (1,000 unit) tablet 25 mcg PO DAILY Hold Instructions: not ordered latanoprost 0.005 % drops 1 drp ophthalmic (eye) QPM Hold Instructions: Order Changed clopidogrel [Plavix] 75 mg tablet 75 mg PO DAILY Hold Instructions: not ordered pantoprazole 40 mg tablet,delayed release (DR/EC) 40 mg PO DAILY Hold Instructions: Order Changed multivitamin 1 EACH tablet 1 ea PO DAILY pravastatin 40 MG tablet 40 mg PO QHS alendronate 70 MG tablet 70 mg PO Q7D@0700 nabumetone 500 MG tablet 500 mg PO DAILY Hold Instructions: Order Changed calcium carbonate-vitamin D3 1 EACH tablet,chewable 2 tab PO DAILY LEdwardacidoph, paracasei,B. lactis 1 EACH capsule 1 ea PO DAILY Hold Instructions: Order Changed ferrous gluconate 325 mg (36 mg iron) Tablet 324 mg PO DAILY Hold Instructions: held aspirin [Adult Low Dose Aspirin] 81 mg tablet,delayed release (DR/EC) 81 mg PO DAILY omeprazole 20 mg capsule,delayed release(DR/EC) 20 mg PO BID amlodipine 5 mg tablet 5 mg PO DAILY Qty: 90 3RF Hold Instructions: not ordered furosemide [Lasix] 40 mg tablet 40 mg PO DAILY Qty: 5 0RF Hold Instructions: Order Changed potassium chloride 10 mEq capsule, extended release 10 meq PO DAILY Qty: 5 0RF Hold Instructions: MD Ordered Referrals / Follow Up: Jared Singh DO [Primary Care Provider] - Disposition Disposition (needs filled in before D/C Order can be placed): NonSkilled NH/Intermed Care
--- NOTE | 2023-07-26 15:39 | PCM.TXEXTCAR ---
Diet Diet Order/Speech Therapy: 07/25/23 13:36 Diet: Regular - General Type of Dietary Supplement:: Ensure Plus High Protein Is pt able to select menu?: Yes Diet Comments: 8 oz chocolate EPHP w/ breakfast and dinner Routine Orders/Code Status Code Status: Full Code Wound(s) bilat buttocks: Wound Type: redness Dressing Change: Mepilex R elbow: Wound Type: Skin Tear Dressing Change: Adaptic - DSD Therapies Weight Bearing: Weight bearing as tolerated Physical Therapy: Eval and Treat Occupational Therapy: Eval and Treat Problem/Diagnosis (1) Iron deficiency anemia: Status: Acute Code(s): D50.9 - Iron deficiency anemia, unspecified Plan 83 year old male with below past medical history hospitalized for weakness secondary to acute kidney injury, complicated by pneumonia, urinary retention, admitted to TCU with debility, here for rehabilitation, strengthening, prior to discharge home with . Debility - PT/OT. Pain - Tylenol 1000mg q6 prn pain (1-10), Arthritis Compound 2 clicks topical bid left shoulder. Bowel - Senna/colace 1 tablet prn. Adult immunization - Administer pneumonia vaccine, covid19 vaccine, flu vaccine as appropriate. DVT prophylaxis - Lovenox 30mg sc daily. 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 Dry eye - Refresh 1 gtt ow qhs. Nutrition - Ensure 120ml 4x/day. GERD - Pantoprazole 40mg daily. Urinary retention/bph - Tamsulosin 0.4mg bid, indwelling perdue catheter. 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 Allergies/Procedures Done in Hospital Allergies morphine Adverse Reaction (Verified 07/25/23 10:52) Vomiting Procedures: Colonoscopy and EGD Type of Care/Length of Stay Estimated LOS: Convalescent Care Less Than 30 days Type of Care Needed: Intermediate Rehab Potential: Poor Prognosis: Fair Additional Orders/Day of Discharge Additional Orders: part b therapies. Day of Discharge: 08/02/23 Dietary and Speech Recommendations Dietitian Recommendations/Changes: Continue liberal regular diet d/t s/s of malnutrition Will continue to provide 8 oz chocolate ensure plus 2x/day w/ meals for increased nutrition if consumed. Rec consider appetite stimulant to help encourage increased po intake at meals. Follow Up Care Please Follow Up With: Jared Singh DO When: after DC Discharge Plan Admission Admit Date/Time: 07/15/23 14:19 Primary Reason for Your Visit: Debility. Attending Provider: Randall Titus Chi Primary Care Provider: Jared Singh Instructions Additional Instructions / Restrictions: Discharge to [facility] 08/02/2023, intermediate, part B therapies. Discharge Orders/Prescriptions Prescriptions: New citalopram 10 mg Tablet 20 mg PO QHS Qty: 0 0RF acetaminophen 500 mg Tablet 1,000 mg PO Q6H PRN PRN (Reason: Pain Score 1-10) Qty: 0 0RF pantoprazole 40 mg Tablet,Delayed Release (Dr/Ec) 40 mg PO DAILY Qty: 0 0RF bupropion HCl 150 mg Tablet Extended Release 24 Hr 150 mg PO BID Qty: 0 0RF amlodipine 5 mg Tablet 5 mg PO DAILY Qty: 0 0RF ascorbic acid (vitamin C) 500 mg Tablet 500 mg PO 1000 Qty: 0 0RF polysaccharide iron complex [Ferrex 150] 150 mg iron Capsule 150 mg PO DAILY Qty: 0 0RF brimonidine 0.2 % Drops 1 drp LEFT EYE BID Qty: 0 0RF latanoprost 0.005 % Drops 1 drp ophthalmic (eye) QHS Qty: 0 0RF timolol maleate 0.5 % Drops 1 drp LEFT EYE BID Qty: 0 0RF losartan 100 mg Tablet 100 mg PO DAILY Qty: 0 0RF Continued tamsulosin 0.4 MG capsule 0.4 mg PO BID carboxymethylcellulose sodium 1 % drops, liquid gel 1 drp EACH EYE DAILY trazodone 50 mg tablet 50 mg PO QHS Patient Comments: take 1/2 tablet by mouth at bedtime if needed for SEDATION Discontinued citalopram 40 mg tablet 10 mg PO DAILY bupropion HCl 150 mg tablet extended release 24 hr 150 mg PO DAILY vitamin B complex Tablet 1 tab PO DAILY brimonidine-timolol 0.2-0.5 % drops 1 ml ophthalmic (eye) DAILY cholecalciferol (vitamin D3) 25 mcg (1,000 unit) tablet 25 mcg PO DAILY Hold Instructions: not ordered latanoprost 0.005 % drops 1 drp ophthalmic (eye) QPM Hold Instructions: Order Changed clopidogrel [Plavix] 75 mg tablet 75 mg PO DAILY Hold Instructions: not ordered pantoprazole 40 mg tablet,delayed release (DR/EC) 40 mg PO DAILY Hold Instructions: Order Changed multivitamin 1 EACH tablet 1 ea PO DAILY pravastatin 40 MG tablet 40 mg PO QHS alendronate 70 MG tablet 70 mg PO Q7D@0700 nabumetone 500 MG tablet 500 mg PO DAILY Hold Instructions: Order Changed calcium carbonate-vitamin D3 1 EACH tablet,chewable 2 tab PO DAILY L.acidoph, paracasei,B. lactis 1 EACH capsule 1 ea PO DAILY Hold Instructions: Order Changed ferrous gluconate 325 mg (36 mg iron) Tablet 324 mg PO DAILY Hold Instructions: held aspirin [Adult Low Dose Aspirin] 81 mg tablet,delayed release (DR/EC) 81 mg PO DAILY omeprazole 20 mg capsule,delayed release(DR/EC) 20 mg PO BID amlodipine 5 mg tablet 5 mg PO DAILY Qty: 90 3RF Hold Instructions: not ordered furosemide [Lasix] 40 mg tablet 40 mg PO DAILY Qty: 5 0RF Hold Instructions: Order Changed potassium chloride 10 mEq capsule, extended release 10 meq PO DAILY Qty: 5 0RF Hold Instructions: Ordered Referrals / Follow Up: Jared Singh DO [Primary Care Provider] - Disposition Disposition (needs filled in before D/C Order can be placed): NonSkilled NH/Intermed Care (1) Iron deficiency anemia Qualifiers: Iron deficiency anemia type: other iron deficiency Qualified Code(s): D50.8 - Other iron deficiency anemias
[2023-07-26] MEDS: amLODIPine 5 MG Tablet PO (16:06)
[2023-07-26 16:47] VITALS: BP 145/70; PULSE 67
[2023-07-26] MEDS: Latanoprost 0.005% 1 Bottle 1 DRP OPHTHALMIC (21:14)
[2023-07-26] MEDS: Carboxymethylcellulose sodium gel dropperette 1 EACH LEFT EYE (21:15)
[2023-07-26] MEDS: Acetaminophen 500 MG Tablet 1000 MG PO (21:15)
[2023-07-26] MEDS: traZODone 50 MG Tablet PO (21:16)
[2023-07-26] MEDS: Citalopram 10 MG Tablet 20 MG PO (21:16)
[2023-07-27] MEDS: Ascorbic Acid 500 MG Tablet PO (08:45)
[2023-07-27] MEDS: Pantoprazole Sodium 40 MG Tablet PO (08:45)
[2023-07-27] MEDS: Tamsulosin HCl 0.4 MG Capsule PO ×2 (08:45→20:18)
[2023-07-27] MEDS: Iron Polysaccharide Complex 150 MG CAPSULE PO (08:46)
[2023-07-27] MEDS: buPROPion (XL) 150 MG TABLET.XL PO ×2 (08:46→20:17)
[2023-07-27] MEDS: Losartan Potassium 100 MG Tablet PO (08:46)
[2023-07-27] MEDS: BRIMONIDINE 0.2% 5ML BOTTLE 1 DRP LEFT EYE ×2 (08:47→20:19)
[2023-07-27] MEDS: Arthritis Pain Compound 60 CLICK TUBE TOPICAL ×2 (08:47→20:20)
[2023-07-27] MEDS: Timolol 0.5% 5ML OPTH.BTL 1 DRP LEFT EYE ×2 (08:48→20:18)
[2023-07-27] MEDS: amLODIPine 5 MG Tablet PO (09:34)
[2023-07-27 16:00] VITALS: BP 165/73; PULSE 63; RESP 16; TEMP 36; O2SAT 94
[2023-07-27] MEDS: Citalopram 10 MG Tablet 20 MG PO (20:16)
[2023-07-27] MEDS: Acetaminophen 500 MG Tablet 1000 MG PO (20:17)
[2023-07-27] MEDS: traZODone 50 MG Tablet PO (20:17)
[2023-07-27] MEDS: Carboxymethylcellulose sodium gel dropperette 1 EACH LEFT EYE (20:18)
[2023-07-27] MEDS: Latanoprost 0.005% 1 Bottle 1 DRP OPHTHALMIC (20:19)
[2023-07-28] MEDS: Arthritis Pain Compound 60 CLICK TUBE TOPICAL ×2 (10:31→23:12)
[2023-07-28] MEDS: Iron Polysaccharide Complex 150 MG CAPSULE PO (10:32)
[2023-07-28] MEDS: Losartan Potassium 100 MG Tablet PO (10:32)
[2023-07-28] MEDS: Tamsulosin HCl 0.4 MG Capsule PO ×2 (10:33→23:16)
[2023-07-28] MEDS: Pantoprazole Sodium 40 MG Tablet PO (10:33)
[2023-07-28] MEDS: buPROPion (XL) 150 MG TABLET.XL PO ×2 (10:33→23:15)
[2023-07-28] MEDS: Ascorbic Acid 500 MG Tablet PO (10:33)
[2023-07-28] MEDS: Timolol 0.5% 5ML OPTH.BTL 1 DRP LEFT EYE ×2 (10:34→23:13)
[2023-07-28] MEDS: BRIMONIDINE 0.2% 5ML BOTTLE 1 DRP LEFT EYE ×2 (10:36→23:13)
[2023-07-28] MEDS: amLODIPine 10 MG Tablet PO (10:44)
[2023-07-28] MEDS: Acetaminophen 500 MG Tablet 1000 MG PO ×2 (10:47→23:15)
[2023-07-28 12:51] VITALS: BP 160/75; PULSE 66; RESP 18; TEMP 36.6; O2SAT 98
[2023-07-28 23:00] VITALS: BP 170/92
[2023-07-28] MEDS: Latanoprost 0.005% 1 Bottle 1 DRP OPHTHALMIC (23:12)
[2023-07-28] MEDS: Citalopram 10 MG Tablet 20 MG PO (23:14)
[2023-07-28] MEDS: traZODone 50 MG Tablet PO (23:15)
[2023-07-28] MEDS: Carboxymethylcellulose sodium gel dropperette 1 EACH LEFT EYE (23:16)
[2023-07-29] MEDS: Iron Polysaccharide Complex 150 MG CAPSULE PO (10:52)
[2023-07-29] MEDS: Losartan Potassium 100 MG Tablet PO (10:52)
[2023-07-29] MEDS: BRIMONIDINE 0.2% 5ML BOTTLE 1 DRP LEFT EYE ×2 (10:53→22:06)
[2023-07-29] MEDS: Tamsulosin HCl 0.4 MG Capsule PO ×2 (10:53→22:08)
[2023-07-29] MEDS: Arthritis Pain Compound 60 CLICK TUBE TOPICAL ×2 (10:53→22:06)
[2023-07-29] MEDS: buPROPion (XL) 150 MG TABLET.XL PO ×2 (10:54→22:06)
[2023-07-29] MEDS: Pantoprazole Sodium 40 MG Tablet PO (10:54)
[2023-07-29] MEDS: Timolol 0.5% 5ML OPTH.BTL 1 DRP LEFT EYE ×2 (10:54→22:07)
[2023-07-29] MEDS: Ascorbic Acid 500 MG Tablet PO (10:55)
[2023-07-29] MEDS: amLODIPine 10 MG Tablet PO (10:57)
[2023-07-29 14:26] VITALS: BP 137/60; PULSE 60; RESP 18; TEMP 36.2; O2SAT 96
[2023-07-29] MEDS: Latanoprost 0.005% 1 Bottle 1 DRP OPHTHALMIC (22:07)
[2023-07-29] MEDS: Carboxymethylcellulose sodium gel dropperette 1 EACH LEFT EYE (22:08)
[2023-07-29] MEDS: traZODone 50 MG Tablet PO (22:08)
[2023-07-29] MEDS: Citalopram 10 MG Tablet 20 MG PO (22:09)
[2023-07-29] MEDS: Acetaminophen 500 MG Tablet 1000 MG PO (22:12)
[2023-07-30 05:49] LABS: Absolute Lymphocyte Count 1.57 X10^3/uL (0.83-4.51); Absolute Neutrophil Count 6.4 X10^3/uL (2.0-7.7); Basophil# 0.12 X10^3/uL; Basophil% 1.3 % (0-1); Eosinophil# 0.26 X10^3/uL; Eosinophils% 2.8 % (0-5); Hematocrit 33.7 % (40-54); Hemoglobin 10.6 g/dL (13.0-16.5); Lymphocyte # 1.57 X10^3/ul (0.83-4.51); Lymphocyte % 17.2 % (19-41); Mean Corp Hgb Conc 31.5 g/dL (32-36); Mean Corpuscular Hgb 30.8 pg (27.0-32.0); Mean Platelet Vol. 8.9 fl (6.2-12.0); Monocyte# 0.75 X10^3/uL; Monocyte% 8.2 % (0-10); NRBC Flagged by Analyzer 0 % (0-5); Neutrophil # 6.37 X10^3/uL (2.7-7.7); Neutrophil % 69.7 % (47-70); Platelet Count 366 K/mm3 (150-450); RBC Distribution Width CV 14.2 % (11.6-14.6); RBC Distribution Width SD 51.1 fl (35.1-43.9); Red Blood Count 3.44 M/mm3 (4.6-6.2); White Blood Count 9.1 K/mm3 (4.4-11.0)
[2023-07-30 06:34] LABS: Anion Gap 3 (5-15); BUN 37 mg/dL (7-18); BUN/Creat Ratio 27.8 RATIO (10-20); Calcium,Total 8.1 mg/dL (8.5-10.1); Chloride 114 mmol/L (98-107); Creatinine, Serum 1.33 mg/dL (0.70-1.30); EST Glomerular Filtration Rate 55 mL/min (>60); Est Glom Filt Rate - Afr Amer 66 mL/min (>60); Estimated Creatinine Clearance 34.12 ml/min; Glucose 116 mg/dL (74-106); Potassium 3.9 mmol/L (3.5-5.1); Sodium Level 143 mmol/L (136-145)
[2023-07-30] MEDS: Arthritis Pain Compound 60 CLICK TUBE TOPICAL ×2 (09:20→20:16)
[2023-07-30] MEDS: BRIMONIDINE 0.2% 5ML BOTTLE 1 DRP LEFT EYE ×2 (09:21→20:15)
[2023-07-30] MEDS: Iron Polysaccharide Complex 150 MG CAPSULE PO (09:21)
[2023-07-30] MEDS: Losartan Potassium 100 MG Tablet PO (09:21)
[2023-07-30] MEDS: Tamsulosin HCl 0.4 MG Capsule PO ×2 (09:22→20:16)
[2023-07-30] MEDS: amLODIPine 10 MG Tablet PO (09:22)
[2023-07-30] MEDS: Ascorbic Acid 500 MG Tablet PO (09:22)
[2023-07-30] MEDS: Pantoprazole Sodium 40 MG Tablet PO (09:22)
[2023-07-30] MEDS: Timolol 0.5% 5ML OPTH.BTL 1 DRP LEFT EYE ×2 (09:22→20:15)
[2023-07-30] MEDS: buPROPion (XL) 150 MG TABLET.XL PO ×2 (09:23→20:16)
[2023-07-30 09:46] VITALS: BMI 17.7
[2023-07-30 14:38] VITALS: BP 151/66; PULSE 61; RESP 16; TEMP 36.6; O2SAT 97
[2023-07-30] MEDS: Acetaminophen 500 MG Tablet 1000 MG PO (18:22)
[2023-07-30] MEDS: Latanoprost 0.005% 1 Bottle 1 DRP OPHTHALMIC (20:15)
[2023-07-30] MEDS: Citalopram 10 MG Tablet 20 MG PO (20:16)
[2023-07-30] MEDS: traZODone 50 MG Tablet PO (20:16)
[2023-07-30] MEDS: Carboxymethylcellulose sodium gel dropperette 1 EACH LEFT EYE (20:16)
[2023-07-31] MEDS: Arthritis Pain Compound 60 CLICK TUBE TOPICAL ×2 (08:19→19:54)
[2023-07-31] MEDS: Losartan Potassium 100 MG Tablet PO (08:21)
[2023-07-31] MEDS: Tamsulosin HCl 0.4 MG Capsule PO ×2 (08:21→19:53)
[2023-07-31] MEDS: Iron Polysaccharide Complex 150 MG CAPSULE PO (08:21)
[2023-07-31] MEDS: Ascorbic Acid 500 MG Tablet PO (08:22)
[2023-07-31] MEDS: buPROPion (XL) 150 MG TABLET.XL PO ×2 (08:22→19:54)
[2023-07-31] MEDS: amLODIPine 10 MG Tablet PO (08:22)
[2023-07-31] MEDS: Pantoprazole Sodium 40 MG Tablet PO (08:22)
[2023-07-31] MEDS: Timolol 0.5% 5ML OPTH.BTL 1 DRP LEFT EYE ×2 (08:23→20:00)
[2023-07-31] MEDS: BRIMONIDINE 0.2% 5ML BOTTLE 1 DRP LEFT EYE ×2 (08:23→19:52)
[2023-07-31 08:31] VITALS: BP 148/71; PULSE 71
--- NOTE | 2023-07-31 09:58 | CASEMGMT ---
Social Work ROMAN completed and DC paperwork sent to [facility]. Dtr to transport at 1000 on 08/02. KARIN KohlerW
[2023-07-31 14:24] VITALS: BP 126/54; PULSE 60; RESP 18; TEMP 36.1; O2SAT 97
[2023-07-31] MEDS: Citalopram 10 MG Tablet 20 MG PO (19:53)
[2023-07-31] MEDS: traZODone 50 MG Tablet PO (19:54)
[2023-07-31] MEDS: Acetaminophen 500 MG Tablet 1000 MG PO (19:59)
[2023-07-31] MEDS: Latanoprost 0.005% 1 Bottle 1 DRP OPHTHALMIC (20:06)
[2023-07-31 20:09] VITALS: PULSE 60; RESP 16; O2SAT 98
[2023-07-31] MEDS: Carboxymethylcellulose sodium gel dropperette 1 EACH LEFT EYE (20:13)
[2023-08-01] MEDS: Acetaminophen 500 MG Tablet 1000 MG PO ×2 (02:29→21:22)
[2023-08-01] MEDS: Timolol 0.5% 5ML OPTH.BTL 1 DRP LEFT EYE ×2 (09:21→21:13)
[2023-08-01] MEDS: Tamsulosin HCl 0.4 MG Capsule PO ×2 (09:22→21:12)
[2023-08-01] MEDS: Arthritis Pain Compound 60 CLICK TUBE TOPICAL ×2 (09:22→21:13)
[2023-08-01] MEDS: buPROPion (XL) 150 MG TABLET.XL PO ×2 (09:22→21:12)
[2023-08-01] MEDS: Iron Polysaccharide Complex 150 MG CAPSULE PO (09:22)
[2023-08-01] MEDS: Losartan Potassium 100 MG Tablet PO (09:22)
[2023-08-01] MEDS: BRIMONIDINE 0.2% 5ML BOTTLE 1 DRP LEFT EYE ×2 (09:22→21:12)
[2023-08-01] MEDS: amLODIPine 10 MG Tablet PO (09:22)
[2023-08-01] MEDS: Pantoprazole Sodium 40 MG Tablet PO (09:22)
[2023-08-01] MEDS: Ascorbic Acid 500 MG Tablet PO (09:22)
[2023-08-01 09:26] VITALS: BP 135/69; PULSE 59
[2023-08-01 10:00] VITALS: PULSE 60; O2SAT 96
[2023-08-01 15:01] VITALS: BP 136/55; PULSE 62; RESP 14; TEMP 36.4; O2SAT 96
[2023-08-01] MEDS: Citalopram 10 MG Tablet 20 MG PO (21:11)
[2023-08-01] MEDS: Latanoprost 0.005% 1 Bottle 1 DRP OPHTHALMIC (21:12)
[2023-08-01] MEDS: traZODone 50 MG Tablet PO (21:12)
[2023-08-01] MEDS: Carboxymethylcellulose sodium gel dropperette 1 EACH LEFT EYE (21:12)
[2023-08-02] MEDS: Arthritis Pain Compound 60 CLICK TUBE TOPICAL (08:36)
[2023-08-02] MEDS: Iron Polysaccharide Complex 150 MG CAPSULE PO (08:37)
[2023-08-02] MEDS: Tamsulosin HCl 0.4 MG Capsule PO (08:37)
[2023-08-02] MEDS: Ascorbic Acid 500 MG Tablet PO (08:37)
[2023-08-02] MEDS: Pantoprazole Sodium 40 MG Tablet PO (08:37)
[2023-08-02] MEDS: Losartan Potassium 100 MG Tablet PO (08:37)
[2023-08-02] MEDS: amLODIPine 10 MG Tablet PO (08:37)
[2023-08-02] MEDS: BRIMONIDINE 0.2% 5ML BOTTLE 1 DRP LEFT EYE (08:38)
[2023-08-02] MEDS: Timolol 0.5% 5ML OPTH.BTL 1 DRP LEFT EYE ×2 (08:39→08:43)
[2023-08-02] MEDS: buPROPion (XL) 150 MG TABLET.XL PO (08:43)
[2023-08-02 10:00] VITALS: BP 137/60; PULSE 60; RESP 16; TEMP 37; O2SAT 99
== END 2023-08-02 10:24 | disposition skilled nursing facility (03) | DRG 193 ==
PROVIDERS: Admitting Provider Family Medicine Geriatric Medicine; PCP Student in an Organized Health Care Education/Training Program; Visit Provider Family Medicine Geriatric Medicine
DX: J18.9 Pneumonia, unspecified organism (principal); K55.21 Angiodysplasia of colon with hemorrhage; N18.31 Chronic kidney disease, stage 3a; Z93.3 Colostomy status; D50.0 Iron deficiency anemia secondary to blood loss (chronic); D50.9 Iron deficiency anemia, unspecified; I12.9 Hypertensive chronic kidney disease with stage 1 through stage 4 chronic kidney disease, or unspecified chronic kidney disease; F32.A Depression, unspecified; E78.00 Pure hypercholesterolemia, unspecified; K21.9 Gastro-esophageal reflux disease without esophagitis; G47.33 Obstructive sleep apnea (adult) (pediatric); K44.9 Diaphragmatic hernia without obstruction or gangrene; K57.30 Diverticulosis of large intestine without perforation or abscess without bleeding; H40.9 Unspecified glaucoma; Z79.82 Long term (current) use of aspirin; Z79.83 Long term (current) use of bisphosphonates; N40.1 Benign prostatic hyperplasia with lower urinary tract symptoms; R33.8 Other retention of urine; Z79.899 Other long term (current) drug therapy; Z23 Encounter for immunization
CPT/HCPCS: 36415; 36430; 80048; 81001; 82274; 85014; 85018; 85025; 86850; 86900; 86901; 86920; 86922; 87086; 87811; 90480; 92507; 92523; 97110; 97112; 97116; 97129; 97130; 97162; 97166; 97530; 97535; 97802; J7040; P9016; 91322; A4216; J1940

== ENCOUNTER 2023-07-23 10:18 | Day surgery (SDC) | payer MEDICARE, SELFPAY ==
[2023-07-23] VITALS (9 sets, daily range): BP systolic 151–190; BP diastolic 69–83; PULSE 60–63; RESP 14–18; TEMP 36.3–36.7; O2SAT 95–100; BMI 18.2
[2023-07-23] MEDS: Lactated Ringers 1,000 ML 15 ML IV (10:31)
--- NOTE | 2023-07-23 12:20 | CON.PCM.GI_ITS ---
HPI Consult Data Date of Consult: 07/26/23 HPI Narrative Reason for Consultation: Anemia HPI Narrative: EDDA ZAMBRANO, is a 83 M who was recently hospitalized for weakness secondary to acute kidney injury, complicated by pneumonia and urinary retention. He was admitted to TCU with debility and he is here for rehabilitation. He has a past medical history of rectal cancer status post abdominal perineal resection with end colostomy. His previous history of June 17, 2018 was his most recent colonoscopy. 3 sessile polyps were removed from the proximal ascending colon at that time. 2 of them were consistent with tubular adenomas a nd one was a fragment of colonic mucosa. I was called to see him due to decrease in hemoglobin. 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 His hemoglobin previously was 10 and it drifted down to 8.8 and currently is 6.8. [facility] BY [facility] Medical History (Updated 07/23/23 @ 12:[address] 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 Indwelling urethral catheter present Ingrowing nail, right great toe Ingrowing right great toenail Junctional bradycardia Loss of hearing Low iron Non-smoker VIDAL (obstructive sleep apnea) Peripheral arterial occlusive disease Personal history of colonic polyps S/P arteriogram of extremity Sinus bradycardia Ulcer of right foot with fat layer exposed Wears glasses Home Medications tamsulosin 0.4 mg capsule 0.4 mg PO BID prostate 06/25/16 [History Last Taken 07/15/23] carboxymethylcellulose sodium 1 % eye liquid gel drops 1 drp EACH EYE DAILY moisture 07/15/23 [History Last Taken Unknown] trazodone 50 mg tablet 50 mg PO QHS sleep 07/15/23 [History Last Taken Unknown] acetaminophen 500 mg tablet 1,000 mg (2 x 500 mg) PO Q6H PRN PRN Pain Score 1-10 #0 tabs 07/26/23 [Rx Last Taken Unknown] amlodipine 5 mg tablet 5 mg PO DAILY #0 tabs 07/26/23 [Rx Last Taken Unknown] ascorbic acid (vitamin C) 500 mg tablet 500 mg PO 1000 #0 tabs 07/26/23 [Rx Last Taken Unknown] brimonidine 0.2 % eye drops 1 drp LEFT EYE BID #0 mL 07/26/23 [Rx Last Taken Unknown] bupropion HCl 150 mg 24 hr tablet, extended release 150 mg PO BID #0 tabs 07/26/23 [Rx Last Taken Unknown] citalopram 10 mg tablet 20 mg (2 x 10 mg) PO QHS #0 tabs 07/26/23 [Rx Last Taken Unknown] latanoprost 0.005 % eye drops 1 drp ophthalmic (eye) QHS #0 mL 07/26/23 [Rx Last Taken Unknown] losartan 100 mg tablet 100 mg PO DAILY #0 tabs 07/26/23 [Rx Last Taken Unknown] pantoprazole 40 mg tablet,delayed release 40 mg PO DAILY #0 tabs 07/26/23 [Rx Last Taken Unknown] polysaccharide iron complex 150 mg iron capsule (Ferrex) 150 mg PO DAILY #0 caps 07/26/23 [Rx Last Taken Unknown] timolol maleate 0.5 % eye drops 1 drp LEFT EYE BID #0 mL 07/26/23 [Rx Last Taken Unknown] Allergy/AdvReac Type Severity Reaction Status Date / Time morphine AdvReac Vomiting Verified 07/25/23 10:52 Family History Father Colon cancer Surgical History History of amputation of toe History of colectomy History of colonoscopy (~2014) History of colostomy History of inguinal hernia repair Presence of cardiac pacemaker (03/2022) Social History (Updated 07/15/23 @ 20:[address] Randall Titus MD) household members: spouse Smoking Status: Never smoker alcohol intake: never substance use type: does not use caffeine: No ROS Constitutional Constitutional: Reports weakness; Denies chills, fever(s) or weight gain ENT HEENT: Denies headache(s), nasal congestion or nasal discharge Cardiovascular Cardiovascular: Denies chest pain or palpitations Respiratory/Chest Respiratory/Chest: Denies cough, excessive phlegm production or shortness of breath with exertion Gastrointestinal Gastrointestinal: Denies abdominal pain, nausea or vomiting Genitourinary Genitourinary: Denies dysuria Musculoskeletal Musculoskeletal: Denies joint pain or joint swelling Integumentary Integumentary: Denies rash or wounds Neurologic Neurologic: Denies focal weakness, numbness or tingling Psychiatric Psychiatric: Denies anxiety, auditory hallucinations, depression, homicidal ideation or suicidal ideation Physical Exam Const alert General Appearance: cooperative HEENT normocephalic Eyes PERRL and EOMs intact bilaterally Neck supple, no JVD and no carotid bruits Resp normal respiratory effort, normal air movement and clear to auscultation bilaterally Cardio regular rate and regular rhythm GI normal to inspection, nondistended, normoactive bowel sounds, non-tender and non-distended GI Narrative: Colostomy. Bladder / Kidney Exam: catheter in place urethral Extremity normal capillary refill General Extremity: Negative for edema Skin no rashes or lesions noted General Skin Exam: no breakdown Psych affect normal Appearance: appropriate Lab / Micro Data Labs: Laboratory Results - last 24 hr 07/23/23 08:22: Blood Type A POSITIVE, Antibody Screen NEGATIVE, Crossmatch See Detail Assessment & Plan Assessment/Plan (1) Iron deficiency anemia: QUALIFIERS: Iron deficiency anemia type: other iron deficiency Qualified Code(s): D50.8 - Other iron deficiency anemias PLAN: The differential diagnosis for adverse anemia does include upper GI bleed secondary to peptic ulcer disease or mass in and/or Plavix, gastric antral vascular Tage associated with angiodysplasias, Jeff's erosions, celiac disease, recurrent neoplasia, metachronous neoplasia in the bowel. He should undergo an upper endoscopy and if negative he will need a colonoscopy and possible capsule endoscopy. He was explained alternatives, risk, benefits including anesthetic bleeding, infection, perforation, need for emergent surgery and . He will have an ASA of 3. Charges/Coding Visit Charges Inpatient E&M: 58075 [facility] Init L1
--- NOTE | 2023-07-23 12:21 | PCM.HP.STD ---
[facility] - General General Date of Admission: 07/23/23 Date of Service: 07/23/23 Chief Complaint: Anemia HPI Narrative 83 M who was recently hospitalized for weakness secondary to acute kidney injury, complicated by pneumonia and urinary retention. He was admitted to TCU with debility and he is here for rehabilitation. He has a past medical history of rectal cancer status post abdominal perineal resection with end colostomy. His previous history of June 17, 2018 was his most recent colonoscopy. 3 sessile polyps were removed from the proximal ascending colon at that time. 2 of them were consistent with tubular adenomas and one was a fragment of colonic mucosa. I was called to see him due to decrease in hemoglobin. 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 His hemoglobin previously was 10 and it drifted down to 8.8 and currently is 6.8. [facility] Medical History (Updated 07/23/23 @ 12:[address] 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 lactis 10 billion cell capsule 1 ea PO DAILY probiotic 06/25/16 [History Last Taken 08/11/20] alendronate 70 mg tablet 70 mg PO Q7D@0700 bones 06/25/16 [History Last Taken 08/11/20] calcium carbonate 500 mg-vitamin D3 2.5 mcg (100 unit) chewable tablet 2 tab PO DAILY supplement 06/25/16 [History Last Taken 08/11/20] multivitamin 1 ea PO DAILY supplement 06/25/16 [History Last Taken 08/11/20] nabumetone 500 mg tablet 500 mg PO DAILY pain 06/25/16 [History Last Taken 08/11/20] pravastatin 40 mg tablet 40 mg PO QHS cholesterol 06/25/16 [History Last Taken 08/11/20] tamsulosin 0.4 mg capsule 0.4 mg PO BID prostate 06/25/16 [History Last Taken 07/15/23] citalopram 40 mg tablet 10 mg PO DAILY depression 05/11/20 [History Last Taken 08/11/20] bupropion HCl 150 mg 24 hr tablet, extended release 150 mg PO DAILY depression 06/12/21 [History Last Taken 07/15/23] vitamin B complex 1 tab PO DAILY supplement 06/12/21 [History Last Taken Unknown] ferrous gluconate 325 mg (36 mg iron) tablet 324 mg PO DAILY low iron 06/21/21 [History Last Taken Unknown] brimonidine 0.2 %-timolol 0.5 % eye drops 1 ml ophthalmic (eye) DAILY eyes 02/02/22 [History Last Taken 07/15/23] cholecalciferol (vitamin D3) 25 mcg (1,000 unit) tablet 25 mcg PO DAILY supplement 03/09/22 [History Last Taken Unknown] latanoprost 0.005 % eye drops 1 drp ophthalmic (eye) QPM eye 06/11/22 [History Last Taken Unknown] amlodipine 5 mg tablet 5 mg PO DAILY BP #90 tabs 10/23/22 [Rx Last Taken Unknown] clopidogrel 75 mg tablet (Plavix) 75 mg PO DAILY Blood thinner 03/06/23 [History Last Taken Unknown] furosemide 40 mg tablet (Lasix) 40 mg PO DAILY fluid pill #5 tabs 03/06/23 [Rx Last Taken Unknown] pantoprazole 40 mg tablet,delayed release 40 mg PO DAILY reflux 03/06/23 [History Last Taken Unknown] potassium chloride 10 mEq capsule,extended release 10 meq PO DAILY supplement #5 caps 03/06/23 [Rx Last Taken Unknown] aspirin 81 mg tablet,delayed release (Adult Low Dose Aspirin) 81 mg PO DAILY blood thinner 07/15/23 [History Last Taken Unknown] carboxymethylcellulose sodium 1 % eye liquid gel drops 1 drp EACH EYE DAILY moisture 07/15/23 [History Last Taken Unknown] omeprazole 20 mg capsule,delayed release 20 mg PO BID reflux 07/15/23 [History Last Taken Unknown] trazodone 50 mg tablet 50 mg PO QHS sleep 07/15/23 [History Last Taken Unknown] Allergy/AdvReac Type Severity Reaction Status Date / Time morphine AdvReac Vomiting Verified 03/06/23 09:52 Family History Father Colon cancer Surgical History History of amputation of toe History of colectomy History of colonoscopy (~2014) History of colostomy History of inguinal hernia repair Presence of cardiac pacemaker (03/2022) Social History (Updated 07/15/23 @ 20:[address] Randall Titus MD) household members: spouse Smoking Status: Never smoker alcohol intake: never substance use type: does not use caffeine: No ROS Constitutional Constitutional: Reports weakness; Denies chills, fever(s) or weight gain ENT HEENT: Denies headache(s), nasal congestion or nasal discharge Cardiovascular Cardiovascular: Denies chest pain or palpitations Respiratory/Chest Respiratory/Chest: Denies cough, excessive phlegm production or shortness of breath with exertion Gastrointestinal Gastrointestinal: Denies abdominal pain, nausea or vomiting Genitourinary Genitourinary: Denies dysuria Musculoskeletal Musculoskeletal: Denies joint pain or joint swelling Integumentary Integumentary: Denies rash or wounds Neurologic Neurologic: Denies focal weakness, numbness or tingling Psychiatric Psychiatric: Denies anxiety, auditory hallucinations, depression, homicidal ideation or suicidal ideation Vital Signs Vital Signs Vital Signs: 07/23/23 10:24 07/23/23 10:24 07/23/23 11:04 Temperature 97.7 F L 97.3 F L Temperature Source Temporal Temporal Pulse Rate 61 63 Respiratory Rate 18 16 Respiratory Pattern Normal Blood Pressure 166/69 H 170/79 H Blood Pressure Mean 101 109 Blood Pressure Source Monitor Monitor Blood Pressure Position Supine Semi-Fowlers Blood Pressure Location Left Arm Right Arm Pulse Ox 95 96 Oxygen Delivery Method Room Air Room Air 07/23/23 11:19 Temperature 97.6 F L Temperature Source Temporal Pulse Rate 60 Respiratory Rate 16 Respiratory Pattern Blood Pressure 190/77 H Blood Pressure Mean 114 Blood Pressure Source Monitor Blood Pressure Position Semi-Fowlers Blood Pressure Location Right Arm Pulse Ox 98 Oxygen Delivery Method Room Air Weight Weight: 127 lb Body Mass Index (BMI) 18.2 Physical Exam Const alert General Appearance: cooperative HEENT normocephalic Eyes PERRL and EOMs intact bilaterally Neck supple, no JVD and no carotid bruits Resp normal respiratory effort, normal air movement and clear to auscultation bilaterally Cardio regular rate and regular rhythm GI normal to inspection, nondistended, normoactive bowel sounds, non-tender and non-distended GI Narrative: Colostomy. Bladder / Kidney Exam: catheter in place urethral Extremity normal capillary refill General Extremity: Negative for edema Skin no rashes or lesions noted General Skin Exam: no breakdown Psych affect normal Appearance: appropriate Results Lab / Micro Data Labs: Laboratory Results - last 24 hr 07/23/23 08:22: Blood Type A POSITIVE, Antibody Screen NEGATIVE, Crossmatch See Detail Assessment & Plan Assessment/Plan (1) Iron deficiency anemia: QUALIFIERS: Iron deficiency anemia type: other iron deficiency Qualified Code(s): D50.8 - Other iron deficiency anemias PLAN: The differential diagnosis for adverse anemia does include upper GI bleed secondary to peptic ulcer disease or mass in and/or Plavix, gastric antral vascular Tage associated with angiodysplasias, Jeff's erosions, celiac disease, recurrent neoplasia, metachronous neoplasia in the bowel. He should undergo an upper endoscopy and if negative he will need a colonoscopy and possible capsule endoscopy. He was explained alternatives, risk, benefits including anesthetic bleeding, infection, perforation, need for emergent surgery and . He will have an ASA of 3.
--- NOTE | 2023-07-23 12:33 | OP.EGD_ITS ---
Patient Name: Sean Sanders Procedure Date: 07/23/2023 11:18 AM Date of : 1940 Age: 83 Procedure: Upper GI endoscopy Indications: Iron deficiency anemia Providers: Prasanna Paulson DO Medicines: Monitored Anesthesia Care Patient Profile: This is an 83 year old male. Refer to note in patient chart for documentation of history and physical. Patient has symptoms of chronic dyspepsia. Complications: No immediate complications. Procedure: Pre-Anesthesia Assessment: - Prior to the procedure, a History and Physical was performed, and patient medications and allergies were reviewed. The patient is competent. The risks and benefits of the procedure and the sedation options and risks were discussed with the patient. All questions were answered and informed consent was obtained. Patient identification and proposed procedure were verified by the physician. Mental Status Examination: normal. Prophylactic Antibiotics: The patient does not require prophylactic antibiotics. Prior Anticoagulants: The patient has taken no anticoagulant or antiplatelet agents. ASA Grade Assessment: III - A patient with severe systemic disease. After reviewing the risks and benefits, the patient was deemed in satisfactory condition to undergo the procedure. The anesthesia plan was to use monitored anesthesia care (MAC). Immediately prior to administration of medications, the patient was re-assessed for adequacy to receive sedatives. The heart rate, respiratory rate, oxygen saturations, blood pressure, adequacy of pulmonary ventilation, and response to care were monitored throughout the procedure. The physical status of the patient was re-assessed after the procedure. After obtaining informed consent, the endoscope was passed under direct vision. Throughout the procedure, the patient's blood pressure, pulse, and oxygen saturations were monitored continuously. The gastroscope was introduced through the mouth, and advanced to the second part of duodenum. The upper GI endoscopy was accomplished without difficulty. The patient tolerated the procedure well. Scope In: 12:26:11 PM Scope Out: 12:27:44 PM Total Procedure Duration Time 0 hours 1 minute 33 seconds Findings: Non-severe esophagitis with no bleeding was found 35 to 37 cm from the incisors. A hiatal hernia was present. No other significant abnormalities were identified in a careful examination of the stomach. No gross lesions were noted in the second portion of the duodenum. Impression: - Non-severe reflux esophagitis with no bleeding. - Hiatal hernia. - No gross lesions in the second portion of the duodenum. - No specimens collected. Recommendation: - Return patient to referring hospital for ongoing care. - colonoscopy through the colostomy to look for the etiology of acute blood loss anemia. - Continue present medications. Procedure Code(s): --- Professional --- 39731, Esophagogastroduodenoscopy, flexible, transoral; diagnostic, including collection of specimen(s) by brushing or washing, when performed (separate procedure) CPT copyright 2021 [employer]. All rights reserved. The codes documented in this report are preliminary and upon supervisor forming and tempering review may be revised to meet current compliance requirements. Prasanna Paulson DO 07/23/2023 12:32:42 PM This report has been signed electronically. Number of Addenda: 0 Note Initiated On: 07/23/2023 11:18 AM
--- NOTE | 2023-07-23 12:33 | OP.CCLET_ITS ---
07/23/2023 Jared Singh [address] [place] [address] Re : Upper GI endoscopy procedure for Sean Sanders Dear Dr. Singh This procedure was performed on Sunday, July 23, 2023. My impressions and recommendations are as follows: Impressions : - Non-severe reflux esophagitis with no bleeding. - Hiatal hernia. - No gross lesions in the second portion of the duodenum. - No specimens collected. Recommendations : - Return patient to referring hospital for ongoing care. - colonoscopy through the colostomy to look for the etiology of acute blood loss anemia. - Continue present medications. My findings are described in the full procedure note, which is enclosed. If I can be of further assistance, please feel free to contact me at . Sincerely, Prasanna Paulson, 07/23/2023 12:32:42 PM This report has been signed electronically.
== END 2023-07-23 13:27 | disposition home or self-care (01) ==
LOC: EN 10:18 → AC 10:19
PROVIDERS: PCP Student in an Organized Health Care Education/Training Program; Referring Provider Student in an Organized Health Care Education/Training Program; Visit Provider Internal Medicine Gastroenterology
PROC: 0DJ08ZZ Inspection of Upper Intestinal Tract, Via Natural or Artificial Opening Endoscopic (ICD-10-PCS; CPT 43235; principal; 2023-07-23 11:25)
DX: K21.00 Gastro-esophageal reflux disease with esophagitis, without bleeding (principal); Z93.3 Colostomy status; N18.31 Chronic kidney disease, stage 3a; D50.8 Other iron deficiency anemias; I12.9 Hypertensive chronic kidney disease with stage 1 through stage 4 chronic kidney disease, or unspecified chronic kidney disease; E78.00 Pure hypercholesterolemia, unspecified; Z79.82 Long term (current) use of aspirin; K44.9 Diaphragmatic hernia without obstruction or gangrene; Z80.0 Family history of malignant neoplasm of digestive organs; Z86.010 Personal history of colon polyps; Z79.02 Long term (current) use of antithrombotics/antiplatelets; Z79.899 Other long term (current) drug therapy
CPT/HCPCS: 43235; 36415; 86850; 86900; 86901; 86920; 86922; J7040; J7120; P9016; J2405

== ENCOUNTER 2023-07-24 07:53 | Outpatient (CLI) | payer MEDICARE, SELFPAY ==
[2023-07-24] MEDS: 0.9% NaCl Peripheral Flush Adult/Peds IV (08:06)
[2023-07-24] MEDS: 0.9% Normal Saline (500mL Bag) 500 ML 15 ML IV (08:08)
[2023-07-24 08:13] VITALS: BP 141/71; PULSE 64; RESP 16; TEMP 36.1; O2SAT 95
[2023-07-24 08:37] VITALS: BP 141/79; PULSE 65; RESP 16; TEMP 36.1
[2023-07-24 09:37] VITALS: BP 141/68; PULSE 61; RESP 16; TEMP 36.1
[2023-07-24] MEDS: Furosemide 20 MG/2 ML VIAL IV (10:21)
== END 2023-07-24 07:54 | disposition home or self-care (01) ==
LOC: MEDOUTP 07:53
PROVIDERS: PCP Student in an Organized Health Care Education/Training Program; Referring Provider Family Medicine Geriatric Medicine; Visit Provider Family Medicine Geriatric Medicine
DX: K92.2 Gastrointestinal hemorrhage, unspecified (principal)
CPT/HCPCS: 36415; 36430; 86850; 86900; 86901; 86920; 86922; J7040; P9016; A4216; J1940

== ENCOUNTER 2023-07-25 10:24 | Day surgery (SDC) | payer MEDICARE, SELFPAY ==
--- NOTE | 2023-07-25 10:25 | HP_ITS ---
Chief Complaint: Anemia HPI Narrative 83 M who was recently hospitalized for weakness secondary to acute kidney injury, complicated by pneumonia and urinary retention. He was admitted to TCU with debility and he is here for rehabilitation. He has a past medical history of rectal cancer status post abdominal perineal resection with end colostomy. His previous history of June 17, 2018 was his most recent colonoscopy. 3 sessile polyps were removed from the proximal ascending colon at that time. 2 of them were consistent with tubular adenomas and one was a fragment of colonic mucosa. I was called to see him due to decrease in hemoglobin. 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 His hemoglobin previously was 10 and it drifted down to 8.8 and currently is 6.8. [facility] Medical History (Updated 07/23/23 @ 12:[address] 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 lactis 10 billion cell capsule 1 ea PO DAILY probiotic 06/25/16 [History Last Taken 08/11/20] alendronate 70 mg tablet 70 mg PO Q7D@0700 bones 06/25/16 [History Last Taken 08/11/20] calcium carbonate 500 mg-vitamin D3 2.5 mcg (100 unit) chewable tablet 2 tab PO DAILY supplement 06/25/16 [History Last Taken 08/11/20] multivitamin 1 ea PO DAILY supplement 06/25/16 [History Last Taken 08/11/20] nabumetone 500 mg tablet 500 mg PO DAILY pain 06/25/16 [History Last Taken 08/11/20] pravastatin 40 mg tablet 40 mg PO QHS cholesterol 06/25/16 [History Last Taken 08/11/20] tamsulosin 0.4 mg capsule 0.4 mg PO BID prostate 06/25/16 [History Last Taken 07/15/23] citalopram 40 mg tablet 10 mg PO DAILY depression 05/11/20 [History Last Taken 08/11/20] bupropion HCl 150 mg 24 hr tablet, extended release 150 mg PO DAILY depression 06/12/21 [History Last Taken 07/15/23] vitamin B complex 1 tab PO DAILY supplement 06/12/21 [History Last Taken Unknown] ferrous gluconate 325 mg (36 mg iron) tablet 324 mg PO DAILY low iron 06/21/21 [History Last Taken Unknown] brimonidine 0.2 %-timolol 0.5 % eye drops 1 ml ophthalmic (eye) DAILY eyes 02/02/22 [History Last Taken 07/15/23] cholecalciferol (vitamin D3) 25 mcg (1,000 unit) tablet 25 mcg PO DAILY supplement 03/09/22 [History Last Taken Unknown] latanoprost 0.005 % eye drops 1 drp ophthalmic (eye) QPM eye 06/11/22 [History Last Taken Unknown] amlodipine 5 mg tablet 5 mg PO DAILY BP #90 tabs 10/23/22 [Rx Last Taken Unknown] clopidogrel 75 mg tablet (Plavix) 75 mg PO DAILY Blood thinner 03/06/23 [History Last Taken Unknown] furosemide 40 mg tablet (Lasix) 40 mg PO DAILY fluid pill #5 tabs 03/06/23 [Rx Last Taken Unknown] pantoprazole 40 mg tablet,delayed release 40 mg PO DAILY reflux 03/06/23 [History Last Taken Unknown] potassium chloride 10 mEq capsule,extended release 10 meq PO DAILY supplement #5 caps 03/06/23 [Rx Last Taken Unknown] aspirin 81 mg tablet,delayed release (Adult Low Dose Aspirin) 81 mg PO DAILY blood thinner 07/15/23 [History Last Taken Unknown] carboxymethylcellulose sodium 1 % eye liquid gel drops 1 drp EACH EYE DAILY moisture 07/15/23 [History Last Taken Unknown] omeprazole 20 mg capsule,delayed release 20 mg PO BID reflux 07/15/23 [History Last Taken Unknown] trazodone 50 mg tablet 50 mg PO QHS sleep 07/15/23 [History Last Taken Unknown] Allergy/AdvReac Type Severity Reaction Status Date / Time morphine AdvReac Vomiting Verified 03/06/23 09:52 Family History Father Colon cancer Surgical History History of amputation of toe History of colectomy History of colonoscopy (~2014) History of colostomy History of inguinal hernia repair Presence of cardiac pacemaker (03/2022) Social History (Updated 07/15/23 @ 20:[address] Randall Titus MD) household members: spouse Smoking Status: Never smoker alcohol intake: never substance use type: does not use caffeine: No ROS Constitutional Constitutional: Reports weakness; Denies chills, fever(s) or weight gain ENT HEENT: Denies headache(s), nasal congestion or nasal discharge Cardiovascular Cardiovascular: Denies chest pain or palpitations Respiratory/Chest Respiratory/Chest: Denies cough, excessive phlegm production or shortness of breath with exertion Gastrointestinal Gastrointestinal: Denies abdominal pain, nausea or vomiting Genitourinary Genitourinary: Denies dysuria Musculoskeletal Musculoskeletal: Denies joint pain or joint swelling Integumentary Integumentary: Denies rash or wounds Neurologic Neurologic: Denies focal weakness, numbness or tingling Psychiatric Psychiatric: Denies anxiety, auditory hallucinations, depression, homicidal ideation or suicidal ideation Vital Signs Vital Signs Vital Signs: 07/23/2310:24 07/23/2310:24 07/23/2311:04 Temperature 97.7 F L 97.3 F L Temperature Source Temporal Temporal Pulse Rate 61 63 Respiratory Rate 18 16 Respiratory Pattern Normal Blood Pressure 166/69 H 170/79 H Blood Pressure Mean 101 109 Blood Pressure Source Monitor Monitor Blood Pressure Position Supine Semi-Fowlers Blood Pressure Location Left Arm Right Arm Pulse Ox 95 96 Oxygen Delivery Method Room Air Room Air 07/23/2311:19 Temperature 97.6 F L Temperature Source Temporal Pulse Rate 60 Respiratory Rate 16 Respiratory Pattern Blood Pressure 190/77 H Blood Pressure Mean 114 Blood Pressure Source Monitor Blood Pressure Position Semi-Fowlers Blood Pressure Location Right Arm Pulse Ox 98 Oxygen Delivery Method Room Air Weight Weight: 127 lb Body Mass Index (BMI) 18.2 Physical Exam Const alert General Appearance: cooperative HEENT normocephalic Eyes PERRL and EOMs intact bilaterally Neck supple, no JVD and no carotid bruits Resp normal respiratory effort, normal air movement and clear to auscultation bilaterally Cardio regular rate and regular rhythm GI normal to inspection, nondistended, normoactive bowel sounds, non-tender and non-distended GI Narrative: Colostomy. Bladder / Kidney Exam: catheter in place urethral Extremity normal capillary refill General Extremity: Negative for edema Skin no rashes or lesions noted General Skin Exam: no breakdown Psych affect normal Appearance: appropriate Results Lab / Micro Data Labs: Laboratory Results - last 24 hr 07/23/23 08:22: Blood Type A POSITIVE, Antibody Screen NEGATIVE, Crossmatch See Detail Assessment & Plan Assessment/Plan (1) Iron deficiency anemia: QUALIFIERS: Iron deficiency anemia type: other iron deficiency Qualified Code(s): D50.8 - Other iron deficiency anemias PLAN: The differential diagnosis for adverse anemia does include upper GI bleed secondary to peptic ulcer disease or mass in and/or Plavix, gastric antral vascular Tage associated with angiodysplasias, Jeff's erosions, celiac disease, recurrent neoplasia, metachronous neoplasia in the bowel. He should undergo an upper endoscopy and if negative he will need a colonoscopy and possible capsule endoscopy. He was explained alternatives, risk, benefits including anesthetic bleeding, infection, perforation, need for emergent surgery and . He will have an ASA of 3.
[2023-07-25] MEDS: Lactated Ringers 1,000 ML 15 ML IV (10:41)
[2023-07-25 10:57] VITALS: BP 181/77; PULSE 61; RESP 16; TEMP 36.1; O2SAT 97; BMI 17.8
--- NOTE | 2023-07-25 11:30 | COLBX_PTH ---
PATIENT: EDDA ZAMBRANO [place] [facility] [id number] AGE/SX: 83/M ROOM: RE07/25/[address]: Dr. Prasanna Paulson DO : 1940 BED: DIS: 07/25/2023 SPEC #: [id number] RECD: 07/25/23 14:58 STATUS: YOLANDA RERudy #: [id number] WALLY: 07/25/23 11:[address]: Prasanna Paulson DEPT: SURGICAL PATHOLOGY RECD BY: Cristiana Dawkins ENTERED: 07/26/23 07:54 SP TYPE: COLON BX OTHR DR: Dr. Jared Singh DO Tissues: Transverse colon Sigmoid colon biopsy Procedures: Surgery Specimen Level IV HEADER OPERATION: Colonoscopy, through colostomy, polypectomy, electrohemostasis PRE-OP DIAGNOSIS: Screening TISSUE SUBMITTED: A - Transverse polyp, B - Sigmoid polyp MICROSCOPIC DIAGNOSIS A. Transverse colon polyp, biopsy: Fragments of tubular adenoma. B. Sigmoid colon polyp, biopsy: Fragments of tubular adenoma. AM:blanco 07/29/2023 MICROSCOPIC DESCRIPTION Slides are reviewed. GROSS DESCRIPTION A - Received in fixative is one container labeled with the patient's name and designated transverse polyp. The specimen consists of multiple irregular fragments of pink-kimbrough soft tissue that in aggregate measure 2.5 x 1.0 x 0.2 cm. A kimbrough-pink polyp is also noted measuring 1.0 x 0.5 x 0.6 cm. The largest follicular piece is bisected. The entire specimen is submitted in one cassette. B -Received in fixative is one container labeled with the patient's name and designated sigmoid polyp. The specimen consists of multiple irregular fragments of light kimbrough soft tissue that in aggregate measure 2.5 x 1.0 x 0.1 cm. The specimen is totally submitted in one cassette. / CHARLES:blanco 07/26/2023 TC:5 CPT: 56534 x2
--- NOTE | 2023-07-25 12:20 | OP.COLON_ITS ---
Patient Name: Sean Sanders Procedure Date: 07/25/2023 11:37 AM Date of : 1940 Age: 83 Procedure: Colonoscopy Indications: Iron deficiency anemia Providers: Prasanna Paulson DO Referring MD: Prasanna Paulson DO Medicines: Monitored Anesthesia Care Patient Profile: This is an 83 year old male. Refer to note in patient chart for documentation of history and physical. Last Colonoscopy: more than 10 years ago. Complications: No immediate complications. Procedure: Pre-Anesthesia Assessment: - Prior to the procedure, a History and Physical was performed, and patient medications and allergies were reviewed. The risks and benefits of the procedure and the sedation options and risks were discussed with the patient. All questions were answered and informed consent was obtained. Patient identification and proposed procedure were verified by the physician in the pre-procedure area. Mental Status Examination: alert and oriented. Airway Examination: normal oropharyngeal airway and neck mobility. Respiratory Examination: clear to auscultation. CV Examination: normal. Prophylactic Antibiotics: The patient does not require prophylactic antibiotics. Prior Anticoagulants: The patient has taken no previous anticoagulant or antiplatelet agents. ASA Grade Assessment: III - A patient with severe systemic disease. After reviewing the risks and benefits, the patient was deemed in satisfactory condition to undergo the procedure. The anesthesia plan was to use monitored anesthesia care (MAC). Immediately prior to administration of medications, the patient was re-assessed for adequacy to receive sedatives. The heart rate, respiratory rate, oxygen saturations, blood pressure, adequacy of pulmonary ventilation, and response to care were monitored throughout the procedure. The physical status of the patient was re-assessed after the procedure. After I obtained informed consent, the scope was passed under direct vision. Throughout the procedure, the patient's blood pressure, pulse, and oxygen saturations were monitored continuously. The Colonoscope was introduced through the anus and advanced to the cecum, identified by appendiceal orifice and ileocecal valve. The colonoscopy was performed without difficulty. The patient tolerated the procedure well. The quality of the bowel preparation was fair. The ileocecal valve, appendiceal orifice, and rectum were photographed. Scope In: 11:46:47 AM Scope Withdrawal Time 0 hours 23 minutes 29 seconds Scope Out: 12:15:23 PM Total Procedure Duration Time 0 hours 28 minutes 36 seconds Findings: The perianal and digital rectal examinations were normal. Two sessile polyps were found in the sigmoid colon and transverse colon. The polyps were 2 to 3 mm in size. These polyps were removed with a saline injection-lift technique using a hot snare. Resection and retrieval were complete. To prevent bleeding post-intervention, one hemostatic clip was successfully placed. Clip property inspector: [employer]. There was no bleeding at the end of the procedure. Multiple small and large-mouthed diverticula were found in the recto-sigmoid colon, sigmoid colon and descending colon. Multiple small localized angiodysplastic lesions with bleeding were found at the splenic flexure. Coagulation for hemostasis using heater probe was successful. Estimated blood loss was minimal. A moderate amount of stool was found at the hepatic flexure, in the ascending colon and in the cecum. Impression: - Preparation of the colon was fair. - Two 2 to 3 mm polyps in the sigmoid colon and in the transverse colon, removed using injection-lift and a hot snare. Resected and retrieved. Clip was placed. Clip property inspector: [employer]. - Diverticulosis in the recto-sigmoid colon, in the sigmoid colon and in the descending colon. - Multiple bleeding colonic angiodysplastic lesions. Treated with a heater probe. - Stool at the hepatic flexure, in the ascending colon and in the cecum. Recommendation: - Resume previous diet. - Continue present medications. - Await pathology results. - Repeat colonoscopy in 6 months because the bowel preparation was suboptimal. Procedure Code(s): --- Professional --- 90302, 59, Colonoscopy, flexible; with control of bleeding, any method 06810, Colonoscopy, flexible; with removal of tumor(s), polyp(s), or other lesion(s) by snare technique 79073, 59, Colonoscopy, flexible; with directed submucosal injection(s), any substance CPT copyright 2021 [employer]. All rights reserved. The codes documented in this report are preliminary and upon sail repairer review may be revised to meet current compliance requirements. Prasanna Paulson DO 07/25/2023 12:20:00 PM This report has been signed electronically. Number of Addenda: 0 Note Initiated On: 07/25/2023 11:37 AM
--- NOTE | 2023-07-25 12:20 | OP.CCLET_ITS ---
07/25/2023 Jared Singh [address] [place] [address] Re : Colonoscopy procedure for Sean Sanders Dear Dr. Singh This procedure was performed on June. My impressions and recommendations are as follows: Impressions : - Preparation of the colon was fair. - Two 2 to 3 mm polyps in the sigmoid colon and in the transverse colon, removed using injection-lift and a hot snare. Resected and retrieved. Clip was placed. Clip conversion worker: [employer]. - Diverticulosis in the recto-sigmoid colon, in the sigmoid colon and in the descending colon. - Multiple bleeding colonic angiodysplastic lesions. Treated with a heater probe. - Stool at the hepatic flexure, in the ascending colon and in the cecum. Recommendations : - Resume previous diet. - Continue present medications. - Await pathology results. - Repeat colonoscopy in 6 months because the bowel preparation was suboptimal. My findings are described in the full procedure note, which is enclosed. If I can be of further assistance, please feel free to contact me at . Sincerely, Prasanna Paulson, 07/25/2023 12:20:00 PM This report has been signed electronically.
[2023-07-25 12:25] VITALS: BP 163/79; BP 181/77; PULSE 60; RESP 12; TEMP 36.3; O2SAT 99
[2023-07-25 12:30] VITALS: BP 163/79; BP 181/77; PULSE 62; RESP 18; O2SAT 97
[2023-07-25 12:35] VITALS: BP 176/79; BP 181/77; PULSE 61; RESP 18; O2SAT 96
[2023-07-25 12:40] VITALS: BP 153/80; BP 181/77; PULSE 60; RESP 12; TEMP 36.2; O2SAT 95
[2023-07-25 13:20] VITALS: BP 181/77
== END 2023-07-25 13:33 | disposition home or self-care (01) ==
LOC: SDC 10:26 → AC 10:26
PROVIDERS: PCP Student in an Organized Health Care Education/Training Program; Referring Provider Internal Medicine Gastroenterology; Visit Provider Internal Medicine Gastroenterology
PROC: 0DJD8ZZ Inspection of Lower Intestinal Tract, Via Natural or Artificial Opening Endoscopic (ICD-10-PCS; CPT 45378; principal; 2023-07-25 11:25)
DX: D12.3 Benign neoplasm of transverse colon (principal); N18.30 Chronic kidney disease, stage 3 unspecified; K57.30 Diverticulosis of large intestine without perforation or abscess without bleeding; D50.9 Iron deficiency anemia, unspecified; K55.21 Angiodysplasia of colon with hemorrhage; D12.5 Benign neoplasm of sigmoid colon; I12.9 Hypertensive chronic kidney disease with stage 1 through stage 4 chronic kidney disease, or unspecified chronic kidney disease; E78.00 Pure hypercholesterolemia, unspecified; Z79.899 Other long term (current) drug therapy
CPT/HCPCS: 45385; 45382; 88305; J7120; J2405

== ENCOUNTER → 2023-09-19 | Outpatient (CLI) | payer MEDICARE, SELFPAY ==
--- NOTE | 2023-09-19 12:57 | RAD_ITS ---
EXAM: XR RIGHT FOOT COMPLETE, 3 OR MORE VIEWS CLINICAL INDICATION: UNSPECIFIED OPEN WOUND, RIGHT FOOT, INITIAL ENCOUNTER TECHNIQUE: Frontal, lateral and oblique views of the right foot. 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 Chronic fracture of the distal fibula. No sclerotic or destructive changes observed. SOFT TISSUES: Soft tissue swelling throughout the foot and ankle. No radiopaque foreign body. VASCULATURE: Vascular calcifications. RAD/Foot min 3 Views IMPRESSION: 1. Soft tissue swelling throughout the foot and ankle. 2. 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 3. Chronic fracture of the distal fibula. Electronically Signed: Nathan Lim DO at 20:08 EST ,
== END | disposition home or self-care (01) ==
LOC: RAD 12:47
PROVIDERS: PCP Student in an Organized Health Care Education/Training Program; Referring Provider Surgery Trauma Surgery; Visit Provider Surgery Trauma Surgery
DX: S91.301A Unspecified open wound, right foot, initial encounter (principal); X58.XXXA Exposure to other specified factors, initial encounter
CPT/HCPCS: 73630

== ENCOUNTER → 2023-09-27 | Outpatient (CLI) | payer MEDICARE, SELFPAY ==
--- NOTE | 2023-09-27 10:37 | ART_ITS ---
Reason For Study: Ulcer Procedure A bilateral lower extremity continuous wave Doppler with analog waveform analysis and ankle brachial indexes. Left Segmental Pressures Left brachial= 145mmHg. Left posterior tibial artery = 87mmHg. Left dorsalis pedis artery = 88mmHg. Right Segmental Pressures Right brachial= 133mmHg. Right posterior tibial artery = 107mmHg. Right dorsalis pedis artery = >254mmHg. Indices The right ankle brachial index by the posterior tibial artery is 0.74. The right ankle brachial index by the dorsalis pedis is NC. The left ankle brachial index by the posterior tibial artery is 0.60. The left ankle brachial index by the dorsalis pedis is 0.61. VL/Lower Ext Art Exam w/o Exercis Interpretation Summary Right TANIA 0.74, moderate arterial insufficiency. Doppler/PVR waveforms of the r ight leg moderately diminished distal SFA/popliteal, infrapopliteal. Left TANIA 0.61, moderate arterial insufficiency. Doppler/PVR waveforms of the le ft leg moderately diminished distal SFA/popliteal. Ordering Physician: Eileen Henderson Referring Physician: Jared Singh Performed By: Pippa Sorto RDCS/RVT
== END | disposition home or self-care (01) ==
LOC: CVS 10:37
PROVIDERS: PCP Student in an Organized Health Care Education/Training Program; Referring Provider Physician Assistant; Visit Provider Physician Assistant
DX: I73.9 Peripheral vascular disease, unspecified (principal); I77.9 Disorder of arteries and arterioles, unspecified; S91.301A Unspecified open wound, right foot, initial encounter; X58.XXXA Exposure to other specified factors, initial encounter
CPT/HCPCS: 93923